=== PATIENT | male | born 1945 | race Caucasian/White ===

== ENCOUNTER 2016-08-31 15:45 | Inpatient (IN) | payer MEDICARE ==
[2016-08-31] MEDS ORDERED: IV VANCOMYCIN PER PHARMACY 1 EACH MISC MISCELLANE PRN (18:55)
[2016-08-31] MEDS ORDERED: IPRATROPIUM-ALBUTEROL 3 ML NEB INHALATION SCH (19:00)
[2016-08-31 19:31] LABS: Basophils # (A) 0.1 k/uL (0-0.2); Basophils % (A) 1 %; CH 34.8; CHCM 34.4; Eosinophils # (A) 0.4 k/uL (0-0.7); Eosinophils % (A) 5 %; HGB 14.4 gm/dL (13.0-17.5); Luc # (Auto) 0.18; Luc % (Auto) 2; Lymphocytes # (A) 1.3 k/uL (1.0-4.8); Lymphocytes % (A) 16 %; MCH 34.3 pg (25.0-35.0); MCHC 33.6 g/dL (31.0-37.0); Macrocytosis Slight; Mean Platelet Volume 7.4; Monocytes # (A) 0.6 k/uL (0-1.0); Monocytes % (A) 7 %; Neutrophils # (A) 5.5 k/uL (1.3-7.7); Neutrophils % (A) 69 %; RBC 4.21 m/uL (4.30-5.90); WBC (Perox) 8.06
[2016-08-31] MEDS: BUDESONIDE 0.5 MG/2 ML NEBU INHALATION SCH (19:51)
[2016-08-31] MEDS: IPRATROPIUM-ALBUTEROL 3 ML NEB INHALATION SCH ×2 (19:51→23:25)
[2016-08-31] MEDS ORDERED: VANCOMYCIN 2,250 MG in SODIUM CHLORIDE 0.9% 500 ML IVPB ONE (20:00)
[2016-08-31 20:01] LABS: Anion Gap 10 mmol/L; Blood Urea Nitrogen 9 mg/dL (9-20); Calcium 9.3 mg/dL (8.4-10.2); Carbon Dioxide 25 mmol/L (22-30); Chloride 104 mmol/L (98-107); Glucose 138 mg/dL (74-99); Non-African American GFR(MDRD) >60 (>60 ml/min/1.73 sqM); Potassium 4.2 mmol/L (3.5-5.1); Sodium 139 mmol/L (137-145)
[2016-08-31] MEDS: MONTELUKAST 10 MG TAB PO SCH (20:38)
[2016-08-31] MEDS: guaiFENesin 600 MG TABLET.ER PO SCH (22:27)
[2016-09-01] MEDS: Acetaminophen-Codeine 300-30mg TAB PO PRN ×2 (00:42→23:34)
[2016-09-01] MEDS: BUDESONIDE 0.5 MG/2 ML NEBU INHALATION SCH ×2 (07:15→20:00)
[2016-09-01] MEDS: IPRATROPIUM-ALBUTEROL 3 ML NEB INHALATION SCH ×4 (07:15→20:00)
[2016-09-01] MEDS: VANCOMYCIN 1,750 MG in SODIUM CHLORIDE 0.9% 250 ML IVPB SCH ×2 (09:23→20:34)
[2016-09-01] MEDS: guaiFENesin 600 MG TABLET.ER PO SCH ×2 (09:23→21:34)
--- NOTE | 2016-09-01 09:29 | XR ---
EXAMINATION TYPE: XR foot limited RT , 2 VIEWS DATE OF EXAM ORDERED: 09/01/2016 HISTORY: osteomyelitis 3rd toe. COMPARISON: None. FINDINGS: There is gross degenerative change in the right first MTP joint. The distal MTP has a post surgical appearance. There is gross destruction of the distal phalanx of the third digit with soft ti ssue swelling. No fracture is seen. There is a small plantar cranial spur. IMPRESSION: EVIDENCE CONSISTENT WITH OSTEOMYELITIS OF THE DISTAL PHALANX OF THE RIGHT THIRD DIGIT. 2. GROSS DEGENERATIVE AND POSSIBLE POSTSURGICAL CHANGE INVOLVING THE RIGHT FIRST MTP JOINT. 3. SMALL, PLANTAR CALCANEAL SPUR.
--- NOTE | 2016-09-01 10:55 | US ---
EXAMINATION TYPE: US venous doppler duplex LE RT DATE OF EXAM: 09/01/2016 10:21 AM COMPARISON: NONE CLINICAL HISTORY: swelling. Right leg edema SIDE PERFORMED: Right TECHNIQUE: The lower extremity deep venous system is examined utilizing real time linear array sonog monique with graded compression, doppler sonography and color-flow sonography. VESSELS IMAGED: External Iliac Vein (EIV) Common Femoral Vein Deep Femoral Vein Greater Saphenous Vein * Femoral Vein Popliteal Vein Small Saphenous Vein * Proximal Calf Veins (* superficial vessels) Right Leg: Negative for DVT IMPRESSION: 1. No diagnostic evidence of DVT.
--- NOTE | 2016-09-01 14:25 | P.GSCN ---
History of Present Illness History of present illness: 71-year-old gentleman, history of trauma to the right foot third toe about 3 weeks ago noticed some redness and bleeding at the heel of the bed he cleaned with hydrogen peroxide been to the [facility] and then patient has been transferred to [facility] had x-ray of the foot which showed osteomyelitis of the right foot third toe patient is an IV antibiotic Medical history no history of diabetes, no history of hypertension, history of sleep apnea Neck examination neck is supple no bruit appreciated Chest clear first and second sound normal Abdomen soft nontender Vascular examination brachial radial pulses are present femorals are 1+ posterior tibial dorsal pedal not palpable patient has a right foot third toe slight redness and some swelling noted Plan is infected right foot third toe with ostial mellitus patient will be seen by Dr. Xavier Gates we will BX dusty recommendation we will try with antibiotic and local wound care if patient need any surgical intervention we will proceed follow with you thank you very much Past Medical History Past Medical History: Asthma, Cancer, COPD, Hyperlipidemia, Prostate Disorder, Sleep Apnea/CPAP/BIPAP History of Any Multi-Drug Resistant Organisms: None Reported Past Anesthesia/Blood Transfusion Reactions: No Reported Reaction Past Psychological History: No Psychological Hx Reported Smoking Status: Former smoker - Past Family History Mother History Unknown: Yes Family Medical History: Cancer Medications and Allergies Home Medications Medication Instructions Recorded Confirmed Type Acetaminophen-Codeine 300-30mg 2 tab PO Q6H PRN 08/31/16 08/31/16 History [Tylenol #3] Albuterol Sulfate [Ventolin Hfa] 1 - 2 puff INHALATION RT-Q6H PRN 08/31/1608/31 History Aspirin 81 mg PO HS 08/31/16 08/31/16 History Atorvastatin [Lipitor] 10 mg PO HS 08/31/16 08/31/16 History Budesonide [Pulmicort] 0.5 mg INHALATION BID 08/31/16 08/31/16 History Fish Oil/Dha/Epa [Fish Oil 1,200 1 cap PO BID 08/31/16 08/31/16 History mg Fish Oil] Ipratropium-Albuterol Nebulize 3 ml INHALATION RT-QID 08/31/16 08/31/16 History [Duoneb 0.5 mg-3 mg/3 ml Soln] Montelukast [Singulair] 10 mg PO HS 08/31/16 08/31/16 History guaiFENesin [Mucinex] 1,200 mg PO BID 08/31/16 08/31/16 History Allergies Allergy/AdvReac Type Severity Reaction Status Date / Time bee venom protein (honey bee) Allergy Itching Verified 08/31/16 18:03 Surgical - Exam Vital Signs Temp Pulse Resp BP Pulse Ox 97.9 F 85 20 138/79 95 08/31/16 18:03 08/31/16 18:03 08/31/16 18:03 08/31/16 18:03 08/31/16 18:03 Results - Labs 08/31/16 19:12 08/31/16 19:12 Abnormal Lab Results - Last 24 Hours (Table) 08/31/16 08/31/16 Range/Units 19:12 19:12 RBC 4.21 L (4.30-5.90) m/uL MCV 102.0 H (80.0-100.0) fL Glucose 138 H (74-99) mg/dL Diabetes panel 08/31/16 Range/Units 19:12 Sodium 139 (137-145) mmol/L Potassium 4.2 (3.5-5.1) mmol/L Chloride 104 (98-107) mmol/L Carbon Dioxide 25 (22-30) mmol/L BUN 9 (9-20) mg/dL Creatinine 0.90 (0.66-1.25) mg/dL Glucose 138 H (74-99) mg/dL Calcium 9.3 (8.4-10.2) mg/dL Calcium panel 08/31/16 Range/Units 19:12 Calcium 9.3 (8.4-10.2) mg/dL Pituitary panel 08/31/16 Range/Units 19:12 Sodium 139 (137-145) mmol/L Potassium 4.2 (3.5-5.1) mmol/L Chloride 104 (98-107) mmol/L Carbon Dioxide 25 (22-30) mmol/L BUN 9 (9-20) mg/dL Creatinine 0.90 (0.66-1.25) mg/dL Glucose 138 H (74-99) mg/dL Calcium 9.3 (8.4-10.2) mg/dL Adrenal panel 08/31/16 Range/Units 19:12 Sodium 139 (137-145) mmol/L Potassium 4.2 (3.5-5.1) mmol/L Chloride 104 (98-107) mmol/L Carbon Dioxide 25 (22-30) mmol/L BUN 9 (9-20) mg/dL Creatinine 0.90 (0.66-1.25) mg/dL Glucose 138 H (74-99) mg/dL Calcium 9.3 (8.4-10.2) mg/dL
--- NOTE | 2016-09-01 17:23 | P.HPIM ---
History of Present Illness H&P Date: 09/01/16 Chief Complaint: Right third toe infection 71-year-old gentleman with peripheral neuropathy due to unknown etiology comes in to the hospital from [facility] after patient noted an infected third toe on his right foot patient went to [facility] a day prior to this evaluation patient underwent a computed tomography scan which was concerning for osteomyelitis Patient was recommended to go back to the hospital for further evaluation Patient was sent into the hospital was started on IV antibiotics with vancomycin per my recommendation Patient states that his only past medical history is COPD No fevers chills tenderness nausea vomiting diarrhea is reported Patient states that he does not have any crampy lower extremity pain, claudication Review of Systems All systems: negative (Noted in HPI) Past Medical History Past Medical History: Asthma, Cancer, COPD, Hyperlipidemia, Prostate Disorder, Sleep Apnea/CPAP/BIPAP History of Any Multi-Drug Resistant Organisms: None Reported Past Anesthesia/Blood Transfusion Reactions: No Reported Reaction Past Psychological History: No Psychological Hx Reported Smoking Status: Former smoker - Past Family History Mother History Unknown: Yes Family Medical History: Cancer Medications and Allergies Home Medications Medication Instructions Recorded Confirmed Type Acetaminophen-Codeine 300-30mg 2 tab PO Q6H PRN 08/31/16 08/31/16 History [Tylenol #3] Albuterol Sulfate [Ventolin Hfa] 1 - 2 puff INHALATION RT-Q6H PRN 08/31/1608/31 History Aspirin 81 mg PO HS 08/31/16 08/31/16 History Atorvastatin [Lipitor] 10 mg PO HS 08/31/16 08/31/16 History Budesonide [Pulmicort] 0.5 mg INHALATION BID 08/31/16 08/31/16 History Fish Oil/Dha/Epa [Fish Oil 1,200 1 cap PO BID 08/31/16 08/31/16 History mg Fish Oil] Ipratropium-Albuterol Nebulize 3 ml INHALATION RT-QID 08/31/16 08/31/16 History [Duoneb 0.5 mg-3 mg/3 ml Soln] Montelukast [Singulair] 10 mg PO HS 08/31/16 08/31/16 History guaiFENesin [Mucinex] 1,200 mg PO BID 08/31/16 08/31/16 History Allergies Allergy/AdvReac Type Severity Reaction Status Date / Time bee venom protein (honey bee) Allergy Itching Verified 08/31/16 18:03 Physical Exam Vitals: Vital Signs Temp Pulse Pulse Pulse Resp BP Pulse Ox 09/01/16 16:58 80 09/01/16 16:45 77 09/01/16 14:48 97.1 F L 82 18 147/77 97 09/01/16 12:27 82 09/01/16 12:15 80 09/01/16 08:00 79 18 09/01/16 07:30 80 09/01/16 07:15 76 09/01/16 07:00 97.9 F 79 18 142/87 97 08/31/16 23:47 72 08/31/16 23:25 80 08/31/16 23:00 97.5 F L 88 20 140/70 94 L 08/31/16 20:14 86 08/31/16 19:52 84 08/31/16 18:03 97.9 F 85 20 138/79 95 Intake and Output 09/01/16 09/01/16 09/01/16 06:59 14:59 22:59 Intake Total 100 480 Balance 100 480 Intake: Oral 100 480 Other: Voiding Method Toilet # Voids 3 # Bowel Movements 0 Physical exam Gen. appearance oriented 3 in no distress Neck is supple no JVD Lungs good air entry clear to auscultation no rhonchi or wheezing Heart S1-S2 heard regular rate and rhythm no murmurs appreciated Abdomen is soft nontender no organomegaly bowel sounds are intact Neurologically cranial nerves II-12 grossly intact no focal motor or sensory deficits noted Right leg 2+ pitting edema in her to palpation difficult to palpate DP and PT on the right lower extremity Right great toe is necrotic material nontender to palpation no significant pus is expressed Results CBC & Chem 7: 08/31/16 19:12 08/31/16 19:12 Labs: Abnormal Lab Results - Last 24 Hours (Table) 08/31/16 08/31/16 Range/Units 19:12 19:12 RBC 4.21 L (4.30-5.90) m/uL MCV 102.0 H (80.0-100.0) fL Glucose 138 H (74-99) mg/dL Thrombosis Risk Factor Assmnt - Choose All That Apply Any of the Below Risk Factors Present?: No Other Risk Factors: Yes Each Risk Factor Represents 2 Points: Age 61-74 years Other congenital or acquired thrombophilia - If yes, enter type in comment: No Thrombosis Risk Factor Assessment Total Risk Factor Score: 2 Thrombosis Risk Factor Assessment Level: Low Risk Assessment and Plan Plan: #1 osteomyelitis of the right toe #2. Neuropathy #3 obstructive sleep apnea #4 COPD #5 prostate hyperplasia #6 obesity Plan We'll have ID and vascular surgery on consult A vascular Doppler will be done to rule out a DVT in that lower extremity We'll discontinue the patient on IV vancomycin patient would need long-term antibiotic therapy blood cultures will be done We'll have a PICC line placed tomorrow DVT prophylaxis
[2016-09-01] MEDS: ENOXAPARIN 40 MG/0.4 ML SYRINGE SQ SCH (18:58)
[2016-09-01] MEDS: MONTELUKAST 10 MG TAB PO SCH (20:33)
[2016-09-02] MEDS: guaiFENesin 600 MG TABLET.ER PO SCH ×2 (07:58→20:07)
[2016-09-02] MEDS: ENOXAPARIN 40 MG/0.4 ML SYRINGE SQ SCH (07:58)
[2016-09-02] MEDS: VANCOMYCIN 1,750 MG in SODIUM CHLORIDE 0.9% 250 ML IVPB SCH ×2 (07:59→20:39)
[2016-09-02] MEDS: IPRATROPIUM-ALBUTEROL 3 ML NEB INHALATION SCH ×4 (08:18→22:56)
[2016-09-02] MEDS: BUDESONIDE 0.5 MG/2 ML NEBU INHALATION SCH ×2 (08:18→22:56)
[2016-09-02 08:19] LABS: Anion Gap 8 mmol/L; Blood Urea Nitrogen 8 mg/dL (9-20); Calcium 8.9 mg/dL (8.4-10.2); Carbon Dioxide 26 mmol/L (22-30); Chloride 107 mmol/L (98-107); Glucose 104 mg/dL (74-99); Non-African American GFR(MDRD) >60 (>60 ml/min/1.73 sqM); Potassium 4.3 mmol/L (3.5-5.1); Sodium 141 mmol/L (137-145)
[2016-09-02] MEDS: Acetaminophen-Codeine 300-30mg TAB PO PRN ×2 (14:13→22:42)
--- NOTE | 2016-09-02 18:13 | P.PN ---
Subjective 71-year-old gentleman with peripheral neuropathy due to unknown etiology comes in to the hospital from [facility] after patient noted an infected third toe on his right foot patient went to [facility] a day prior to this evaluation patient underwent a computed tomography scan which was concerning for osteomyelitis Patient was recommended to go back to the hospital for further evaluation Patient was sent into the hospital was started on IV antibiotics with vancomycin per my recommendation Patient states that his only past medical history is COPD No fevers chills tenderness nausea vomiting diarrhea is reported Patient states that he does not have any crampy lower extremity pain, claudication 09/02/2016 Patient denies having any fevers chills nausea vomiting chest pain difficulty breathing abdominal pain or diarrhea States the right lower ext is not tender Objective - Vital Signs Vital signs: Vital Signs Temp 98.2 F 09/02/16 15:00 Pulse 68 09/02/16 15:55 Resp 18 09/02/16 15:00 BP 134/74 09/02/16 15:00 Pulse Ox 96 09/02/16 15:00 Intake & Output 09/01/16 09/02/16 09/02/16 18:59 06:59 18:59 Intake Total 480 100 Balance 480 100 Weight 107.8 kg Intake: Oral 480 100 Other: Voiding Method Toilet Toilet # Voids 3 1 2 # Bowel Movements 0 0 - Exam Physical exam Physical exam Gen. appearance oriented 3 in no distress Neck is supple no JVD Lungs good air entry clear to auscultation no rhonchi or wheezing Heart S1-S2 heard regular rate and rhythm no murmurs appreciated Abdomen is soft nontender no organomegaly bowel sounds are intact Neurologically cranial nerves II-12 grossly intact no focal motor or sensory deficits noted Skin no abnormalities appreciated Right foot is wrapped - Labs CBC & Chem 7: 08/31/16 19:12 09/02/16 07:44 Labs: Abnormal Lab Results - Last 24 Hours (Table) 09/02/16 Range/Units 07:44 BUN 8 L (9-20) mg/dL Glucose 104 H (74-99) mg/dL Assessment and Plan Plan: #1 osteomyelitis of the right toe #2. Neuropathy #3 obstructive sleep apnea #4 COPD #5 prostate hyperplasia #6 obesity Plan DVT study is negative Continue with medi honey Continue wound care Continue with IV antibiotic We'll have a PICC line placed and discussed with ID regarding long-term wound care consideration for amputation will be made thereafter DVT prophylaxis
[2016-09-02] MEDS ORDERED: VANCOMYCIN TROUGH DUE 1 EACH MISC MISCELLANE ONE (20:00)
[2016-09-02] MEDS: MONTELUKAST 10 MG TAB PO SCH (20:07)
[2016-09-03] MEDS: ENOXAPARIN 40 MG/0.4 ML SYRINGE SQ SCH (07:50)
[2016-09-03] MEDS: VANCOMYCIN 1,750 MG in SODIUM CHLORIDE 0.9% 250 ML IVPB SCH (07:51)
[2016-09-03] MEDS: guaiFENesin 600 MG TABLET.ER PO SCH ×2 (07:51→21:17)
[2016-09-03 08:07] LABS: Anion Gap 11 mmol/L; Blood Urea Nitrogen 9 mg/dL (9-20); Carbon Dioxide 21 mmol/L (22-30); Chloride 110 mmol/L (98-107); Glucose 99 mg/dL (74-99); Non-African American GFR(MDRD) >60 (>60 ml/min/1.73 sqM); Potassium 4.5 mmol/L (3.5-5.1); Sodium 142 mmol/L (137-145)
[2016-09-03] MEDS: IPRATROPIUM-ALBUTEROL 3 ML NEB INHALATION SCH ×4 (08:29→19:48)
[2016-09-03] MEDS: BUDESONIDE 0.5 MG/2 ML NEBU INHALATION SCH ×2 (08:29→19:48)
[2016-09-03] MEDS: Acetaminophen-Codeine 300-30mg TAB PO PRN ×2 (14:52→22:28)
--- NOTE | 2016-09-03 15:39 | P.PN ---
Subjective 71-year-old gentleman with peripheral neuropathy due to unknown etiology comes in to the hospital from [facility] after patient noted an infected third toe on his right foot patient went to [facility] a day prior to this evaluation patient underwent a computed tomography scan which was concerning for osteomyelitis Patient was recommended to go back to the hospital for further evaluation Patient was sent into the hospital was started on IV antibiotics with vancomycin per my recommendation Patient states that his only past medical history is COPD No fevers chills tenderness nausea vomiting diarrhea is reported Patient states that he does not have any crampy lower extremity pain, claudication 09/02/2016 Patient denies having any fevers chills nausea vomiting chest pain difficulty breathing abdominal pain or diarrhea States the right lower ext is not tender 09/03/16 No fevers chills nausea vomiting diarrhea is reported No significant tenderness is reported Objective - Vital Signs Vital signs: Vital Signs Temp 96.6 F L 09/03/16 15:00 Pulse 81 09/03/16 15:00 Resp 16 09/03/16 15:00 BP 150/73 09/03/16 15:00 Pulse Ox 98 09/03/16 15:00 Intake & Output 09/02/16 09/03/16 09/03/16 18:59 06:59 18:59 Intake Total 102 Balance 102 Intake: Oral 102 Other: Voiding Method Toilet # Voids 2 2 2 # Bowel Movements 0 - Exam Physical exam Physical exam Gen. appearance oriented 3 in no distress Neck is supple no JVD Lungs good air entry clear to auscultation no rhonchi or wheezing Heart S1-S2 heard regular rate and rhythm no murmurs appreciated Abdomen is soft nontender no organomegaly bowel sounds are intact Neurologically cranial nerves II-12 grossly intact no focal motor or sensory deficits noted Skin no abnormalities appreciated Right foot is wrapped - Labs CBC & Chem 7: 08/31/16 19:12 09/03/16 07:21 Labs: Abnormal Lab Results - Last 24 Hours (Table) 09/03/16 Range/Units 07:21 Chloride 110 H (98-107) mmol/L Carbon Dioxide 21 L (22-30) mmol/L Microbiology - Last 24 Hours (Table) 09/01/16 17:52 Blood Culture - Preliminary Blood No Growth after 24 hours Assessment and Plan Plan: #1 osteomyelitis of the right toe #2. Neuropathy #3 obstructive sleep apnea #4 COPD #5 prostate hyperplasia #6 obesity Plan DVT study is negative Continue with medi honey Continue wound care Continue with IV antibiotic We'll have a PICC line placed and discussed with ID regarding long-term wound care consideration for amputation will be made thereafter DVT prophylaxis Likely discharge the patient home with home care tomorrow and follow-up with Dr. Gates in a week
[2016-09-03] MEDS: VANCOMYCIN 2,000 MG in SODIUM CHLORIDE 0.9% 500 ML IVPB SCH (21:00)
[2016-09-03] MEDS: MONTELUKAST 10 MG TAB PO SCH (21:17)
[2016-09-03] MEDS ORDERED: IPRATROPIUM-ALBUTEROL 3 ML NEB ONE (23:55)
[2016-09-04] MEDS: IPRATROPIUM-ALBUTEROL 3 ML NEB INHALATION SCH ×5 (03:55→20:51)
[2016-09-04] MEDS: BUDESONIDE 0.5 MG/2 ML NEBU INHALATION SCH ×2 (07:11→20:51)
[2016-09-04] MEDS: guaiFENesin 600 MG TABLET.ER PO SCH ×2 (07:55→21:30)
[2016-09-04] MEDS: VANCOMYCIN 2,000 MG in SODIUM CHLORIDE 0.9% 500 ML IVPB SCH ×2 (07:55→21:30)
[2016-09-04 09:47] LABS: Anion Gap 11 mmol/L; Blood Urea Nitrogen 10 mg/dL (9-20); Calcium 8.7 mg/dL (8.4-10.2); Carbon Dioxide 21 mmol/L (22-30); Chloride 109 mmol/L (98-107); Glucose 124 mg/dL (74-99); Non-African American GFR(MDRD) >60 (>60 ml/min/1.73 sqM); Potassium 4.5 mmol/L (3.5-5.1); Sodium 141 mmol/L (137-145)
[2016-09-04] MEDS ORDERED: LIDOCAINE 2% INJ 20 MG/ML SQ ONE (11:06)
--- NOTE | 2016-09-04 11:59 | PN ---
DATE OF SERVICE: 09/02/2016 This 71-year-old gentleman who was admitted with MTDD
--- NOTE | 2016-09-04 12:51 | IR ---
EXAMINATION TYPE: IR cvc insert >=5 years DATE OF EXAM: 09/04/2016 COMPARISON: NONE CLINICAL HISTORY: Infection Needs long-term intravenous access for antibiotics. PROCEDURE: After informed consent, the skin overlying the upper extremity vein was localized with ultrasound and noted to be compressible and patent. An ultrasound image was obtained and submitted on the patient' s chart. The overlying skin was prepped and draped and Lidocaine was used for local anesthesia. A s kin radha was made with a scalpel. Access was gained to the vein under ultrasound guidance with a 21 gauge needle and a 0.018 inch wire was advanced. Access site was dilated with Peel-Away sheath and c atheter tailored to the appropriate length and advanced such that the distal tip is at the cavoatrial junction. Spot image was obtained verifying placement. Catheter was fixed to the skin with suture and a sterile dressing was placed following hemostasis. Catheter was aspirated and flushed with sali ne. Patient was discharged in stable condition without complication. Maximal barrier technique is ut ilized. Ultrasound image is documented on the chart. Ultrasound used with sterile technique. Fluoro time and fluoroscopic images submitted to document procedure: Single intraoperative C-arm imag e documents the procedure, 0.3 minutes fluoroscopy time IMPRESSION: STATUS POST ULTRASOUND AND FLUOROSCOPIC GUIDED PICC LINE PLACEMENT, READY FOR USE. THIS PROCEDURE WAS PERFORMED BY THE UNDERSIGNED.
--- NOTE | 2016-09-04 13:32 | P.DS ---
Providers Date of admission: 08/31/16 17:55 Attending physician: Siddhartha Villarreal MD Consults: 08/31/16 18:52 Consult Physician Routine Consulting Provider: Xavier Gates Consult Reason/Comments: Osteomylitisis Do you want consulting provider notified?: Yes 08/31/16 19:19 Consult Physician Routine Consulting Provider: Fransico Kenyon Consult Reason/Comments: Osteomylitis Do you want consulting provider notified?: Yes Primary care physician: Stated None Hospital Course: 71-year-old gentleman with peripheral neuropathy due to unknown etiology comes in to the hospital from [facility] after patient noted an infected third toe on his right foot patient went to [facility] a day prior to this evaluation patient underwent a computed tomography scan which was concerning for osteomyelitis Patient was recommended to go back to the hospital for further evaluation Patient was sent into the hospital was started on IV antibiotics with vancomycin per my recommendation Patient states that his only past medical history is COPD No fevers chills tenderness nausea vomiting diarrhea is reported Patient states that he does not have any crampy lower extremity pain, claudication 09/02/2016 Patient denies having any fevers chills nausea vomiting chest pain difficulty breathing abdominal pain or diarrhea States the right lower ext is not tender 09/03/16 No fevers chills nausea vomiting diarrhea is reported No significant tenderness is reported - Exam Physical exam Physical exam Gen. appearance oriented 3 in no distress Neck is supple no JVD Lungs good air entry clear to auscultation no rhonchi or wheezing Heart S1-S2 heard regular rate and rhythm no murmurs appreciated Abdomen is soft nontender no organomegaly bowel sounds are intact Neurologically cranial nerves II-12 grossly intact no focal motor or sensory deficits noted Skin no abnormalities appreciated Right foot is wrapped Assessment and Plan Plan: #1 osteomyelitis of the right toe #2. Neuropathy #3 obstructive sleep apnea #4 COPD #5 prostate hyperplasia #6 obesity Continue with medi honey Continue wound care Continue with IV antibiotic vancomycin We'll have a PICC line placed and discussed with ID regarding long-term wound care consideration for amputation will be made thereafter DVT prophylaxis Likely discharge the patient home with home care tomorrow and follow-up with Dr. Gates in a week Plan - Discharge Summary New Discharge Prescriptions: New Vancomycin 2,000 mg IVPB Q12H vial Continue Ipratropium-Albuterol Nebulize [Duoneb 0.5 mg-3 mg/3 ml Soln] 3 ml INHALATION RT-QID Albuterol Sulfate [Ventolin HFA] 1 - 2 puff INHALATION RT-Q6H PRN PRN Reason: Shortness Of Breath Montelukast [Singulair] 10 mg PO HS Budesonide [Pulmicort] 0.5 mg INHALATION BID Atorvastatin [Lipitor] 10 mg PO HS Fish Oil/Dha/Epa [Fish Oil 1,200 mg Fish Oil] 1 cap PO BID Aspirin 81 mg PO HS Acetaminophen-Codeine 300-30mg [Tylenol w/codeine #3] 2 tab PO Q6H PRN PRN Reason: Pain guaiFENesin [Mucinex] 1,200 mg PO BID Discharge Medication List Acetaminophen-Codeine 300-30mg [Tylenol w/codeine #3] 2 tab PO Q6H PRN 08/31/16 [History] Albuterol Sulfate [Ventolin HFA] 1 - 2 puff INHALATION RT-Q6H PRN 08/31/16 [ History] Aspirin 81 mg PO HS 08/31/16 [History] Atorvastatin [Lipitor] 10 mg PO HS 08/31/16 [History] Budesonide [Pulmicort] 0.5 mg INHALATION BID 08/31/16 [History] Fish Oil/Dha/Epa [Fish Oil 1,200 mg Fish Oil] 1 cap PO BID 08/31/16 [History] Ipratropium-Albuterol Nebulize [Duoneb 0.5 mg-3 mg/3 ml Soln] 3 ml INHALATION RT -QID 08/31/16 [History] Montelukast [Singulair] 10 mg PO HS 08/31/16 [History] guaiFENesin [Mucinex] 1,200 mg PO BID 08/31/16 [History] Vancomycin 2,000 mg IVPB Q12H vial 09/04/16 [Rx] Follow up Appointment(s)/Referral(s): Xavier Gates MD [STAFF PHYSICIAN] - 1 Week Activity/Diet/Wound Care/Special Instructions: [facility]/#[phone] Discharge Disposition: HOME WITH HOME HEALTH SERVICES
[2016-09-04] MEDS: Acetaminophen-Codeine 300-30mg TAB PO PRN (14:03)
[2016-09-04] MEDS ORDERED: DIPH,PERTUS(ACELL)TETVAC-LF 0.5 ML VIAL IM ONE (14:59)
--- NOTE | 2016-09-04 14:59 | P.CONS ---
History of Present Illness - Reason for Consult Consult date: 09/04/16 Right toe infection - History of Present Illness This is a 71-year-old male who gives history that he ripped the toenail off his third right toe at least 3 or 4 weeks ago. He states he has been applying Neosporin and hydrogen peroxide to the area. He noticed a couple days ago that it started swelling and he had leg swelling and redness. He states that he started having pus draining from the site when he took his shoe off. He went initially to [facility] where he was treated in the emergency center and was given clindamycin and vancomycin and due to insurance reason he had to be transferred to [facility]. From there he was transferred to [facility]. He underwent a CAT scan that did show osteomyelitis of the right third toe at the distal phalanx and proximal medial aspect of the distal IPJ. Ultrasound of the right lower extremity was negative for DVT. He has been seen in consultation by Dr. Kenyon. He has had a PICC line placed as planned for discharge home. Patient does relate that he has severe peripheral neuropathy to the bilateral feet and underlying causes unknown. He has been treated on vancomycin. He has been afebrile with normal white count. GFR is greater than 60. Blood culture no growth at after 48 hours. Patient does state that he continues to have significant edema to his right leg from his foot to his knee. It appears that no wound cultures are available. Review of Systems All systems: negative Constitutional: Denies chills, Denies fever Eyes: denies blurred vision, denies pain Ears, nose, mouth and throat: Denies headache, Denies sore throat Cardiovascular: Denies chest pain, Denies shortness of breath Respiratory: Denies cough Gastrointestinal: Denies abdominal pain, Denies diarrhea, Denies nausea, Denies vomiting Musculoskeletal: Denies myalgias Integumentary: Reports foot/leg ulcers, Reports sores, Reports wounds, Denies pruritus, Denies rash Neurological: Denies numbness, Denies weakness Psychiatric: Denies anxiety, Denies depression Endocrine: Denies fatigue, Denies weight change Past Medical History Past Medical History: Asthma, Cancer, COPD, Hyperlipidemia, Prostate Disorder, Sleep Apnea/CPAP/BIPAP Additional Past Medical History / Comment(s): Skin cancer was removed from the left cheek, prostate cancer treated with seeds, bilateral lower extremity neuropathy History of Any Multi-Drug Resistant Organisms: None Reported Past Surgical History: Tonsillectomy Additional Past Surgical History / Comment(s): Colonoscopy with polypectomy, skin cancer excised from left cheek, surgery on the left great toe. Past Anesthesia/Blood Transfusion Reactions: No Reported Reaction Past Psychological History: No Psychological Hx Reported Smoking Status: Former smoker Additional Past Alcohol Use History / Comment(s): Patient was a smoker one half to 2 packs per day for 49 years and quit when he was 65 years of age. He denies any medical marijuana, marijuana, street drug use or alcohol use. He lives at home with his , sister, sister and [id number]. There are 2 dogs in the home and they do have outdoor cats and a PEG. Patient is up. Inside. He is retired from [employer]. - Past Family History Mother History Unknown: Yes Family Medical History: Cancer Medications and Allergies Home Medications Medication Instructions Recorded Confirmed Type Acetaminophen-Codeine 300-30mg 2 tab PO Q6H PRN 08/31/16 08/31/16 History [Tylenol w/codeine #3] Albuterol Sulfate [Ventolin HFA] 1 - 2 puff INHALATION RT-Q6H PRN 08/31/1608/31 History Aspirin 81 mg PO HS 08/31/16 08/31/16 History Atorvastatin [Lipitor] 10 mg PO HS 08/31/16 08/31/16 History Budesonide [Pulmicort] 0.5 mg INHALATION BID 08/31/16 08/31/16 History Fish Oil/Dha/Epa [Fish Oil 1,200 1 cap PO BID 08/31/16 08/31/16 History mg Fish Oil] Ipratropium-Albuterol Nebulize 3 ml INHALATION RT-QID 08/31/16 08/31/16 History [Duoneb 0.5 mg-3 mg/3 ml Soln] Montelukast [Singulair] 10 mg PO HS 08/31/16 08/31/16 History guaiFENesin [Mucinex] 1,200 mg PO BID 08/31/16 08/31/16 History Allergies Allergy/AdvReac Type Severity Reaction Status Date / Time bee venom protein (honey bee) Allergy Itching Verified 08/31/16 18:03 Physical Exam Vitals: Vital Signs Temp Pulse Pulse Resp BP Pulse Ox 09/04/16 11:39 82 09/04/16 11:30 88 09/04/16 07:28 86 09/04/16 07:15 80 95 09/04/16 07:00 98.1 F 69 16 142/72 99 09/03/16 22:37 97.2 F L 74 16 152/77 98 09/03/16 20:08 72 09/03/16 19:48 72 09/03/16 15:00 96.6 F L 81 16 150/73 98 09/03/16 13:23 76 09/03/16 13:15 78 Intake and Output 09/03/16 09/04/16 09/04/16 22:59 06:59 14:59 Other: # Voids 2 1 1 Gen: This is a 71-year-old male. He is seen sitting in a chair and appears to be in no acute distress. HEENT: Head is atraumatic, normocephalic. Pupils equal, round. Sclerae is anicteric. Conjunctiva pink. Mucous members of the mouth are moist. Dentition is in poor order. NECK: Supple. No JVD. No lymphadenopathy. No thyromegaly. LUNGS: Clear to auscultation. No wheezes or rhonchi. No intercostal retractions. HEART: Regular rate and rhythm. No murmur. ABDOMEN: Soft. Bowel sounds are present. No masses. No tenderness. EXTREMITIES: 2+ pedal edema to the left foot and 3+ edema to the right with edema extending up to the knee area. Patient has a swollen red right third toe with redness extending into the forefoot. NEUROLOGICAL: Patient is awake, alert and oriented x3. Cranial nerves 2 through 12 are grossly intact. Results Results: Laboratory Results WBC 8.0 k/uL (3.8-10.6) 08/31/16 19:12 RBC 4.21 m/uL (4.30-5.90) L 08/31/16 19:12 Hgb 14.4 gm/dL (13.0-17.5) 08/31/16 19:12 Hct 43.0 % (39.0-53.0) 08/31/16 19:12 MCV 102.0 fL (80.0-100.0) H 08/31/16 19:12 MCH 34.3 pg (25.0-35.0) 08/31/16 19:12 MCHC 33.6 g/dL (31.0-37.0) 08/31/16 19:12 RDW 13.0 % (11.5-15.5) 08/31/16 19:12 Plt Count 247 k/uL (150-450) 08/31/16 19:12 Neutrophils % 69 % 08/31/16 19:12 Lymphocytes % 16 % 08/31/16 19:12 Monocytes % 7 % 08/31/16 19:12 Eosinophils % 5 % 08/31/16 19:12 Basophils % 1 % 08/31/16 19:12 Neutrophils # 5.5 k/uL (1.3-7.7) 08/31/16 19:12 Lymphocytes # 1.3 k/uL (1.0-4.8) 08/31/16 19:12 Monocytes # 0.6 k/uL (0-1.0) 08/31/16 19:12 Eosinophils # 0.4 k/uL (0-0.7) 08/31/16 19:12 Basophils # 0.1 k/uL (0-0.2) 08/31/16 19:12 Macrocytosis Slight 08/31/16 19:12 Sodium 141 mmol/L (137-145) 09/04/16 08:06 Potassium 4.5 mmol/L (3.5-5.1) 09/04/16 08:06 Chloride 109 mmol/L (98-107) H 09/04/16 08:06 Carbon Dioxide 21 mmol/L (22-30) L 09/04/16 08:06 Anion Gap 11 mmol/L 09/04/16 08:06 BUN 10 mg/dL (9-20) 09/04/16 08:06 Creatinine 0.85 mg/dL (0.66-1.25) 09/04/16 08:06 Est GFR (MDRD) Af Amer >60 (>60 ml/min/1.73 sqM) 09/04/16 08:06 Est GFR (MDRD) Non-Af >60 (>60 ml/min/1.73 sqM) 09/04/16 08:06 Glucose 124 mg/dL (74-99) H 09/04/16 08:06 Calcium 8.7 mg/dL (8.4-10.2) 09/04/16 08:06 Vancomycin Trough 13.2 ug/mL 09/02/16 19:47 CBC & Chem 7: 08/31/16 19:12 09/04/16 08:06 Labs: Abnormal Lab Results - Last 24 Hours (Table) 09/04/16 Range/Units 08:06 Chloride 109 H (98-107) mmol/L Carbon Dioxide 21 L (22-30) mmol/L Glucose 124 H (74-99) mg/dL Microbiology - Last 24 Hours (Table) 09/01/16 17:52 Blood Culture - Preliminary Blood No Growth after 48 hours Assessment and Plan Plan: This is a 71-year-old male who presents to the hospital with osteomyelitis of the right third toe. Patient has been on vancomycin and has been afebrile without leukocytosis. Blood culture showing no growth after 48 hours. He had a PICC line placed today with anticipation he would be ready for discharge today. We will have community organization worker contact [facility] and [facility] to inquire about wound culture that may have been obtained. Patient does not recall anyone obtaining a culture however but he does state that he had purulent drainage. Tetanus status will be updated. Further recommendations as patient progresses. The above dictated assessment and findings were discussed with Dr. Gates. The impression and plan of care have been directed as dictated. Bernadine Fuentes nurse practitioner acting as scribe for Dr. Gates.
[2016-09-04] MEDS: MONTELUKAST 10 MG TAB PO SCH (21:31)
--- NOTE | 2016-09-04 21:37 | P.CON ---
Consult Note - . Consult date: 09/04/16 Assessment/Plan:: This is a 71-year-old male who gives history that he ripped the toenail off his third right toe at least 3 or 4 weeks ago. He states he has been applying Neosporin and hydrogen peroxide to the area. He noticed a couple days ago that it started swelling and he had leg swelling and redness. He states that he started having pus draining from the site when he took his shoe off. He went initially to [facility] where he was treated in the emergency center and was given clindamycin and vancomycin and due to insurance reason he had to be transferred to [facility]. From there he was transferred to [facility]. He underwent a CAT scan that did show osteomyelitis of the right third toe at the distal phalanx and proximal medial aspect of the distal IPJ. Ultrasound of the right lower extremity was negative for DVT. He has been seen in consultation by Dr. Kenyon. He has had a PICC line placed as planned for discharge home. Patient does relate that he has severe peripheral neuropathy to the bilateral feet and underlying causes unknown. He has been treated on vancomycin. He has been afebrile with normal white count. GFR is greater than 60. Blood culture no growth at after 48 hours. Patient does state that he continues to have significant edema to his right leg from his foot to his knee. It appears that no wound cultures are available. In that the toe is quite dry and exam. Please see the consult note is dictated by nurse practitioner Mrs. Bernadine Fuentes. Eduar the patient has a markedly deformed right foot third toe with evidence of osteomyelitis. The patient desires an attempt to salvage the toe when the foot and constantly a course of intravenous antibiotic therapy as planned. We' ll alter antibiotic therapy to ertapenem. Blood work will be performed for hemoglobin A1c. Baseline protein levels. Multivitamin with zinc will be added. Local wound care is with medical clinic for now. Follow-up in the wound center. Will need offloading shoe Course of outpatient intravenous antibiotic therapy is being requested. The patient lives quite far away and home IV antibiotic therapy as requested. I agree with evaluation, assessment and plan is dictated by nurse practitioner Mrs. Bernadine Fuentes.
[2016-09-04 22:18] LABS: C Reactive Protein 17.7 mg/L (<10.0)
[2016-09-05] MEDS: Acetaminophen-Codeine 300-30mg TAB PO PRN ×2 (00:07→13:24)
[2016-09-05] MEDS: IPRATROPIUM-ALBUTEROL 3 ML NEB INHALATION SCH ×4 (00:11→15:43)
[2016-09-05] MEDS ORDERED: VANCOMYCIN TROUGH DUE 1 EACH MISC MISCELLANE ONE (07:00)
[2016-09-05] MEDS: BUDESONIDE 0.5 MG/2 ML NEBU INHALATION SCH (07:04)
[2016-09-05] MEDS: guaiFENesin 600 MG TABLET.ER PO SCH (07:16)
[2016-09-05] MEDS: VANCOMYCIN 2,000 MG in SODIUM CHLORIDE 0.9% 500 ML IVPB SCH (08:12)
[2016-09-05 08:59] LABS: Anion Gap 7 mmol/L; Blood Urea Nitrogen 9 mg/dL (9-20); Calcium 8.7 mg/dL (8.4-10.2); Carbon Dioxide 27 mmol/L (22-30); Chloride 107 mmol/L (98-107); Glucose 99 mg/dL (74-99); Non-African American GFR(MDRD) >60 (>60 ml/min/1.73 sqM); Potassium 4.1 mmol/L (3.5-5.1); Sodium 141 mmol/L (137-145)
[2016-09-05] MEDS ORDERED: ERTAPENEM 1 GM in SODIUM CHLORIDE 0.9% 50 ML IVPB SCH (11:00)
[2016-09-05 16:08] VITALS: BP 150/75; PULSE 79; RESP 20; TEMP 98.9
--- NOTE | 2016-09-05 16:21 | P.DS ---
Providers Date of admission: 08/31/16 17:55 Attending physician: Siddhartha Villarreal MD Consults: 08/31/16 18:52 Consult Physician Routine Consulting Provider: Xavier Gates Consult Reason/Comments: Osteomylitisis Do you want consulting provider notified?: Yes 08/31/16 19:19 Consult Physician Routine Consulting Provider: Fransico Kenyon Consult Reason/Comments: Osteomylitis Do you want consulting provider notified?: Yes Primary care physician: Stated None Hospital Course: 71-year-old gentleman with peripheral neuropathy due to unknown etiology comes in to the hospital from [facility] after patient noted an infected third toe on his right foot patient went to [facility] a day prior to this evaluation patient underwent a computed tomography scan which was concerning for osteomyelitis Patient was recommended to go back to the hospital for further evaluation Patient was sent into the hospital was started on IV antibiotics with vancomycin per my recommendation Patient states that his only past medical history is COPD No fevers chills tenderness nausea vomiting diarrhea is reported Patient states that he does not have any crampy lower extremity pain, claudication 09/02/2016 Patient denies having any fevers chills nausea vomiting chest pain difficulty breathing abdominal pain or diarrhea States the right lower ext is not tender 09/03/16 No fevers chills nausea vomiting diarrhea is reported No significant tenderness is reported - Exam Physical exam Physical exam Gen. appearance oriented 3 in no distress Neck is supple no JVD Lungs good air entry clear to auscultation no rhonchi or wheezing Heart S1-S2 heard regular rate and rhythm no murmurs appreciated Abdomen is soft nontender no organomegaly bowel sounds are intact Neurologically cranial nerves II-12 grossly intact no focal motor or sensory deficits noted Skin no abnormalities appreciated Right foot is wrapped Assessment and Plan Plan: #1 osteomyelitis of the right toe #2. Neuropathy #3 obstructive sleep apnea #4 COPD #5 prostate hyperplasia #6 obesity Continue wound care Continue with IV antibiotics as recommended by ID Plan - Discharge Summary New Discharge Prescriptions: New Vancomycin 2,000 mg IVPB Q12H vial Continue Ipratropium-Albuterol Nebulize [Duoneb 0.5 mg-3 mg/3 ml Soln] 3 ml INHALATION RT-QID Albuterol Sulfate [Ventolin HFA] 1 - 2 puff INHALATION RT-Q6H PRN PRN Reason: Shortness Of Breath Montelukast [Singulair] 10 mg PO HS Budesonide [Pulmicort] 0.5 mg INHALATION BID Atorvastatin [Lipitor] 10 mg PO HS Fish Oil/Dha/Epa [Fish Oil 1,200 mg Fish Oil] 1 cap PO BID Aspirin 81 mg PO HS Acetaminophen-Codeine 300-30mg [Tylenol w/codeine #3] 2 tab PO Q6H PRN PRN Reason: Pain guaiFENesin [Mucinex] 1,200 mg PO BID Discharge Medication List Acetaminophen-Codeine 300-30mg [Tylenol w/codeine #3] 2 tab PO Q6H PRN 08/31/16 [History] Albuterol Sulfate [Ventolin HFA] 1 - 2 puff INHALATION RT-Q6H PRN 08/31/16 [ History] Aspirin 81 mg PO HS 08/31/16 [History] Atorvastatin [Lipitor] 10 mg PO HS 08/31/16 [History] Budesonide [Pulmicort] 0.5 mg INHALATION BID 08/31/16 [History] Fish Oil/Dha/Epa [Fish Oil 1,200 mg Fish Oil] 1 cap PO BID 08/31/16 [History] Ipratropium-Albuterol Nebulize [Duoneb 0.5 mg-3 mg/3 ml Soln] 3 ml INHALATION RT -QID 08/31/16 [History] Montelukast [Singulair] 10 mg PO HS 08/31/16 [History] guaiFENesin [Mucinex] 1,200 mg PO BID 08/31/16 [History] Vancomycin 2,000 mg IVPB Q12H vial 09/04/16 [Rx] Follow up Appointment(s)/Referral(s): [facility] [REFERRING] - [facility],. [NON-STAFF] - 09/19/16 9:45 am (with Dr Gates) Patient Instructions/Handouts: Osteomyelitis (DC) Activity/Diet/Wound Care/Special Instructions: [facility]/#[phone] [facility] #[phone] or #[phone] Low fat diet Walk with off loading shoe Discharge Disposition: HOME WITH HOME HEALTH SERVICES
--- NOTE | 2016-09-05 21:20 | P.PN ---
Subjective Principal diagnosis: Right toe infection This is a 71-year-old male who gives history that he ripped the toenail off his third right toe at least 3 or 4 weeks ago. He states he has been applying Neosporin and hydrogen peroxide to the area. He noticed a couple days ago that it started swelling and he had leg swelling and redness. He states that he started having pus draining from the site when he took his shoe off. He went initially to [facility] where he was treated in the emergency center and was given clindamycin and vancomycin and due to insurance reason he had to be transferred to [facility]. From there he was transferred to [facility]. He underwent a CAT scan that did show osteomyelitis of the right third toe at the distal phalanx and proximal medial aspect of the distal IPJ. Ultrasound of the right lower extremity was negative for DVT. He has been seen in consultation by Dr. Kenyon. He has had a PICC line placed as planned for discharge home. Patient does relate that he has severe peripheral neuropathy to the bilateral feet and underlying causes unknown. He has been treated on vancomycin. He has been afebrile with normal white count. GFR is greater than 60. Blood culture no growth at after 48 hours. Patient does state that he continues to have significant edema to his right leg from his foot to his knee. It appears that no wound cultures are available. Patient is not placed on ertapenem and showing improvement. PICC line is placed. Refer discharge home today. Objective - Vital Signs Vital signs: Vital Signs Temp 98.9 F 09/05/16 15:00 Pulse 78 09/05/16 15:54 Resp 20 09/05/16 15:00 BP 150/75 09/05/16 15:00 Pulse Ox 93 L 09/05/16 15:00 Intake & Output 09/05/16 09/05/16 09/06/16 06:59 18:59 06:59 Other: Voiding Method Toilet # Voids 2 4 - Exam Gen: This is a 71-year-old male. He is seen sitting in a chair and appears to be in no acute distress. HEENT: Head is atraumatic, normocephalic. Pupils equal, round. Sclerae is anicteric. Conjunctiva pink. Mucous members of the mouth are moist. Dentition is in poor order. NECK: Supple. No JVD. No lymphadenopathy. No thyromegaly. LUNGS: Clear to auscultation. No wheezes or rhonchi. No intercostal retractions. HEART: Regular rate and rhythm. No murmur. ABDOMEN: Soft. Bowel sounds are present. No masses. No tenderness. EXTREMITIES: 2+ pedal edema to the left foot and 3+ edema to the right with edema extending up to the knee area. Patient has a swollen red right third toe with redness extending into the forefoot. No open ulceration or drainage NEUROLOGICAL: Patient is awake, alert and oriented x3. - Labs CBC & Chem 7: 08/31/16 19:12 09/05/16 07:33 Labs: Abnormal Lab Results - Last 24 Hours (Table) 09/04/16 09/04/16 Range/Units 08:06 08:06 ESR 32 H (0-15) mm/hr C-Reactive Protein 17.7 H (<10.0) mg/L Microbiology - Last 24 Hours (Table) 09/01/16 17:52 Blood Culture - Preliminary Blood No Growth after 96 hours Laboratory Results WBC 8.0 k/uL (3.8-10.6) 08/31/16 19:12 RBC 4.21 m/uL (4.30-5.90) L 08/31/16 19:12 Hgb 14.4 gm/dL (13.0-17.5) 08/31/16 19:12 Hct 43.0 % (39.0-53.0) 08/31/16 19:12 MCV 102.0 fL (80.0-100.0) H 08/31/16 19:12 MCH 34.3 pg (25.0-35.0) 08/31/16 19:12 MCHC 33.6 g/dL (31.0-37.0) 08/31/16 19:12 RDW 13.0 % (11.5-15.5) 08/31/16 19:12 Plt Count 247 k/uL (150-450) 08/31/16 19:12 Neutrophils % 69 % 08/31/16 19:12 Lymphocytes % 16 % 08/31/16 19:12 Monocytes % 7 % 08/31/16 19:12 Eosinophils % 5 % 08/31/16 19:12 Basophils % 1 % 08/31/16 19:12 Neutrophils # 5.5 k/uL (1.3-7.7) 08/31/16 19:12 Lymphocytes # 1.3 k/uL (1.0-4.8) 08/31/16 19:12 Monocytes # 0.6 k/uL (0-1.0) 08/31/16 19:12 Eosinophils # 0.4 k/uL (0-0.7) 08/31/16 19:12 Basophils # 0.1 k/uL (0-0.2) 08/31/16 19:12 Macrocytosis Slight 08/31/16 19:12 ESR 32 mm/hr (0-15) H 09/04/16 08:06 Sodium 141 mmol/L (137-145) 09/05/16 07:33 Potassium 4.1 mmol/L (3.5-5.1) 09/05/16 07:33 Chloride 107 mmol/L (98-107) 09/05/16 07:33 Carbon Dioxide 27 mmol/L (22-30) 09/05/16 07:33 Anion Gap 7 mmol/L 09/05/16 07:33 BUN 9 mg/dL (9-20) 09/05/16 07:33 Creatinine 0.85 mg/dL (0.66-1.25) 09/05/16 07:33 Est GFR (MDRD) Af Amer >60 (>60 ml/min/1.73 sqM) 09/05/16 07:33 Est GFR (MDRD) Non-Af >60 (>60 ml/min/1.73 sqM) 09/05/16 07:33 Glucose 99 mg/dL (74-99) 09/05/16 07:[address] Glu mg/dL 97 mg/dL 09/05/16 07:33 Hemoglobin A1c 5.0 % (4.2-6.1) 09/05/16 07:33 Calcium 8.7 mg/dL (8.4-10.2) 09/05/16 07:33 C-Reactive Protein 17.7 mg/L (<10.0) H 09/04/16 08:06 Prealbumin 27 mg/dL (18-36) 09/04/16 08:06 Vancomycin Trough 20.8 ug/mL 09/05/16 07:33 Microbiology 09/01/16 17:52 Blood Blood Culture - Preliminary No Growth after 96 hours Assessment and Plan (1) Osteomyelitis Narrative/Plan: the patient has a markedly deformed right foot third toe with evidence of osteomyelitis. The patient desires an attempt to salvage the toe when the foot and constantly a course of intravenous antibiotic therapy as planned. We'll alter antibiotic therapy to ertapenem. Blood work will be performed for hemoglobin A1c was ordered and is normal Baseline protein levels. Multivitamin with zinc will be added. Local wound care is with medical [facility] for now. Follow-up in the wound center. Will need offloading shoe Course of outpatient intravenous antibiotic therapy is being requested. The patient lives quite far away and home IV antibiotic therapy as requested. He'll be discharged home today in follow-up in the wound center. We'll devise further offloading at that time. Status: Acute
== END 2016-09-05 16:40 | disposition home health service (06) | DRG 541 ==
LOC: 4MS4W 17:55
PROVIDERS: ADMIT Internal Medicine; ATTEND Internal Medicine
PROC: 3E0234Z Introduction of Serum, Toxoid and Vaccine into Muscle, Percutaneous Approach (ICD-10-PCS; principal; 2016-09-04 10:50)
PROC: 02HV33Z Insertion of Infusion Device into Superior Vena Cava, Percutaneous Approach (ICD-10-PCS; 2016-09-04 10:50)
DX: M86.8X7 Other osteomyelitis, ankle and foot (principal); G62.9 Polyneuropathy, unspecified; J44.9 Chronic obstructive pulmonary disease, unspecified; L08.9 Local infection of the skin and subcutaneous tissue, unspecified; E78.5 Hyperlipidemia, unspecified; G47.33 Obstructive sleep apnea (adult) (pediatric); Z23 Encounter for immunization; E66.9 Obesity, unspecified; N40.0 Benign prostatic hyperplasia without lower urinary tract symptoms; Z85.46 Personal history of malignant neoplasm of prostate; Z85.828 Personal history of other malignant neoplasm of skin; Z87.891 Personal history of nicotine dependence; Z79.82 Long term (current) use of aspirin; Z79.51 Long term (current) use of inhaled steroids; Z79.899 Other long term (current) drug therapy; Z91.030 Bee allergy status
CPT/HCPCS: 36569; 76937; 77001; 80048; 80202; 83036; 84134; 85025; 85652; 86140; 87040; 90715; 94640; 94760

== ENCOUNTER → 2016-10-03 | Outpatient (CLI) | payer MEDICARE | END | disposition home or self-care (01) | LOC: RADUSWWP 13:06 | PROVIDERS: ATTEND Surgery | DX: M79.605 Pain in left leg (principal) | CPT/HCPCS: 93923 ==

== ENCOUNTER 2017-06-25 19:40 | Inpatient (IN) | payer MEDICARE ==
--- NOTE | 2017-06-25 21:27 | XR ---
EXAMINATION TYPE: XR foot complete RT DATE OF EXAM: 06/25/2017 CLINICAL HISTORY: Ulcer to fourth toe with pain and swelling TECHNIQUE: Frontal, lateral, and oblique images of the right foot are obtained. COMPARISON: None FINDINGS: There is chronic deformity to first proximal phalanx and first metatarsal head with joint space widening redemonstrated. There is improved bone formation distal third toe at the distal phalan x level versus prior. There is new moderate soft tissue swelling of fourth toe. Seen best on oblique image there is new demineralization and cortical destruction involving the fourth distal phalanx. The re is new subluxation second metatarsophalangeal joint. Moderate-sized inferior calcaneal spurs incid entally redemonstrated. IMPRESSION: There is radiographic suspicion for acute osteomyelitis involving distal phalanx of four th toe.
[2017-06-25] MEDS ORDERED: ACETAMINOPHEN TAB 325 MG TAB PO STA (22:06)
[2017-06-25] MEDS ORDERED: VANCOMYCIN IV PER PHARMACY 1 EACH MISC MISCELLANE PRN (22:06)
[2017-06-25] MEDS ORDERED: VANCOMYCIN 1,750 MG in SODIUM CHLORIDE 0.9% 250 ML IVPB STA (22:11)
[2017-06-25 22:53] LABS: Basophils % (A) 0 %; Eosinophils % (A) 1 %; HCT 40.7 % (39.0-53.0); HGB 14.3 gm/dL (13.0-17.5); Lymphocytes # (A) 1.8 k/uL (1.0-4.8); Lymphocytes % (A) 23 %; MCH 34.1 pg (25.0-35.0); MCHC 35.2 g/dL (31.0-37.0); Mean Platelet Volume 7.8; Monocytes # (A) 0.6 k/uL (0-1.0); Monocytes % (A) 8 %; Neutrophils # (A) 5.4 k/uL (1.3-7.7); Neutrophils % (A) 66 %; Platelet Count 213 k/uL (150-450); RDW 13.3 % (11.5-15.5); WBC 8.2 k/uL (3.8-10.6)
--- NOTE | 2017-06-25 22:59 | ED ---
Lower Extremity Injury HPI - General Chief Complaint: Extremity Injury, Lower Stated Complaint: Infection Time Seen by Provider: 06/25/17 21:41 Source: patient Mode of arrival: ambulatory Limitations: no limitations - History of Present Illness Initial Comments: 72 years old male with history of chronic ulcers on his right foot comes in with new ulcer on his right foot. One of the toes, they noticed some posterior he was treated for osteomyelitis previously the hospital then he had MRSA treatment for 2 weeks outpatient now he has been without antibiotics about 2 weeks now also complaining about right leg swelling he denies any chest pain no shortness of breath no pleuritic chest pain. Denies any abdominal pain no frequency urgency dysuria no signs or symptoms of TIA or CVA - Related Data Home Medications Medication Instructions Recorded Confirmed Albuterol Sulfate [Ventolin HFA] 1 - 2 puff INHALATION RT-Q6H PRN 08/31/1606/25 Aspirin 81 mg PO HS 08/31/16 06/25/17 Atorvastatin [Lipitor] 10 mg PO HS 08/31/16 06/25/17 Budesonide [Pulmicort] 0.5 mg INHALATION RT-BID 08/31/16 06/25/17 Fish Oil/Dha/Epa [Fish Oil 1,200 1 cap PO BID 08/31/16 06/25/17 mg Fish Oil] Ipratropium-Albuterol Nebulize 3 ml INHALATION RT-QID 08/31/16 06/25/17 [Duoneb 0.5 mg-3 mg/3 ml Soln] Montelukast [Singulair] 10 mg PO HS 08/31/16 06/25/17 Multivitamin [Men's Multi-Vitamin] 1 tab PO DAILY 09/19/16 06/25/17 Allopurinol [Zyloprim] 100 mg PO DAILY 06/25/17 06/25/17 Cholecalciferol [Vitamin D3] 1,000 unit PO DAILY 06/25/17 06/25/17 HYDROcodone/APAP 5-325MG [[place] 1 tab PO Q6HR PRN 06/25/17 06/25/17 5-325] L.acidoph,Paracasei, B.lactis 1 cap PO DAILY 06/25/17 06/25/17 [Probiotic] Ubidecarenone [Co Q-10] 100 mg PO DAILY 06/25/17 06/25/17 Allergies Allergy/AdvReac Type Severity Reaction Status Date / Time bee venom protein (honey bee) Allergy Itching Verified 06/25/17 22:00 Review of Systems ROS Statement: Those systems with pertinent positive or pertinent negative responses have been documented in the HPI. ROS Other: All systems not noted in ROS Statement are negative. Past Medical History Past Medical History: Asthma, Cancer, COPD, Hyperlipidemia, Prostate Disorder, Sleep Apnea/CPAP/BIPAP Additional Past Medical History / Comment(s): Skin cancer was removed from the left cheek, prostate cancer treated with seeds, bilateral lower extremity neuropathy, History of Any Multi-Drug Resistant Organisms: None Reported, MRSA Date of last positivie culture/infection: 2017 MDRO Source:: ulcer Past Surgical History: Tonsillectomy Additional Past Surgical History / Comment(s): Colonoscopy with polypectomy, skin cancer excised from left cheek, surgery on the left great toe., Past Anesthesia/Blood Transfusion Reactions: No Reported Reaction Past Psychological History: No Psychological Hx Reported Smoking Status: Former smoker Past Alcohol Use History: Daily Past Drug Use History: None Reported - Past Family History Mother History Unknown: Yes Family Medical History: Cancer General Exam - General Exam Comments Initial Comments: General: The patient is awake and alert, in no distress, and does not appear acutely ill. Skin: Skin is warm and dry and no rashes or lesions are noted. Eye: Pupils are equal, round and reactive to light, extra-ocular movements are intact; there is normal conjunctiva bilaterally. Ears, nose, mouth and throat: There are moist mucous membranes and no oral lesions. Neck: The neck is supple, there is no tenderness or JVD. Cardiovascular: There is a regular rate and rhythm. No murmur, rub or gallop is appreciated. Respiratory: To auscultation bilateral, no wheezing no rhonchi no distress respiratory [place] noticed Gastrointestinal: Soft, non-distended, non-tender abdomen without masses or organomegaly noted. There is no rebound or guarding present. Bowel sounds are unremarkable. Back: There is no tenderness to palpation in the midline. There is no obvious deformity. Musculoskeletal: Right foot and toe, noticed also which is about to 1.2 cm in diameter noticed some pus at the opening, right lower extremity noticed generalized edema over the dorsal surface of the right foot around the ankles and the distal lower extremity pulses are palpable leg is warm and neurovascular compromise noticed Neurological: CN II-XII intact, Cranial nerves III through XII are intact. There are no obvious motor or sensory deficits. Coordination appears grossly intact. Speech is normal. Psychiatric: Cooperative, appropriate mood & affect, normal judgment. Limitations: no limitations Course Vital Signs 06/25/17 06/25/17 19:47 23:20 Temperature 97.9 F 99.2 F Pulse Rate 91 80 Respiratory 18 18 Rate Blood Pressure 174/84 151/85 O2 Sat by Pulse 97 96 Oximetry Him EKG is normal sinus rhythm ventricular rate is 85 VA interval is 174 QRS duration is 98 QT/QTc is 366/435 review of this EKG does not reveal any ST elevation or ST depression And sitting his osteomyelitis patient be considered be admitted to Dr. Matta service will consult Dr. Ornelas or start him on Vanco in the ER, ultrasound of the leg has been ordered to rule out any DVTs ultrasound report is pending at this point Medical Decision Making - Lab Data Result diagrams: 06/25/17 22:24 06/25/17 22:24 Lab Results 06/25/17 06/25/17 06/25/17 Range/Units 22:24 22:24 22:24 WBC 8.2 (3.8-10.6) k/uL RBC 4.20 L (4.30-5.90) m/uL Hgb 14.3 (13.0-17.5) gm/dL Hct 40.7 (39.0-53.0) % MCV 97.0 (80.0-100.0) fL MCH 34.1 (25.0-35.0) pg MCHC 35.2 (31.0-37.0) g/dL RDW 13.3 (11.5-15.5) % Plt Count 213 (150-450) k/uL Neutrophils % 66 % Lymphocytes % 23 % Monocytes % 8 % Eosinophils % 1 % Basophils % 0 % Neutrophils # 5.4 (1.3-7.7) k/uL Lymphocytes # 1.8 (1.0-4.8) k/uL Monocytes # 0.6 (0-1.0) k/uL Eosinophils # 0.0 (0-0.7) k/uL Basophils # 0.0 (0-0.2) k/uL PT (9.0-12.0) sec INR (<1.2) APTT (22.0-30.0) sec Sodium 144 (137-145) mmol/L Potassium 3.9 (3.5-5.1) mmol/L Chloride 107 (98-107) mmol/L Carbon Dioxide 24 (22-30) mmol/L Anion Gap 13 mmol/L BUN 5 L (9-20) mg/dL Creatinine 0.80 (0.66-1.25) mg/dL Est GFR (CKD-EPI)AfAm >90 (>60 ml/min/1.73 sqM) Est GFR (CKD-EPI)NonAf 90 (>60 ml/min/1.73 sqM) Glucose 93 (74-99) mg/dL Plasma Lactic Acid [place] 1.4 (0.7-2.0) mmol/L Calcium 9.0 (8.4-10.2) mg/dL Total Bilirubin 0.9 (0.2-1.3) mg/dL AST 36 (17-59) U/L ALT 36 (21-72) U/L Alkaline Phosphatase 56 (38-126) U/L Total Protein 6.5 (6.3-8.2) g/dL Albumin 3.8 (3.5-5.0) g/dL Urine Color Urine Appearance (Clear) Urine pH (5.0-8.0) Ur Specific [place] (1.001-1.035) Urine Protein (Negative) Urine Glucose (UA) (Negative) Urine Ketones (Negative) Urine Blood (Negative) Urine Nitrite (Negative) Urine Bilirubin (Negative) Urine Urobilinogen (<2.0) mg/dL Ur Leukocyte Esterase (Negative) 06/25/17 06/25/17 Range/Units 22:24 23:15 WBC (3.8-10.6) k/uL RBC (4.30-5.90) m/uL Hgb (13.0-17.5) gm/dL Hct (39.0-53.0) % MCV (80.0-100.0) fL MCH (25.0-35.0) pg MCHC (31.0-37.0) g/dL RDW (11.5-15.5) % Plt Count (150-450) k/uL Neutrophils % % Lymphocytes % % Monocytes % % Eosinophils % % Basophils % % Neutrophils # (1.3-7.7) k/uL Lymphocytes # (1.0-4.8) k/uL Monocytes # (0-1.0) k/uL Eosinophils # (0-0.7) k/uL Basophils # (0-0.2) k/uL PT 9.8 (9.0-12.0) sec INR 1.0 (<1.2) APTT 24.9 (22.0-30.0) sec Sodium (137-145) mmol/L Potassium (3.5-5.1) mmol/L Chloride (98-107) mmol/L Carbon Dioxide (22-30) mmol/L Anion Gap mmol/L BUN (9-20) mg/dL Creatinine (0.66-1.25) mg/dL Est GFR (CKD-EPI)AfAm (>60 ml/min/1.73 sqM) Est GFR (CKD-EPI)NonAf (>60 ml/min/1.73 sqM) Glucose (74-99) mg/dL Plasma Lactic Acid [place] (0.7-2.0) mmol/L Calcium (8.4-10.2) mg/dL Total Bilirubin (0.2-1.3) mg/dL AST (17-59) U/L ALT (21-72) U/L Alkaline Phosphatase (38-126) U/L Total Protein (6.3-8.2) g/dL Albumin (3.5-5.0) g/dL Urine Color Light Yellow Urine Appearance Clear (Clear) Urine pH 5.0 (5.0-8.0) Ur Specific [place] 1.003 (1.001-1.035) Urine Protein Negative (Negative) Urine Glucose (UA) Negative (Negative) Urine Ketones Negative (Negative) Urine Blood Negative (Negative) Urine Nitrite Negative (Negative) Urine Bilirubin Negative (Negative) Urine Urobilinogen <2.0 (<2.0) mg/dL Ur Leukocyte Esterase Negative (Negative) Disposition Clinical Impression: Osteomyelitis Disposition: ADMITTED IP TO THIS [facility] Condition: Good Referrals: Carlos Alberto Rubalcava, MARGAUX [Primary Care Provider] - 1-2 days
[2017-06-25 23:00] LABS: ALT 36 U/L (21-72); AST 36 U/L (17-59); Albumin 3.8 g/dL (3.5-5.0); Alkaline Phosphatase 56 U/L (38-126); Anion Gap 13 mmol/L; Blood Urea Nitrogen 5 mg/dL (9-20); Carbon Dioxide 24 mmol/L (22-30); Chloride 107 mmol/L (98-107); Glucose 93 mg/dL (74-99); Potassium 3.9 mmol/L (3.5-5.1); Sodium 144 mmol/L (137-145); Total Bilirubin 0.9 mg/dL (0.2-1.3); Total Protein 6.5 g/dL (6.3-8.2)
[2017-06-25 23:03] LABS: Partial Thromboplastin Time 24.9 sec (22.0-30.0); Prothrombin Time 9.8 sec (9.0-12.0)
[2017-06-25 23:28] LABS: Appearance,Urine Clear (Clear); Bilirubin,Urine Negative (Negative); Blood,Urine Negative (Negative); Color,Urine Light Yellow; Glucose,Urine (UA) Negative (Negative); Ketones,Urine Negative (Negative); Leukocyte Esterase,Urine Negative (Negative); Nitrite,Urine Negative (Negative); Protein,Urine Negative (Negative); Specific Gravity,Urine 1.003 (1.001-1.035); Urobilinogen,Urine <2.0 mg/dL (<2.0)
[2017-06-25] MEDS ORDERED: MORPHINE SULFATE 4 MG/ML SYRINGE IV PRN (23:55)
[2017-06-25] MEDS ORDERED: ACETAMINOPHEN TAB 325 MG TAB PO PRN (23:55)
[2017-06-25] MEDS ORDERED: ONDANSETRON 4 MG/2 ML VIAL IVP PRN (23:55)
[2017-06-25] MEDS ORDERED: NALOXONE 0.4 MG/ML 1 ML VIAL IV PRN (23:55)
[2017-06-25] MEDS ORDERED: ALBUTEROL NEBULIZED 2.5 MG/3 ML INHALATION PRN (23:58)
--- NOTE | 2017-06-26 00:01 | US ---
EXAMINATION TYPE: US venous doppler duplex LE RT DATE OF EXAM: 06/25/2017 11:52 PM COMPARISON: NONE CLINICAL HISTORY: Pain. Right leg edema. SIDE PERFORMED: Right TECHNIQUE: The lower extremity deep venous system is examined utilizing real time linear array sonog monique with graded compression, doppler sonography and color-flow sonography. VESSELS IMAGED: External Iliac Vein (EIV) Common Femoral Vein Deep Femoral Vein Greater Saphenous Vein * Femoral Vein Popliteal Vein Small Saphenous Vein * Proximal Calf Veins (* superficial vessels) Right Leg: Negative for DVT Conclusion No evidence of DVT right leg.
[2017-06-26 01:43] VITALS: BMI 34.9
[2017-06-26] MEDS: BUDESONIDE 0.5 MG/2 ML NEBU INHALATION SCH ×2 (07:04→19:55)
[2017-06-26] MEDS: IPRATROPIUM-ALBUTEROL 3 ML NEB INHALATION SCH ×4 (07:04→19:55)
[2017-06-26] MEDS: VANCOMYCIN 1,750 MG in SODIUM CHLORIDE 0.9% 250 ML IVPB SCH ×2 (08:48→21:33)
[2017-06-26] MEDS: LACTOBACILLUS ACIDOPH & BULGAR 1 EACH PACKET PO SCH (08:49)
[2017-06-26] MEDS: ALLOPURINOL 100 MG TAB PO SCH (08:49)
[2017-06-26] MEDS: CHOLECALCIFEROL 1,000 UNIT TAB PO SCH (08:49)
[2017-06-26] MEDS: MULTIVITAMINS, THERA 1 EACH TAB PO SCH (08:49)
[2017-06-26] MEDS ORDERED: NON-FORMULARY DRUG (Fish Oil/Dha/Epa [Fish Oil 1,200 Mg Fish Oil] 1 CAP) PO SCH (09:00)
[2017-06-26] MEDS ORDERED: NON-FORMULARY DRUG (Ubidecarenone [Co Q-10] 100 MG) PO SCH (09:00)
[2017-06-26] MEDS ORDERED: MORPHINE ORAL SOLN 10 MG/5 ML CUP PO PRN (10:15)
--- NOTE | 2017-06-26 17:26 | P.HPIM ---
History of Present Illness 72 years old male with history of chronic ulcers on his right foot comes in with new ulcer on his right foot, fourth toe worsening ulcer with pain. Patient was treated for osteomyelitis previously treated in the hospital then he had MRSA treatment for 2 weeks outpatient now he has been without antibiotics about 2 weeks now also complaining about right leg swelling he denies any chest pain no shortness of breath no pleuritic chest pain. Denies any abdominal pain no frequency urgency dysuria no signs or symptoms of TIA or CVA. Patient has seen vascular surgery as an outpatient was told doesn't have any issues with his peripheral vasculature. Patient had x-ray which is suspicious for acute osteomyelitis of the second toe because of which patient was admitted with IV vancomycin infectious disease was consulted Review of Systems REVIEW OF SYSTEMS: CONSTITUTIONAL: No fever, no malaise, no fatigue. HEENT: No recent visual problems or hearing problems. Denied any sore throat. CARDIOVASCULAR: No chest pain, orthopnea, PND, no palpitations, no syncope. PULMONARY: No shortness of breath, no cough, no hemoptysis. GASTROINTESTINAL: No diarrhea, no nausea, no vomiting, no abdominal pain. Normoactive bowel sounds. NEUROLOGICAL: No headaches, no weakness, no numbness. HEMATOLOGICAL: Denies any bleeding or petechiae. GENITOURINARY: Denies any burning micturition, frequency, or urgency. MUSCULOSKELETAL/RHEUMATOLOGICAL: Denies any joint pain, swelling, or any muscle pain. ENDOCRINE: Denies any polyuria or polydipsia. The rest of the 14-point review of systems is negative. Past Medical History Past Medical History: Asthma, Cancer, COPD, Hyperlipidemia, Prostate Disorder, Sleep Apnea/CPAP/BIPAP Additional Past Medical History / Comment(s): Skin cancer was removed from the left cheek, prostate cancer treated with seeds, bilateral lower extremity neuropathy, History of Any Multi-Drug Resistant Organisms: None Reported Date of last positivie culture/infection: None MDRO Source:: None Past Surgical History: Tonsillectomy Additional Past Surgical History / Comment(s): Colonoscopy with polypectomy, skin cancer excised from left cheek, surgery on the right great toe., Past Anesthesia/Blood Transfusion Reactions: No Reported Reaction Past Psychological History: No Psychological Hx Reported Smoking Status: Former smoker Past Alcohol Use History: Daily Additional Past Alcohol Use History / Comment(s): Patient was a smoker one half to 2 packs per day for 49 years and quit when he was 65 years of age. He denies any medical marijuana, marijuana, street drug use or alcohol use. He lives at home with his , sister, sister and [id number]. There are 2 dogs in the home and they do have outdoor cats and a PEG. Patient is up. Inside. He is retired from [employer]. Past Drug Use History: None Reported - Past Family History Mother History Unknown: Yes Family Medical History: Cancer Medications and Allergies Home Medications Medication Instructions Recorded Confirmed Type Albuterol Sulfate [Ventolin HFA] 1 - 2 puff INHALATION RT-Q6H PRN 08/31/1606/25 History Aspirin 81 mg PO HS 08/31/16 06/25/17 History Atorvastatin [Lipitor] 10 mg PO HS 08/31/16 06/25/17 History Budesonide [Pulmicort] 0.5 mg INHALATION RT-BID 08/31/16 06/25/17 History Fish Oil/Dha/Epa [Fish Oil 1,200 1 cap PO BID 08/31/16 06/25/17 History mg Fish Oil] Ipratropium-Albuterol Nebulize 3 ml INHALATION RT-QID 08/31/16 06/25/17 History [Duoneb 0.5 mg-3 mg/3 ml Soln] Montelukast [Singulair] 10 mg PO HS 08/31/16 06/25/17 History Multivitamin [Men's Multi-Vitamin] 1 tab PO DAILY 09/19/16 06/25/17 History Allopurinol [Zyloprim] 100 mg PO DAILY 06/25/17 06/25/17 History Cholecalciferol [Vitamin D3] 1,000 unit PO DAILY 06/25/17 06/25/17 History HYDROcodone/APAP 5-325MG [[place] 1 tab PO Q6HR PRN 06/25/17 06/25/17 History 5-325] L.acidoph,Paracasei, B.lactis 1 cap PO DAILY 06/25/17 06/25/17 History [Probiotic] Ubidecarenone [Co Q-10] 100 mg PO DAILY 06/25/17 06/25/17 History Allergies Allergy/AdvReac Type Severity Reaction Status Date / Time bee venom protein (honey bee) Allergy Itching Verified 06/25/17 22:00 Physical Exam Vitals: Vital Signs Temp Pulse Pulse Pulse Resp BP BP 06/26/17 15:48 76 06/26/17 15:33 72 06/26/17 15:05 97.9 F 98 17 138/68 06/26/17 11:37 80 06/26/17 11:27 76 06/26/17 08:57 17 06/26/17 08:42 97.8 F 99 17 140/67 06/26/17 07:24 74 06/26/17 07:09 80 06/26/17 01:49 76 06/26/17 01:36 76 06/26/17 01:05 97.6 F 88 16 145/69 06/26/17 00:00 97.6 F 82 18 140/78 06/25/17 23:20 99.2 F 80 18 151/85 06/25/17 19:47 97.9 F 91 18 174/84 Pulse Ox 06/26/17 15:48 06/26/17 15:33 06/26/17 15:05 97 06/26/17 11:37 06/26/17 11:27 06/26/17 08:57 06/26/17 08:42 96 06/26/17 07:24 06/26/17 07:09 06/26/17 01:49 06/26/17 01:36 06/26/17 01:05 94 L 06/26/17 00:00 97 06/25/17 23:20 96 06/25/17 19:47 97 Intake and Output 06/26/17 06/26/17 06/26/17 06:59 14:59 22:59 Intake Total 1000 Balance 1000 Intake: Intake, IV Titration 1000 Amount Vancomycin 1,750 mg In 1000 Sodium Chloride 0.9% 250 ml @ 125 mls/hr IVPB Q12H [facility] Rx#:[id number] Other: Voiding Method Toilet # Voids 3 1 Weight 104.326 kg PHYSICAL EXAMINATION: GENERAL: The patient is alert and oriented x3, not in any acute distress. Well developed, well nourished. HEENT: Pupils are round and equally reacting to light. EOMI. No scleral icterus. No conjunctival pallor. Normocephalic, atraumatic. No pharyngeal erythema. No thyromegaly. CARDIOVASCULAR: S1 and S2 present. No murmurs, rubs, or gallops. PULMONARY: Chest is clear to auscultation, no wheezing or crackles. ABDOMEN: Soft, nontender, nondistended, normoactive bowel sounds. No palpable organomegaly. MUSCULOSKELETAL: No joint swelling or deformity. EXTREMITIES: No cyanosis, clubbing, or pedal edema. NEUROLOGICAL: Gross neurological examination did not reveal any focal deficits. SKIN: There is a stage 3-4 ulcer the right fourth toe was trouble other small ulcerations does have good pulses in bilateral lower extremities Results CBC & Chem 7: 06/25/17 22:24 06/25/17 22:24 Labs: Abnormal Lab Results - Last 24 Hours (Table) 06/25/17 06/25/17 Range/Units 22:24 22:24 RBC 4.20 L (4.30-5.90) m/uL BUN 5 L (9-20) mg/dL Microbiology - Last 24 Hours (Table) 06/25/17 23:15 Gram Stain - Preliminary Foot - Right Wound Culture - Preliminary 06/25/17 23:15 Urine Culture - Preliminary Urine,Voided Thrombosis Risk Factor Assmnt - Choose All That Apply Each Factor Represents 1 point: Obesity (BMI >25) Each Risk Factor Represents 2 Points: Age 61-74 years Thrombosis Risk Factor Assessment Total Risk Factor Score: 3 Thrombosis Risk Factor Assessment Level: Moderate Risk Assessment and Plan Plan: -Possible osteomyelitis and infected ulcer of the right fourth toe: Patient is on IV vancomycin and infectious disease was consulted there is no significant purulent drainage, blood cultures were obtained. Patient is not diabetic -Hyperlipidemia -Asthma without any acute exacerbation and patient will continued on inhaled steroids -Sleep apnea continue CPAP machine -Obesity: Dietary counseling was provided -Benign prostatic hypertrophy
[2017-06-26] MEDS ORDERED: ATORVASTATIN 10 MG TAB PO SCH (21:00)
[2017-06-26] MEDS: MONTELUKAST 10 MG TAB PO SCH (21:34)
[2017-06-26] MEDS: ASPIRIN 81 MG PO SCH (21:34)
[2017-06-26] MEDS: HYDROcodone/APAP 5-325MG 1 EACH TAB PO PRN (21:36)
[2017-06-26 23:57] VITALS: RESP 16
--- NOTE | 2017-06-27 00:35 | P.CONS ---
History of Present Illness - Reason for Consult Consult date: 06/26/17 - Chief Complaint foot infection - History of Present Illness 72 year old male know to the service from the osteomyelitis of the 3rd toe of the right foot last summer. Patient was aware of an ulcer to the toe for the last many weeks and was applying neosporin but it did not resolve, was much worse so sought care at local hospital and now transferred to our care. Patient worried that similar problem is now occurring. Denies fever but does feel poorly , has neuropathy of undetermined etiology and has little sensation to his feet. Has difficulty inspecting the feet.Duplex performed and no clot was seen. Review of Systems HEENT:Denies headache or acute visual change. Denies sinus or mouth discomforts. Denies neck stiffness or pain. Denies significant oral cavity pain. Denies difficulty on swallowing. Lungs: Denies new significant shortness of breath, cough, sputum production, or hemoptysis. Cardiovascular: Denies new significant shortness of breath, chest pain, chest wall pain, orthopnea, dyspnea on exertion, syncope Gastrointestinal:Denies nausea, vomiting, diarrhea, constipation, hematemesis, melena, hematochezia. No no significant change of bowel habit noticed. Musculoskeletal: denies significant myalgias or arthralgias. No new joint swelling. Denies new back pain. Skin: ulcer of right 4th toe as per HPI Neuro: Denies headache or visual change. Denies any new onset weakness or difficulty with ambulation. Denies falls or seizures. Psychiatric:Denies anxiety or depression. Endocrine: Denies significant fatigue, denies significant weight loss or weight gain. Past Medical History Past Medical History: Asthma, Cancer, COPD, Hyperlipidemia, Prostate Disorder, Sleep Apnea/CPAP/BIPAP Additional Past Medical History / Comment(s): Skin cancer was removed from the left cheek, prostate cancer treated with seeds, bilateral lower extremity neuropathy, History of Any Multi-Drug Resistant Organisms: None Reported Year Discovered:: None MDRO Source:: None Past Surgical History: Tonsillectomy Additional Past Surgical History / Comment(s): Colonoscopy with polypectomy, skin cancer excised from left cheek, surgery on the right great toe., Past Anesthesia/Blood Transfusion Reactions: No Reported Reaction Past Psychological History: No Psychological Hx Reported Smoking Status: Former smoker Past Alcohol Use History: Daily Additional Past Alcohol Use History / Comment(s): Patient was a smoker one half to 2 packs per day for 49 years and quit when he was 65 years of age. He denies any medical marijuana, marijuana, street drug use or alcohol use. He lives at home with his , sister, sister and [id number]. There are 2 dogs in the home and they do have outdoor cats and a PEG. Patient is up. Inside. He is retired from [employer]. Past Drug Use History: None Reported - Past Family History Mother History Unknown: Yes Family Medical History: Cancer Medications and Allergies Home Medications and Allergies Comment(s): Current Medications Acetaminophen (Tylenol Tab) 650 mg PO Q6HR PRN PRN Reason: Mild Pain or Fever > 100.5 Hydrocodone Bitart/Acetaminophen ([place] 5-325) 1 each PO Q6HR PRN PRN Reason: moderate Pain Last Admin: 06/26/17 21:36 Dose: 1 each Albuterol Sulfate (Ventolin Nebulized) 2.5 mg INHALATION RT-Q6H PRN PRN Reason: Shortness Of Breath Last Admin: 06/26/17 01:36 Dose: 2.5 mg Albuterol/Ipratropium (Duoneb 0.5 Mg-3 Mg/3 Ml Soln) 3 ml INHALATION RT-QID [facility] Last Admin: 06/26/17 19:55 Dose: 3 ml Allopurinol (Zyloprim) 100 mg PO DAILY [facility] Last Admin: 06/26/17 08:49 Dose: 100 mg Aspirin (Aspirin) 81 mg PO [facility] Last Admin: 06/26/17 21:34 Dose: 81 mg Atorvastatin Calcium (Lipitor) 10 mg PO [facility] Last Admin: 06/26/17 21:34 Dose: 10 mg Budesonide (Pulmicort) 0.5 mg INHALATION RT-BID [facility] Last Admin: 06/26/17 19:55 Dose: 0.5 mg Cholecalciferol (Vitamin D3) 1,000 unit PO DAILY [facility] Last Admin: 06/26/17 08:49 Dose: 1,000 unit Vancomycin HCl 1,750 mg/ (Sodium Chloride) 250 mls @ 125 mls/hr IVPB Q12H [facility] Last Admin: 06/26/17 21:33 Dose: 125 mls/hr Lactobacillus Acidoph/Bulgaricus (Lactinex) 1 each PO DAILY [facility] Last Admin: 06/26/17 08:49 Dose: 1 each Montelukast Sodium (Singulair) 10 mg PO [facility] Last Admin: 06/26/17 21:34 Dose: 10 mg Morphine Sulfate (Morphine Oral Grace 2mg/Ml) 12 mg PO Q4HR PRN PRN Reason: Severe Pain Multivitamins (Theragran) 1 each PO DAILY [facility] Last Admin: 06/26/17 08:49 Dose: 1 each Naloxone HCl (Narcan) 0.2 mg IV Q2M PRN PRN Reason: Opioid Reversal Ondansetron HCl (Zofran) 4 mg IVP Q8HR PRN PRN Reason: Nausea And Vomiting Home Medications Medication Instructions Recorded Confirmed Type Albuterol Sulfate [Ventolin HFA] 1 - 2 puff INHALATION RT-Q6H PRN 08/31/1606/25 History Aspirin 81 mg PO HS 08/31/16 06/25/17 History Atorvastatin [Lipitor] 10 mg PO HS 08/31/16 06/25/17 History Budesonide [Pulmicort] 0.5 mg INHALATION RT-BID 08/31/16 06/25/17 History Fish Oil/Dha/Epa [Fish Oil 1,200 1 cap PO BID 08/31/16 06/25/17 History mg Fish Oil] Ipratropium-Albuterol Nebulize 3 ml INHALATION RT-QID 08/31/16 06/25/17 History [Duoneb 0.5 mg-3 mg/3 ml Soln] Montelukast [Singulair] 10 mg PO 08/31/16 06/25/17 History Multivitamin [Men's Multi-Vitamin] 1 tab PO DAILY 09/19/16 06/25/17 History Allopurinol [Zyloprim] 100 mg PO DAILY 06/25/17 06/25/17 History Cholecalciferol [Vitamin D3] 1,000 unit PO DAILY 06/25/17 06/25/17 History HYDROcodone/APAP 5-325MG [[place] 1 tab PO Q6HR PRN 06/25/17 06/25/17 History 5-325] L.acidoph,Paracasei, B.lactis 1 cap PO DAILY 06/25/17 06/25/17 History [Probiotic] Ubidecarenone [Co Q-10] 100 mg PO DAILY 06/25/17 06/25/17 History Allergies Allergy/AdvReac Type Severity Reaction Status Date / Time bee venom protein (honey bee) Allergy Itching Verified 06/25/17 22:00 Physical Exam Vitals: Vital Signs Temp Pulse Pulse Pulse Resp BP Pulse Ox 06/26/17 23:00 99.0 F 75 16 120/72 96 06/26/17 20:11 72 06/26/17 19:57 72 06/26/17 15:48 76 06/26/17 15:33 72 06/26/17 15:05 97.9 F 98 17 138/68 97 06/26/17 11:37 80 06/26/17 11:27 76 06/26/17 08:57 17 06/26/17 08:42 97.8 F 99 17 140/67 96 06/26/17 07:24 74 06/26/17 07:09 80 06/26/17 01:49 76 06/26/17 01:36 76 06/26/17 01:05 97.6 F 88 16 145/69 94 L Intake and Output 06/26/17 06/26/17 06/27/17 14:59 22:59 06:59 Intake Total 550 Balance 550 Intake: Intake, IV Titration 250 Amount Vancomycin 1,750 mg In 250 Sodium Chloride 0.9% 250 ml @ 125 mls/hr IVPB Q12H [facility] Rx#:[id number] Other 300 Other: Voiding Method Toilet # Voids 1 3 HEENT: Anicteric conjunctiva are pink and moist nasal mucosa grossly intact without significant lesions, there is no thrush. Neck: The neck is supple without significant lymphadenopathy or thyromegaly. Lungs: Good bilateral air entry without significant crackles or wheezing. There is no significant bronchial sounds. There is no egophony or dullness. Heart: Regular rate and rhythm with an audible S1-S2, no S3 no S4. There is no significant murmur click or rub, PMI was nondisplaced. Abdomen: Positive bowel sounds soft and nontender without palpable masses or organomegaly. There was no guarding or rebound. Extremities: The upper extremities have excellent pulses they are symmetric, no significant petechiae or telangiectasia. No splinter hemorrhages were noted. The lower extremities with mild edema. The peripheral pulses were 2+ and symmetric. right foot 4th toe swollen, with erythema and drainage with deformed nail bed. Neuro: Awake alert oriented to person place and time. There are no acute new gross focal sensory motor deficits. Results CBC & Chem 7: 06/25/17 22:24 06/25/17 22:24 Labs: Microbiology - Last 24 Hours (Table) 06/25/17 23:15 Gram Stain - Preliminary Foot - Right Wound Culture - Preliminary 06/25/17 23:15 Urine Culture - Preliminary Urine,Voided Laboratory Results WBC 8.2 k/uL (3.8-10.6) 06/25/17 22:24 RBC 4.20 m/uL (4.30-5.90) L 06/25/17 22:24 Hgb 14.3 gm/dL (13.0-17.5) 06/25/17 22:24 Hct 40.7 % (39.0-53.0) 06/25/17 22:24 MCV 97.0 fL (80.0-100.0) 06/25/17 22:24 MCH 34.1 pg (25.0-35.0) 06/25/17 22:24 MCHC 35.2 g/dL (31.0-37.0) 06/25/17 22:24 RDW 13.3 % (11.5-15.5) 06/25/17 22:24 Plt Count 213 k/uL (150-450) 06/25/17 22:24 Neutrophils % 66 % 06/25/17 22:24 Lymphocytes % 23 % 06/25/17 22:24 Monocytes % 8 % 06/25/17 22:24 Eosinophils % 1 % 06/25/17 22:24 Basophils % 0 % 06/25/17 22:24 Neutrophils # 5.4 k/uL (1.3-7.7) 06/25/17 22:24 Lymphocytes # 1.8 k/uL (1.0-4.8) 06/25/17 22:24 Monocytes # 0.6 k/uL (0-1.0) 06/25/17 22:24 Eosinophils # 0.0 k/uL (0-0.7) 06/25/17 22:24 Basophils # 0.0 k/uL (0-0.2) 06/25/17 22:24 PT 9.8 sec (9.0-12.0) 06/25/17 22:24 INR 1.0 (<1.2) 06/25/17 22:24 APTT 24.9 sec (22.0-30.0) 06/25/17 22:24 Sodium 144 mmol/L (137-145) 06/25/17 22:24 Potassium 3.9 mmol/L (3.5-5.1) 06/25/17 22:24 Chloride 107 mmol/L (98-107) 06/25/17 22:24 Carbon Dioxide 24 mmol/L (22-30) 06/25/17 22:24 Anion Gap 13 mmol/L 06/25/17 22:24 BUN 5 mg/dL (9-20) L 06/25/17 22:24 Creatinine 0.80 mg/dL (0.66-1.25) 06/25/17 22:24 Est GFR (CKD-EPI)AfAm >90 (>60 ml/min/1.73 sqM) 06/25/17 22:24 Est GFR (CKD-EPI)NonAf 90 (>60 ml/min/1.73 sqM) 06/25/17 22:24 Glucose 93 mg/dL (74-99) 06/25/17 22:24 Plasma Lactic Acid [place] 1.4 mmol/L (0.7-2.0) 06/25/17 22:24 Calcium 9.0 mg/dL (8.4-10.2) 06/25/17 22:24 Total Bilirubin 0.9 mg/dL (0.2-1.3) 06/25/17 22:24 AST 36 U/L (17-59) 06/25/17 22:24 ALT 36 U/L (21-72) 06/25/17 22:24 Alkaline Phosphatase 56 U/L (38-126) 06/25/17 22:24 Total Protein 6.5 g/dL (6.3-8.2) 06/25/17 22:24 Albumin 3.8 g/dL (3.5-5.0) 06/25/17 22:24 Urine Color Light Yellow 06/25/17 23:15 Urine Appearance Clear (Clear) 06/25/17 23:15 Urine pH 5.0 (5.0-8.0) 06/25/17 23:15 Ur Specific [place] 1.003 (1.001-1.035) 06/25/17 23:15 Urine Protein Negative (Negative) 06/25/17 23:15 Urine Glucose (UA) Negative (Negative) 06/25/17 23:15 Urine Ketones Negative (Negative) 06/25/17 23:15 Urine Blood Negative (Negative) 06/25/17 23:15 Urine Nitrite Negative (Negative) 06/25/17 23:15 Urine Bilirubin Negative (Negative) 06/25/17 23:15 Urine Urobilinogen <2.0 mg/dL (<2.0) 06/25/17 23:15 Ur Leukocyte Esterase Negative (Negative) 06/25/17 23:15 Microbiology 06/25/17 23:15 Foot - Right Gram Stain - Preliminary 06/25/17 23:15 Foot - Right Wound Culture - Preliminary 06/25/17 23:15 Urine,Voided Urine Culture - Preliminary outside culture MSSA Assessment and Plan (1) Osteomyelitis Narrative/Plan: 72 year old male with history of neuropathy and ulceration to toe also osteomyelitis. Current culture is MSSA thus deescalate antibiotics to Ancef and will need to consider outpatient IV antibiotic therapy for toe salvage which patient desires. Will monitior cultures and arrange outpatient therapy. Local care with medical honey ordered. Arterial studies of last summer without severe disease. Add MVI Current Visit: Yes Status: Acute Code(s): M86.9 - OSTEOMYELITIS, UNSPECIFIED SNOMED Code(s): 22027682 (2) Neuropathic ulcer of foot Current Visit: No Status: Acute Code(s): L97.509 - NON-PRESSURE CHRONIC ULCER OTH PRT UNSP FOOT W UNSP SEVERITY SNOMED Code(s): 04874757 (3) Neuropathy of both feet Current Visit: Yes Status: Acute Code(s): G57.93 - UNSPECIFIED MONONEUROPATHY OF BILATERAL LOWER LIMBS SNOMED Code(s): 900991883
[2017-06-27 08:01] LABS: Anion Gap 12 mmol/L; Blood Urea Nitrogen 6 mg/dL (9-20); Calcium 9.2 mg/dL (8.4-10.2); Carbon Dioxide 26 mmol/L (22-30); Chloride 105 mmol/L (98-107); Glucose 96 mg/dL (74-99); Potassium 4.4 mmol/L (3.5-5.1); Sodium 143 mmol/L (137-145)
[2017-06-27] MEDS: IPRATROPIUM-ALBUTEROL 3 ML NEB INHALATION SCH ×4 (08:21→20:51)
[2017-06-27] MEDS: BUDESONIDE 0.5 MG/2 ML NEBU INHALATION SCH ×2 (08:21→20:52)
[2017-06-27] MEDS: LACTOBACILLUS ACIDOPH & BULGAR 1 EACH PACKET PO SCH (08:57)
[2017-06-27] MEDS: ALLOPURINOL 100 MG TAB PO SCH (08:57)
[2017-06-27] MEDS: CHOLECALCIFEROL 1,000 UNIT TAB PO SCH (08:57)
[2017-06-27] MEDS: MULTIVITAMINS, THERA 1 EACH TAB PO SCH (08:57)
[2017-06-27] MEDS: ceFAZolin IN SWFI 2 GM/20 ML SYRINGE IVP SCH ×2 (08:57→16:37)
[2017-06-27 12:02] LABS: Hemoglobin A1C 4.9 % (4.0-6.0)
[2017-06-27] MEDS ORDERED: diphenhydrAMINE 25 MG CAP PO PRN (16:46)
[2017-06-27] MEDS: PETROLAT,WHITE/LAN/8-HYDROXYQU 227 GM OINT TOPICAL SCH ×2 (17:49→21:51)
[2017-06-27] MEDS: DAPTOmycin 500 MG in SODIUM CHLORIDE 0.9% 50 ML IV SCH (18:15)
[2017-06-27] MEDS: HYDROcodone/APAP 5-325MG 1 EACH TAB PO PRN (21:49)
[2017-06-27] MEDS: ASPIRIN 81 MG PO SCH (21:50)
[2017-06-27] MEDS: MONTELUKAST 10 MG TAB PO SCH (21:50)
--- NOTE | 2017-06-27 23:34 | P.PN ---
Subjective Progress Note Date: 06/27/17 Principal diagnosis: osteomyelitis toe right foot 72 year old male know to the service from the osteomyelitis of the 3rd toe of the right foot last summer. Patient was aware of an ulcer to the toe for the last many weeks and was applying neosporin but it did not resolve, was much worse so sought care at local hospital and now transferred to our care. Patient worried that similar problem is now occurring. Denies fever but does feel poorly , has neuropathy of undetermined etiology and has little sensation to his feet. Has difficulty inspecting the feet.Duplex performed and no clot was seen. 06/27/2017 reveals the patient be feeling better. He isn't having much discomfort. The ulceration is slightly improved status post the debridement and antibiotic therapy. We'll need to make arrangements for IV access and outpatient intravenous antibiotic therapy. Potentially at home or possibly at the office if necessitated by insurance, he appears to be willing to come to the office if needed.local wound care continues with the theroney every Sunday and Sunday We'll need to [place] offloading shoe at discharge. Objective - Vital Signs Vital signs: Vital Signs Temp 98.5 F 06/27/17 14:43 Pulse 88 06/27/17 21:07 Resp 16 06/27/17 21:07 BP 142/75 06/27/17 14:43 Pulse Ox 95 06/27/17 16:36 Intake & Output 06/27/17 06/27/17 06/28/17 06:59 18:59 06:59 Intake Total 675 987 Balance 675 987 Intake: Intake, IV Titration 375 Amount Vancomycin 1,750 mg In 375 Sodium Chloride 0.9% 250 ml @ 125 mls/hr IVPB Q12H [facility] Rx#:[id number] Oral 987 Other 300 Other: Voiding Method Toilet # Voids 3 2 - Exam HEENT: Anicteric conjunctiva are pink and moist nasal mucosa grossly intact without significant lesions, there is no thrush. Neck: The neck is supple without significant lymphadenopathy or thyromegaly. Lungs: Good bilateral air entry without significant crackles or wheezing. There is no significant bronchial sounds. There is no egophony or dullness. Heart: Regular rate and rhythm with an audible S1-S2, no S3 no S4. There is no significant murmur click or rub, PMI was nondisplaced. Abdomen: Positive bowel sounds soft and nontender without palpable masses or organomegaly. There was no guarding or rebound. Extremities: The upper extremities have excellent pulses they are symmetric, no significant petechiae or telangiectasia. No splinter hemorrhages were noted. The lower extremities with mild edema. The peripheral pulses were 2+ and symmetric. right foot 4th toe swollen, with erythema and drainage with deformed nail bed. Neuro: Awake alert oriented to person place and time. There are no acute new gross focal sensory motor deficits. - Labs CBC & Chem 7: 06/25/17 22:24 06/27/17 07:08 Labs: Abnormal Lab Results - Last 24 Hours (Table) 06/27/17 06/27/17 06/27/17 Range/Units 07:08 07:08 07:08 ESR 53 H (0-15) mm/hr BUN 6 L (9-20) mg/dL C-Reactive Protein 42.6 H (<10.0) mg/L Microbiology - Last 24 Hours (Table) 06/25/17 23:15 Urine Culture - Final Urine,Voided 06/25/17 23:15 Gram Stain - Preliminary Foot - Right Wound Culture - Preliminary Group D Enterococcus Presumptive Staph aureus 06/25/17 22:24 Blood Culture - Preliminary Blood No Growth after 24 hours Laboratory Results WBC 8.2 k/uL (3.8-10.6) 06/25/17 22:24 RBC 4.20 m/uL (4.30-5.90) L 06/25/17 22:24 Hgb 14.3 gm/dL (13.0-17.5) 06/25/17 22:24 Hct 40.7 % (39.0-53.0) 06/25/17 22:24 MCV 97.0 fL (80.0-100.0) 06/25/17 22:24 MCH 34.1 pg (25.0-35.0) 06/25/17 22:24 MCHC 35.2 g/dL (31.0-37.0) 06/25/17 22:24 RDW 13.3 % (11.5-15.5) 06/25/17 22:24 Plt Count 213 k/uL (150-450) 06/25/17 22:24 Neutrophils % 66 % 06/25/17 22:24 Lymphocytes % 23 % 06/25/17 22:24 Monocytes % 8 % 06/25/17 22:24 Eosinophils % 1 % 06/25/17 22:24 Basophils % 0 % 06/25/17 22:24 Neutrophils # 5.4 k/uL (1.3-7.7) 06/25/17 22:24 Lymphocytes # 1.8 k/uL (1.0-4.8) 06/25/17 22:24 Monocytes # 0.6 k/uL (0-1.0) 06/25/17 22:24 Eosinophils # 0.0 k/uL (0-0.7) 06/25/17 22:24 Basophils # 0.0 k/uL (0-0.2) 06/25/17 22:24 ESR 53 mm/hr (0-15) H 06/27/17 07:08 PT 9.8 sec (9.0-12.0) 06/25/17 22:24 INR 1.0 (<1.2) 06/25/17 22:24 APTT 24.9 sec (22.0-30.0) 06/25/17 22:24 Sodium 143 mmol/L (137-145) 06/27/17 07:08 Potassium 4.4 mmol/L (3.5-5.1) 06/27/17 07:08 Chloride 105 mmol/L (98-107) 06/27/17 07:08 Carbon Dioxide 26 mmol/L (22-30) 06/27/17 07:08 Anion Gap 12 mmol/L 06/27/17 07:08 BUN 6 mg/dL (9-20) L 06/27/17 07:08 Creatinine 0.84 mg/dL (0.66-1.25) 06/27/17 07:08 Est GFR (CKD-EPI)AfAm >90 (>60 ml/min/1.73 sqM) 06/27/17 07:08 Est GFR (CKD-EPI)NonAf 88 (>60 ml/min/1.73 sqM) 06/27/17 07:08 Glucose 96 mg/dL (74-99) 06/27/17 07:[address] Glu mg/dL 94 06/27/17 07:08 Hemoglobin A1c 4.9 % (4.0-6.0) 06/27/17 07:08 Plasma Lactic Acid [place] 1.4 mmol/L (0.7-2.0) 06/25/17 22:24 Calcium 9.2 mg/dL (8.4-10.2) 06/27/17 07:08 Total Bilirubin 0.9 mg/dL (0.2-1.3) 06/25/17 22:24 AST 36 U/L (17-59) 06/25/17 22:24 ALT 36 U/L (21-72) 06/25/17 22:24 Alkaline Phosphatase 56 U/L (38-126) 06/25/17 22:24 C-Reactive Protein 42.6 mg/L (<10.0) H 06/27/17 07:08 Total Protein 6.5 g/dL (6.3-8.2) 06/25/17 22:24 Albumin 3.8 g/dL (3.5-5.0) 06/25/17 22:24 Prealbumin 22.0 mg/dL (18.0-42.0) 06/27/17 07:08 Urine Color Light Yellow 06/25/17 23:15 Urine Appearance Clear (Clear) 06/25/17 23:15 Urine pH 5.0 (5.0-8.0) 06/25/17 23:15 Ur Specific [place] 1.003 (1.001-1.035) 06/25/17 23:15 Urine Protein Negative (Negative) 06/25/17 23:15 Urine Glucose (UA) Negative (Negative) 06/25/17 23:15 Urine Ketones Negative (Negative) 06/25/17 23:15 Urine Blood Negative (Negative) 06/25/17 23:15 Urine Nitrite Negative (Negative) 06/25/17 23:15 Urine Bilirubin Negative (Negative) 06/25/17 23:15 Urine Urobilinogen <2.0 mg/dL (<2.0) 06/25/17 23:15 Ur Leukocyte Esterase Negative (Negative) 06/25/17 23:15 Microbiology 06/25/17 23:15 Urine,Voided Urine Culture - Final 06/25/17 23:15 Foot - Right Gram Stain - Preliminary 06/25/17 23:15 Foot - Right Wound Culture - Preliminary Group D Enterococcus Presumptive Staph aureus 04/30/18 22:24 Blood Blood Culture - Preliminary No Growth after 24 hours Assessment and Plan (1) Osteomyelitis Narrative/Plan: 72 year old male with history of neuropathy and ulceration to toe also osteomyelitis. Current culture is MSSA thus deescalate antibiotics to Ancef and will need to consider outpatient IV antibiotic therapy for toe salvage which patient desires. Will monitior cultures and arrange outpatient therapy. Local care with medical honey ordered. Arterial studies of last summer without severe disease. Add MVI 06/27/2017 patient is having some improvement today. Appears to be having a good response to current antibiotic therapy however wound culture is now coming back with enterococcus as well as staph aureus, likely MSSA. Antibiotic therapy altered to daptomycin for coverage of his 2 pathogens. Await final cultures. Blood culture negative so far. We'll arrange for IV access with negative blood cultures for his outpatient antibiotic therapy. We will work with discharge plann as to antibiotic therapy home versus office, patient willing to come toffice if needed. Current Visit: Yes Status: Acute Code(s): M86.9 - OSTEOMYELITIS, UNSPECIFIED SNOMED Code(s): 76407922 (2) Neuropathic ulcer of foot Current Visit: No Status: Acute Code(s): L97.509 - NON-PRESSURE CHRONIC ULCER OTH PRT UNSP FOOT W UNSP SEVERITY SNOMED Code(s): 59605595 (3) Neuropathy of both feet Current Visit: Yes Status: Acute Code(s): G57.93 - UNSPECIFIED MONONEUROPATHY OF BILATERAL LOWER LIMBS SNOMED Code(s): 951896413
[2017-06-28] MEDS: BUDESONIDE 0.5 MG/2 ML NEBU INHALATION SCH (08:27)
[2017-06-28] MEDS: IPRATROPIUM-ALBUTEROL 3 ML NEB INHALATION SCH ×3 (08:27→16:50)
[2017-06-28] MEDS: MULTIVITAMINS, THERA 1 EACH TAB PO SCH (08:59)
[2017-06-28] MEDS: ALLOPURINOL 100 MG TAB PO SCH (08:59)
[2017-06-28] MEDS: LACTOBACILLUS ACIDOPH & BULGAR 1 EACH PACKET PO SCH (08:59)
[2017-06-28] MEDS: CHOLECALCIFEROL 1,000 UNIT TAB PO SCH (08:59)
[2017-06-28] MEDS: PETROLAT,WHITE/LAN/8-HYDROXYQU 227 GM OINT TOPICAL SCH ×2 (09:00→15:37)
[2017-06-28] MEDS ORDERED: LIDOCAINE 2% INJ 20 MG/ML (20 ML MDV) ONE (13:09)
[2017-06-28] MEDS ORDERED: LIDOCAINE 2% INJ 20 MG/ML SQ ONE (13:50)
--- NOTE | 2017-06-28 14:34 | IR ---
EXAMINATION TYPE: IR cvc insert >=5 years DATE OF EXAM: 06/28/2017 COMPARISON: NONE CLINICAL HISTORY: Infection Needs long-term intravenous access for antibiotics. PROCEDURE: After informed consent, the skin overlying the left basilic vein was localized with ultrasound and no moose to be compressible and patent. An ultrasound image was obtained and submitted on the patient's c whiteside. The overlying skin was prepped and draped and Lidocaine was used for local anesthesia. A skin radha was made with a scalpel. Access was gained to the vein under ultrasound guidance with a 21 gau ge needle and a 0.018 inch wire was advanced. Access site was dilated with Peel-Away sheath and cath eter tailored to the appropriate length and advanced such that the distal tip is at the cavoatrial ju nction. Spot image was obtained verifying placement. Catheter was fixed to the skin and a sterile d ressing was placed following hemostasis. Catheter was aspirated and flushed with saline. Patient wa s discharged in stable condition without complication.Maximal barrier technique is utilized. Ultraso und image is documented on the chart. Ultrasound used with sterile technique. Fluoro time and fluoroscopic images submitted to document procedure: 48 intraoperative C-arm images, 0.7 minutes fluoroscopy time IMPRESSION: STATUS POST ULTRASOUND AND FLUOROSCOPIC GUIDED PICC LINE PLACEMENT, READY FOR USE. THIS PROCEDURE WAS PERFORMED BY THE UNDERSIGNED.
[2017-06-28 14:35] VITALS: BP 157/81; PULSE 74; TEMP 98.8
[2017-06-28] MEDS: DAPTOmycin 500 MG in SODIUM CHLORIDE 0.9% 50 ML IV SCH (15:37)
--- NOTE | 2017-06-28 15:42 | P.PN ---
Subjective Progress Note Date: 06/27/17 70-year-old gentleman admitted with the right fourth toe ulceration found to have osteomyelitis of the second toe. Patient has enterococcus and staph aureus cultures and studies are pending. Infectious disease evaluated the patient. Constitutional: Denied any fatigue denied any fever. Cardio vascular: denied any chest pain, palpitations Gastrointestinal denied any nausea vomiting Pulmonary: Denied any shortness of breath cough Neurologic denied any new focal deficits Objective - Vital Signs Vital signs: Vital Signs Temp 98.8 F 06/28/17 14:20 Pulse 74 06/28/17 14:20 Resp 16 06/28/17 14:20 BP 157/81 06/28/17 14:20 Pulse Ox 90 L 06/28/17 14:20 Intake & Output 06/27/17 06/28/17 06/28/17 18:59 06:59 18:59 Intake Total 987 387 Balance 987 387 Weight 104.326 kg Intake: Oral 987 387 Other: Voiding Method Toilet Toilet Toilet # Voids 2 1 3 - Exam PHYSICAL EXAMINATION: GENERAL: The patient is alert and oriented x3, not in any acute distress. Well developed, well nourished. HEENT: Pupils are round and equally reacting to light. EOMI. No scleral icterus. No conjunctival pallor. Normocephalic, atraumatic. No pharyngeal erythema. No thyromegaly. CARDIOVASCULAR: S1 and S2 present. No murmurs, rubs, or gallops. PULMONARY: Chest is clear to auscultation, no wheezing or crackles. ABDOMEN: Soft, nontender, nondistended, normoactive bowel sounds. No palpable organomegaly. MUSCULOSKELETAL: No joint swelling or deformity. EXTREMITIES: No cyanosis, clubbing, or pedal edema. NEUROLOGICAL: Gross neurological examination did not reveal any focal deficits. SKIN: There is a stage 3-4 ulcer the right fourth toe was trouble other small ulcerations does have good pulses in bilateral lower extremities - Labs CBC & Chem 7: 06/25/17 22:24 06/27/17 07:08 Labs: Microbiology - Last 24 Hours (Table) 06/25/17 23:15 Gram Stain - Preliminary Foot - Right Wound Culture - Preliminary Enterococcus faecalis Presumptive Staph aureus 06/25/17 22:24 Blood Culture - Preliminary Blood No Growth after 48 hours Assessment and Plan Plan: -Possible osteomyelitis and infected ulcer of the right fourth toe: Patient is on IV vancomycin and infectious disease evaluated the patient and patient is presently on daptomycin -Hyperlipidemia -Asthma without any acute exacerbation and patient will continued on inhaled steroids -Sleep apnea continue CPAP machine -Obesity: Dietary counseling was provided -Benign prostatic hypertrophy
--- NOTE | 2017-06-28 15:43 | P.DS ---
Providers Date of admission: 06/25/17 23:55 Attending physician: Shon Matta Consults: 06/25/17 23:55 Consult Physician Stat Consulting Provider: Xavier Gates Reason/Comments: Osteomyelitis Do you want consulting provider notified?: Yes Primary care physician: [facility] Course: 70-year-old gentleman admitted with the right fourth toe ulceration found to have osteomyelitis of the second toe. Patient has enterococcus and staph aureus cultures and studies are pending. Infectious disease evaluated the patient. 06/28/2017 No overnight events patient received a PICC line and is being discharged on daptomycin for 40 days home care was ordered. Patient will be discharged today after today's dose of daptomycin PHYSICAL EXAMINATION: GENERAL: The patient is alert and oriented x3, not in any acute distress. Well developed, well nourished. HEENT: Pupils are round and equally reacting to light. EOMI. No scleral icterus. No conjunctival pallor. Normocephalic, atraumatic. No pharyngeal erythema. No thyromegaly. CARDIOVASCULAR: S1 and S2 present. No murmurs, rubs, or gallops. PULMONARY: Chest is clear to auscultation, no wheezing or crackles. ABDOMEN: Soft, nontender, nondistended, normoactive bowel sounds. No palpable organomegaly. MUSCULOSKELETAL: No joint swelling or deformity. EXTREMITIES: No cyanosis, clubbing, or pedal edema. NEUROLOGICAL: Gross neurological examination did not reveal any focal deficits. SKIN: There is a stage 3-4 ulcer the right fourth toe was trouble other small ulcerations does have good pulses in bilateral lower extremities Assessment and Plan Plan: -Possible osteomyelitis and infected ulcer of the right fourth toe: Patient is on IV vancomycin and infectious disease evaluated the patient and patient is presently on daptomycin -Hyperlipidemia -Asthma without any acute exacerbation and patient will continued on inhaled steroids -Sleep apnea continue CPAP machine -Obesity: Dietary counseling was provided -Benign prostatic hypertrophy Patient Condition at Discharge: Good Plan - Discharge Summary Discharge Rx Participant: No New Discharge Prescriptions: New DAPTOmycin [Cubicin] 500 mg IVPB DAILY #40 vial No Action Ipratropium-Albuterol Nebulize [Duoneb 0.5 mg-3 mg/3 ml Soln] 3 ml INHALATION RT-QID Albuterol Sulfate [Ventolin HFA] 1 - 2 puff INHALATION RT-Q6H PRN PRN Reason: Shortness Of Breath Montelukast [Singulair] 10 mg PO HS Budesonide [Pulmicort] 0.5 mg INHALATION RT-BID Atorvastatin [Lipitor] 10 mg PO HS Fish Oil/Dha/Epa [Fish Oil 1,200 mg Fish Oil] 1 cap PO BID Aspirin 81 mg PO HS Multivitamin [Men's Multi-Vitamin] 1 tab PO DAILY Ubidecarenone [Co Q-10] 100 mg PO DAILY L.acidoph,Paracasei, B.lactis [Probiotic] 1 cap PO DAILY HYDROcodone/APAP 5-325MG [[place] 5-325] 1 tab PO Q6HR PRN PRN Reason: Pain Cholecalciferol [Vitamin D3] 1,000 unit PO DAILY Allopurinol [Zyloprim] 100 mg PO DAILY Discharge Medication List Albuterol Sulfate [Ventolin HFA] 1 - 2 puff INHALATION RT-Q6H PRN 08/31/16 [ History] Aspirin 81 mg PO HS 08/31/16 [History] Atorvastatin [Lipitor] 10 mg PO HS 08/31/16 [History] Budesonide [Pulmicort] 0.5 mg INHALATION RT-BID 08/31/16 [History] Fish Oil/Dha/Epa [Fish Oil 1,200 mg Fish Oil] 1 cap PO BID 08/31/16 [History] Ipratropium-Albuterol Nebulize [Duoneb 0.5 mg-3 mg/3 ml Soln] 3 ml INHALATION RT -QID 08/31/16 [History] Montelukast [Singulair] 10 mg PO HS 08/31/16 [History] Multivitamin [Men's Multi-Vitamin] 1 tab PO DAILY 09/19/16 [History] Allopurinol [Zyloprim] 100 mg PO DAILY 06/25/17 [History] Cholecalciferol [Vitamin D3] 1,000 unit PO DAILY 06/25/17 [History] HYDROcodone/APAP 5-325MG [[place] 5-325] 1 tab PO Q6HR PRN 06/25/17 [History] L.acidoph,Paracasei, B.lactis [Probiotic] 1 cap PO DAILY 06/25/17 [History] Ubidecarenone [Co Q-10] 100 mg PO DAILY 04/30/18 [History] DAPTOmycin [Cubicin] 500 mg IVPB DAILY #40 vial 06/27/17 [Rx] Follow up Appointment(s)/Referral(s): Carlos Alberto Rubalcava NPC [Primary Care Provider] - 1-2 days Ambulatory/Diagnostic Orders: Basic Metabolic Panel [LAB.AMB] Location: Determined By Patient Basic Metabolic Panel [LAB.AMB] Location: Determined By Patient Complete Blood Count w/diff [LAB.AMB] Location: Determined By Patient Complete Blood Count w/diff [LAB.AMB] Location: Determined By Patient Miscellaneous Lab Order [LAB.AMB] Location: Determined By Patient Miscellaneous Lab Order [LAB.AMB] Location: Determined By Patient Activity/Diet/Wound Care/Special Instructions: [facility] - [phone] [facility] for IV supplies - [phone] Discharge Disposition: HOME WITH HOME HEALTH SERVICES
--- NOTE | 2017-06-29 00:05 | P.PN ---
Subjective Progress Note Date: 06/28/17 Principal diagnosis: osteomyelitis toe right foot 72 year old male know to the service from the osteomyelitis of the 3rd toe of the right foot last summer. Patient was aware of an ulcer to the toe for the last many weeks and was applying neosporin but it did not resolve, was much worse so sought care at local hospital and now transferred to our care. Patient worried that similar problem is now occurring. Denies fever but does feel poorly , has neuropathy of undetermined etiology and has little sensation to his feet. Has difficulty inspecting the feet.Duplex performed and no clot was seen. 06/27/2017 reveals the patient be feeling better. He isn't having much discomfort. The ulceration is slightly improved status post the debridement and antibiotic therapy. We'll need to make arrangements for IV access and outpatient intravenous antibiotic therapy. Potentially at home or possibly at the office if necessitated by insurance, he appears to be willing to come to the office if needed. local wound care continues with the therahoney every Sunday and Sunday We'll need to Darco offloading shoe at discharge. 06/28/2017 patient is showing improvement. Blood cultures are negative. Cultures are finalizing with enterococcus and MSSA at the foot infection site. Osteomyelitis is noted. We'll work toward IV access placement today and outpatient intravenous antibiotic therapy likely in his home setting given his very long distance from his home to the local community. Objective - Vital Signs Vital signs: Vital Signs Temp 98.8 F 06/28/17 14:20 Pulse 74 06/28/17 14:20 Resp 16 06/28/17 14:20 BP 157/81 06/28/17 14:20 Pulse Ox 90 L 06/28/17 14:20 Intake & Output 06/28/17 06/28/17 06/29/17 06:59 18:59 06:59 Intake Total 387 Balance 387 Weight 104.326 kg Intake: Oral 387 Other: Voiding Method Toilet Toilet # Voids 1 3 - Exam HEENT: Anicteric conjunctiva are pink and moist nasal mucosa grossly intact without significant lesions, there is no thrush. Neck: The neck is supple without significant lymphadenopathy or thyromegaly. Lungs: Good bilateral air entry without significant crackles or wheezing. There is no significant bronchial sounds. There is no egophony or dullness. Heart: Regular rate and rhythm with an audible S1-S2, no S3 no S4. There is no significant murmur click or rub, PMI was nondisplaced. Abdomen: Positive bowel sounds soft and nontender without palpable masses or organomegaly. There was no guarding or rebound. Extremities: The upper extremities have excellent pulses they are symmetric, no significant petechiae or telangiectasia. No splinter hemorrhages were noted. The lower extremities with mild edema. The peripheral pulses were 2+ and symmetric. right foot 4th toe swollen, with erythema and drainage with deformed nail bed. Neuro: Awake alert oriented to person place and time. There are no acute new gross focal sensory motor deficits. - Labs CBC & Chem 7: 06/25/17 22:24 06/27/17 07:08 Labs: Microbiology - Last 24 Hours (Table) 06/25/17 23:15 Gram Stain - Preliminary Foot - Right Wound Culture - Preliminary Enterococcus faecalis Presumptive Staph aureus 06/25/17 22:24 Blood Culture - Preliminary Blood No Growth after 48 hours Laboratory Results WBC 8.2 k/uL (3.8-10.6) 06/25/17 22:24 RBC 4.20 m/uL (4.30-5.90) L 06/25/17 22:24 Hgb 14.3 gm/dL (13.0-17.5) 06/25/17 22:24 Hct 40.7 % (39.0-53.0) 06/25/17 22:24 MCV 97.0 fL (80.0-100.0) 06/25/17 22:24 MCH 34.1 pg (25.0-35.0) 06/25/17 22:24 MCHC 35.2 g/dL (31.0-37.0) 06/25/17 22:24 RDW 13.3 % (11.5-15.5) 06/25/17 22:24 Plt Count 213 k/uL (150-450) 06/25/17 22:24 Neutrophils % 66 % 06/25/17 22:24 Lymphocytes % 23 % 06/25/17 22:24 Monocytes % 8 % 06/25/17 22:24 Eosinophils % 1 % 06/25/17 22:24 Basophils % 0 % 06/25/17 22:24 Neutrophils # 5.4 k/uL (1.3-7.7) 06/25/17 22:24 Lymphocytes # 1.8 k/uL (1.0-4.8) 06/25/17 22:24 Monocytes # 0.6 k/uL (0-1.0) 06/25/17 22:24 Eosinophils # 0.0 k/uL (0-0.7) 06/25/17 22:24 Basophils # 0.0 k/uL (0-0.2) 06/25/17 22:24 ESR 53 mm/hr (0-15) H 06/27/17 07:08 PT 9.8 sec (9.0-12.0) 06/25/17 22:24 INR 1.0 (<1.2) 06/25/17 22:24 APTT 24.9 sec (22.0-30.0) 06/25/17 22:24 Sodium 143 mmol/L (137-145) 06/27/17 07:08 Potassium 4.4 mmol/L (3.5-5.1) 06/27/17 07:08 Chloride 105 mmol/L (98-107) 06/27/17 07:08 Carbon Dioxide 26 mmol/L (22-30) 06/27/17 07:08 Anion Gap 12 mmol/L 06/27/17 07:08 BUN 6 mg/dL (9-20) L 06/27/17 07:08 Creatinine 0.84 mg/dL (0.66-1.25) 06/27/17 07:08 Est GFR (CKD-EPI)AfAm >90 (>60 ml/min/1.73 sqM) 06/27/17 07:08 Est GFR (CKD-EPI)NonAf 88 (>60 ml/min/1.73 sqM) 06/27/17 07:08 Glucose 96 mg/dL (74-99) 06/27/17 07:[address] Glu mg/dL 94 06/27/17 07:08 Hemoglobin A1c 4.9 % (4.0-6.0) 06/27/17 07:08 Plasma Lactic Acid [place] 1.4 mmol/L (0.7-2.0) 06/25/17 22:24 Calcium 9.2 mg/dL (8.4-10.2) 06/27/17 07:08 Total Bilirubin 0.9 mg/dL (0.2-1.3) 06/25/17 22:24 AST 36 U/L (17-59) 06/25/17 22:24 ALT 36 U/L (21-72) 06/25/17 22:24 Alkaline Phosphatase 56 U/L (38-126) 06/25/17 22:24 C-Reactive Protein 42.6 mg/L (<10.0) H 06/27/17 07:08 Total Protein 6.5 g/dL (6.3-8.2) 06/25/17 22:24 Albumin 3.8 g/dL (3.5-5.0) 06/25/17 22:24 Prealbumin 22.0 mg/dL (18.0-42.0) 06/27/17 07:08 Urine Color Light Yellow 06/25/17 23:15 Urine Appearance Clear (Clear) 06/25/17 23:15 Urine pH 5.0 (5.0-8.0) 06/25/17 23:15 Ur Specific [place] 1.003 (1.001-1.035) 06/25/17 23:15 Urine Protein Negative (Negative) 06/25/17 23:15 Urine Glucose (UA) Negative (Negative) 06/25/17 23:15 Urine Ketones Negative (Negative) 06/25/17 23:15 Urine Blood Negative (Negative) 06/25/17 23:15 Urine Nitrite Negative (Negative) 06/25/17 23:15 Urine Bilirubin Negative (Negative) 06/25/17 23:15 Urine Urobilinogen <2.0 mg/dL (<2.0) 06/25/17 23:15 Ur Leukocyte Esterase Negative (Negative) 06/25/17 23:15 Microbiology 06/25/17 23:15 Foot - Right Gram Stain - Preliminary 06/25/17 23:15 Foot - Right Wound Culture - Preliminary Enterococcus faecalis Presumptive Staph aureus 06/25/17 22:24 Blood Blood Culture - Preliminary No Growth after 48 hours 06/25/17 23:15 Urine,Voided Urine Culture - Final Assessment and Plan (1) Osteomyelitis Narrative/Plan: 72 year old male with history of neuropathy and ulceration to toe also osteomyelitis. Current culture is MSSA thus deescalate antibiotics to [facility] and will need to consider outpatient IV antibiotic therapy for toe salvage which patient desires. Will monitior cultures and arrange outpatient therapy. Local care with medical honey ordered. Arterial studies of last summer without severe disease. Add MVI 06/27/2017 patient is having some improvement today. Appears to be having a good response to current antibiotic therapy however wound culture is now coming back with enterococcus as well as staph aureus, likely MSSA. Antibiotic therapy altered to daptomycin for coverage of his 2 pathogens. Await final cultures. Blood culture negative so far. We'll arrange for IV access with negative blood cultures for his outpatient antibiotic therapy. We will work with discharge plann as to antibiotic therapy home versus office, patient willing to come toffice if needed. 06/28/2017 patient has had improvement. Cultures with enterococcus and MSSA he will be arranged for outpatient into his diabetic therapy is home. PICC line to be placed today in follow-up in the office in 3 and 6 weeks. We'll need to have a Darco forefoot offloading shoe sent to this [facility] near his home. Status: Acute Code(s): M86.9 - OSTEOMYELITIS, UNSPECIFIED SNOMED Code(s): 45216113 (2) Neuropathic ulcer of foot Status: Acute Code(s): L97.509 - NON-PRESSURE CHRONIC ULCER OTH PRT UNSP FOOT W UNSP SEVERITY SNOMED Code(s): 53635946 (3) Neuropathy of both feet Status: Acute Code(s): G57.93 - UNSPECIFIED MONONEUROPATHY OF BILATERAL LOWER LIMBS SNOMED Code(s): 690304884
== END 2017-06-28 17:00 | disposition home health service (06) | DRG 593 ==
LOC: EC 19:40 → 3SUR 23:55
PROVIDERS: ADMIT Hospitalist; ATTEND Hospitalist
PROC: 02HV33Z Insertion of Infusion Device into Superior Vena Cava, Percutaneous Approach (ICD-10-PCS; principal; 2017-06-28 07:30)
DX: L97.519 Non-pressure chronic ulcer of other part of right foot with unspecified severity (principal); M86.171 Other acute osteomyelitis, right ankle and foot; E66.9 Obesity, unspecified; E78.5 Hyperlipidemia, unspecified; G47.30 Sleep apnea, unspecified; J44.9 Chronic obstructive pulmonary disease, unspecified; B95.61 Methicillin susceptible Staphylococcus aureus infection as the cause of diseases classified elsewhere; N40.0 Benign prostatic hyperplasia without lower urinary tract symptoms; G62.9 Polyneuropathy, unspecified; Z79.82 Long term (current) use of aspirin; Z79.899 Other long term (current) drug therapy; Z79.51 Long term (current) use of inhaled steroids; Z86.14 Personal history of Methicillin resistant Staphylococcus aureus infection; Z91.030 Bee allergy status; Z85.46 Personal history of malignant neoplasm of prostate; Z85.828 Personal history of other malignant neoplasm of skin; Z87.891 Personal history of nicotine dependence; Z68.35 Body mass index [BMI] 35.0-35.9, adult
CPT/HCPCS: 36415; 36569; 76937; 77001; 80048; 80053; 81003; 83036; 83605; 84134; 85025; 85610; 85652; 85730; 86140; 87040; 87070; 87077; 87086; 87186; 87205; 93005; 94640; 94760; 96365; 96366; 99285

== ENCOUNTER 2019-11-11 14:30 | Inpatient (IN) | payer MEDICARE, BC ==
--- NOTE | 2019-11-11 15:05 | ED ---
Wound/Laceration HPI <Noel Hardy - Last Filed: 11/11/19 16:02> - General Source: patient Mode of arrival: ambulatory Limitations: no limitations <Rickie Guevara - Last Filed: 11/11/19 16:24> - General Chief Complaint: Wound/Laceration Stated Complaint: bone infection Time Seen by Provider: 11/11/19 14:46 - History of Present Illness Initial Comments: Patient is a 74-year-old male with history of osteomyelitis and foot neuropathy presenting to the emergency department with a chief complaint of toe infection. Patient states he didn't previously admitted for osteomyelitis and infection currently and appears to be similar. Patient states typically his infection start in his third right toe. Patient states usually he develops an ulcer on the plantar aspect which gradually turns into a bone infection. Patient reports his most recent infection started about one month ago with a gradually d eveloping ulcer. He visited his primary care physician who started him on Bactrim. Patient finished a course with no significant improvements in the infection. Patient states she has been applying meta-honey and Neosporin with some improvement of symptoms. However, he states the swelling has been increasing along with the erythema which has drastically increased compared to yesterday. States it is not moving proximally from the toe to the ankle region. He denies any pain because he has a neuropathy. Denies any fevers does report chills. Denies any foul smell. States he is not diabetic. (Rickie Guevara) - Related Data Home Medications Medication Instructions Recorded Confirmed Albuterol Sulfate [Ventolin HFA] 1 - 2 puff INHALATION RT-Q6H PRN 08/31/16 06/25/17 Aspirin 81 mg PO HS 08/31/16 06/25/17 Atorvastatin [Lipitor] 10 mg PO HS 08/31/16 06/25/17 Budesonide [Pulmicort] 0.5 mg INHALATION RT-BID 08/31/16 06/25/17 Fish Oil/Dha/Epa [Fish Oil 1,200 1 cap PO BID 08/31/16 06/25/17 mg Fish Oil] Ipratropium-Albuterol Nebulize 3 ml INHALATION RT-QID 08/31/16 06/25/17 [Duoneb 0.5 mg-3 mg/3 ml Soln] Montelukast [Singulair] 10 mg PO HS 08/31/16 06/25/17 Multivitamin [Men's Multi-Vitamin] 1 tab PO DAILY 09/19/16 06/25/17 Cholecalciferol [Vitamin D3] 1,000 unit PO DAILY 06/25/17 06/25/17 HYDROcodone/APAP 5-325MG [[place] 1 tab PO Q6HR PRN 06/25/17 06/25/17 5-325] L.acidoph,Paracasei, B.lactis 1 cap PO DAILY 06/25/17 06/25/17 [Probiotic] Ubidecarenone [Co Q-10] 100 mg PO DAILY 06/25/17 06/25/17 allopurinoL [Zyloprim] 100 mg PO DAILY 06/25/17 06/25/17 Previous Rx's Medication Instructions Recorded DAPTOmycin [Cubicin] 500 mg IVPB DAILY #40 vial 06/27/17 Allergies Allergy/AdvReac Type Severity Reaction Status Date / Time bee venom protein (honey bee) Allergy Itching Verified 11/11/19 16:10 cocoa AdvReac "sneezing" Verified 11/11/19 16:10 codeine AdvReac Itching Verified 11/11/19 16:10 Review of Systems ROS Other: All systems not noted in ROS Statement are negative. <Noel Hardy - Last Filed: 11/11/19 16:02> ROS Other: All systems not noted in ROS Statement are negative. <Rickie Guevara - Last Filed: 11/11/19 16:24> ROS Statement: Those systems with pertinent positive or pertinent negative responses have been documented in the HPI. Past Medical History Past Medical History: Asthma, Cancer, COPD, Hyperlipidemia, Prostate Disorder, Sleep Apnea/CPAP/BIPAP Additional Past Medical History / Comment(s): Skin cancer was removed from the left cheek, prostate cancer treated with seeds, bilateral lower extremity neuropathy, History of Any Multi-Drug Resistant Organisms: None Reported Date of last positivie culture/infection: None MDRO Source:: None Past Surgical History: Tonsillectomy Additional Past Surgical History / Comment(s): Colonoscopy with polypectomy, skin cancer excised from left cheek, surgery on the right great toe., Past Anesthesia/Blood Transfusion Reactions: No Reported Reaction Past Psychological History: No Psychological Hx Reported Smoking Status: Former smoker Past Alcohol Use History: Daily Past Drug Use History: None Reported - Past Family History Mother History Unknown: Yes Family Medical History: Cancer <Rickie Guevara - Last Filed: 11/11/19 16:24> General Exam Limitations: no limitations General appearance: alert, in no apparent distress, obese Head exam: Present: atraumatic, normocephalic, normal inspection Eye exam: Present: normal appearance, PERRL, EOMI Pupils: Present: normal accommodation ENT exam: Present: normal exam, normal oropharynx, mucous membranes moist. Absent: TM's normal bilaterally, normal external ear exam Neck exam: Present: normal inspection, full ROM. Absent: tenderness Respiratory exam: Present: normal lung sounds bilaterally. Absent: respiratory distress, wheezes, rales Cardiovascular Exam: Present: regular rate, normal rhythm, normal heart sounds Extremities exam: Present: full ROM, normal capillary refill, other (+2 dorsalis pedis and posterior tibialis bilateral.). Absent: normal inspection (Erythemat ous, warm, swollen right third toe. Ulcer on the plantar aspect of the toe. No discharge noted at this time.), tenderness (No tenderness due to neuropathy in the foot), pedal edema, joint swelling, calf tenderness Back exam: Present: normal inspection, full ROM. Absent: tenderness Neurological exam: Present: alert, oriented X3, normal gait Psychiatric exam: Present: normal affect, normal mood Skin exam: Present: warm, dry, intact, normal color <Rickie Guevara - Last Filed: 11/11/19 16:24> Course Vital Signs 11/11/19 11/11/19 14:40 16:15 Temperature 98.0 F Pulse Rate 93 89 Respiratory 18 18 Rate Blood Pressure 134/70 133/68 O2 Sat by Pulse 98 97 Oximetry Medical Decision Making - Lab Data Result diagrams: 11/11/19 15:08 11/11/19 15:08 <Noel Hardy - Last Filed: 11/11/19 16:02> - Lab Data Result diagrams: 11/11/19 15:08 11/11/19 15:08 <Rickie Guevara - Last Filed: 11/11/19 16:24> - Medical Decision Making Patient reexamined and reevaluated by myself, Dr. Hardy. Patient is to come to the bedside. I agree with PAs findings. This includes diagnostic interpretation. The plan. Patient does have significant swelling and erythema right middle toe with erythema extending up to the ankle. There is associated warmth. X-ray concerning for cellulitis. Case was discussed in detail with Dr. Matta, who will admit covered for hospital call. (Noel Hardy) Patient is 74-year-old male with history of osteomyelitis and foot neuropathy presenting to emergency Department with chief complaint foot infection. On initial physical examination, patient appears to have a swollen, erythematous right third toe along with an ulcer on the plantar aspect. There is some erythema moving proximally from the toe to the ankle region. He doesn't have any pain due to neuropathy. Patient fits sepsis criteria. CBC reveals leukocytosis. Patient does have a lactic acid of 2.3. X-ray reveals signs of osteomyelitis. Patient started on fluids, lactate and blood culture obtained. Patient started on vancomycin and Zosyn. Patient will be admitted further medical management. Admitting physician is Dr Paxton TESFAYE on consult (Rickie Guevara) - Lab Data Lab Results 11/11/19 11/11/19 11/11/19 Range/Units 15:08 15:08 15:08 WBC 11.3 H (3.8-10.6) k/uL RBC 4.16 L (4.30-5.90) m/uL Hgb 14.2 (13.0-17.5) gm/dL Hct 42.0 (39.0-53.0) % MCV 101.0 H (80.0-100.0) fL MCH 34.2 (25.0-35.0) pg MCHC 33.8 (31.0-37.0) g/dL RDW 12.4 (11.5-15.5) % Plt Count 201 (150-450) k/uL Neutrophils % 72 % Lymphocytes % 13 % Monocytes % 11 % Eosinophils % 1 % Basophils % 0 % Neutrophils # 8.1 H (1.3-7.7) k/uL Lymphocytes # 1.4 (1.0-4.8) k/uL Monocytes # 1.2 H (0-1.0) k/uL Eosinophils # 0.1 (0-0.7) k/uL Basophils # 0.0 (0-0.2) k/uL Sodium 139 (137-145) mmol/L Potassium 3.9 (3.5-5.1) mmol/L Chloride 106 (98-107) mmol/L Carbon Dioxide 26 (22-30) mmol/L Anion Gap 7 mmol/L BUN 6 L (9-20) mg/dL Creatinine 0.81 (0.66-1.25) mg/dL Est GFR (CKD-EPI)AfAm >90 (>60 ml/min/1.73 sqM) Est GFR (CKD-EPI)NonAf 88 (>60 ml/min/1.73 sqM) Glucose 125 H (74-99) mg/dL Plasma Lactic Acid [place] 2.3 H* (0.7-2.0) mmol/L Calcium 9.0 (8.4-10.2) mg/dL Total Bilirubin 1.1 (0.2-1.3) mg/dL AST 44 (17-59) U/L ALT 39 (4-49) U/L Alkaline Phosphatase 58 (38-126) U/L Total Protein 6.9 (6.3-8.2) g/dL Albumin 3.6 (3.5-5.0) g/dL Disposition <Noel Hardy - Last Filed: 11/11/19 16:02> Is patient prescribed a controlled substance at d/c from ED?: No Time of Disposition: 16:23 <Rickie Guevara - Last Filed: 11/11/19 16:24> Clinical Impression: Osteomyelitis, Neuropathic ulcer of foot Disposition: ADMITTED IP TO THIS HOSP Condition: Stable Additional Instructions: She will be admitted Referrals: Carlos Alberto Rubalcava, MARGAUX [Primary Care Provider] - 1-2 days
[2019-11-11 15:30] LABS: Basophils % (A) 0 %; Eosinophils # (A) 0.1 k/uL (0-0.7); Eosinophils % (A) 1 %; HGB 14.2 gm/dL (13.0-17.5); Lymphocytes # (A) 1.4 k/uL (1.0-4.8); Lymphocytes % (A) 13 %; MCH 34.2 pg (25.0-35.0); MCHC 33.8 g/dL (31.0-37.0); Mean Platelet Volume 8.3; Monocytes # (A) 1.2 k/uL (0-1.0); Monocytes % (A) 11 %; Neutrophils # (A) 8.1 k/uL (1.3-7.7); Neutrophils % (A) 72 %; Platelet Count 201 k/uL (150-450); RBC 4.16 m/uL (4.30-5.90); RDW 12.4 % (11.5-15.5); WBC 11.3 k/uL (3.8-10.6)
--- NOTE | 2019-11-11 15:37 | XR ---
Right foot HISTORY: Infection, soft tissue swelling third digit right foot 3 views of the right foot Correlation to prior exam 06/25/2017 There is marked soft tissue swelling of the third digit, some lucencies present within the soft tissu es, correlate to exclude gas-forming organism. There is bone destruction present at the level of the middle and distal phalanges of the third digit, disruption at the distal interphalangeal joint with b one fragment is present, there is bone erosion. Marked arthropathy is again noted within the first di git, second digit as noted on prior. There is a plantar calcaneal spur. Soft tissue swelling noted to the foot. Soft tissue calcifications may be arterial. impression: Findings are consistent with osteomyelitis, soft tissue infection as described.
[2019-11-11 15:38] LABS: ALT 39 U/L (4-49); AST 44 U/L (17-59); African American GFR (CKD) >90 (>60 ml/min/1.73 sqM); Albumin 3.6 g/dL (3.5-5.0); Alkaline Phosphatase 58 U/L (38-126); Anion Gap 7 mmol/L; Blood Urea Nitrogen 6 mg/dL (9-20); Carbon Dioxide 26 mmol/L (22-30); Chloride 106 mmol/L (98-107); Glucose 125 mg/dL (74-99); Non-African American GFR(CKD) 88 (>60 ml/min/1.73 sqM); Potassium 3.9 mmol/L (3.5-5.1); Sodium 139 mmol/L (137-145); Total Bilirubin 1.1 mg/dL (0.2-1.3); Total Protein 6.9 g/dL (6.3-8.2)
[2019-11-11] MEDS ORDERED: SODIUM CHLORIDE 0.9% 1,000 ML IV STA (15:42)
[2019-11-11] MEDS ORDERED: VANCOMYCIN IV PER PHARMACY 1 EACH MISC MISCELLANE PRN (15:49)
[2019-11-11] MEDS ORDERED: VANCOMYCIN 2,000 MG in SODIUM CHLORIDE 0.9% 500 ML 500 ML IVPB STA (15:54)
[2019-11-11] MEDS ORDERED: PIPERACILLIN-TAZOBACTAM 3.375 GM in SODIUM CHLORIDE 0.9% 100 ML IVPB STA (15:55)
[2019-11-11] MEDS ORDERED: SODIUM CHLORIDE 0.9% 500 ML 500 ML IV STA (15:57)
[2019-11-11] MEDS ORDERED: LORazepam 2 MG/ML INJ IV PRN (16:24)
[2019-11-11] MEDS ORDERED: ONDANSETRON 4 MG/2 ML VIAL IVP PRN (16:24)
[2019-11-11] MEDS ORDERED: NALOXONE 0.4 MG/ML 1 ML VIAL IV PRN (16:24)
[2019-11-11] MEDS ORDERED: HYDROmorphone 0.5 MG/0.5 ML SYRINGE IVP PRN (16:24)
[2019-11-11] MEDS ORDERED: GABAPENTIN 300 MG CAP PO PRN (17:52)
[2019-11-11] MEDS ORDERED: HYDROcodone/APAP 5-325MG 1 EACH TAB PO PRN (17:52)
[2019-11-11] MEDS ORDERED: ALPRAZolam 0.25 MG TAB PO PRN (19:17)
[2019-11-11] MEDS ORDERED: TEMAZEPAM 15 MG CAP PO PRN (19:17)
--- NOTE | 2019-11-11 19:58 | HP ---
HISTORY AND PHYSICAL DATE OF SERVICE: 11/11/2019 CHIEF COMPLAINT: Toe infection; possible osteomyelitis. HISTORY OF PRESENT ILLNESS: This 74-year-old gentleman with a past medical history of multiple medical problems, including asthma, COPD, history of hyperlipidemia, history of prostate disorder, history of skin cancer, history of tonsillectomy, being followed by Dr. Carlos Alberto Rubalcava in the outpatient setting, previously had osteomyelitis of the right fourth toe last year. The patient apparently had two episodes of previous infection which were treated with long-term antibiotics, including IV daptomycin. Patient improved significantly. Currently, the patient has been sick for the last about 2 months. The patient noted some discharge, some erythema. Because of lack of improvement, the patient presented to [facility] and was admitted for further evaluation and treatment. The patient has significant pains also, despite the neuropathy. There is no history of any fever, rigor or chills. No history of headache, loss of consciousness, seizures. PAST MEDICAL HISTORY: COPD, hyperlipidemia, prostate disorder, skin cancer, tonsillectomy, peripheral neuropathy. MEDICATIONS: DuoNeb, turmeric, vitamin B2, vitamin B complex, gabapentin, Fasenra, Dema p.r.n., Pulmicort, Lipitor, aspirin, Ventolin, Zyloprim, Singulair, vitamin D3, coenzyme-Q, multivitamins, probiotic, fish oil. ALLERGIES: BEE VENOM, COCOA, CODEINE. FAMILY HISTORY: History of cancer in the family. SOCIAL HISTORY: Occasional alcohol. Previous history of smoking. REVIEW OF SYSTEMS: ENT: No diminished hearing. No diminished vision. CARDIOVASCULAR SYSTEM: No angina, palpitations. RESPIRATORY SYSTEM: No cough, hemoptysis. GI: No nausea, vomiting. : No dysuria or retention. NERVOUS SYSTEM: No numbness, weakness. ALLERGY/IMMUNOLOGY: As mentioned earlier. HEMATOLOGY/ONCOLOGY: No history of anemia. ENDOCRINE: No history of diabetes. CONSTITUTIONAL: As mentioned earlier. DERMATOLOGY: As mentioned earlier. RHEUMATOLOGY: As mentioned earlier. MUSCULOSKELETAL: As mentioned earlier. PSYCHIATRY: Negative. PHYSICAL EXAMINATION: Patient alert, oriented x3. Pulse is 89, blood pressure 133/68, respiration 18, temperature 98 degrees, pulse ox 97% on room air. HEENT: Conjunctivae normal. Oral mucosa moist. NECK: No jugular venous distention. No carotid bruit. No lymph node enlargement. CARDIOVASCULAR SYSTEM: S1, S2 muffled. No S3. No S4. RESPIRATORY SYSTEM: Breath sounds diminished at the bases. No rhonchi. No crackles. ABDOMEN: Soft, obese, non-tender. No mass palpable. LEGS: The left leg is erythematous, slightly tender. Peripheral neuropathy present. Despite that, patient has got significant swelling and bulbous deformity with whitish areas of the dorsum of the right third toe and some significant tenderness and spreading cellulitis also present. NERVOUS SYSTEM: Peripheral neuropathy. Otherwise, no other focal motor deficit. SKIN: As mentioned earlier. No rashes. JOINTS: No active deforming arthropathy. LYMPHATICS: No lymph node palpable in neck, axillae or groin. L JOINTS: No active deforming arthropathy. LABS: WBC 11.3, MCV 101. Plasma lactic acid 2.3. ASSESSMENT: 1. Right foot third toe infection with osteomyelitis with possible sepsis, present on admission. 2. Severe pain. 3. Failure of outpatient treatment. 4. Possible peripheral artery disease. 5. Increased white count. 6. Increased mean corpuscular volume. 7. Increased random blood sugar. 8. Elevated plasma lactic acid. 9. History of asthma. 10.History of chronic obstructive pulmonary disease. 11.Hyperlipidemia. 12.History of prostate disorder. 13.History of sleep apnea. 14.History of skin cancer. 15.History of prostate cancer. 16.History of tonsillectomy. 17.History of colonoscopy with polypectomy. 18.History of alcohol. 19.Remote history of nicotine dependence. 20.Obesity with body mass index of 33.9. RECOMMENDATIONS AND DISCUSSION: In this 74-year-old gentleman who presented with multiple complex medical issues, at this time I recommend to continue current medications, continue with symptomatic treatment, empiric antibiotics. Obtain cultures. Otherwise, bone scan. Infectious disease and vascular surgery consultations. We will continue to monitor. Cultures will be obtained. Antibiotics will be arranged. Prognosis is extremely guarded because of the multiple complex medical issues. Further recommendations to follow. A copy of this dictation is being forwarded to Dr. Carlos Alberto Rubalcava, who is following the patient in the outpatient setting. MMODL / IJN: [id number] /
[2019-11-11] MEDS ORDERED: BUDESONIDE 0.5 MG/2 ML NEBU INHALATION SCH (20:00)
[2019-11-11] MEDS: ALBUTEROL NEBULIZED 2.5 MG/3 ML INHALATION PRN (20:07)
[2019-11-11] MEDS: BUDESONIDE 0.5 MG/2 ML NEBU INHALATION SCH (20:07)
[2019-11-11] MEDS: ASPIRIN 81 MG PO SCH (20:08)
[2019-11-11] MEDS: ATORVASTATIN 10 MG TAB PO SCH (20:08)
[2019-11-11] MEDS: MONTELUKAST 10 MG TAB PO SCH (20:08)
[2019-11-11] MEDS: HYDROmorphone 1 MG/ML 1 ML SYRINGE IVP PRN ×2 (20:13→23:30)
[2019-11-11] MEDS: HEPARIN SODIUM,PORCINE 5,000 UNIT/ML 1 ML VIAL SQ SCH (20:14)
[2019-11-11] MEDS ORDERED: NON FORMULARY DRUG (Fish Oil/Dha/Epa [Fish Oil 1,200 Mg Fish Oil] 1 EACH Capsule) PO SCH (21:00)
[2019-11-12 00:41] LABS: Appearance,Urine Clear (Clear); Bilirubin,Urine Negative (Negative); Blood,Urine Negative (Negative); Color,Urine Yellow; Glucose,Urine (UA) Negative (Negative); Ketones,Urine Negative (Negative); Leukocyte Esterase,Urine Negative (Negative); Nitrite,Urine Negative (Negative); PH, Urine 5.5 (5.0-8.0); Protein,Urine Negative (Negative); Specific Gravity,Urine 1.015 (1.001-1.035); Urobilinogen,Urine <2.0 mg/dL (<2.0)
[2019-11-12 05:08] LABS: Basophils % (A) 0 %; Eosinophils % (A) 0 %; HCT 41.8 % (39.0-53.0); HGB 13.8 gm/dL (13.0-17.5); Lymphocytes # (A) 2.4 k/uL (1.0-4.8); Lymphocytes % (A) 28 %; MCH 33.6 pg (25.0-35.0); MCHC 32.9 g/dL (31.0-37.0); MCV 102.2 fL (80.0-100.0); Macrocytosis Slight; Mean Platelet Volume 7.5; Monocytes # (A) 0.9 k/uL (0-1.0); Monocytes % (A) 11 %; Neutrophils % (A) 58 %; Platelet Count 216 k/uL (150-450); RBC 4.09 m/uL (4.30-5.90); RDW 12.5 % (11.5-15.5); WBC 8.7 k/uL (3.8-10.6)
[2019-11-12] MEDS: HYDROmorphone 1 MG/ML 1 ML SYRINGE IVP PRN ×3 (06:05→19:59)
[2019-11-12] MEDS: VANCOMYCIN 2,000 MG in SODIUM CHLORIDE 0.9% 500 ML 500 ML IVPB SCH ×2 (06:06→17:44)
[2019-11-12] MEDS ORDERED: NON FORMULARY DRUG (Ubidecarenone [Co Q-10] 100 MG Capsule) PO SCH (09:00)
[2019-11-12] MEDS ORDERED: NON FORMULARY DRUG (Vitamin B Complex [Vitamin B Complex] 1 EACH Capsule) PO SCH (09:00)
[2019-11-12] MEDS: IPRATROPIUM-ALBUTEROL 3 ML NEB INHALATION PRN (09:07)
[2019-11-12] MEDS: PANTOPRAZOLE 40 MG TABLET PO SCH (09:07)
[2019-11-12] MEDS: LACTOBACILLUS ACIDOPH & BULGAR 1 EACH PACKET PO SCH (09:07)
[2019-11-12] MEDS: BUDESONIDE 0.5 MG/2 ML NEBU INHALATION SCH ×2 (09:07→20:13)
[2019-11-12] MEDS: CHOLECALCIFEROL 1,000 UNIT TAB PO SCH (09:08)
[2019-11-12] MEDS: MULTIVITAMINS, THERA 1 EACH TAB PO SCH (09:08)
[2019-11-12] MEDS: CYANOCOBALAMIN 500 MCG TAB PO SCH (09:08)
[2019-11-12] MEDS: HEPARIN SODIUM,PORCINE 5,000 UNIT/ML 1 ML VIAL SQ SCH ×2 (09:08→19:58)
[2019-11-12] MEDS: allopurinoL 100 MG TAB PO SCH (09:08)
[2019-11-12 10:13] LABS: Anion Gap 8.5 mmol/L (4.00-12.00); BUN/Creat Ratio 7.5 Ratio (12.00-20.00); Calcium 8.1 mg/dL (8.7-10.3); Carbon Dioxide 22.5 mmol/L (21.6-31.8); Potassium 3.9 mmol/L (3.5-5.5)
--- NOTE | 2019-11-12 12:05 | NM ---
EXAMINATION TYPE: NM bone 3 phase DATE OF EXAM: 11/12/2019 COMPARISON: X-ray 11/11/2019 HISTORY: Possible right third toe osteomyelitis Triple phase bone scintigraphy was performed following the injection of 25.9 mCi Tc 99m MDP. Immedia te images and 3 hours post injection images acquired. FINDINGS: There is markedly increased perfusion to the distal margin of the right foot. There is extensive soft tissue uptake involving several digits of the distal right foot suggestive of cellulitis. There is a localized increased uptake involving the distal metatarsals a sagittal digits as well as t he distal phalanx of the third, fourth and fifth digits. There is also abnormal uptake involving the first MTP of the left digit which likely is related to arthritic change. IMPRESSION: 1. Findings are compatible with cellulitis and suggestive of osteomyelitis of the distal margins of t he third through fifth digits.
--- NOTE | 2019-11-12 16:16 | P.GSCN ---
History of Present Illness History of present illness: 74-year-old gentleman, patient came with history of a right foot third toe callus formation with the wet gangrene changes patient also has a marked redness and some cellulitis of the right foot dorsal suspect he did patient has a long- standing history of for infection to the right foot third toe in the past. He was treated with antibiotic. Patient had a bone scan today which shows osteo-of the right foot third toe. Patient has a history of for sleep apnea and diabetes and prostate disorder Neck examination neck is supple no bruit appreciated Chest is clear few rhonchi at the lung bases patient has history of sleep apnea Eschen on CPAP Abdomen soft nontender no Vascular examination femorals are 1+ bilateral posterior tibial dorsal pedis has a decent signal to the right foot is a marked redness and swelling noted of the right foot dorsum aspect the third toe has a ulcer with the wet gangrene changes on the plantar aspect Plan is patient is an IV antibiotic which be continued and local wound care we will use medihoney gel to the third toe I have discussed about the possibility of surgical intervention because this third toe has been infected for long period of time and with ulcer formation and some wet gangrene changes may end up with there are third toe ray amputation patient wants to hold for surgical intervention at this point he wants to try the antibiotic that he is we'll follow with you Past Medical History Past Medical History: Asthma, Cancer, COPD, Hyperlipidemia, Prostate Disorder, Sleep Apnea/CPAP/BIPAP Additional Past Medical History / Comment(s): Skin cancer was removed from the left cheek, prostate cancer treated with seeds, bilateral lower extremity neuropathy, History of Any Multi-Drug Resistant Organisms: None Reported Year Discovered:: None MDRO Source:: None Past Surgical History: Tonsillectomy Additional Past Surgical History / Comment(s): Colonoscopy with polypectomy, skin cancer excised from left cheek, surgery on the right great toe., Past Anesthesia/Blood Transfusion Reactions: No Reported Reaction Past Psychological History: No Psychological Hx Reported Smoking Status: Former smoker Past Alcohol Use History: Daily Additional Past Alcohol Use History / Comment(s): Patient was a smoker one half to 2 packs per day for 49 years and quit when he was 65 years of age. He denies any medical marijuana, marijuana, street drug use or alcohol use. He lives at home with his , sister, sister and [id number]. There are 2 dogs in the home and they do have outdoor cats and a PEG. Patient is up. Inside. He is retired from [employer] Past Drug Use History: None Reported - Past Family History Mother History Unknown: Yes Family Medical History: Cancer Medications and Allergies Home Medications Medication Instructions Recorded Confirmed Type Albuterol Sulfate [Ventolin HFA] 1 - 2 puff INHALATION RT-Q6H PRN 08/31/16 11/11/19 History Aspirin 81 mg PO HS 08/31/16 11/11/19 History Atorvastatin [Lipitor] 10 mg PO HS 08/31/16 11/11/19 History Budesonide [Pulmicort] 0.5 mg INHALATION RT-BID 08/31/16 11/11/19 History Fish Oil/Dha/Epa [Fish Oil 1,200 1 cap PO BID 08/31/16 11/11/19 History mg Fish Oil] Montelukast [Singulair] 10 mg PO HS 08/31/16 11/11/19 History Multivitamin [Men's Multi-Vitamin] 1 tab PO DAILY 09/19/16 11/11/19 History Cholecalciferol [Vitamin D3] 1,000 unit PO DAILY 06/25/17 11/11/19 History HYDROcodone/APAP 5-325MG [[place] 1 tab PO BID PRN 06/25/17 11/11/19 History 5-325] L.acidoph,Paracasei, B.lactis 1 cap PO DAILY 06/25/17 11/11/19 History [Probiotic] Ubidecarenone [Co Q-10] 100 mg PO DAILY 06/25/17 11/11/19 History allopurinoL [Zyloprim] 100 mg PO DAILY 06/25/17 11/11/19 History Benralizumab [Fasenra] 30 mg SQ Q56D 11/11/19 11/11/19 History Cyanocobalamin (Vitamin B-12) 2,500 mcg PO DAILY 11/11/19 11/11/19 History [Vitamin B-12] Gabapentin [Neurontin] 300 mg PO BID PRN 11/11/19 11/11/19 History Ipratropium-Albuterol Nebulize 3 ml INHALATION RT-QID PRN 11/11/19 11/11/19 History [Duoneb 0.5 mg-3 mg/3 ml Soln] Turmeric Root Extract [Turmeric] 1,000 mcg PO BID 11/11/19 11/11/19 History Vitamin B Complex 1 cap PO DAILY 11/11/19 11/11/19 History Allergies Allergy/AdvReac Type Severity Reaction Status Date / Time bee venom protein (honey bee) Allergy Itching Verified 11/11/19 16:10 cocoa AdvReac "sneezing" Verified 11/11/19 16:10 codeine AdvReac Itching Verified 11/11/19 16:10 Surgical - Exam Vital Signs Pulse Resp BP Pulse Ox 93 18 134/70 98 11/11/19 14:40 11/11/19 14:40 11/11/19 14:40 11/11/19 14:40 Results - Labs 11/12/19 04:43 11/12/19 04:43 Abnormal Lab Results - Last 24 Hours (Table) 11/11/19 11/12/19 11/12/19 Range/Units 15:08 04:43 04:43 RBC 4.09 L (4.30-5.90) m/uL MCV 102.2 H (80.0-100.0) fL BUN 6.0 L (9.0-27.0) mg/dL BUN/Creatinine Ratio 7.50 L (12.00-20.00) Ratio Calcium 8.1 L (8.7-10.3) mg/dL C-Reactive Protein 82.3 H (<10.0) mg/L Microbiology - Last 24 Hours (Table) 11/11/19 20:35 Gram Stain - Preliminary Toe - Right Third Wound Culture - Preliminary 11/11/19 20:35 Anaerobic Culture - Preliminary Toe - Right Third Diabetes panel 11/12/19 Range/Units 04:43 Sodium 138 (135-145) mmol/L Potassium 3.9 (3.5-5.5) mmol/L Chloride 107 (96-109) mmol/L Carbon Dioxide 22.5 (21.6-31.8) mmol/L BUN 6.0 L (9.0-27.0) mg/dL Creatinine 0.8 (0.6-1.5) mg/dL Glucose 98 (70-110) mg/dL Calcium 8.1 L (8.7-10.3) mg/dL Calcium panel 11/12/19 Range/Units 04:43 Calcium 8.1 L (8.7-10.3) mg/dL Pituitary panel 11/12/19 Range/Units 04:43 Sodium 138 (135-145) mmol/L Potassium 3.9 (3.5-5.5) mmol/L Chloride 107 (96-109) mmol/L Carbon Dioxide 22.5 (21.6-31.8) mmol/L BUN 6.0 L (9.0-27.0) mg/dL Creatinine 0.8 (0.6-1.5) mg/dL Glucose 98 (70-110) mg/dL Calcium 8.1 L (8.7-10.3) mg/dL Adrenal panel 11/12/19 Range/Units 04:43 Sodium 138 (135-145) mmol/L Potassium 3.9 (3.5-5.5) mmol/L Chloride 107 (96-109) mmol/L Carbon Dioxide 22.5 (21.6-31.8) mmol/L BUN 6.0 L (9.0-27.0) mg/dL Creatinine 0.8 (0.6-1.5) mg/dL Glucose 98 (70-110) mg/dL Calcium 8.1 L (8.7-10.3) mg/dL
--- NOTE | 2019-11-12 16:41 | PN ---
PROGRESS NOTE DATE OF SERVICE: 11/12/2019 This 74-year-old gentleman was admitted with significant infection of the foot and possible osteomyelitis. A bone scan done today which I reviewed personally showed compatible cellulitis versus osteomyelitis with cyst margins of the third through fifth digits. There is significant swelling of the right foot, but the erythema is slightly better. Pain is also slightly better. Patient is on broad spectrum IV antibiotics, infectious disease evaluation in progress at this time. PAST MEDICAL HISTORY: Reviewed. REVIEW OF SYSTEMS: CARDIOVASCULAR SYSTEM: No angina or palpitations. RESPIRATION: As mentioned earlier. GI: As mentioned earlier. : No dysuria. NERVOUS SYSTEM: No numbness or weakness. CURRENT MEDICATIONS: Reviewed include: 1. Sodus. 2. DuoNeb. 3. Zyloprim. 4. Xanax. 5. Aspirin. 6. Lipitor. 7. Pulmicort. 8. Vitamin D3. 9. Neurontin. 10.Heparin. 11.Dilaudid. 12.Lactinex. 13.Ativan. 14.Singulair. 15.Multivitamin. 16.Narcan. 17.Zofran. 18.Protonix. 19.Restoril. PHYSICAL EXAM: Patient is alert, oriented x3. Pulse 69, blood pressure 141/70, respirations 16, temperature 98.1, pulse ox 97% on room air. HEENT: Conjunctivae normal. NECK: No jugular venous distension. CARDIOVASCULAR SYSTEM: S1, S2, muffled. RESPIRATION: Breath sounds diminished at the bases, no rhonchi, no crackles. ABDOMEN: Soft, nontender, obese. LEGS: Significant swelling and pain of the right foot with erythema and tenderness as mentioned earlier. Mostly third to fifth. Pulses diminished bilaterally. NERVOUS SYSTEM: Higher functions as mentioned earlier. Peripheral neuropathy present. Otherwise no focal motor deficits. LABS: WBC 8.2, hemoglobin 13.8, sodium 130, lactic acid is noted. Cultures are pending at this time. ASSESSMENT: 1. Acute right foot third to fifth toe infection with osteomyelitis and possible sepsis, present on admission with failure of outpatient treatment. 2. Severe pain. 3. Possible peripheral artery disease. 4. Increased WBC. 5. Increased MCV. 6. Increased random blood sugar. 7. Elevated plasma lactic acid. 8. History of asthma. 9. History of COPD. 10.Hyperlipidemia. 11.History of prostate disorder. 12.History of sleep apnea. 13.History of skin cancer. 14.History of prostate cancer. 15.History of tonsillectomy. 16.History of colonoscopy with polypectomy. 17.History of alcohol. 18.Remote history of nicotine dependence. 19.Obesity with body mass index of 33.9. RECOMMENDATION: Recommend to continue current management and symptomatic treatment. Continue the broad- spectrum IV antibiotics. Pain management, DVT prophylaxis. Infectious disease evaluation. Possible PICC line and long-term and IV antibiotic treatment. Vascular surgery consultation. Prognosis extremely guarded because of multiple complex medical issues. Further recommendations to follow. MMODL / IJN: [id number] /
[2019-11-12] MEDS: ASPIRIN 81 MG PO SCH (19:59)
[2019-11-12] MEDS: MONTELUKAST 10 MG TAB PO SCH (19:59)
[2019-11-12] MEDS: ATORVASTATIN 10 MG TAB PO SCH (19:59)
[2019-11-12] MEDS: ALBUTEROL NEBULIZED 2.5 MG/3 ML INHALATION PRN (20:13)
[2019-11-13] MEDS: VANCOMYCIN 2,000 MG in SODIUM CHLORIDE 0.9% 500 ML 500 ML IVPB SCH (05:30)
[2019-11-13 06:28] LABS: Basophils % (A) 0 %; Eosinophils % (A) 0 %; HCT 40.7 % (39.0-53.0); HGB 13.3 gm/dL (13.0-17.5); Lymphocytes # (A) 1.6 k/uL (1.0-4.8); Lymphocytes % (A) 22 %; MCH 34.4 pg (25.0-35.0); MCHC 32.8 g/dL (31.0-37.0); MCV 104.9 fL (80.0-100.0); Macrocytosis Slight; Mean Platelet Volume 7.2; Monocytes # (A) 0.7 k/uL (0-1.0); Monocytes % (A) 11 %; Neutrophils # (A) 4.4 k/uL (1.3-7.7); Neutrophils % (A) 64 %; Platelet Count 245 k/uL (150-450); RBC 3.88 m/uL (4.30-5.90); RDW 12.8 % (11.5-15.5); WBC 6.9 k/uL (3.8-10.6)
[2019-11-13] MEDS: BUDESONIDE 0.5 MG/2 ML NEBU INHALATION SCH ×2 (07:20→19:35)
[2019-11-13] MEDS: ALBUTEROL NEBULIZED 2.5 MG/3 ML INHALATION PRN (07:20)
[2019-11-13] MEDS: IPRATROPIUM-ALBUTEROL 3 ML NEB INHALATION PRN ×2 (07:21→19:35)
--- NOTE | 2019-11-13 08:24 | P.CONS ---
History of Present Illness - Reason for Consult Consult date: 11/12/19 right 3rd toe infection Requesting physician: Shon Matta - Chief Complaint right 3rd toe swelling and redness x days - History of Present Illness patient is 74-year-old male with a past medical history significant for peripheral neuropathy previous episodes of osteomyelitis requiring IV antibiotic therapy and has been under the care of Dr. Gates in the past patient presented to the [facility] ER yesterday for evaluation of his right third toe apparently the patient did have ulcer on the plantar aspect of his right third toe with the patient has been treated with the help of his mortician helper over the last few days he noticed his third toes becoming more swollen and red and mention of some bloodstained drainage as well, patient has been seen by his primary care physician with the patient has been started on Bactrim DS with the patient has completed and he was treating the ulcer with med however a honey and Neosporin patient noticed significant worsening of the redness over the last day or 2 that concerned him and he presented to hospital he was also significant swelling of his third toe no fever and the patient had denies having any pain because of his neuropathy with this and the patient was evaluated by the ER physician on arrival to the ER the patient was afebrile patient did have white count of 11.3 local cultures have been obtained is currently pending blood cultures are pending as well and the patient did have x- rays of the toe which did shows a finding consistent with osteomyelitis which was confirmed on the bone scan infectious disease was consulted for further management of antibiotic therapy Review of Systems Positive point has been mentioned in HPI rest of the systems are negative Past Medical History Past Medical History: Asthma, Cancer, COPD, Hyperlipidemia, Prostate Disorder, Sleep Apnea/CPAP/BIPAP Additional Past Medical History / Comment(s): Skin cancer was removed from the left cheek, prostate cancer treated with seeds, bilateral lower extremity neuropathy, History of Any Multi-Drug Resistant Organisms: None Reported Year Discovered:: None MDRO Source:: None Past Surgical History: Tonsillectomy Additional Past Surgical History / Comment(s): Colonoscopy with polypectomy, skin cancer excised from left cheek, surgery on the right great toe., Past Anesthesia/Blood Transfusion Reactions: No Reported Reaction Past Psychological History: No Psychological Hx Reported Smoking Status: Former smoker Past Alcohol Use History: Daily Additional Past Alcohol Use History / Comment(s): Patient was a smoker one half to 2 packs per day for 49 years and quit when he was 65 years of age. He denies any medical marijuana, marijuana, street drug use or alcohol use. He lives at home with his , sister, sister and [id number]. There are 2 dogs in the home and they do have outdoor cats and a PEG. Patient is up. Inside. He is retired from [employer]. Past Drug Use History: None Reported - Past Family History Mother History Unknown: Yes Family Medical History: Cancer Medications and Allergies Home Medications Medication Instructions Recorded Confirmed Type Albuterol Sulfate [Ventolin HFA] 1 - 2 puff INHALATION RT-Q6H PRN 08/31/16 11/11/19 History Aspirin 81 mg PO HS 08/31/16 11/11/19 History Atorvastatin [Lipitor] 10 mg PO HS 08/31/16 11/11/19 History Budesonide [Pulmicort] 0.5 mg INHALATION RT-BID 08/31/16 11/11/19 History Fish Oil/Dha/Epa [Fish Oil 1,200 1 cap PO BID 08/31/16 11/11/19 History mg Fish Oil] Montelukast [Singulair] 10 mg PO HS 08/31/16 11/11/19 History Multivitamin [Men's Multi-Vitamin] 1 tab PO DAILY 09/19/16 11/11/19 History Cholecalciferol [Vitamin D3] 1,000 unit PO DAILY 06/25/17 11/11/19 History HYDROcodone/APAP 5-325MG [[place] 1 tab PO BID PRN 06/25/17 11/11/19 History 5-325] L.acidoph,Paracasei, B.lactis 1 cap PO DAILY 06/25/17 11/11/19 History [Probiotic] Ubidecarenone [Co Q-10] 100 mg PO DAILY 06/25/17 11/11/19 History allopurinoL [Zyloprim] 100 mg PO DAILY 06/25/17 11/11/19 History Benralizumab [Fasenra] 30 mg SQ Q56D 11/11/19 11/11/19 History Cyanocobalamin (Vitamin B-12) 2,500 mcg PO DAILY 11/11/19 11/11/19 History [Vitamin B-12] Gabapentin [Neurontin] 300 mg PO BID PRN 11/11/19 11/11/19 History Ipratropium-Albuterol Nebulize 3 ml INHALATION RT-QID PRN 11/11/19 11/11/19 History [Duoneb 0.5 mg-3 mg/3 ml Soln] Turmeric Root Extract [Turmeric] 1,000 mcg PO BID 11/11/19 11/11/19 History Vitamin B Complex 1 cap PO DAILY 11/11/19 11/11/19 History Allergies Allergy/AdvReac Type Severity Reaction Status Date / Time bee venom protein (honey bee) Allergy Itching Verified 11/11/19 16:10 cocoa AdvReac "sneezing" Verified 11/11/19 16:10 codeine AdvReac Itching Verified 11/11/19 16:10 Physical Exam Vitals: Vital Signs Temp Pulse Pulse Pulse Resp BP BP 11/12/19 13:00 98.1 F 69 16 11/12/19 09:30 72 11/12/19 09:11 76 11/12/19 05:00 99 F 79 20 114/65 11/12/19 00:10 18 11/11/19 21:00 98.3 F 92 18 166/84 11/11/19 20:24 76 11/11/19 20:12 11/11/19 20:07 76 11/11/19 19:00 18 11/11/19 16:15 98.0 F 89 18 133/68 BP Pulse Ox 11/12/19 13:00 141/70 97 11/12/19 09:30 11/12/19 09:11 11/12/19 05:00 97 11/12/19 00:10 11/11/19 21:00 98 11/11/19 20:24 11/11/19 20:12 95 11/11/19 20:07 11/11/19 19:00 11/11/19 16:15 97 Intake and Output 11/12/19 11/12/19 11/12/19 06:59 14:59 22:59 Intake Total 520 500 Balance 520 500 Intake: Intake, IV Titration 520 500 Amount Sodium Chloride 0.9% 500 520 ml 500 ml @ 130 mls/hr IV .Q3H51M [facility] Rx#: [id number] Vancomycin 2,000 mg In 500 Sodium Chloride 0.9% 500 ml 500 ml @ 167 mls/hr IVPB Q12H [facility] Rx#: [id number] Other: Voiding Method Toilet # Voids 2 GENERAL DESCRIPTION: Elderly male up in the chair, no distress. No tachypnea or accessory muscle of respiration use. HEENT: Shows Pallor , no scleral icterus. Oral mucous membrane is dry. NECK: Trachea central, no thyromegaly. LUNGS: Unlabored breathing. Clear to auscultation anteriorly. No wheeze or crackle. HEART: S1, S2, regular rate and rhythm. ABDOMEN: Soft, no tenderness , guarding or rigidity EXTREMITIES: Right third toe is significantly swollen red and ulcer on the plantar aspect. SKIN: No rash, no masses palpable. NEUROLOGICAL: The patient is awake, alert, oriented x3, mood and affect normal. Results CBC & Chem 7: 11/13/19 06:00 11/12/19 04:43 Labs: Abnormal Lab Results - Last 24 Hours (Table) 11/11/19 11/11/19 11/11/19 Range/Units 15:08 15:08 15:08 WBC 11.3 H (3.8-10.6) k/uL RBC 4.16 L (4.30-5.90) m/uL MCV 101.0 H (80.0-100.0) fL Neutrophils # 8.1 H (1.3-7.7) k/uL Monocytes # 1.2 H (0-1.0) k/uL BUN 6 L (9-20) mg/dL BUN/Creatinine Ratio (12.00-20.00) Ratio Glucose 125 H (74-99) mg/dL Plasma Lactic Acid Kwabena 2.3 H* (0.7-2.0) mmol/L Calcium (8.7-10.3) mg/dL C-Reactive Protein (<10.0) mg/L 11/11/19 11/12/19 11/12/19 Range/Units 15:08 04:43 04:43 WBC (3.8-10.6) k/uL RBC 4.09 L (4.30-5.90) m/uL MCV 102.2 H (80.0-100.0) fL Neutrophils # (1.3-7.7) k/uL Monocytes # (0-1.0) k/uL BUN 6.0 L (9-20) mg/dL BUN/Creatinine Ratio 7.50 L (12.00-20.00) Ratio Glucose (74-99) mg/dL Plasma Lactic Acid Kwabena (0.7-2.0) mmol/L Calcium 8.1 L (8.7-10.3) mg/dL C-Reactive Protein 82.3 H (<10.0) mg/L Microbiology - Last 24 Hours (Table) 11/11/19 20:35 Gram Stain - Preliminary Toe - Right Third Wound Culture - Preliminary 11/11/19 20:35 Anaerobic Culture - Preliminary Toe - Right Third Assessment and Plan Assessment: patient presented to hospital with right third toe diabetic foot infection in this patient who did have a plantar aspect of the third toe with significant swelling as well as redness of the toe with abnormality on the x-ray and the bone scan suspicious for osteomyelitis we will need to cover for the gram- positive skin yonas with likely pathogen however in view of the underlying diabetes polymicrobial infection may be possible (1) Toe osteomyelitis, right Current Visit: Yes Status: Acute Code(s): M86.9 - OSTEOMYELITIS, UNSPECIFIED SNOMED Code(s): 205519171 Plan: 1-vancomycin pharmacy to dose her with a target trough of 15 while watching her kidney function and Vanco trough closely. 2-await surgical evaluation for possible debridement and deep cultures versus amputation We will follow on clinical condition and cultures to further adjust medication if needed Thank you for this consultation we will follow the patient along with you Time with Patient: Greater than 30
[2019-11-13] MEDS: CYANOCOBALAMIN 500 MCG TAB PO SCH (08:33)
[2019-11-13] MEDS: LACTOBACILLUS ACIDOPH & BULGAR 1 EACH PACKET PO SCH (08:33)
[2019-11-13] MEDS: PANTOPRAZOLE 40 MG TABLET PO SCH (08:34)
[2019-11-13] MEDS: allopurinoL 100 MG TAB PO SCH (08:35)
[2019-11-13] MEDS: HEPARIN SODIUM,PORCINE 5,000 UNIT/ML 1 ML VIAL SQ SCH ×2 (08:35→20:48)
[2019-11-13] MEDS: MULTIVITAMINS, THERA 1 EACH TAB PO SCH (08:35)
[2019-11-13] MEDS: CHOLECALCIFEROL 1,000 UNIT TAB PO SCH (08:38)
[2019-11-13 09:16] LABS: Anion Gap 9.3 mmol/L (4.00-12.00); BUN/Creat Ratio 11.25 Ratio (12.00-20.00); Calcium 8.3 mg/dL (8.7-10.3); Carbon Dioxide 23.7 mmol/L (21.6-31.8)
--- NOTE | 2019-11-13 09:40 | PN ---
PROGRESS NOTE A 74-year-old gentleman who came with marked swelling, redness of the dorsal right foot. The patient has chronic ulcer right foot third toe involving the plantar aspect. Bone scan shows osteomyelitis. The patient has a past history of osteomyelitis to the third toe. PLAN: Patient is getting IV antibiotic Medihoney gel to the to the third toe. The patient is anxious to go home and we have discussed about surgical intervention. The patient wants to try the antibiotic and local wound care. If he goes home, I would like to see him follow at [facility] on Sunday. LATONIA / KERRY: [id number] /
[2019-11-13] MEDS: AMPICILLIN-SULBACTAM 3 GM in SODIUM CHLORIDE 0.9% 100 ML IVPB SCH ×4 (10:28→23:37)
[2019-11-13] MEDS: HYDROcodone/APAP 5-325MG 1 EACH TAB PO PRN ×2 (12:40→23:36)
[2019-11-13] MEDS ORDERED: LIDOCAINE 1% INJ 10MG/ML (20 ML MDV) SQ ONE (13:02)
--- NOTE | 2019-11-13 15:28 | PN ---
PROGRESS NOTE DATE OF SERVICE: 11/13/2019 This 74-year-old gentleman who was admitted with possible osteomyelitis is being closely monitored. Patient is on IV daptomycin. The patient has a previous history of osteomyelitis, also. Dr. Mayfield and Dr. Kenyon are following the patient closely. Wound cultures grew Strep agalactiae, group B. No chest pain. No palpitations. No fever. PHYSICAL EXAMINATION: Alert and oriented x3. Pulse is 77, blood pressure 153/75, respiration 17, temperature 98 degrees, pulse ox 97% on room air. HEENT: Conjunctivae normal. NECK: No jugular venous distention. CARDIOVASCULAR SYSTEM: S1, S2 muffled. RESPIRATORY SYSTEM: Breath sounds diminished at the bases. No rhonchi. No crackles. ABDOMEN: Soft, non-tender. Right foot has swelling and osteomyelitis present. LABS: WBC 6.2, hemoglobin 13.3, MCV 104, and calcium is 8.3. ASSESSMENT: 1. Acute right foot third to fifth toe infection with osteomyelitis with possible sepsis, present on admission, with failure of outpatient treatment. 2. Severe pain. 3. Possible peripheral artery disease. 4. Increased white count. 5. Increased mean corpuscular volume. 6. Increased random blood sugar. 7. Elevated plasma lactic acid. 8. History of asthma. 9. History of chronic obstructive pulmonary disease. 10.Hyperlipidemia. 11.History of prostate disorder. 12.Sleep apnea. 13.History of skin cancer. 14.History of tonsillectomy. 15.History of colonoscopy with polypectomy. 16.History of alcohol. 17.Remote history of nicotine dependence. 18.Obesity with body mass index of 33.9. RECOMMENDATIONS AND DISCUSSION: I recommend to continue current medications, continue with the monitoring, symptomatic treatment. Otherwise at this time I recommend continuing with empiric antibiotics, possible PICC line for long-term antibiotics. Closely follow with Infectious Disease and Vascular Surgery. Guarded prognosis. Further recommendations to follow. MMODL / IJN: [id number] /
[2019-11-13] MEDS: MONTELUKAST 10 MG TAB PO SCH (20:48)
[2019-11-13] MEDS: ATORVASTATIN 10 MG TAB PO SCH (20:48)
[2019-11-13] MEDS: ASPIRIN 81 MG PO SCH (20:48)
--- NOTE | 2019-11-13 23:29 | PN ---
PROGRESS NOTE DATE OF SERVICE: 11/13/2019 REASON FOR FOLLOWUP: Right third toe osteomyelitis with acute Staphylococcus agalactiae. INTERVAL HISTORY: The patient is currently afebrile, has been breathing comfortably. Denies having any chest pain or shortness of breath or cough. No nausea or vomiting. No abdominal pain. Complaining of some pain to the right third toe, but no worsening. PHYSICAL EXAMINATION: Blood pressure 170/83 with a pulse of 86, temperature of 98. He is 96% on room air. General description is an elderly male up in the chair in no distress. RESPIRATORY SYSTEM: Unlabored breathing. Clear to auscultation anteriorly. HEART: S1, S2. Regular rate and rhythm. ABDOMEN: Soft. No tenderness. Right foot is currently dressed up. No obvious drainage on the dressing. LABS: Hemoglobin 13.3, white count 6.9, BUN of 9, creatinine 0.8. DIAGNOSTIC IMPRESSION AND PLAN: Patient with right third toe osteomyelitis. Culture with Staphylococcus agalactiae. Antibiotic has been switched over to Unasyn 3 grams q.6. Plan will be for Rocephin 2 grams daily for 6 weeks. Flagyl will be added if anaerobic cultures are positive. Local care per Surgery. Continue with supportive care. MMODL / IJN: [id number] /
[2019-11-14] MEDS: AMPICILLIN-SULBACTAM 3 GM in SODIUM CHLORIDE 0.9% 100 ML IVPB SCH ×2 (05:46→13:24)
[2019-11-14 06:00] LABS: Basophils % (A) 0 %; Eosinophils % (A) 0 %; HCT 38.5 % (39.0-53.0); HGB 12.8 gm/dL (13.0-17.5); Lymphocytes # (A) 1.1 k/uL (1.0-4.8); Lymphocytes % (A) 24 %; MCH 33.8 pg (25.0-35.0); MCHC 33.1 g/dL (31.0-37.0); MCV 101.9 fL (80.0-100.0); Mean Platelet Volume 7.5; Monocytes # (A) 0.5 k/uL (0-1.0); Monocytes % (A) 11 %; Neutrophils % (A) 62 %; Platelet Count 219 k/uL (150-450); RBC 3.78 m/uL (4.30-5.90); RDW 12.2 % (11.5-15.5); WBC 4.8 k/uL (3.8-10.6)
[2019-11-14] MEDS: LACTOBACILLUS ACIDOPH & BULGAR 1 EACH PACKET PO SCH (07:58)
[2019-11-14] MEDS: PANTOPRAZOLE 40 MG TABLET PO SCH (07:58)
[2019-11-14] MEDS: MULTIVITAMINS, THERA 1 EACH TAB PO SCH (07:58)
[2019-11-14] MEDS: CYANOCOBALAMIN 500 MCG TAB PO SCH (07:59)
[2019-11-14] MEDS: allopurinoL 100 MG TAB PO SCH (07:59)
[2019-11-14] MEDS: HEPARIN SODIUM,PORCINE 5,000 UNIT/ML 1 ML VIAL SQ SCH (07:59)
[2019-11-14] MEDS: IPRATROPIUM-ALBUTEROL 3 ML NEB INHALATION PRN (08:02)
[2019-11-14] MEDS: BUDESONIDE 0.5 MG/2 ML NEBU INHALATION SCH (08:02)
[2019-11-14] MEDS: CHOLECALCIFEROL 1,000 UNIT TAB PO SCH (08:06)
[2019-11-14] MEDS: HYDROcodone/APAP 5-325MG 1 EACH TAB PO PRN ×2 (08:12→15:23)
[2019-11-14 09:06] LABS: Anion Gap 8.4 mmol/L (4.00-12.00); BUN/Creat Ratio 11.25 Ratio (12.00-20.00); Calcium 8.1 mg/dL (8.7-10.3); Carbon Dioxide 24.6 mmol/L (21.6-31.8); Potassium 3.6 mmol/L (3.5-5.5)
[2019-11-14 11:39] VITALS: BP 150/77; PULSE 67; RESP 16; TEMP 97.5
--- NOTE | 2019-11-14 15:21 | PN ---
PROGRESS NOTE DATE OF SERVICE: 11/14/2019 REASON FOR FOLLOWUP: Right third toe osteomyelitis, acute. INTERVAL HISTORY: The patient is currently afebrile. The patient is feeling better, breathing comfortably. The patient denies having any chest pain or shortness of breath or cough. No nausea or vomiting. No abdominal pain and no worsening pain to the right third toe. PHYSICAL EXAMINATION: Blood pressure 150/77, pulse of 67, temperature 97.5. He is 94% on room air. General description is an elderly male up in the chair in no distress. RESPIRATORY SYSTEM: Unlabored breathing. Clear to auscultation anteriorly. HEART: S1, S2. Regular rate and rhythm. ABDOMEN: Soft. No tenderness. Right foot is currently dressed up. No obvious drainage on the dressing. LABS: Hemoglobin is 12.8, white count 4.8, BUN of 9, creatinine 0.8. Local culture with Streptococcus agalactiae. Anaerobic culture so far pending. Blood culture has been negative. DIAGNOSTIC IMPRESSION AND PLAN: Patient with right third toe osteomyelitis, acute. Culture positive for Streptococcus agalactiae. Antibiotic was switched over to Rocephin 2 grams daily to continue for a total of 6 weeks. He already got a PICC line. Local care per Surgery. Follow up in the office in 2 weeks. Continue with supportive care. MMODL / IJN: [id number] /
--- NOTE | 2019-11-17 15:53 | IR ---
PICC LINE PLACEMENT: HISTORY: Infection requiring long-term antibiotic therapy PROCEDURE: Ultrasound and fluoroscopic guidance of PICC line placement. COMPLICATIONS: None ANESTHESIA: 1. 1% Lidocaine locally. FINDINGS/TECHNIQUE: The procedure was explained to the patient. The risks, complications, benefits and alternatives were discussed and any questions were answered. Informed consent was obtained. The patient was placed supine on the fluoroscopic table and prepped and draped in the usual sterile fash ion. Utilizing a 21 gauge needle and sonographic and fluoroscopic guidance, access in the left basi lic vein was achieved and there is placement of a 0.018 guidewire. The vein is patent. A 4-F sheath was placed over the guidewire. The guidewire and dilator were removed and a 4-F. PICC line was plac ed through the sheath with the tip at the level of the SVC. The sheath was removed, the catheter was flushed and sutured into position. The patient was stable throughout the procedure and remained sta ble upon discharge from the Department of Radiology. The vein puncture was patent under ultrasound. A lui scale image was obtained to document patency of the vein punctured. All elements of the maximal barrier technique were utilized. FLUOROSCOPY TIME: 0.2 minutes and one images submitted IMPRESSION: Successful PICC line placement under ultrasound and fluoroscopic guidance.
== END 2019-11-14 16:09 | disposition home health service (06) | DRG 872 ==
LOC: EC 14:30 → 6NMEDSUR 16:24
PROVIDERS: ADMIT Hospitalist; ATTEND Hospitalist
PROC: 0JH63XZ Insertion of Tunneled Vascular Access Device into Chest Subcutaneous Tissue and Fascia, Percutaneous Approach (ICD-10-PCS; principal; 2019-11-13 15:15)
PROC: 02HV33Z Insertion of Infusion Device into Superior Vena Cava, Percutaneous Approach (ICD-10-PCS; principal; 2019-11-13 15:15)
DX: A41.9 Sepsis, unspecified organism (principal); M86.171 Other acute osteomyelitis, right ankle and foot; I96 Gangrene, not elsewhere classified; L97.519 Non-pressure chronic ulcer of other part of right foot with unspecified severity; E66.9 Obesity, unspecified; E78.5 Hyperlipidemia, unspecified; G47.30 Sleep apnea, unspecified; J44.9 Chronic obstructive pulmonary disease, unspecified; L08.9 Local infection of the skin and subcutaneous tissue, unspecified; L03.031 Cellulitis of right toe; B95.1 Streptococcus, group B, as the cause of diseases classified elsewhere; G62.9 Polyneuropathy, unspecified; Z68.33 Body mass index [BMI] 33.0-33.9, adult; Z79.82 Long term (current) use of aspirin; Z79.899 Other long term (current) drug therapy; Z80.9 Family history of malignant neoplasm, unspecified; Z85.46 Personal history of malignant neoplasm of prostate; Z85.828 Personal history of other malignant neoplasm of skin; Z87.891 Personal history of nicotine dependence; Z91.030 Bee allergy status; Z88.5 Allergy status to narcotic agent; Z91.018 Allergy to other foods
CPT/HCPCS: 36415; 36573; 78315; 80048; 80053; 81003; 83605; 85025; 86140; 87040; 87070; 87075; 87077; 87186; 87205; 94640; 96365; 96367; 99284

== ENCOUNTER → 2020-09-17 | Outpatient (CLI) | payer MEDICARE, BC ==
--- NOTE | 2020-09-17 12:32 | FL ---
EXAMINATION TYPE: FL barium swallow DATE OF EXAM: 09/17/2020 CLINICAL HISTORY: Throat cancer history, dysphasia TECHNIQUE: A double contrast esophagram is performed utilizing air and barium. A total of 45 second s of fluoroscopic time was utilized during procedure and 73 images obtained. COMPARISON: None FINDINGS: There is delayed emptying of the esophagus into the stomach with poor motility. There is a relatively persistent filling defect in the upper thoracic posterior esophagus and direct visualization would be helpful. Penetration was noted without anastasiia aspiration seen. No definite reflux identified. IMPRESSION: 1. Relatively persistent filling defects of the posterior aspect of the upper thoracic osseous is ind eterminate on this examination. Direct visualization may be helpful for further evaluation. 2. Poor esophageal motility with delayed emptying of the esophagus into the stomach. 3. Penetration was noted without anastasiai aspiration. Please correlate with patient's clinical symptoms.
== END | disposition home or self-care (01) ==
LOC: RADUSWWP 11:14
PROVIDERS: ATTEND Surgery Plastic and Reconstructive Surgery
DX: C10.9 Malignant neoplasm of oropharynx, unspecified (principal); K30 Functional dyspepsia
CPT/HCPCS: 74220

== ENCOUNTER 2020-09-28 13:53 | Inpatient (IN) | payer MEDICARE, BC ==
[2020-09-28] MEDS: MORPHINE SULFATE 4 MG/ML SYRINGE IVP PRN (23:32)
[2020-09-29] MEDS ORDERED: traMADol 50 MG TAB PO PRN (00:17)
[2020-09-29] MEDS ORDERED: ONDANSETRON 4 MG/2 ML VIAL IVP PRN (00:17)
[2020-09-29] MEDS ORDERED: MELATONIN 3 MG TABLET PO PRN (00:17)
[2020-09-29] MEDS ORDERED: NALOXONE 0.4 MG/ML 1 ML VIAL IV PRN (00:17)
[2020-09-29] MEDS ORDERED: ACETAMINOPHEN TAB 325 MG TAB PO PRN (00:17)
[2020-09-29] MEDS: HYDROcodone/APAP 5-325MG 1 EACH TAB PO PRN ×4 (05:42→23:11)
[2020-09-29] MEDS: BENZOCAINE/MENTHOL LOZENG 1 EACH LOZENGE MUCOUS MEM PRN (05:42)
[2020-09-29 06:04] LABS: Basophils % (A) 0 %; Eosinophils % (A) 0 %; HCT 38.8 % (39.0-53.0); HGB 13.4 gm/dL (13.0-17.5); Lymphocytes % (A) 24 %; MCH 34.6 pg (25.0-35.0); MCHC 34.4 g/dL (31.0-37.0); MCV 100.5 fL (80.0-100.0); Macrocytosis Slight; Mean Platelet Volume 7.2; Monocytes # (A) 0.8 k/uL (0-1.0); Monocytes % (A) 9 %; Neutrophils # (A) 5.2 k/uL (1.3-7.7); Neutrophils % (A) 64 %; Platelet Count 339 k/uL (150-450); RBC 3.87 m/uL (4.30-5.90); RDW 15.2 % (11.5-15.5); WBC 8.2 k/uL (3.8-10.6)
[2020-09-29 06:18] LABS: Prothrombin Time 10.9 sec (9.0-12.0)
[2020-09-29 06:20] LABS: African American GFR (CKD) >90 (>60 ml/min/1.73 sqM); Anion Gap 11 mmol/L; Blood Urea Nitrogen 18 mg/dL (9-20); Calcium 9.5 mg/dL (8.4-10.2); Carbon Dioxide 25 mmol/L (22-30); Chloride 100 mmol/L (98-107); Glucose 102 mg/dL (74-99); Magnesium 1.6 mg/dL (1.6-2.3); Non-African American GFR(CKD) >90 (>60 ml/min/1.73 sqM); Potassium 4.2 mmol/L (3.5-5.1); Sodium 136 mmol/L (137-145)
[2020-09-29] MEDS: BUDESONIDE 0.5 MG/2 ML NEBU INHALATION SCH (07:29)
--- NOTE | 2020-09-29 09:09 | XR ---
EXAMINATION TYPE: XR chest 1V DATE OF EXAM: 09/29/2020 COMPARISON: NONE HISTORY: Shortness of breath TECHNIQUE: Single frontal view of the chest is obtained. FINDINGS: There is no focal air space opacity, pleural effusion, or pneumothorax seen. The cardiac silhouette size is within normal limits. The osseous structures are intact. There are multiple bila teral pulmonary nodules. Hyperinflation suggests COPD. Heart size normal. Hypertrophic and degenerati ve change of the spine. Biapical pleural thickening. IMPRESSION: 1. Numerous bilateral pulmonary nodules. Recommend CT to assess for metastasis
--- NOTE | 2020-09-29 13:11 | P.GSCN ---
History of Present Illness Consult date: 09/29/20 History of present illness: CHIEF COMPLAINT: Dysphagia HISTORY OF PRESENT ILLNESS: This is a 75-year-old male with a known history of oropharyngeal cancer. Patient reports being diagnosed in April. Patient reports about a 15 pound weight loss over the last couple months. He reports he is only been able to really drink juice. And even that is starting to be diffic ult to swallow. Patient had declined traditional treatment of his cancer. Surgical consult has been placed for PEG tube placement to help assist patient with his nutritional needs. PAST MEDICAL HISTORY: See list. PAST SURGICAL HISTORY: See list. MEDICATIONS: See list. ALLERGIES: See list. SOCIAL HISTORY: No illicit drug use. REVIEW OF SYSTEMS: CONSTITUTIONAL: Denies fever or chills. HEENT: Denies blurred vision, vision changes, or eye pain. Denies hemoptysis CARDIOVASCULAR: Denies chest pain or pressure. RESPIRATORY: No shortness of breath. GASTROINTESTINAL: See HPI for pertinent findings HEMATOLOGIC: Denies bleeding disorders. GENITOURINARY: Denies any blood in urine or increased urinary frequency. SKIN: Denies pruitis. Denies rash. PHYSICAL EXAM: VITAL SIGNS: Reviewed GENERAL: Well-developed in no acute distress. HEENT: No sclera icterus. Extraocular movements grossly intact. Moist buccal mucosa. Head is atraumatic, normocephalic. No nasal drainage. ABDOMEN: Soft. Nondistended. Nontender NEUROLOGIC: Alert and oriented. Cranial nerves II through XII grossly intact. LABORATORY DATA: WBC 8.2 hemoglobin 13.4 platelets 339 INR is 1 creatinine 0.71 IMAGING: ASSESSMENT: 1. Dysphagia 2. Oropharyngeal cancer 3. History of smoking PLAN: -Patient will have PEG tube placed on 10/01/[address] Kenny Physician Hairspring Staker note has been reviewed by physician. Signing provider agrees with the documented findings, assessment, and plan of care. Past Medical History Past Medical History: Asthma, Cancer, COPD, Hyperlipidemia, Prostate Disorder, Sleep Apnea/CPAP/BIPAP Additional Past Medical History / Comment(s): Skin cancer was removed from the left cheek, prostate cancer treated with seeds, bilateral lower extremity neuropathy, History of Any Multi-Drug Resistant Organisms: None Reported Year Discovered:: None MDRO Source:: None Past Surgical History: Tonsillectomy Additional Past Surgical History / Comment(s): Colonoscopy with polypectomy, skin cancer excised from left cheek, surgery on the right great toe., Past Anesthesia/Blood Transfusion Reactions: No Reported Reaction Past Psychological History: No Psychological Hx Reported Smoking Status: Former smoker Past Alcohol Use History: Daily Additional Past Alcohol Use History / Comment(s): Patient was a smoker one half to 2 packs per day for 49 years and quit when he was 65 years of age. He denies any medical marijuana, marijuana, street drug use or alcohol use. He lives at home with his , sister, sister and [id number]. There are 2 dogs in the home and they do have outdoor cats and a PEG. Patient is up. Inside. He is retired from [employer]. Past Drug Use History: None Reported - Past Family History Mother History Unknown: Yes Family Medical History: Cancer Medications and Allergies Home Medications Medication Instructions Recorded Confirmed Type Albuterol Sulfate [Ventolin HFA] 2 puff INHALATION RT-Q6H PRN 08/31/16 09/29/20 History Budesonide [Pulmicort] 0.5 mg INHALATION RT-DAILY 08/31/16 09/29/20 History Benralizumab [Fasenra] 30 mg SQ Q56D 11/11/19 09/29/20 History HYDROcodone/APAP 10-325MG [[place] 1 tab PO QID 09/28/20 09/29/20 History 10-325] Allergies Allergy/AdvReac Type Severity Reaction Status Date / Time bee venom protein (honey bee) Allergy Itching Verified 11/11/19 16:10 cocoa AdvReac "sneezing" Verified 11/11/19 16:10 codeine AdvReac Itching Verified 11/11/19 16:10 Surgical - Exam Vital Signs Temp Pulse Resp BP Pulse Ox 97.5 F L 80 16 130/73 95 09/28/20 20:00 09/28/20 20:00 09/28/20 20:00 09/28/20 20:00 09/28/20 20:00 Results - Labs 09/29/20 05:33 09/29/20 05:33 Abnormal Lab Results - Last 24 Hours (Table) 09/29/20 09/29/20 Range/Units 05:33 05:33 RBC 3.87 L (4.30-5.90) m/uL Hct 38.8 L (39.0-53.0) % MCV 100.5 H (80.0-100.0) fL Sodium 136 L (137-145) mmol/L Glucose 102 H (74-99) mg/dL Diabetes panel 09/29/20 Range/Units 05:33 Sodium 136 L (137-145) mmol/L Potassium 4.2 (3.5-5.1) mmol/L Chloride 100 (98-107) mmol/L Carbon Dioxide 25 (22-30) mmol/L BUN 18 (9-20) mg/dL Creatinine 0.71 (0.66-1.25) mg/dL Glucose 102 H (74-99) mg/dL Calcium 9.5 (8.4-10.2) mg/dL Calcium panel 09/29/20 Range/Units 05:33 Calcium 9.5 (8.4-10.2) mg/dL Phosphorus 4.0 (2.5-4.5) mg/dL Pituitary panel 09/29/20 Range/Units 05:33 Sodium 136 L (137-145) mmol/L Potassium 4.2 (3.5-5.1) mmol/L Chloride 100 (98-107) mmol/L Carbon Dioxide 25 (22-30) mmol/L BUN 18 (9-20) mg/dL Creatinine 0.71 (0.66-1.25) mg/dL Glucose 102 H (74-99) mg/dL Calcium 9.5 (8.4-10.2) mg/dL Adrenal panel 09/29/20 Range/Units 05:33 Sodium 136 L (137-145) mmol/L Potassium 4.2 (3.5-5.1) mmol/L Chloride 100 (98-107) mmol/L Carbon Dioxide 25 (22-30) mmol/L BUN 18 (9-20) mg/dL Creatinine 0.71 (0.66-1.25) mg/dL Glucose 102 H (74-99) mg/dL Calcium 9.5 (8.4-10.2) mg/dL
[2020-09-29] MEDS: TEMAZEPAM 15 MG CAP PO PRN (23:11)
[2020-09-30] MEDS: BUDESONIDE 0.5 MG/2 ML NEBU INHALATION SCH (07:24)
[2020-09-30] MEDS: MAGNESIUM SULFATE-D5W PMX 1 GM in DEXTROSE/WATER 1 100ML.BAG IVPB SCH ×2 (07:39→08:48)
--- NOTE | 2020-09-30 08:06 | P.HPIM ---
History of Present Illness H&P Date: 09/29/20 This is a pleasant 75 year old male who follows with Carlos Alberto Rubalcava NP out of [place] and is being hospitalized with a known history of Oropharyngeal cancer that was recently diagnosed in April of 2020. Patient has had significant weight loss and decreased oral intake as a result and here for consultation of PEG tube placement for nutritional support which is mainly palliative. Patient had opted for no treatment of the cancer when diagnosed and prefers a holistic approach. Patient has continued mouth discomfort and barely able to tolerate pureed diet that assists with. Patient does have a past medical history of COPD, sleep apnea and uses a CPAP along with asthma, Gallo cancer, skin cancer, and hyperlipidemia. states he has lost over 15 pounds within the last few months and continues to be more weak and fatigued. Obtained a basic chest x-ray which shows numerous bilateral pulmonary nodules along with hyperinflation to suggest COPD and hypertrophic and degenerative changes of the spine with no focal airspace opacification pleural effusion or pneumothorax noted. White blood count within normal limits at 8.2 and hemoglobin is 13.4, sodium 136 with a potassium of 4.2 current creatinine is 0.71 and magnesium slightly low at 1.6 and will replace per protocol. Patient currently denies any chest pain, shortness of breath, or palpitations. Patient is afebrile. Patient continues to have mouth pain and states he is tolerating minimal pured oral intake with no reports of nausea or vomiting noted. Review of Systems Constitutional: Reports poor appetite, Reports weakness, Reports weight loss Ears, nose, mouth and throat: Reports mouth pain, Reports swelling in mouth, Reports sore throat, Reports voice changes Cardiovascular: Denies chest pain, Denies shortness of breath Respiratory: Denies cough Gastrointestinal: Reports loss of appetite Musculoskeletal: Reports muscle weakness Integumentary: Denies pruritus, Denies rash Neurological: Reports weakness Psychiatric: Denies anxiety, Denies depression Endocrine: Denies fatigue, Denies weight change Past Medical History Past Medical History: Asthma, Cancer, COPD, Hyperlipidemia, Prostate Disorder, Sleep Apnea/CPAP/BIPAP Additional Past Medical History / Comment(s): Skin cancer was removed from the left cheek, prostate cancer treated with seeds, bilateral lower extremity neuro marychuy, History of Any Multi-Drug Resistant Organisms: None Reported Date of last positivie culture/infection: None MDRO Source:: None Past Surgical History: Tonsillectomy Additional Past Surgical History / Comment(s): Colonoscopy with polypectomy, skin cancer excised from left cheek, surgery on the right great toe., Past Anesthesia/Blood Transfusion Reactions: No Reported Reaction Past Psychological History: No Psychological Hx Reported Smoking Status: Former smoker Past Alcohol Use History: Daily Additional Past Alcohol Use History / Comment(s): Patient was a smoker one half to 2 packs per day for 49 years and quit when he was 65 years of age. He denies any medical marijuana, marijuana, street drug use or alcohol use. He lives at home with his , sister, sister and [id number]. There are 2 dogs in the home and they do have outdoor cats and a PEG. Patient is up. Inside. He is retired from [employer]. Past Drug Use History: None Reported - Past Family History Mother History Unknown: Yes Family Medical History: Cancer Medications and Allergies Home Medications Medication Instructions Recorded Confirmed Type Albuterol Sulfate [Ventolin HFA] 2 puff INHALATION RT-Q6H PRN 08/31/16 09/29/20 History Budesonide [Pulmicort] 0.5 mg INHALATION RT-DAILY 08/31/16 09/29/20 History Benralizumab [Fasenra] 30 mg SQ Q56D 11/11/19 09/29/20 History HYDROcodone/APAP 10-325MG [[place] 1 tab PO QID 09/28/20 09/29/20 History 10-325] Allergies Allergy/AdvReac Type Severity Reaction Status Date / Time bee venom protein (honey bee) Allergy Itching Verified 11/11/19 16:10 cocoa AdvReac "sneezing" Verified 11/11/19 16:10 codeine AdvReac Itching Verified 11/11/19 16:10 Physical Exam Vitals: Vital Signs Temp Pulse Pulse Resp BP Pulse Ox 09/29/20 07:38 80 09/29/20 07:29 77 09/29/20 07:07 18 09/29/20 05:09 98.1 F 62 16 130/79 99 09/28/20 20:00 97.5 F L 80 16 130/73 95 Intake and Output 09/28/20 09/29/20 09/29/20 22:59 06:59 14:59 Intake Total 240 Balance 240 Intake: Oral 240 Other: Voiding Method Toilet Toilet Weight 72.8 kg 72.8 kg GENERAL: 75 year old male who is alert and oriented x3, not in any acute distress. thin built HEENT: Pupils are round and equally reacting to light. EOMI. No scleral icterus. No conjunctival pallor. Normocephalic, atraumatic. No pharyngeal erythema. No thyromegaly. CARDIOVASCULAR: S1 and S2 present. No murmurs, rubs, or gallops. PULMONARY: Diminished breath sounds bilaterally with no wheezing or rhonchi noted. ABDOMEN: Soft, nontender, nondistended, normoactive bowel sounds. No palpable organomegaly. MUSCULOSKELETAL: No joint swelling or deformity. EXTREMITIES: No cyanosis, clubbing, or edema noted NEUROLOGICAL: Gross neurological examination did not reveal any focal deficits. Diffusely weak SKIN: No rashes. no petechiae, pale Results CBC & Chem 7: 09/29/20 05:33 09/29/20 05:33 Labs: Abnormal Lab Results - Last 24 Hours (Table) 09/29/20 09/29/20 Range/Units 05:33 05:33 RBC 3.87 L (4.30-5.90) m/uL Hct 38.8 L (39.0-53.0) % MCV 100.5 H (80.0-100.0) fL Sodium 136 L (137-145) mmol/L Glucose 102 H (74-99) mg/dL Thrombosis Risk Factor Assmnt - DVT/VTE Prophylaxis DVT/VTE Prophylaxis: Pharmacologic Prophylaxis ordered - Choose All That Apply Any of the Below Risk Factors Present?: Yes Each Factor Represents 1 point: Abnormal pulmonary function (COPD) Each Risk Factor Represents 3 Points: Age 75 years or older Thrombosis Risk Factor Assessment Total Risk Factor Score: 4 Thrombosis Risk Factor Assessment Level: Moderate Risk Assessment and Plan Assessment: Oropharygeal cancer diagnosed April 2020 Mild protein calorie malnutrition secondary to oropharyngeal cancer poor oral intake secondary to oral pharyngeal cancer Weight loss secondary to assessment #1 Bilateral pulmonary nodules noted on chest x-ray most likely metastasis with family not wanting oncological treatment dysphagia History of prostate cancer History of skin cancer of the left cheek COPD not in acute exacerbation Hyperlipidemia sleep apnea and uses a CPAP GI prophylaxis DVT prophylaxis Full code Plan: Patient with decreased oral intake and being admitted for peg tube placement for palliative nutritional support. Surgery consulted for PEG tube placement. Plan is for this Sunday with Dr. Kenny. Patient will continue current puree diet as tolerated and will monitor closely. Dietitian and Case management consulted to work on discharge planning as Nico is his caregiver and will be educated on tube feeding and PEG tube care. Prognosis is guarded. Time with Patient: Greater than 30
[2020-09-30] MEDS: PANTOPRAZOLE 40 MG/10 ML VIAL IVP SCH (08:49)
[2020-09-30] MEDS: HEPARIN SODIUM,PORCINE/PF 5,000 UNIT/0.5 ML SYRINGE SQ SCH ×2 (08:49→21:31)
[2020-09-30] MEDS ORDERED: NON FORMULARY DRUG (Benralizumab [Fasenra] 30 MG/ML Syringe) SQ SCH (09:00)
[2020-09-30] MEDS: MORPHINE SULFATE 4 MG/ML SYRINGE IVP PRN (09:39)
[2020-09-30] MEDS ORDERED: diphenhydrAMINE 2% CREAM 28.4 GM TUBE TOPICAL PRN (13:39)
--- NOTE | 2020-09-30 13:39 | P.PN ---
Subjective Progress Note Date: 09/30/20 CHIEF COMPLAINT: Dysphagia HISTORY OF PRESENT ILLNESS: Surgical service is following in regards to PEG tube placement. Patient is scheduled for PEG tube placement tomorrow. No new complaints. PHYSICAL EXAM: VITAL SIGNS: Reviewed. GENERAL: Well-developed in no acute distress. HEENT: No sclera icterus. Extraocular movements grossly intact. Moist buccal mucosa. Head is atraumatic, normocephalic. ABDOMEN: Soft. Nondistended. Nontender. NEUROLOGIC: Alert and oriented. Cranial nerves II through XII grossly intact. ASSESSMENT: 1. Dysphagia 2. Oropharyngeal cancer 3. History of smoking PLAN: -Patient scheduled for PEG tube placement on 10/01/[address] Kenny -Nothing by mouth after midnight Physician Export Traffic Department Manager note has been reviewed by physician. Signing provider agrees with the documented findings, assessment, and plan of care. Objective - Vital Signs Vital signs: Vital Signs Temp 97.6 F 09/30/20 11:30 Pulse 87 09/30/20 11:30 Resp 18 09/30/20 11:30 BP 112/75 09/30/20 11:30 Pulse Ox 100 09/30/20 11:30 Intake & Output 09/29/20 09/30/20 09/30/20 18:59 06:59 18:59 Intake Total 720 475 Balance 720 475 Weight 72.8 kg Intake: Intake, IV Titration 100 Amount Magnesium Sulfate-D5w Pmx 100 1 gm In Dextrose/Water 1 100ml.bag @ 100 mls/hr IVPB Q1H JAMES Rx#: [id number] Oral 720 375 Other: Voiding Method Toilet Toilet # Voids 2 - Labs CBC & Chem 7: 09/29/20 05:33 09/29/20 05:33
[2020-09-30] MEDS: HYDROcodone/APAP 5-325MG 1 EACH TAB PO PRN ×2 (17:56→22:51)
[2020-09-30] MEDS: ALBUTEROL NEBULIZED 2.5 MG/3 ML INHALATION PRN (19:34)
[2020-09-30] MEDS: TEMAZEPAM 15 MG CAP PO PRN (21:31)
--- NOTE | 2020-10-01 02:39 | P.PN ---
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 Patient has had significant weight loss and decreased oral intake as a result and here for consultation of PEG tube placement for nutritional support which is mainly palliative. Patient had opted for no treatment of the cancer when diagnosed and prefers a holistic approach. Patient has continued mouth discomfort and barely able to tolerate pureed diet that assists with. Patient does have a past medical history of COPD, sleep apnea and uses a CPAP along with asthma, Gallo cancer, skin cancer, and hyperlipidemia. states he has lost over 15 pounds within the last few months and continues to be more weak and fatigued. Obtained a basic chest x-ray which shows numerous bilateral pulmonary nodules along with hyperinflation to suggest COPD and hypertrophic and degenerative changes of the spine with no focal airspace opacification pleural effusion or pneumothorax noted. White blood count within normal limits at 8.2 and hemoglobin is 13.4, sodium 136 with a potassium of 4.2 current creatinine is 0.71 and magnesium slightly low at 1.6 and will replace per protocol. Patient currently denies any chest pain, shortness of breath, or palpitations. Patient is afebrile. Patient continues to have mouth pain and states he is tolerating minimal pured oral intake with no reports of nausea or vomiting noted. 09/30/2020 Patient is seen in follow up this morning and having some mouth irritation and white patches noted of the tongue and will start Nystatin. Patient being followed by surgery and plan is for PEG tube tomorrow. Patient denies any chest pain or palpitations. Patient denies any shortness of breath and sitting up at the bedside. Patient will be NPO at midnight. Discussed CXR results with patient and he states that he was aware of a possible "spot of concern" on previous xray, but continues to refuse oncological treatment. Most likely metastasis. Review of systems: Constitutional: No reports of fatigue, fever, or chills, reports tongue soreness Cardiovascular: No reports of chest pain or palpitations Respiratory: No reports of shortness of breath or cough GI: No reports of nausea, vomiting, or diarrhea : No reports of dysuria or retention Neurovascular: No reports of weakness. Reports upper back itchiness All medications have been reviewed Physical Exam: GENERAL: 75 year old male who is alert and oriented x3, not in any acute distress. thin built HEENT: Pupils are round and equally reacting to light. EOMI. No scleral icterus. No conjunctival pallor. Normocephalic, atraumatic. No pharyngeal erythema. No thyromegaly. tongue with white patches and irritation noted CARDIOVASCULAR: S1 and S2 present. No murmurs, rubs, or gallops. PULMONARY: Diminished breath sounds bilaterally with no wheezing or rhonchi noted. ABDOMEN: Soft, nontender, nondistended, normoactive bowel sounds. No palpable organomegaly. MUSCULOSKELETAL: No joint swelling or deformity. EXTREMITIES: No cyanosis, clubbing, or edema noted NEUROLOGICAL: Gross neurological examination did not reveal any focal deficits. Diffusely weak SKIN: No rashes. no petechiae, pale, dry patches with markings of previous itching noted to the upper right back as patient has been scratching that area with no surrounding redness or lesions noted. Age spots and moles noted on the back. 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 Mild protein calorie malnutrition secondary to oropharyngeal cancer poor oral intake secondary to oral pharyngeal cancer oral candidiasis Weight loss secondary to assessment #1 Bilateral pulmonary nodules noted on chest x-ray most likely metastasis with family not wanting oncological treatment dysphagia History of prostate cancer History of skin cancer of the left cheek COPD not in acute exacerbation Hyperlipidemia sleep apnea and uses a CPAP GI prophylaxis DVT prophylaxis Full code Plan: Patient with decreased oral intake and being admitted for peg tube placement for palliative nutritional support. Surgery following for PEG tube placement. Plan is for PEG placement tomorrow with DR. Kenny. Patient will continue current puree diet as tolerated and will monitor closely. Dietitian and Case management consulted to work on discharge planning as Nico is his caregiver and will be educated on tube feeding and PEG tube care. Patient having some oral irritation of the tongue with white patching noted and will start Nystatin. Hold am dose of Heparin. Patient to be NPO at midnight. Prognosis is guarded. Objective - Vital Signs Vital signs: Vital Signs Temp 98.2 F 09/30/20 07:42 Pulse 89 09/30/20 07:42 Resp 19 09/30/20 07:42 BP 135/83 09/30/20 07:42 Pulse Ox 98 09/30/20 07:42 Intake & Output 09/29/20 09/30/20 09/30/20 18:59 06:59 18:59 Intake Total 720 475 Balance 720 475 Weight 72.8 kg Intake: Intake, IV Titration 100 Amount Magnesium Sulfate-D5w Pmx 100 1 gm In Dextrose/Water 1 100ml.bag @ 100 mls/hr IVPB Q1H [facility] Rx#: [id number] Oral 720 375 Other: Voiding Method Toilet Toilet # Voids 2 - Labs CBC & Chem 7: 09/29/20 05:33 09/29/20 05:33
[2020-10-01 05:56] LABS: Basophils % (A) 0 %; Eosinophils % (A) 0 %; HCT 35.7 % (39.0-53.0); Lymphocytes # (A) 1.5 k/uL (1.0-4.8); Lymphocytes % (A) 26 %; MCH 34.1 pg (25.0-35.0); MCHC 33.7 g/dL (31.0-37.0); MCV 101.4 fL (80.0-100.0); Macrocytosis Slight; Mean Platelet Volume 8.1; Monocytes # (A) 0.6 k/uL (0-1.0); Monocytes % (A) 10 %; Neutrophils # (A) 3.6 k/uL (1.3-7.7); Neutrophils % (A) 61 %; Platelet Count 224 k/uL (150-450); RBC 3.52 m/uL (4.30-5.90); RDW 15.3 % (11.5-15.5); WBC 5.9 k/uL (3.8-10.6)
[2020-10-01 06:04] LABS: ALT 12 U/L (4-49); AST 24 U/L (17-59); African American GFR (CKD) >90 (>60 ml/min/1.73 sqM); Albumin 2.6 g/dL (3.5-5.0); Albumin/Globulin Ratio 0.9; Alkaline Phosphatase 58 U/L (38-126); Anion Gap 4 mmol/L; Blood Urea Nitrogen 16 mg/dL (9-20); Calcium 8.6 mg/dL (8.4-10.2); Carbon Dioxide 28 mmol/L (22-30); Chloride 102 mmol/L (98-107); Globulin 2.8 g/dL; Glucose 100 mg/dL (74-99); Non-African American GFR(CKD) >90 (>60 ml/min/1.73 sqM); Potassium 3.7 mmol/L (3.5-5.1); Sodium 134 mmol/L (137-145); Total Bilirubin 0.9 mg/dL (0.2-1.3); Total Protein 5.4 g/dL (6.3-8.2)
[2020-10-01] MEDS: HEPARIN SODIUM,PORCINE/PF 5,000 UNIT/0.5 ML SYRINGE SQ SCH ×2 (06:42→20:23)
[2020-10-01] MEDS: PANTOPRAZOLE 40 MG/10 ML VIAL IVP SCH (08:21)
[2020-10-01] MEDS: MORPHINE SULFATE 4 MG/ML SYRINGE IVP PRN ×2 (08:22→20:00)
[2020-10-01] MEDS: BUDESONIDE 0.5 MG/2 ML NEBU INHALATION SCH (08:46)
[2020-10-01] MEDS: ALBUTEROL NEBULIZED 2.5 MG/3 ML INHALATION PRN (08:46)
[2020-10-01] MEDS ORDERED: MIDAZOLAM 2 MG/2 ML VIAL ONE (13:19)
[2020-10-01] MEDS ORDERED: LIDOCAINE 1% INJ 10MG/ML (20 ML MDV) ONE (13:19)
[2020-10-01] MEDS ORDERED: PROPOFOL 10 MG/ML 20 ML VIAL IV ONE (13:19)
[2020-10-01] MEDS ORDERED: LACTATED RINGERS 1,000 ML IV ONE (13:24)
--- NOTE | 2020-10-01 13:45 | P.OP ---
Date of Procedure: 10/01/20 Preoperative Diagnosis: Malnutrition Postoperative Diagnosis: Malnutrition Procedure(s) Performed: EGD with PEG tube placement Anesthesia: MAC Surgeon: Jayce Kenny Pathology: none sent Condition: stable Disposition: PACU Description of Procedure: The patient's placed on the operative table in the supine position. He received IV sedation. The gastroscope placed oropharynx passed in the esophagus and into the stomach. The scope was placed through the pylorus. The first and second portion of the duodenum appeared normal. Scope was brought stomach and then a suitable light reflux seen the anterior abdominal wall. This was anesthetized. The needle was then placed through the skin into the stomach after a small incision was made. The needle was snared and the wire was placed through the needle. The wire was snared and brought through the oropharynx. PEG tube placed overtop the wire brought down to the stomach. The PEG tube was secured with the one-piece bolster 3 cm luc. Patient top she will well.
[2020-10-01] MEDS: HYDROcodone/APAP 5-325MG 1 EACH TAB PO PRN (14:15)
[2020-10-01] MEDS: BENZOCAINE/MENTHOL LOZENG 1 EACH LOZENGE MUCOUS MEM PRN (14:15)
--- NOTE | 2020-10-02 02:38 | P.PN ---
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 Patient has had significant weight loss and decreased oral intake as a result and here for consultation of PEG tube placement for nutritional support which is mainly palliative. Patient had opted for no treatment of the cancer when diagnosed and prefers a holistic approach. Patient has continued mouth discomfort and barely able to tolerate pureed diet that assists with. Patient does have a past medical history of COPD, sleep apnea and uses a CPAP along with asthma, Gallo cancer, skin cancer, and hyperlipidemia. states he has lost over 15 pounds within the last few months and continues to be more weak and fatigued. Obtained a basic chest x-ray which shows numerous bilateral pulmonary nodules along with hyperinflation to suggest COPD and hypertrophic and degenerative changes of the spine with no focal airspace opacification pleural effusion or pneumothorax noted. White blood count within normal limits at 8.2 and hemoglobin is 13.4, sodium 136 with a potassium of 4.2 current creatinine is 0.71 and magnesium slightly low at 1.6 and will replace per protocol. Patient currently denies any chest pain, shortness of breath, or palpitations. Patient is afebrile. Patient continues to have mouth pain and states he is tolerating minimal pured oral intake with no reports of nausea or vomiting noted. 09/30/2020 Patient is seen in follow up this morning and having some mouth irritation and white patches noted of the tongue and will start Nystatin. Patient being followed by surgery and plan is for PEG tube tomorrow. Patient denies any chest pain or palpitations. Patient denies any shortness of breath and sitting up at the bedside. Patient will be NPO at midnight. Discussed CXR results with patient and he states that he was aware of a possible "spot of concern" on previous xray, but continues to refuse oncological treatment. Most likely metastasis. 10/01/2020 Patient is seen in follow up and is NPO for PEG tube today. Family at bedside. Case management following and arrangements have all been made for discharge home with homecare and tube feeding boluses to initiate. Will await surgical clearance of 24 hours to initiate the feedings with possible discharge to home. Nystatin to continue. Review of systems: Constitutional: No reports of fatigue, fever, or chills, reports tongue soreness Cardiovascular: No reports of chest pain or palpitations Respiratory: No reports of shortness of breath or cough GI: No reports of nausea, vomiting, or diarrhea : No reports of dysuria or retention Neurovascular: No reports of weakness. Reports upper back itchiness All medications have been reviewed Physical Exam: GENERAL: 75 year old male who is alert and oriented x3, not in any acute distress. thin built HEENT: Pupils are round and equally reacting to light. EOMI. No scleral icterus. No conjunctival pallor. Normocephalic, atraumatic. No pharyngeal erythema. No thyromegaly. tongue with white patches and irritation noted CARDIOVASCULAR: S1 and S2 present. No murmurs, rubs, or gallops. PULMONARY: Diminished breath sounds bilaterally with no wheezing or rhonchi noted. ABDOMEN: Soft, nontender, nondistended, normoactive bowel sounds. No palpable organomegaly. MUSCULOSKELETAL: No joint swelling or deformity. EXTREMITIES: No cyanosis, clubbing, or edema noted NEUROLOGICAL: Gross neurological examination did not reveal any focal deficits. Diffusely weak SKIN: No rashes. no petechiae, pale, dry patches with markings of previous itching noted to the upper right back as patient has been scratching that area with no surrounding redness or lesions noted. Age spots and moles noted on the back. 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 Mild protein calorie malnutrition secondary to oropharyngeal cancer poor oral intake secondary to oral pharyngeal cancer oral candidiasis status post PEG tube placement today with surgery Weight loss secondary to assessment #1 Bilateral pulmonary nodules noted on chest x-ray most likely metastasis with family not wanting oncological treatment dysphagia History of prostate cancer History of skin cancer of the left cheek COPD not in acute exacerbation Hyperlipidemia sleep apnea and uses a CPAP GI prophylaxis DVT prophylaxis Full code Plan: Patient with decreased oral intake and being admitted for peg tube placement for palliative nutritional support. Surgery performed PEG tube placement today with no issues noted. Will await surgical clearance of 24 hours to initiate tube feeding. Patient will start with boluses and family will be educated on PEG care and maintenance and home care has been arranged with Nico. Patient can resume oral pureed diet as tolerated post-op. Patient has continued oral irritation of the tongue with white patching noted and will continue Nystatin. Anticipate discharge to home in 24 hours once started on tube feeds. Objective - Vital Signs Vital signs: Vital Signs Temp 97.4 F L 10/01/20 19:30 Pulse 85 10/01/20 19:30 Resp 16 10/01/20 19:30 BP 126/74 10/01/20 19:30 Pulse Ox 99 10/01/20 19:30 Intake & Output 10/01/20 10/01/20 10/02/20 06:59 18:59 06:59 Intake Total 100 100 Balance 100 100 Weight 72.8 kg Intake: IV 100 Intake, IV Titration 100 Amount Magnesium Sulfate-D5w Pmx 100 1 gm In Dextrose/Water 1 100ml.bag @ 100 mls/hr IVPB Q1H [facility] Rx#: [id number] Oral 0 Other: Voiding Method Toilet Toilet Urinal # Voids 2 - Labs CBC & Chem 7: 10/01/20 05:36 10/01/20 05:36 Labs: Abnormal Lab Results - Last 24 Hours (Table) 10/01/20 10/01/20 Range/Units 05:36 05:36 RBC 3.52 L (4.30-5.90) m/uL Hgb 12.0 L (13.0-17.5) gm/dL Hct 35.7 L (39.0-53.0) % MCV 101.4 H (80.0-100.0) fL Sodium 134 L (137-145) mmol/L Glucose 100 H (74-99) mg/dL Total Protein 5.4 L (6.3-8.2) g/dL Albumin 2.6 L (3.5-5.0) g/dL
[2020-10-02] MEDS: BUDESONIDE 0.5 MG/2 ML NEBU INHALATION SCH (07:16)
[2020-10-02] MEDS: ALBUTEROL NEBULIZED 2.5 MG/3 ML INHALATION PRN (07:16)
[2020-10-02] MEDS: PANTOPRAZOLE 40 MG/10 ML VIAL IVP SCH (08:11)
[2020-10-02] MEDS: HEPARIN SODIUM,PORCINE/PF 5,000 UNIT/0.5 ML SYRINGE SQ SCH ×2 (08:11→20:49)
[2020-10-02] MEDS: MORPHINE SULFATE 4 MG/ML SYRINGE IVP PRN ×2 (08:12→22:49)
[2020-10-02] MEDS: HYDROcodone/APAP 5-325MG 1 EACH TAB PO PRN ×3 (10:30→19:49)
--- NOTE | 2020-10-02 13:18 | P.PN ---
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 Patient has had significant weight loss and decreased oral intake as a result and here for consultation of PEG tube placement for nutritional support which is mainly palliative. Patient had opted for no treatment of the cancer when diagnosed and prefers a holistic approach. Patient has continued mouth discomfort and barely able to tolerate pureed diet that assists with. Patient does have a past medical history of COPD, sleep apnea and uses a CPAP along with asthma, Gallo cancer, skin cancer, and hyperlipidemia. states he has lost over 15 pounds within the last few months and continues to be more weak and fatigued. Obtained a basic chest x-ray which shows numerous bilateral pulmonary nodules along with hyperinflation to suggest COPD and hypertrophic and degenerative changes of the spine with no focal airspace opacification pleural effusion or pneumothorax noted. White blood count within normal limits at 8.2 and hemoglobin is 13.4, sodium 136 with a potassium of 4.2 current creatinine is 0.71 and magnesium slightly low at 1.6 and will replace per protocol. Patient currently denies any chest pain, shortness of breath, or palpitations. Patient is afebrile. Patient continues to have mouth pain and states he is tolerating minimal pured oral intake with no reports of nausea or vomiting noted. 09/30/2020 Patient is seen in follow up this morning and having some mouth irritation and white patches noted of the tongue and will start Nystatin. Patient being followed by surgery and plan is for PEG tube tomorrow. Patient denies any chest pain or palpitations. Patient denies any shortness of breath and sitting up at the bedside. Patient will be NPO at midnight. Discussed CXR results with patient and he states that he was aware of a possible "spot of concern" on previous xray, but continues to refuse oncological treatment. Most likely metastasis. 10/01/2020 Patient is seen in follow up and is NPO for PEG tube today. Family at bedside. Case management following and arrangements have all been made for discharge home with homecare and tube feeding boluses to initiate. Will await surgical clearance of 24 hours to initiate the feedings with possible discharge to home. Nystatin to continue. 10/02/2020 Patient is tolerating tube feedings at 20 mL/h this will be increased slowly and then eventually will be switched to bolus feeds. Patient may end up needing to stay until Sunday until he reaches ago by tomorrow and possible possibly can be switched to bolus feeds on Sunday. Review of systems: Constitutional: No reports of fatigue, fever, or chills, reports tongue soreness Cardiovascular: No reports of chest pain or palpitations Respiratory: No reports of shortness of breath or cough GI: No reports of nausea, vomiting, or diarrhea : No reports of dysuria or retention Neurovascular: No reports of weakness. Reports upper back itchiness All medications have been reviewed Physical Exam: GENERAL: 75 year old male who is alert and oriented x3, not in any acute distress. thin built HEENT: Pupils are round and equally reacting to light. EOMI. No scleral icterus. No conjunctival pallor. Normocephalic, atraumatic. No pharyngeal erythema. No thyromegaly. tongue with white patches and irritation noted CARDIOVASCULAR: S1 and S2 present. No murmurs, rubs, or gallops. PULMONARY: Diminished breath sounds bilaterally with no wheezing or rhonchi noted. ABDOMEN: Soft, nontender, nondistended, normoactive bowel sounds. No palpable organomegaly. MUSCULOSKELETAL: No joint swelling or deformity. EXTREMITIES: No cyanosis, clubbing, or edema noted NEUROLOGICAL: Gross neurological examination did not reveal any focal deficits. Diffusely weak SKIN: No rashes. no petechiae, pale, dry patches with markings of previous itching noted to the upper right back as patient has been scratching that area with no surrounding redness or lesions noted. Age spots and moles noted on the back. 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 Mild protein calorie malnutrition secondary to oropharyngeal cancer poor oral intake secondary to oral pharyngeal cancer oral candidiasis status post PEG tube placement today with surgery Weight loss secondary to assessment #1 Bilateral pulmonary nodules noted on chest x-ray most likely metastasis with family not wanting oncological treatment dysphagia History of prostate cancer History of skin cancer of the left cheek COPD not in acute exacerbation Hyperlipidemia sleep apnea and uses a CPAP GI prophylaxis DVT prophylaxis Full code Plan: Patient with decreased oral intake and being admitted for peg tube placement for palliative nutritional support. Surgery performed PEG tube placement today with no issues noted. Will await surgical clearance of 24 hours to initiate tube feeding. Patient will start with boluses and family will be educated on PEG care and maintenance and home care has been arranged with . Objective - Vital Signs Vital signs: Vital Signs Temp 97.7 F 10/02/20 13:00 Pulse 66 10/02/20 13:00 Resp 18 10/02/20 13:00 BP 120/68 10/02/20 13:00 Pulse Ox 98 10/02/20 13:00 Intake & Output 10/01/20 10/02/20 10/02/20 18:59 06:59 18:59 Intake Total 100 Balance 100 Weight 72.8 kg 77.5 kg Intake: IV 100 Other: Voiding Method Toilet Urinal - Labs CBC & Chem 7: 10/01/20 05:36 10/01/20 05:36
--- NOTE | 2020-10-02 17:32 | P.PN ---
Subjective Progress Note Date: 10/02/20 CHIEF COMPLAINT: Oropharyngeal cancer HISTORY OF PRESENT ILLNESS: The patient is a 75-year-old male admitted 09/30/2020 for malnutrition and oropharyngeal cancer. Patient had declined conventional treatment of chemoradiation and since had progressive disease. He is now status post gastrostomy tube placement 10/01/2020. He reports thirst. He reports mild discomfort from feeding tube. ROS: No reports of nausea and vomiting. No bowel movements. No fevers or chills. No new chest pain. No productive sputum PHYSICAL EXAM: VITAL SIGNS: Reviewed CONSTITUTIONAL: Well developed and in no acute distress. EYES: Conjuctivae without sclera icterus. Extraocular movements grossly intact. HEAD, EARS, NOSE, THROAT: Moist buccal mucosa. Head is atraumatic, normocephalic. Hears conversational speech. No nasal drainage. NECK: No gross thyroidomegaly. No jugular venous distention. RESPIRATORY: Non-labored respirations and equal bilateral excursions. CARDIOVASCULAR: Palpable 2+ radial pulses. ABDOMEN: Gastrostomy site without infection or bleeding. MUSCULOSKELETAL: No gross deformity of the lower extremities noted. No clubbing. No cyanosis. SKIN: Good skin turgor. Well perfused. NEUROLOGIC: Cranial nerves II through XII grossly intact. No focal or lateralizing signs. PSYCH: Appropriate affect. Alert and oriented to person, place and time. CLINICAL LABS: White blood cell count normal at 5.9. Hemoglobin 12.0. ASSESSMENT: 1. Moderate protein malnutrition due to oropharyngeal cancer PLAN: 1. May start tube feeds 2. He is requesting carbonated beverages which should be hold at least 48 due to new gastrostomy tube. 3. Discharge when he may tolerate his goal tube feeds. Objective - Vital Signs Vital signs: Vital Signs Temp 97.7 F 10/02/20 13:00 Pulse 66 10/02/20 13:00 Resp 18 10/02/20 13:00 BP 120/68 10/02/20 13:00 Pulse Ox 98 10/02/20 13:00 Intake & Output 10/01/20 10/02/20 10/02/20 18:59 06:59 18:59 Intake Total 100 Balance 100 Weight 72.8 kg 77.5 kg Intake: IV 100 Other: Voiding Method Toilet Urinal - Labs CBC & Chem 7: 10/01/20 05:36 10/01/20 05:36
[2020-10-02] MEDS: TEMAZEPAM 15 MG CAP PO PRN (22:35)
[2020-10-03] MEDS: ALBUTEROL NEBULIZED 2.5 MG/3 ML INHALATION PRN (07:49)
[2020-10-03] MEDS: BUDESONIDE 0.5 MG/2 ML NEBU INHALATION SCH (07:49)
[2020-10-03] MEDS: HEPARIN SODIUM,PORCINE/PF 5,000 UNIT/0.5 ML SYRINGE SQ SCH ×2 (08:57→19:02)
[2020-10-03] MEDS: PANTOPRAZOLE 40 MG/10 ML VIAL IVP SCH (08:57)
[2020-10-03] MEDS: HYDROcodone/APAP 5-325MG 1 EACH TAB PO PRN ×3 (09:02→18:59)
--- NOTE | 2020-10-03 13:28 | P.PN ---
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 Patient has had significant weight loss and decreased oral intake as a result and here for consultation of PEG tube placement for nutritional support which is mainly palliative. Patient had opted for no treatment of the cancer when diagnosed and prefers a holistic approach. Patient has continued mouth discomfort and barely able to tolerate pureed diet that assists with. Patient does have a past medical history of COPD, sleep apnea and uses a CPAP along with asthma, Gallo cancer, skin cancer, and hyperlipidemia. states he has lost over 15 pounds within the last few months and continues to be more weak and fatigued. Obtained a basic chest x-ray which shows numerous bilateral pulmonary nodules along with hyperinflation to suggest COPD and hypertrophic and degenerative changes of the spine with no focal airspace opacification pleural effusion or pneumothorax noted. White blood count within normal limits at 8.2 and hemoglobin is 13.4, sodium 136 with a potassium of 4.2 current creatinine is 0.71 and magnesium slightly low at 1.6 and will replace per protocol. Patient currently denies any chest pain, shortness of breath, or palpitations. Patient is afebrile. Patient continues to have mouth pain and states he is tolerating minimal pured oral intake with no reports of nausea or vomiting noted. 09/30/2020 Patient is seen in follow up this morning and having some mouth irritation and white patches noted of the tongue and will start Nystatin. Patient being followed by surgery and plan is for PEG tube tomorrow. Patient denies any chest pain or palpitations. Patient denies any shortness of breath and sitting up at the bedside. Patient will be NPO at midnight. Discussed CXR results with patient and he states that he was aware of a possible "spot of concern" on previous xray, but continues to refuse oncological treatment. Most likely metastasis. 10/01/2020 Patient is seen in follow up and is NPO for PEG tube today. Family at bedside. Case management following and arrangements have all been made for discharge home with homecare and tube feeding boluses to initiate. Will await surgical clearance of 24 hours to initiate the feedings with possible discharge to home. Nystatin to continue. 10/02/2020 Patient is tolerating tube feedings at 20 mL/h this will be increased slowly and then eventually will be switched to bolus feeds. Patient may end up needing to stay until Sunday until he reaches ago by tomorrow and possible possibly can be switched to bolus feeds on Sunday. 10/03/2020 Patient not tolerating tube feeds at current rate, had been having episodes of diarrhea. He remains on continuous tube feedings at lower rate at this time, vital signs stable, no fever. Can possibly be switched to bolus tube feedings if he is tolerating. Review of systems: Constitutional: No reports of fatigue, fever, or chills, reports tongue soreness Cardiovascular: No reports of chest pain or palpitations Respiratory: No reports of shortness of breath or cough GI: As mentioned in HPI : No reports of dysuria or retention Neurovascular: No reports of weakness. Reports upper back itchiness All medications have been reviewed Physical Exam: GENERAL: 75 year old male who is alert and oriented x3, not in any acute distress. thin built HEENT: Pupils are round and equally reacting to light. EOMI. No scleral icterus. No conjunctival pallor. Normocephalic, atraumatic. No pharyngeal erythema. No thyromegaly. tongue with white patches and irritation noted CARDIOVASCULAR: S1 and S2 present. No murmurs, rubs, or gallops. PULMONARY: Diminished breath sounds bilaterally with no wheezing or rhonchi noted. ABDOMEN: Soft, nontender, nondistended, normoactive bowel sounds. No palpable organomegaly. PEG tube MUSCULOSKELETAL: No joint swelling or deformity. EXTREMITIES: No cyanosis, clubbing, or edema noted NEUROLOGICAL: Gross neurological examination did not reveal any focal deficits. Diffusely weak SKIN: No rashes. no petechiae, pale, dry patches with markings of previous itching noted to the upper right back as patient has been scratching that area w ith no surrounding redness or lesions noted. Age spots and moles noted on the back. 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 Mild protein calorie malnutrition secondary to oropharyngeal cancer poor oral intake secondary to oral pharyngeal cancer oral candidiasis status post PEG tube placement today with surgery Diarrhea, most probably secondary to tube feedings/intolerance Weight loss secondary to assessment #1 Bilateral pulmonary nodules noted on chest x-ray most likely metastasis with family not wanting oncological treatment dysphagia History of prostate cancer History of skin cancer of the left cheek COPD not in acute exacerbation Hyperlipidemia sleep apnea and uses a CPAP GI prophylaxis DVT prophylaxis Full code Plan: PEG tube feeding rate is been decreased, increased tube feedings as tolerated to goal palliative nutritional support. Surgery performed PEG tube placement today with no issues noted. Will await surgical clearance of 24 hours to initiate tube feeding. Patient will start with boluses and family will be educated on PEG care and maintenance and home care has been arranged with . Objective - Vital Signs Vital signs: Vital Signs Temp 98.2 F 10/03/20 11:43 Pulse 98 10/03/20 11:43 Resp 18 10/03/20 11:43 BP 101/67 10/03/20 11:43 Pulse Ox 97 10/03/20 11:43 Intake & Output 10/02/20 10/03/20 10/03/20 18:59 06:59 18:59 Intake Total 100 Balance 100 Weight 71.9 kg Intake: Tube Feeding 100 Other: Voiding Method Toilet Urinal - Labs CBC & Chem 7: 10/01/20 05:36 10/01/20 05:36
--- NOTE | 2020-10-03 13:34 | P.PN ---
Subjective Progress Note Date: 10/03/20 CHIEF COMPLAINT: Oropharyngeal cancer HISTORY OF PRESENT ILLNESS: The patient is a 75-year-old male admitted 09/30/2020 for malnutrition and oropharyngeal cancer. He is now status post gastrostomy tube placement 10/01/2020. He had diarrhea from his tube feeds. No increased pain along the gastrostomy tube. Tube feeds are at 30 mL/hr ROS: No reports of nausea and vomiting. No bowel movements. No fevers or chills. No new chest pain. No productive sputum PHYSICAL EXAM: VITAL SIGNS: Reviewed CONSTITUTIONAL: Well developed and in no acute distress. EYES: Conjuctivae without sclera icterus. Extraocular movements grossly intact. HEAD, EARS, NOSE, THROAT: Moist buccal mucosa. Head is atraumatic, normocephalic. Hears conversational speech. No nasal drainage. NECK: No gross thyroidomegaly. No jugular venous distention. RESPIRATORY: Non-labored respirations and equal bilateral excursions. CARDIOVASCULAR: Palpable 2+ radial pulses. ABDOMEN: Gastrostomy site without infection or bleeding. MUSCULOSKELETAL: No gross deformity of the lower extremities noted. No clubbing. No cyanosis. SKIN: Good skin turgor. Well perfused. NEUROLOGIC: Cranial nerves II through XII grossly intact. No focal or lateralizing signs. PSYCH: Appropriate affect. Alert and oriented to person, place and time. CLINICAL LABS: No new labs. ASSESSMENT: 1. Moderate protein malnutrition due to oropharyngeal cancer 2. Gastrostomy tube placement PLAN: 1. Tube feed goal directed by dietitian 2. Hold carbonated beverages until cleared by surgeon. 3. Patient has diarrhea with tube feeds. Hold lactose such as ice cream. May need to adjust tube feed formula Objective - Vital Signs Vital signs: Vital Signs Temp 98.2 F 10/03/20 11:43 Pulse 98 10/03/20 11:43 Resp 18 10/03/20 11:43 BP 101/67 10/03/20 11:43 Pulse Ox 97 10/03/20 11:43 Intake & Output 10/02/20 10/03/20 10/03/20 18:59 06:59 18:59 Intake Total 100 Balance 100 Weight 71.9 kg Intake: Tube Feeding 100 Other: Voiding Method Toilet Urinal - Labs CBC & Chem 7: 10/01/20 05:36 10/01/20 05:36 Assessment and Plan (1) Moderate protein malnutrition Current Visit: Yes Status: Acute Code(s): E44.0 - MODERATE PROTEIN-CALORIE MALNUTRITION SNOMED Code(s): 130934805 (2) Dysphagia Current Visit: Yes Status: Acute Code(s): R13.10 - DYSPHAGIA, UNSPECIFIED SNOMED Code(s): 70053611 (3) Oropharyngeal cancer Current Visit: Yes Status: Acute Code(s): C10.9 - MALIGNANT NEOPLASM OF OROPHARYNX, UNSPECIFIED SNOMED Code(s): 413526013
[2020-10-03] MEDS: MORPHINE SULFATE 4 MG/ML SYRINGE IVP PRN (18:58)
[2020-10-03] MEDS: TEMAZEPAM 15 MG CAP PO PRN (18:59)
[2020-10-04] MEDS: HYDROcodone/APAP 5-325MG 1 EACH TAB PO PRN ×3 (04:39→15:36)
[2020-10-04] MEDS: BUDESONIDE 0.5 MG/2 ML NEBU INHALATION SCH (08:00)
[2020-10-04] MEDS: PANTOPRAZOLE 40 MG/10 ML VIAL IVP SCH (09:48)
[2020-10-04] MEDS: HEPARIN SODIUM,PORCINE/PF 5,000 UNIT/0.5 ML SYRINGE SQ SCH (09:48)
[2020-10-04 12:15] VITALS: BP 117/74; PULSE 84; RESP 16; TEMP 97.5
[2020-10-04 12:41] VITALS: BMI 23.5
--- NOTE | 2020-10-04 12:48 | P.PN ---
Subjective Progress Note Date: 10/04/20 CHIEF COMPLAINT: Dysphagia HISTORY OF PRESENT ILLNESS: Patient is status post PEG tube placement. He is tolerating tube feeds. No residual. No nausea or vomiting reported. His tube feeds are currently at 50 cc per hour. Goal rate is at 60. He had been having diarrhea over the weekend this has improved. Patient denies any abdominal pain. He does have some incisional pain. Afebrile albumin 2.6 PHYSICAL EXAM: VITAL SIGNS: Reviewed. GENERAL: Well-developed in no acute distress. HEENT: No sclera icterus. Extraocular movements grossly intact. Moist buccal mucosa. Head is atraumatic, normocephalic. ABDOMEN: Soft. Nondistended. Nontender. PEG tube site clean dry and intact NEUROLOGIC: Alert and oriented. Cranial nerves II through XII grossly intact. ASSESSMENT: 1. Severe protein calorie malnutrition and Dysphagia status post PEG tube placement 2. Oropharyngeal cancer 3. History of smoking PLAN: -Titrate tube feeds per dietitian -Patient is stable from surgical standpoint for discharge when medically cleared Physician Certified Composites Technician note has been reviewed by physician. Signing provider agrees with the documented findings, assessment, and plan of care. Objective - Vital Signs Vital signs: Vital Signs Temp 97.5 F L 10/04/20 11:25 Pulse 84 10/04/20 11:25 Resp 16 10/04/20 11:25 BP 117/74 10/04/20 11:25 Pulse Ox 99 10/04/20 11:25 Intake & Output 10/03/20 10/04/20 10/04/20 18:59 06:59 18:59 Intake Total 420 480 80 Balance 420 480 80 Weight 72.3 kg Intake: Tube Feeding 420 420 80 Other 60 Other: Voiding Method Toilet Urinal # Voids 1 - Labs CBC & Chem 7: 10/01/20 05:36 10/01/20 05:36
[2020-10-04] MEDS ORDERED: NYSTATIN 100,000 UNIT/ML SUSP 500,000 UNIT/5 ML CUP PO SCH (18:00)
== END 2020-10-04 17:37 | disposition home health service (06) | DRG 146 ==
LOC: 5NMEDONC 19:24 → OBSVTOIN 09-30 14:46 → 5NMEDONC 10-02 00:36
PROVIDERS: ADMIT Hospitalist; ATTEND Hospitalist
PROC: 0DH63UZ Insertion of Feeding Device into Stomach, Percutaneous Approach (ICD-10-PCS; principal; 2020-10-01 13:40)
DX: C10.9 Malignant neoplasm of oropharynx, unspecified (principal); E43 Unspecified severe protein-calorie malnutrition; B37.0 Candidal stomatitis; C78.02 Secondary malignant neoplasm of left lung; C78.01 Secondary malignant neoplasm of right lung; E78.5 Hyperlipidemia, unspecified; G47.30 Sleep apnea, unspecified; J44.9 Chronic obstructive pulmonary disease, unspecified; R13.10 Dysphagia, unspecified; Z79.51 Long term (current) use of inhaled steroids; Z85.46 Personal history of malignant neoplasm of prostate; Z85.818 Personal history of malignant neoplasm of other sites of lip, oral cavity, and pharynx; Z85.828 Personal history of other malignant neoplasm of skin; Z87.891 Personal history of nicotine dependence; Z79.899 Other long term (current) drug therapy
CPT/HCPCS: 43246; 71045; 80048; 80053; 83735; 84100; 85025; 85610; 93005; 94640; 94760

== ENCOUNTER → 2020-12-03 | Outpatient (CLI) | payer MEDICARE, BC ==
--- NOTE | 2020-12-07 04:18 | PE ---
EXAMINATION TYPE: PET CT fusion skull to thigh DATE OF EXAM: 12/03/2020 COMPARISON: NONE at this institution. HISTORY: Tongue/throat cancer. Recent abnormal CT. Recently diagnosed April 2020. No treatment. TECHNIQUE: Following the intravenous administration of 10.53 mCi of F-18 FDG, whole body images are performed from the skull base to the midthigh. Images are reviewed on the computer in the coronal, a xial, and sagittal planes. Reconstructed rotating images are created on independent workstation and reviewed on the computer. A localization and attenuation correction CT is performed in conjunction with the PET scan. Blood glucose level equals 97. Dedicated PET/CT imaging of the neck. SCAN: Initial Scan FINDINGS: SKULL BASE AND NECK: Large mass or neoplasm right tongue base submandibular level measures roughly 6 .1 x 4.5 cm axial image 54 and crosses the midline just above the hyoid bone. Oropharyngeal airway is deviated to left of midline. There is abnormal confluent right lateral neck adenopathy above the hyoid bone posterior cervical tri angle measuring 3.5 x 2.2 cm axial image 53. There are abnormal hypermetabolic lymph nodes inferior t o this reference the level of vocal cord a 2.1 x 2.1 cm lymph node axial image 65 Max SUV is 12.34. T here is abnormal hypermetabolic 1.3 x 1.2 cm left lymph node just below vocal cords superior margin o f the thyroid gland axial image 71, max SUV is 1123 2. CHEST, MEDIASTINUM, AND HILAR REGION: Background mild underlying emphysematous change. Scattered hype rmetabolic pulmonary nodules consistent with hematogenous metastatic disease. There is a cavitary les ion in the right upper lobe axial image 84 noted. Larger nodules in the lower lungs. For reference th ere is 2.1 x 1.8 cm posterior left lower lobe nodule axial image 137, max SUV is 10.64. ABDOMEN AND PELVIS: Suspicious hypermetabolic focus central liver axial image [address] correlate, max SUV is 3.95. Similar findings seen axial image 170 anteriorly. Normal excretion. OSSEOUS STRUCTURES: No definitive abnormal hypermetabolic uptake. OTHER CT: Moderate calcified plaque bilateral carotid bulb level. Small pericardial effusion. Moderate coronary artery calcification. PEG tube in place. Enlarged prostate consistent with BPH bulging on bladder base. Mild to moderate co ncentric bladder wall thickening consistent with outlet obstruction from BPH. Medial right thigh intramuscular lipoma incidentally noted axial image 261. Moderate calcified plaque distal abdominal aorta. Multilevel spurring in the spine. IMPRESSION: Findings consistent with advanced stage neoplasm as there is large lobulated right tongue base mass with significant right neck adenopathy involving levels 2 through 5 along with left level 4 adenopathy. There is diffuse pulmonary metastatic disease and suspected early hepatic metastatic di tae noted.
== END | disposition home or self-care (01) ==
LOC: RADPETMAIN 15:01
PROVIDERS: ATTEND Internal Medicine Hematology & Oncology
DX: C01 Malignant neoplasm of base of tongue (principal)
CPT/HCPCS: 78815; A9552

== ENCOUNTER 2021-01-07 18:05 | Inpatient (IN) | payer MEDICARE, BC ==
[2021-01-07] MEDS ORDERED: SODIUM CHLORIDE 0.9% 1,000 ML IV STA (23:33)
[2021-01-07] MEDS ORDERED: MORPHINE SULFATE 4 MG/ML SYRINGE IV STA (23:33)
--- NOTE | 2021-01-07 23:36 | ED ---
ENT HPI - General Chief complaint: ENT Stated complaint: throat issues Time Seen by Provider: 01/07/21 22:34 Source: patient Mode of arrival: ambulatory Limitations: no limitations - Related Data Home Medications Medication Instructions Recorded Confirmed Benralizumab [Fasenra] 30 mg SQ Q56D 11/11/19 01/07/21 HYDROcodone/APAP 10-325MG [[place] 1 tab PO QID 09/28/20 01/07/21 10-325] lidocaine HCL [lidocaine HCL 5 ml PO Q3H PRN 01/07/21 01/07/21 Viscous] Previous Rx's Medication Instructions Recorded Nystatin 100,000 Unit/ml Susp 5 ml PO QID 7 Days #28 ml 10/04/20 [Mycostatin Oral Susp] Allergies Allergy/AdvReac Type Severity Reaction Status Date / Time bee venom protein (honey bee) Allergy Itching Verified 01/07/21 23:53 cocoa AdvReac "sneezing" Verified 01/07/21 23:53 codeine AdvReac Itching Verified 01/07/21 23:53 Review of Systems ROS Statement: Those systems with pertinent positive or pertinent negative responses have been documented in the HPI. ROS Other: All systems not noted in ROS Statement are negative. Past Medical History Past Medical History: Asthma, Cancer, COPD, Hyperlipidemia, Prostate Disorder, Sleep Apnea/CPAP/BIPAP Additional Past Medical History / Comment(s): Skin cancer was removed from the left cheek, prostate cancer treated with seeds, bilateral lower extremity neuropathy, History of Any Multi-Drug Resistant Organisms: None Reported Date of last positivie culture/infection: None MDRO Source:: None Past Surgical History: Tonsillectomy Additional Past Surgical History / Comment(s): Colonoscopy with polypectomy, skin cancer excised from left cheek, surgery on the right great toe., Past Anesthesia/Blood Transfusion Reactions: No Reported Reaction Past Psychological History: No Psychological Hx Reported Smoking Status: Former smoker Past Alcohol Use History: Daily Past Drug Use History: None Reported - Past Family History Mother History Unknown: Yes Family Medical History: Cancer General Exam Limitations: no limitations Course Vital Signs 01/07/21 01/07/21 18:59 22:33 Temperature 99.4 F Pulse Rate 88 87 Respiratory 20 18 Rate Blood Pressure 110/69 135/78 O2 Sat by Pulse 97 99 Oximetry Medical Decision Making - EKG Data -: EKG Interpreted by Me (EKG is sinus rhythm 84 [place] 136 QRS 86 QTc 420) Disposition Clinical Impression: Dysphagia, Oropharyngeal cancer, Moderate protein malnutrition Narrative: Need Trach Disposition: ADMITTED IP TO THIS HOSP Condition: Fair Is patient prescribed a controlled substance at d/c from ED?: No
[2021-01-08 00:56] LABS: Basophils % (A) 0 %; Eosinophils % (A) 0 %; HCT 35.2 % (39.0-53.0); Lymphocytes # (A) 1.4 k/uL (1.0-4.8); Lymphocytes % (A) 17 %; MCH 34.1 pg (25.0-35.0); MCHC 34.1 g/dL (31.0-37.0); MCV 99.9 fL (80.0-100.0); Macrocytosis Slight; Mean Platelet Volume 6.9; Monocytes # (A) 0.7 k/uL (0-1.0); Monocytes % (A) 8 %; Neutrophils # (A) 6.2 k/uL (1.3-7.7); Neutrophils % (A) 72 %; Platelet Count 463 k/uL (150-450); RBC 3.53 m/uL (4.30-5.90); RDW 14.5 % (11.5-15.5); WBC 8.5 k/uL (3.8-10.6)
[2021-01-08 01:06] LABS: INR 0.9 (<1.2); Partial Thromboplastin Time 26.3 sec (22.0-30.0); Prothrombin Time 9.5 sec (9.0-12.0)
[2021-01-08 01:22] LABS: ALT 12 U/L (4-49); AST 33 U/L (17-59); African American GFR (CKD) >90 (>60 ml/min/1.73 sqM); Albumin 2.8 g/dL (3.5-5.0); Alkaline Phosphatase 96 U/L (38-126); Anion Gap 4 mmol/L; Blood Urea Nitrogen 16 mg/dL (9-20); Calcium 8.7 mg/dL (8.4-10.2); Carbon Dioxide 29 mmol/L (22-30); Chloride 96 mmol/L (98-107); Glucose 90 mg/dL (74-99); Non-African American GFR(CKD) >90 (>60 ml/min/1.73 sqM); Phosphorus 4.2 mg/dL (2.5-4.5); Potassium 4.7 mmol/L (3.5-5.1); Sodium 129 mmol/L (137-145); Total Bilirubin 0.5 mg/dL (0.2-1.3); Total Protein 6.4 g/dL (6.3-8.2)
--- NOTE | 2021-01-08 04:45 | P.HPIM ---
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 However his condition deteriorated started having difficulty swallowing ended up doing a PEG tube around September of this year and then eventually around November of this year is when he decided to start chemotherapy Patient was started on keytruda about a few days ago since then Keep having increased trouble swallowing and breathing with drooling he didn't admit initially but his forced him to go see his doctor who was very concerned about patient condition and recommended immediate evaluation by ENT for consideration for tracheostomy Patient otherwise gives limited history he seems to be not interested in any further testing but would like to see an ENT doctor to help him breathe he wants to be full code however he seems to be picky about which tests to allow his as he declined CAT scan of the chest earlier when he presented in the ED There is a CAT scan done about a month ago with his transfer papers indicated that he is possibly having metastatic lesion to the lungs and liver along with cervical lymph node involvement Review of Systems Pertinent positives as noted in HPI. All other systems were reviewed and are negative Past Medical History Past Medical History: Asthma, Cancer, COPD, Hyperlipidemia, Prostate Disorder, Sleep Apnea/CPAP/BIPAP Additional Past Medical History / Comment(s): Skin cancer was removed from the left cheek, prostate cancer treated with seeds, bilateral lower extremity neuropathy, History of Any Multi-Drug Resistant Organisms: None Reported Date of last positivie culture/infection: None MDRO Source:: None Past Surgical History: Tonsillectomy Additional Past Surgical History / Comment(s): Colonoscopy with polypectomy, skin cancer excised from left cheek, surgery on the right great toe., Past Anesthesia/Blood Transfusion Reactions: No Reported Reaction Past Psychological History: No Psychological Hx Reported Smoking Status: Former smoker Past Alcohol Use History: Daily Past Drug Use History: None Reported - Past Family History Mother History Unknown: Yes Family Medical History: Cancer Medications and Allergies Home Medications Medication Instructions Recorded Confirmed Type Benralizumab [Fasenra] 30 mg SQ Q56D 11/11/19 01/07/21 History HYDROcodone/APAP 10-325MG [[place] 1 tab PO QID 09/28/20 01/07/21 History 10-325] Nystatin 100,000 Unit/ml Susp 5 ml PO QID 7 Days #28 ml 10/04/20 01/07/21 Rx [Mycostatin Oral Susp] lidocaine HCL [lidocaine HCL 5 ml PO Q3H PRN 01/07/21 01/07/21 History Viscous] Allergies Allergy/AdvReac Type Severity Reaction Status Date / Time bee venom protein (honey bee) Allergy Itching Verified 01/07/21 23:53 cocoa AdvReac "sneezing" Verified 01/07/21 23:53 codeine AdvReac Itching Verified 01/07/21 23:53 Physical Exam Vitals: Vital Signs Temp Pulse Resp BP Pulse Ox 01/08/21 03:38 97 18 134/76 95 01/08/21 01:58 89 18 98 01/07/21 22:33 87 18 135/78 99 01/07/21 18:59 99.4 F 88 20 110/69 97 Intake and Output 01/07/21 01/07/21 01/08/21 14:59 22:59 06:59 Other: Weight 69.853 kg Constitutional: No acute distress, patient is drooling muffled speech, no stridors Eyes: Anicteric sclerae, moist conjunctiva, Pupils equal round reactive to light ENMT: NC/AT Difficult to visualize oropharynx due to swollen mucous membranes and enlarged tongue patient has limitations in opening of his mouth Neck: Supple, palpable large mass over the right side of the neck No carotid bruits No thyromegaly No audible stridors Lungs: Good breath sounds throughout Clear to percussion Normal respiratory effort, no accessory muscle use Cardiovascular: Heart regular in rate and rhythm, No murmurs, gallops, or rubs +2 bilateral peripheral edema right leg is worse than the left Abdominal: Soft Nontender, no guarding, rebound or rigidity Abdomen moving with respiration Normoactive bowel sounds Limited exam of the abdomen due to patient positioning PEG tube in place with clean base Skin: Normal temperature, tone, texture, turgor No induration No subcutaneous nodules No rash, lesions No ulcers Extremities: No digital cyanosis No clubbing Pedal pulses intact and symmetrical Radial pulses intact and symmetrical Tenderness to palpation of the right calf muscle with slight erythema Psychiatric: Alert and oriented to person, place and time Appropriate affect fair judgement Neuro Muscles Strength 3-4/5 in all 4 extremities Sensation to light touch grossly present throughout Cranial nerves II-XII grossly intact Lymphatics: Enlarged cervical lymphadenopathy Results CBC & Chem 7: 01/08/21 00:20 01/08/21 00:20 Labs: Abnormal Lab Results - Last 24 Hours (Table) 01/08/21 01/08/21 Range/Units 00:20 00:20 RBC 3.53 L (4.30-5.90) m/uL Hgb 12.0 L (13.0-17.5) gm/dL Hct 35.2 L (39.0-53.0) % Plt Count 463 H (150-450) k/uL Sodium 129 L (137-145) mmol/L Chloride 96 L (98-107) mmol/L Creatinine 0.50 L (0.66-1.25) mg/dL Albumin 2.8 L (3.5-5.0) g/dL Assessment and Plan Assessment: Suspected angioedema, 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 patient was started on new medication he tried to 3 days ago since then he noticed progressive swelling and edema of his mouth tongue and lips with increased difficulty breathing and swallowing along with drooling Admit patient to the ICU Close monitoring Cardiac telemetry Stat 2 units fresh frozen plasma for suspected angioedema ENT evaluation for possible tracheostomy CAT scan done at different facility from November 2020 reviewed Oncology consultation Bilateral lower extremity edema with right worse than left along with erythema and tenderness Concerns for DVT Check stat d-dimer Check venous duplex ultrasound bilateral lower extremities Hyponatremia Continue to monitor If worsens with IV fluid hydration then suspect a component of syndrome of inappropriate antidiuretic hormone secretion Chronic anemia with hemoglobin around 11 COPD currently compensated DVT prophylaxis Lovenox subcu daily Supportive care Pain control with morphine IV Patient full code Anticipated length of stay more than 2 midnights Anticipated discharge home
[2021-01-08] MEDS: MORPHINE SULFATE 4 MG/ML SYRINGE IVP PRN ×4 (05:49→19:56)
[2021-01-08 06:54] LABS: African American GFR (CKD) >90 (>60 ml/min/1.73 sqM); Anion Gap 3 mmol/L; Blood Urea Nitrogen 14 mg/dL (9-20); Calcium 8.6 mg/dL (8.4-10.2); Carbon Dioxide 28 mmol/L (22-30); Chloride 101 mmol/L (98-107); Glucose 82 mg/dL (74-99); Non-African American GFR(CKD) >90 (>60 ml/min/1.73 sqM); Potassium 4.4 mmol/L (3.5-5.1); Sodium 132 mmol/L (137-145)
--- NOTE | 2021-01-08 08:32 | US ---
EXAMINATION TYPE: US venous doppler duplex LE DATE OF EXAM: 01/08/2021 7:49 AM COMPARISON: NONE CLINICAL HISTORY: rule out DVT. Right leg swelling. Right calf redness. SIDE PERFORMED: Bilateral TECHNIQUE: The lower extremity deep venous system is examined utilizing real time linear array sonog monique with graded compression, doppler sonography and color-flow sonography. VESSELS IMAGED: Common Femoral Vein Deep Femoral Vein Greater Saphenous Vein * Femoral Vein Popliteal Vein Small Saphenous Vein * Proximal Calf Veins (* superficial vessels) Right Leg: Negative for DVT Left Leg: Negative for DVT IMPRESSION: 1. Bilateral lower extremity ultrasound negative for deep venous thrombosis.
--- NOTE | 2021-01-08 09:40 | P.CNPUL ---
History of Present Illness Consult date: 01/08/21 Requesting physician: Mahogany Perez Reason for consult: other (Critical care management) Chief complaint: Difficulty swallowing, drooling History of present illness: This is a very pleasant 75-year-old male patient who resides in [facility]. He has a history of chronic obstructive pulmonary disease, asthma, prostate cancer, obstructive sleep apnea intolerant to CPAP recently, hyper lipidemia, 50+ year pack per day smoking history however quit a few years ago. In April 2020 the patient had been seen a dentist who noticed a lump on the back of his right side of his tongue. This was found to be squamous cell carcinoma. At that time the patient had declined any chemotherapy or radiation therapy and was utilizing herbs. His last had progressed and he was unable to swallow and had a PEG tube placed in September by Dr. Kenny. He utilizes bolus tube feedings. PET scan from 12/06/2020 revealed findings consistent with advanced stage neoplasm as there is a large lobulated right tongue base mass with significant right neck adenopathy involving levels 2 through 5 along with a left level IV adenopathy. There is diffuse pulmonary metastatic disease and suspected early hepatic metastatic disease. The patient did agree to immunotherapy and received 1 dose of Keytruda by an oncologist out of [place]. He's been having progressive difficulty in speaking and swallowing. He's been drooling. He takes nothing by mouth. He uses lidocaine viscous and nystatin at home. His was concerned yesterday and was brought here to the emergency room. There was some concern regarding possible stridor and he was admitted to the intensive care unit with plans for tracheostomy placement. ENT consult pending. The the patient is sitting up in bed. Awake and alert in no acute d istress. No evidence of stridor currently. Denies any worsening shortness of breath cough or congestion. He is having some discomfort in his right tongue and jaw area. He has some excessive saliva. He is maintaining good O2 saturations in the mid 90s on room air. He's been afebrile. Hemodynamically stable. He did have some lower extremity edema. Dopplers of the lower extremities were negative for DVT. Count 8.5. Hemoglobin 12.0. Platelet count 463. Sodium 132. Potassium 4.4. Creatinine 0.45. Current virus not detected. And initiated on Lovenox for DVT prophylaxis. Morphine sulfate for pain control. Review of Systems REVIEW OF SYSTEMS: CONSTITUTIONAL: Positive for recent weight loss. EYES: Denies change in vision. EARS, NOSE, MOUTH, THROAT: Positive for pain in the right tongue jaw and neck. CARDIOVASCULAR: Denies chest pain, palpitations or syncopal episodes. RESPIRATORY: Denies shortness of breath, cough, congestion or hemoptysis. GASTROINTESTINAL: Denies change in appetite, denies abdominal pain GENITOURINARY: Denies hematuria, denies infections. MUSKULOSKELETAL: Denies pain, denies swelling. INTEGUMENTARY: Denies rash, denies eczema. NEUROLOGICAL: Denies recent memory loss, no recent seizure activity. PSYCHIATRIC: Denies anxiety, denies depression. HEMATOLOGIC/LYMPHATIC: Positive for enlarged cervical lymph nodes. Past Medical History Past Medical History: Asthma, Cancer, COPD, Hyperlipidemia, Prostate Disorder, Sleep Apnea/CPAP/BIPAP Additional Past Medical History / Comment(s): Skin cancer was removed from the left cheek, prostate cancer treated with seeds, bilateral lower extremity neuropathy, History of Any Multi-Drug Resistant Organisms: None Reported Date of last positivie culture/infection: None MDRO Source:: None Past Surgical History: Tonsillectomy Additional Past Surgical History / Comment(s): Colonoscopy with polypectomy, skin cancer excised from left cheek, surgery on the right great toe., Past Anesthesia/Blood Transfusion Reactions: No Reported Reaction Past Psychological History: No Psychological Hx Reported Smoking Status: Former smoker Past Alcohol Use History: Daily Past Drug Use History: None Reported - Past Family History Mother History Unknown: Yes Family Medical History: Cancer Additional Family Medical History / Comment(s): colon Medications and Allergies Home Medications Medication Instructions Recorded Confirmed Type Benralizumab [Fasenra] 30 mg SQ Q56D 11/11/19 01/07/21 History HYDROcodone/APAP 10-325MG [[place] 1 tab PO QID 09/28/20 01/07/21 History 10-325] Nystatin 100,000 Unit/ml Susp 5 ml PO QID 7 Days #28 ml 10/04/20 01/07/21 Rx [Mycostatin Oral Susp] lidocaine HCL [lidocaine HCL 5 ml PO Q3H PRN 01/07/21 01/07/21 History Viscous] Allergies Allergy/AdvReac Type Severity Reaction Status Date / Time bee venom protein (honey bee) Allergy Itching Verified 01/07/21 23:53 cocoa AdvReac "sneezing" Verified 01/07/21 23:53 codeine AdvReac Itching Verified 01/07/21 23:53 Physical Exam Vitals: Vital Signs Temp Pulse Pulse Resp BP Pulse Ox 01/08/21 07:00 86 11 L 115/96 95 01/08/21 06:24 90 14 01/08/21 06:00 97.8 F 93 14 128/78 94 L 01/08/21 05:36 101 H 23 133/118 01/08/21 05:23 88 18 138/71 99 01/08/21 03:38 97 18 134/76 95 01/08/21 01:58 89 18 98 01/07/21 22:33 87 18 135/78 99 01/07/21 18:59 99.4 F 88 20 110/69 97 Intake and Output 01/07/21 01/08/21 01/08/21 22:59 06:59 14:59 Intake Total 260 Output Total 0 Balance 260 Intake: IV 260 Sodium Chloride 0.9% 1, 260 000 ml @ 130 mls/hr IV . Q7H42M STA Rx#:[id number] Output: Urine 0 Other: # Voids 0 Weight 69.853 kg 70.9 kg GENERAL EXAM: Alert, active, and a pleasant 75-year-old gentleman, on room air, fairly comfortable in no apparent distress. HEAD: Normocephalic. EYES: Normal reaction of pupils, equal size. NOSE: Clear with pink turbinates. THROAT: Edema noted of the right side of the tongue. NECK: Mass with palpable enlarged nodes. No stridor noted CHEST: No chest wall deformity. LUNGS: Equal air entry with no crackles, wheeze, rhonchi or dullness. CVS: S1 and S2 normal with no audible murmur, regular rhythm. ABDOMEN: No hepatosplenomegaly, normal bowel sounds, no guarding or rigidity. SPINE: No scoliosis or deformity SKIN: No rashes CENTRAL NERVOUS SYSTEM: No focal deficits, tone is normal in all 4 extremities. EXTREMITIES: There is no peripheral edema. No clubbing, no cyanosis. Peripheral pulses are intact. 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 Initial diagnosis in April 2020 and the patient had declined chemotherapy or radiation at that time. PET scan revealed metastasis now in November 2020 and the patient received 1 dose of Keytruda by an oncologist in the [facility]. 2 Dysphagia secondary to above with no clear evidence of stridor at this time, the O2 saturations in the mid 90s on room air 3 Nourished via PEG tube bolus feedings in the outpatient setting 4 History of chronic obstructive pulmonary disease 5 History of obstructive sleep apnea intolerant to CPAP based on recent face and neck distortion 6 History of 50 years of chronic tobacco dependence however quit a few years ago Plan: The patient was seen and evaluated by Dr. Ojeda PET Scan and labs reviewed No stridor currently, stable and on room air Will most likely need tracheostomy placement with increasing tongue mass Awaiting ENT recommendations We will continue to follow and make further recommendations based on his clinical status I, the cosigning physician, performed a history & physical examination of the patient. Lungs sounds are clear. Maintaining good O2 saturations in the 90s on room air. I discussed the assessment and plan of care with my nurse practitioner, Rula Hernandez. I attest to the above consultation as dictated by her. Time with Patient: Greater than 30
--- NOTE | 2021-01-08 10:35 | P.PN ---
Subjective Patient is doing fairly well today. He denies any shortness of breath. No acute events overnight reported by nursing staff. Objective - Vital Signs Vital signs: Vital Signs Temp 97.8 F 01/08/21 06:00 Pulse 86 01/08/21 07:00 Resp 11 L 01/08/21 07:00 BP 115/96 01/08/21 07:00 Pulse Ox 95 01/08/21 07:00 Intake & Output 01/07/21 01/08/21 01/08/21 18:59 06:59 18:59 Intake Total 260 Output Total 0 Balance 260 Weight 69.853 kg 70.9 kg Intake: IV 260 Sodium Chloride 0.9% 1, 260 000 ml @ 130 mls/hr IV . Q7H42M STA Rx#:[id number] Output: Urine 0 Other: # Voids 0 - Exam General: The patient is awake and alert, in no distress Eye: there is normal conjunctiva bilaterally. Neck: The neck is supple, there is no JVD. There is no stridor whatsoever. Cardiovascular: Normal S1-S2, no S3-S4, no murmurs. Respiratory: Lungs clear to auscultation bilaterally Gastrointestinal: Abdomen is soft, nontender Musculoskeletal: There is no pedal edema. Neurological:. Speech is normal. Skin: Skin is warm and dry - Labs CBC & Chem 7: 01/08/21 00:20 01/08/21 05:36 Labs: Abnormal Lab Results - Last 24 Hours (Table) 01/08/21 01/08/21 01/08/21 Range/Units 00:20 00:20 00:20 RBC 3.53 L (4.30-5.90) m/uL Hgb 12.0 L (13.0-17.5) gm/dL Hct 35.2 L (39.0-53.0) % Plt Count 463 H (150-450) k/uL D-Dimer 1.08 H (<0.60) mg/L FEU Sodium 129 L (137-145) mmol/L Chloride 96 L (98-107) mmol/L Creatinine 0.50 L (0.66-1.25) mg/dL Albumin 2.8 L (3.5-5.0) g/dL 01/08/21 Range/Units 05:36 RBC (4.30-5.90) m/uL Hgb (13.0-17.5) gm/dL Hct (39.0-53.0) % Plt Count (150-450) k/uL D-Dimer (<0.60) mg/L FEU Sodium 132 L (137-145) mmol/L Chloride (98-107) mmol/L Creatinine 0.45 L (0.66-1.25) mg/dL Albumin (3.5-5.0) g/dL Assessment and Plan Assessment: This is a 75-year-old male with complex past medical history noted below who was sent to the ER for ENT evaluation and possible tracheostomy placement. Patient has a history of squamous cell carcinoma of the base of the tongue with progressive dysphagia requiring PEG tube placement and currently concerns about airway compromise. Patient was evaluated in the ER and currently placed in the ICU for close monitoring awaiting ENT evaluation. Patient has no evidence of airway compromise at this time and no stridor whatsoever. He is having difficu lty speaking though. Below is a list of his medical problems 1. Metastatic squamous cell carcinoma of the base of the tongue currently on Ketruda. Patient apparently refused any form of treatment in the beginning and wanted to try herbal treatment but now he is open for doctor's recommendations. 2. Underlying COPD with no evidence of exacerbation 3. Hypovolemic hyponatremia, improved with IV fluid hydration 4. History of sleep apnea unable to tolerate CPAP
[2021-01-08 12:02] VITALS: BMI 23.8
--- NOTE | 2021-01-08 13:54 | CONS ---
CONSULTATION DATE OF SERVICE: 01/08/2021. CHIEF COMPLAINT: Difficulty swallowing. 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 He has received a few courses of chemotherapy. He has refused radiation therapy. He has a history of multiple other chronic medical conditions and has sleep apnea but intolerant of CPAP. He does have a 50 pack-year history of smoking, quit many years ago, and did drink alcohol significantly in the past. The patient is from [place] and he was having worsening difficulty swallowing and he went to the emergency room and then later transferred down here to [facility]. He has severe swallowing disorder. He had a PEG tube by Dr. Kenny and he utilizes tube feedings. I have been asked to consult for possible tracheotomy. He does have a hot potato voice, but he does not have stridor. They thought initially he might have had angioedema. REVIEW OF SYSTEMS: A 12-system review was unremarkable other than weight loss. PAST MEDICAL HISTORY: Positive for asthma, cancer, COPD, hyperlipidemia, prostate disorder, sleep apnea. PAST SURGICAL HISTORY: Positive for tonsillectomy. He also had a colonoscopy with polypectomy, cancer from the left cheek removed, surgery on the great right toe. SOCIAL HISTORY: Drinking and smoking in the past. Currently a nonsmoker. FAMILY HISTORY: Positive for cancer. PHYSICAL EXAMINATION: Vital signs are stable. Patient is afebrile. Head is normocephalic. The face is symmetric. There are no abnormal movements. There is no tenderness to the sinuses or mastoids, visual nodules, eruptions or parasites on scalp. Ears: Auricles are well formed. Canals are clear. Tympanic membranes are without bulging or retraction. Nose is patent. No tumors, polyps or masses. There is a severe right septal deviation. Mouth and throat: Patient has a large mass at the right base of tongue with extension to the right pharynx and epiglottis. The patient has a hot potato voice. Neck shows significant metastatic spread into the right upper neck. He has positive involvement of zone 2, 3. IMPRESSIONS: Stage IV right hypopharyngeal metastatic malignancy with severe dysphagia but no evidence of airway compromise. PLAN OF TREATMENT: This patient, although he has a hot potato voice and severe dysphagia, he does not have stridor, and examination reveals a relatively open airway with no risk of asphyxiation. He has no stridor. He is breathing comfortably on room air and he does not appear to need a tracheotomy at this time. I have encouraged him to continue aggressive oncologic treatment in [place] with radiation and hopefully chemotherapy for followup. He will be working with his oncologist in [place] for further treatment. I have given him my cardiac, and he is to call me if any problems should arise in the interim. Again, the patient has no stridor, no difficulty breathing, and endoscopy does not show any evidence of impending airway compromise. MMODL / IJN: [id number] /
--- NOTE | 2021-01-08 14:00 | OP ---
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 POSTOPERATIVE DIAGNOSIS: Stage IV right hypopharyngeal malignancy with hot potato voice. OPERATIVE PROCEDURE: Flexible laryngoscopy. BLOOD LOSS: None. ANESTHESIA: None. CONDITION: Excellent. OPERATIVE FINDINGS: Patient was found to have a very large right base of tongue malignancy with attachment to the epiglottis, vallecula, lateral pharynx, base of tongue and right lower soft palate. No evidence of airway compromise. Hot potato voice is noted. PROCEDURE DESCRIPTION: This patient was placed in a sitting position next to his hospital bed here in the ICU. An ENF type GP nasopharyngoscope was inserted to the patient's left naris. He has a severe right septal deviation. We passed this along the floor of the nose into the nasopharynx, then oropharynx, then hypopharynx. The patient was found to have a large malignancy tumor involving the base of tongue on the right with extension adjacently into the epiglottis, vallecula, lateral pharynx and soft palate. There was no evidence of airway compromise. There was no evidence of stridor. The patient's airway was very generous, and I see no need for tracheotomy at this time. This was explained to the patient. Instrumentation was removed and all questions were answered. MMODL / IJN: [id number] /
--- NOTE | 2021-01-08 15:27 | CT ---
EXAMINATION TYPE: CT soft tissue neck wo con DATE OF EXAM: 01/08/2021 COMPARISON: None HISTORY: Throat issues CT DLP: 235.2 mGycm CONTRAST: Patient injected with 0 mL of Isovue 300. TECHNIQUE: Axial images at 3 mm thick sections. Reconstructed images in the coronal plane and sagitt al plane are reviewed. FINDINGS: Limited CT sections are obtained the lung apices. The lung apices appear clear. CT neck: The torus tubarius and fossa of Rosenmuller are normal. Fuel [employer]ician spaces are normal. Para nasal sinuses and mastoid air cells are clear. Carotid glands are not well visualized. Submandibular glands are normal. Parapharyngeal spaces are n ormal. There are large densities within the right some sternocleidomastoid muscle region near the level of t he parotid gland extending towards the submandibular gland. Findings can be compatible with large nec rotic lymph nodes. Largest is measured 3.1 and 2.7 cm in diameter. Additional enlarged masses or the submandibular region on the right and in the right neck There appears to be a large mass within the right tonsillar pillar region and right lateral oropharyn x wall extending to nearly the level of the hyoid bone. Some air irregularity appears to be within th e inferior right tongue. Mass and abscess should be considered. There is diffuse thickening of the uv lit and soft palate. Debris mass may be within the vallecula. The epiglottis is visualized and appear s intact. The right aspect of the aryepiglottic fold however is somewhat indistinct and could have in volvement. Subglottic airway appears clear. Vocal cord level appear symmetrical. Thyroid as visualized is normal. Numerous apical lung nodules are present suspicious for metastatic disease. Largest at the right apex is 1.1 cm. There may be a cavitary area within the right apex measuring 2.1 cm. Degenerative disc changes and degenerative changes throughout the cervical spine are noted. The preve rtebral space appears normal. Posterior spinal lamellar line appears intact. There is an ill-defined hypodensity within the right aspect of T1 near the costovertebral junction. A small lytic lesion is n ot excluded., Example image series 202 image 51, series 203 image 48. IMPRESSIONS: 1. Masslike lesion which contains air right tonsillar pillar and right hypopharynx wall more suggesti ve for mass although decompressed abscess formation should be considered within the differential. 2. Enlarged right lymph nodes. 3. Too numerous to count pulmonary nodules bilateral lung apices suspicious for metastatic disease
[2021-01-08] MEDS: ENOXAPARIN 40 MG/0.4 ML SYRINGE SQ SCH (15:37)
[2021-01-09 01:29] VITALS: RESP 16
[2021-01-09] MEDS: MORPHINE SULFATE 4 MG/ML SYRINGE IVP PRN (01:39)
[2021-01-09 04:26] VITALS: BP 107/66; PULSE 64; TEMP 98.1
[2021-01-09] MEDS: ENOXAPARIN 40 MG/0.4 ML SYRINGE SQ SCH (08:36)
--- NOTE | 2021-01-09 11:43 | P.DS ---
Providers Date of admission: 01/08/21 08:09 Expected date of discharge: 01/09/21 Attending physician: Mahogany Perez MD Consults: 01/07/21 23:33 Consult Physician Routine Consulting Provider: Greg Ren Consult Reason/Comments: trach Do you want consulting provider notified?: Yes 01/08/21 04:47 Consult Physician Routine Consulting Provider: Quyen Ojeda Consult Reason/Comments: icu care Do you want consulting provider notified?: Already Contacted Primary care physician: [facility] Course: This is a 75-year-old male with complex past medical history noted below who was sent to the ER for ENT evaluation and possible tracheostomy placement. Patient has a history of metastatic squamous cell carcinoma of the base of the tongue with progressive dysphagia requiring PEG tube placement and currently concerns about airway compromise. Patient was evaluated by ENT and underwent a flexible laryngoscopy and a computed tomography scan of the neck reviewed the ENT and no evidence of airway compromise. No indication for tracheostomy at this time. Patient was also evaluated by pulmonary. Patient is cleared for discharge home. He will follow-up with his oncologist as directed. Below is as of his medical problems addressed during this hospitalization. 1. Metastatic squamous cell carcinoma of the base of the tongue currently on Ketruda. Patient apparently refused any form of treatment in the beginning and wanted to try herbal treatment but now he is open for doctor's recommendations. 2. Underlying COPD with no evidence of exacerbation 3. Hypovolemic hyponatremia, improved with IV fluid hydration 4. History of sleep apnea unable to tolerate CPAP Physical exam: General: The patient is awake and alert, in no distress Eye: there is normal conjunctiva bilaterally. Neck: The neck is supple, there is no JVD. Cardiovascular: Normal S1-S2, no S3-S4, no murmurs. Respiratory: Lungs clear to auscultation bilaterally Gastrointestinal: Abdomen is soft, nontender Musculoskeletal: There is no pedal edema. Neurological:. Speech is normal. Skin: Skin is warm and dry Patient Condition at Discharge: Poor Plan - Discharge Summary New Discharge Prescriptions: Continue Benralizumab [Fasenra] 30 mg SQ Q56D lidocaine HCL [lidocaine HCL Viscous] 5 ml PO Q3H PRN PRN Reason: mouth pain HYDROcodone/APAP 10-325MG [[place] 10-325] 1 tab PO QID Nystatin 100,000 Unit/ml Susp [Mycostatin Oral Susp] 5 ml PO QID 7 Days #28 ml Discharge Medication List Benralizumab [Fasenra] 30 mg SQ Q56D 11/11/19 [History] HYDROcodone/APAP 10-325MG [[place] 10-325] 1 tab PO QID 09/28/20 [History] Nystatin 100,000 Unit/ml Susp [Mycostatin Oral Susp] 5 ml PO QID 7 Days #28 ml 10/04/20 [Rx] lidocaine HCL [lidocaine HCL Viscous] 5 ml PO Q3H PRN 01/07/21 [History] Follow up Appointment(s)/Referral(s): Jj Sargent MD [Primary Care Provider] - 1-2 days Discharge Disposition: HOME SELF-CARE
== END 2021-01-09 14:00 | disposition home or self-care (01) | DRG 147 ==
LOC: EC 18:05 → 5NMEDONC 23:34 → 2SICU 01-08 04:31 → OBSVTOIN 01-08 08:09 → 5NMEDONC 01-09 00:54
PROVIDERS: ADMIT Internal Medicine; ATTEND Internal Medicine
PROC: 0CJS8ZZ Inspection of Larynx, Via Natural or Artificial Opening Endoscopic (ICD-10-PCS; principal; 2021-01-08)
DX: C13.9 Malignant neoplasm of hypopharynx, unspecified (principal); E44.0 Moderate protein-calorie malnutrition; E87.1 Hypo-osmolality and hyponatremia; C78.02 Secondary malignant neoplasm of left lung; C78.01 Secondary malignant neoplasm of right lung; C78.7 Secondary malignant neoplasm of liver and intrahepatic bile duct; C77.0 Secondary and unspecified malignant neoplasm of lymph nodes of head, face and neck; C01 Malignant neoplasm of base of tongue; Z20.822 Contact with and (suspected) exposure to COVID-19; E78.5 Hyperlipidemia, unspecified; E86.1 Hypovolemia; J44.9 Chronic obstructive pulmonary disease, unspecified; D64.9 Anemia, unspecified; J34.2 Deviated nasal septum; Z87.891 Personal history of nicotine dependence; G57.93 Unspecified mononeuropathy of bilateral lower limbs; G47.33 Obstructive sleep apnea (adult) (pediatric)
CPT/HCPCS: 70490; 80048; 80053; 83735; 84100; 84484; 85025; 85379; 85610; 85730; 86850; 86900; 86901; 87040; 87635; 93005; 93970; 96361; 96372; 96374; 99285

== ENCOUNTER → 2021-03-04 | Outpatient (CLI) | payer MEDICARE, BC ==
--- NOTE | 2021-03-07 08:04 | PE ---
EXAMINATION TYPE: PET CT fusion skull to thigh DATE OF EXAM: 03/04/2021 COMPARISON: Prior PET/CT December 03, 2020 HISTORY: Throat cancer diagnosed in April 2020 didn't begin treatment until after November. TECHNIQUE: Following the intravenous administration of 9.36 mCi of F-18 FDG, whole body images are p erformed from the skull base to the midthigh. Images are reviewed on the computer in the coronal, ax ial, and sagittal planes. Reconstructed rotating images are created on independent workstation and r eviewed on the computer. A localization and attenuation correction CT is performed in conjunction w ith the PET scan. Dedicated PET/CT imaging of the neck is performed. Blood glucose level equals 78. SCAN: Subsequent Scan FINDINGS: SKULL BASE AND NECK: Large mass or neoplasm right tongue base submandibular level that crosses the m idline with inferior extension shows marked interval improvement with mild residual asymmetric right- sided thickening and mild hypermetabolic uptake axial image 46 current exam. Airway now patent. There is marked interval improvement in right neck adenopathy. Persistent 1.3 x 1.2 cm lymph node at level of hyoid bone axial image 57 with mild hypermetabolic uptake along posterior aspect, max SUV is 3.58 on current study. Persistent hypermetabolic prominent lymph nodes superior and inferior to this for reference 1.2 x 1.3 cm lymph node at level of vocal cords laterally axial image 70 with max SUV of 5.4 to current study. Significant improvement from prior. No hypermetabolic or enlarged left-sided lymph nodes on current study . CHEST, MEDIASTINUM, AND HILAR REGION: Background mild underlying emphysematous change is redemonstrat ed. Scattered hypermetabolic pulmonary nodules show interval improvement in size and number of lesion s from prior study. There is stable mildly hypermetabolic cavitary lesion in the right upper lobe axi al image 95 noted. Largest nodule posterior left lower lobe axial image 150 measures 1.3 x 1.2 cm wit h mild hypermetabolic uptake, max SUV is 2.6. ABDOMEN AND PELVIS: Resolved hypermetabolic focus right hepatic lobe. No new hypermetabolic liver les ions. Normal excretion redemonstrated. No new areas of abnormal hypermetabolic uptake. OSSEOUS STRUCTURES: No definitive abnormal hypermetabolic uptake. OTHER CT: Moderate calcified plaque bilateral carotid bulb level it is redemonstrated. Small pericardial effusion is again seen. Moderate coronary artery calcification is redemonstrated. PEG tube again seen. Enlarged prostate consistent with BPH bulging on bladder base is redemonstrated. Mild to moderate concentric bladder wall thickening consistent with outlet obstruction from BPH is r edemonstrated. Medial right thigh intramuscular lipoma incidentally noted axial image 276. Moderate calcified plaque distal abdominal aorta. Multilevel spurring in the spine. IMPRESSION: Overall partial positive treatment response as detailed above.
== END | disposition home or self-care (01) ==
LOC: RADPETMAIN 13:25
PROVIDERS: ATTEND Internal Medicine Hematology & Oncology
DX: Z51.12 Encounter for antineoplastic immunotherapy (principal); C01 Malignant neoplasm of base of tongue
CPT/HCPCS: 78815; A9552

== ENCOUNTER 2021-03-25 21:46 | Inpatient (IN) | payer MEDICARE, BC ==
[2021-03-26] MEDS ORDERED: ACETAMINOPHEN TAB 325 MG TAB PO PRN (01:12)
[2021-03-26] MEDS ORDERED: MAG HYDROX/AL HYDROX/SIMETH 30 ML CUP PO PRN (01:12)
[2021-03-26] MEDS ORDERED: CALCIUM CARBONATE 500 MG CHEWABLE PO PRN (01:12)
[2021-03-26] MEDS ORDERED: ONDANSETRON 4 MG/2 ML VIAL IVP PRN (01:12)
[2021-03-26] MEDS ORDERED: NALOXONE 0.4 MG/ML 1 ML VIAL IV PRN (01:12)
[2021-03-26] MEDS ORDERED: MELATONIN 3 MG TABLET PO PRN (01:12)
[2021-03-26] MEDS ORDERED: LIDOCAINE VISCOUS 300 MG/15 ML CUP MUCOUS MEM PRN (01:19)
[2021-03-26 08:07] LABS: Basophils % (A) 0 %; Eosinophils % (A) 0 %; HCT 31.8 % (39.0-53.0); HGB 10.5 gm/dL (13.0-17.5); Hypochromasia Slight; Lymphocytes # (A) 1.1 k/uL (1.0-4.8); Lymphocytes % (A) 18 %; MCH 32.6 pg (25.0-35.0); MCV 98.9 fL (80.0-100.0); Mean Platelet Volume 6.9; Monocytes # (A) 0.6 k/uL (0-1.0); Monocytes % (A) 9 %; Neutrophils # (A) 4.5 k/uL (1.3-7.7); Neutrophils % (A) 71 %; Platelet Count 414 k/uL (150-450); RBC 3.21 m/uL (4.30-5.90); RDW 13.3 % (11.5-15.5); WBC 6.4 k/uL (3.8-10.6)
[2021-03-26] MEDS ORDERED: VANCOMYCIN IV PER PHARMACY 1 EACH MISC MISCELLANE PRN (08:09)
[2021-03-26 08:16] LABS: African American GFR (CKD) >90 (>60 ml/min/1.73 sqM); Anion Gap 3 mmol/L; Blood Urea Nitrogen 13 mg/dL (9-20); Calcium 8.4 mg/dL (8.4-10.2); Carbon Dioxide 27 mmol/L (22-30); Chloride 105 mmol/L (98-107); Glucose 83 mg/dL (74-99); Non-African American GFR(CKD) >90 (>60 ml/min/1.73 sqM); Potassium 4.5 mmol/L (3.5-5.1); Sodium 135 mmol/L (137-145)
[2021-03-26] MEDS: DOCUSATE 100 MG CAP PO SCH ×2 (08:37→21:01)
[2021-03-26] MEDS: HEPARIN SODIUM,PORCINE/PF 5,000 UNIT/0.5 ML SYRINGE SQ SCH ×2 (08:37→21:01)
[2021-03-26] MEDS: HYDROcodone/APAP 10-325MG 1 EACH TAB PO PRN ×2 (08:47→15:01)
[2021-03-26] MEDS ORDERED: DOCUSATE 100 MG CAP PO SCH (09:00)
[2021-03-26] MEDS ORDERED: VANCOMYCIN 1,250 MG in SODIUM CHLORIDE 0.9% 250 ML IVPB ONE (09:00)
[2021-03-26] MEDS ORDERED: NON FORMULARY DRUG (Lysine Hcl [L-Lysine] 1,000 MG Tablet) PO SCH (09:00)
[2021-03-26] MEDS ORDERED: NYSTATIN 100,000 UNIT/ML SUSP 500,000 UNIT/5 ML CUP PO PRN (09:00)
--- NOTE | 2021-03-26 18:50 | CONS ---
DATE OF CONSULTATION: 03/26/2021 This is a 75-year-old gentleman who is known to me from the past. The patient came with a history of foul odor from his right foot. The patient noted this for the last 5 days. He went to [facility]. The patient was transferred to [facility] for further treatment. The patient has a history of carcinoma of the throat and has a feeding gastrostomy tube. The patient has an infected callus on the plantar aspect of the right foot with a foul odor/smell and there is pus draining from the plantar aspect. It is also involving the second and third toes. On examination, neck is supple. No bruit appreciated. Chest: First and second sounds are normal. There are a few crackles at the lung bases. Otherwise, there is good air entry in both lungs. Abdomen is soft. The patient has a feeding tube. Vascular examination: Brachial, radial and femoral pulses are palpable. Dorsal pedis is not palpable. Right foot has wet gangrene involving the plantar aspect of the foot and also involving the second and third toes with foul odor/smell and pus draining. Marked tenderness noted. PLAN: Wound debridement and also ray amputation of the second and third toes. Prognosis is guarded. Discussed with the patient in detail. The patient understands. We will proceed. MMODL / IJN: [id number] / MTDD
[2021-03-26] MEDS ORDERED: VANCOMYCIN 1,250 MG in SODIUM CHLORIDE 0.9% 250 ML IVPB SCH (20:00)
[2021-03-26] MEDS: AMPICILLIN-SULBACTAM 3 GM in SODIUM CHLORIDE 0.9% 100 ML IVPB SCH ×2 (20:16→23:32)
[2021-03-26] MEDS: LORazepam 0.5 MG TAB PEG/G-TUBE SCH (21:01)
--- NOTE | 2021-03-26 22:25 | P.HPIM ---
History of Present Illness H&P Date: 03/26/21 Chief Complaint: foot infection Patient is a 75-year-old male with a known history of hypertension, hyperlipidemia, COPD, obstructive sleep apnea, pancreatic cancer treated with seeds., Bilateral lower extremity neuropathy and throat cancer diagnosed in August 2020 status post PEG tube placement initially presented to [facility] with complaints of right foot second and third toe infection with purulent discharge and foul-smelling order on the plantar surface. Patient was transferred to [facility] for further evaluation. X-ray of the foot done at [facility] showed possible osteomyelitis. Patient did have a previous infection of right foot infection. Does have neuropathy and does not know whether he has injured his foot or not. Laboratory showed WBC 6.4 hemoglobin 10.5 and platelets 414 Sodium 134 potassium 4.5 chloride 105 bicarb is 27 BUN 13 and creatinine 0.62 and blood sugar is 83 and magnesium 2.0 Review of Systems Constitutional: Patient denies any fever or chills . No generalized weakness or weight loss. Abdomen: Patient denied nausea vomiting and diarrhea and abdominal pain. Cardiovascular: Patient denies any chest pain or short of breath no palpitations. Respiratory: patient denied any cough or sputum production. No shortness of breath Neurologic: Patient denied any numbness or tingling headache. Musculoskeletal: Patient denies any complaints of joint swelling or deformity. Skin: Right foot infection with purulent drainage. Psychiatric: Negative Endocrine: No heat or cold intolerance. No recent weight gain. Genitourinary: No dysuria or hematuria. All other 14 point ROS negative except the above Past Medical History Past Medical History: Asthma, Cancer, COPD, Hyperlipidemia, Hypertension, Prostate Disorder, Sleep Apnea/CPAP/BIPAP Additional Past Medical History / Comment(s): Skin cancer was removed from the left cheek, prostate cancer treated with seeds, bilateral lower extremity neuropathy, diagnosis with throat cancer august 2020 with peg tube placement; keytruda for cancer tx; neuropathy History of Any Multi-Drug Resistant Organisms: None Reported Date of last positivie culture/infection: None MDRO Source:: None Past Surgical History: Tonsillectomy Additional Past Surgical History / Comment(s): Colonoscopy with polypectomy, skin cancer excised from left cheek, surgery on the right great toe., peg tube placement Past Anesthesia/Blood Transfusion Reactions: No Reported Reaction Past Psychological History: No Psychological Hx Reported Smoking Status: Former smoker Past Alcohol Use History: Daily Additional Past Alcohol Use History / Comment(s): quit smoking in 2006 with Chantex. Drank 8-10, 12 ounce beers per day, but quit in July, Past Drug Use History: None Reported - Past Family History Mother History Unknown: Yes Family Medical History: Cancer Additional Family Medical History / Comment(s): colon Medications and Allergies Home Medications Medication Instructions Recorded Confirmed Type HYDROcodone/APAP 10-325MG [[place] 1 tab PO Q4HR PRN 09/28/20 03/26/21 History 10-325] lidocaine HCL [lidocaine HCL 15 ml PO Q3H PRN 01/07/21 03/26/21 History Viscous] Albuterol Inhaler [Ventolin Hfa 2 puff INHALATION RT-QID PRN 03/26/21 03/26/21 History Inhaler] Ascorbic Acid [Vitamin C] 1,000 mg PO DAILY 03/26/21 03/26/21 History Benralizumab [Fasenra] 30 mg SQ Q56D 03/26/21 03/26/21 History Cholecalciferol [Vitamin D3 (25 50 mcg PO DAILY 03/26/21 03/26/21 History Mcg = 1000 Iu)] Fish Oil/Dha/Epa [Fish Oil 1,200 1 cap PO DAILY 03/26/21 03/26/21 History mg Fish Oil] L.acidoph,Paracasei, B.lactis 1 cap PO DAILY 03/26/21 03/26/21 History [Probiotic] LORazepam [Ativan] 0.5 mg PO QID PRN 03/26/21 03/26/21 History Multivitamins, Thera [Multivitamin 1 tab PO DAILY 03/26/21 03/26/21 History (formulary)] Nystatin 100,000 Unit/ml Susp 5 ml PO QID PRN 03/26/21 03/26/21 History [Mycostatin Oral Susp] Sulfamethox-Tmp 800-160Mg [Bactrim 1 tab PO BID 03/26/21 03/26/21 History DS 800-160 mg] Turmeric Root Extract [Turmeric] 500 mg PO DAILY 03/26/21 03/26/21 History Ubidecarenone [Co Q-10] 100 mg PO DAILY 03/26/21 03/26/21 History Allergies Allergy/AdvReac Type Severity Reaction Status Date / Time bee venom protein (honey bee) Allergy Itching Verified 03/26/21 07:59 cocoa AdvReac "sneezing" Verified 03/26/21 07:59 codeine AdvReac Itching Verified 03/26/21 07:59 Physical Exam Vitals: Vital Signs Temp Pulse Resp BP Pulse Ox 03/26/21 05:07 97.8 F 77 16 114/56 90 L 03/26/21 01:22 97.4 F L 54 L 16 137/81 98 Intake and Output 03/25/21 03/26/21 03/26/21 22:59 06:59 14:59 Intake Total 590 Balance 590 Intake: Oral 590 Other: Weight 72.2 kg PHYSICAL EXAMINATION: Patient is lying in the bed comfortably, no acute distress, awake alert and oriented.. HEENT: Normocephalic. Neck is supple. Pupils reactive. Nostrils clear. Oral cavity is moist. Neck reveals no JVD, carotid bruits, or thyromegaly. CHEST EXAMINATION: Trachea is central. Symmetrical expansion. Lung chaudhari clear to auscultation and percussion. CARDIAC: Normal S1, S2 with no gallops. No murmurs ABDOMEN: Soft. Bowel sounds normal. No organomegaly. No abdominal bruits. Extremities: reveal no edema. No clubbing or cyanosis Neurologically awake, alert, oriented x3 with well-coordinated movements. No focal deficits noted Skin: No rash or skin lesions. Psychiatric: Cooperative. Nonsuicidal Musculoskeletal: No joint swelling or deformity. Normal range of motion.Right foot plantar abscess and also swelling of the second and third toes with purulent drainage and foul-smelling. Results CBC & Chem 7: 03/26/21 07:34 03/26/21 07:34 Labs: Abnormal Lab Results - Last 24 Hours (Table) 03/26/21 03/26/21 Range/Units 07:34 07:34 RBC 3.21 L (4.30-5.90) m/uL Hgb 10.5 L (13.0-17.5) gm/dL Hct 31.8 L (39.0-53.0) % Sodium 135 L (137-145) mmol/L Creatinine 0.62 L (0.66-1.25) mg/dL Thrombosis Risk Factor Assmnt - DVT/VTE Prophylaxis DVT/VTE Prophylaxis: Pharmacologic Prophylaxis ordered - Choose All That Apply Any of the Below Risk Factors Present?: Yes Each Factor Represents 1 point: Abnormal pulmonary function (COPD), Swollen legs (current) Other Risk Factors: Yes Each Risk Factor Represents 3 Points: Age 75 years or older Other congenital or acquired thrombophilia - If yes, enter type in comment: No Thrombosis Risk Factor Assessment Total Risk Factor Score: 5 Thrombosis Risk Factor Assessment Level: High Risk Assessment and Plan Assessment: Right foot second and third toe infection with plantar foot infection with a bscess. Bilateral lower extremity peripheral neuropathy nondiabetic. History of prostate cancer treated with seeds History of throat cancer diagnosed in August 2020 status post PEG tube placement. On Keytruda Asthma/COPD Obstructive sleep apnea Hypertension Hyperlipidemia DVT prophylaxis with heparin subcu and prior history of smoking Plan: Patient will be continued on IV hydration and antibiotics in the form of vancomycin and Unasyn will be added. ID will be consulted. Vascular surgery consult for I&D and debridement possible amputation. Continue with pain management and follow-up closely. Follow culture reports.
--- NOTE | 2021-03-26 23:59 | P.CONS ---
History of Present Illness - Reason for Consult Consult date: 03/26/21 right foot osteomyelitis Requesting physician: Micha Durbin - Chief Complaint right foot wound and draiange x 4 days - History of Present Illness History of Present Illness : Patient is 75-year-old male with a past medical history significant for hypertension hyperlipidemia history of pancreatic cancer, also with a history of throat cancer for which patient did have a PEG tube placement presented to [facility] for evaluation of right foot foul-smelling drainage that the patient has noticed about 4 days before presentation to the hospital the patient to have underlying neuropathy as denies pain to his right foot patient did have some swelling redness of the dorsal aspect of the right foot patient denies high-grade fever or any chills, apparently the patient did however complain of the [facility] with x- ray showing suspicious for osteomyelitis for the patient has been sent to this facility further work-up at this facility shows a hemoglobin of 10.5 with a white count of 6.4 his creatinine was 0.62 patient has been evaluated by vascular surgery who is planning for surgical debridement versus amputation in the morning patient was started on vancomycin and Chrissyn infectious disease was consulted for further management of antibiotic therapy Review of system: CONSTITUTIONAL: Positive for weakness denies high-grade fever. EYES: No complaint. ENT: No complaint. RESPIRATORY: No complaint. CARDIOVASCULAR: No complaint. GENITOURINARY: No complaint. GASTROINTESTINAL: No complaint. MUSCULOSKELETAL: As per history of present illness. INTEGUMENTARY : No complaint. PSYCHOLOGIC: No complaint. ENDOCRINE: No complaint. NEUROLOGIC: No complaint. Past medical history : Reviewed, documented below Past surgical history : Reviewed, documented below Social history: Reviewed, documented below Medications: Reviewed, as documented below EXAMINATION: Vital sigans= Reviewed and documented below GENERAL DESCRIPTION: Elderly male lying in bed, no distress. No tachypnea or accessory muscle of respiration use. HEENT: Shows Pallor , no scleral icterus. Oral mucous membrane is dry. NECK: Trachea central, no thyromegaly. LUNGS: Unlabored breathing. Clear to auscultation anteriorly. No wheeze or crackle. HEART: S1, S2, regular rate and rhythm. ABDOMEN: Soft, no tenderness , guarding or rigidity EXTREMITIES: No edema feet, patient did have a wound between right second and third toe with significant maceration on the plantar aspect and some drainage SKIN: No rash, no masses palpable. NEUROLOGICAL: The patient is awake, alert, oriented x3, mood and affect normal. LABS AND RADIOLOGY: Reviewed results see below Assessment : Patient with right foot infection with significant involvement of his right second and third toe concerning for possible infected callus and will need to call for the gram-positive as well as gram-negative pathogen in this patient with underlying neuropathy and concerning for acute osteomyelitis on the basis of the x-ray done at the outside facility Plan: 1-we will wait for surgical debridement and deep cultures 2-vancomycin pharmacy to dose target trough of 15 while watching kidney function and vancomycin trough closely 3-Unasyn 3 g every 6 hours 4-dry protective dressing daily We will follow on clinical condition and cultures to further adjust medication if needed Thank you for this consultation we will follow the patient along with you Past Medical History Past Medical History: Asthma, Cancer, COPD, Hyperlipidemia, Hypertension, Pr ostate Disorder, Sleep Apnea/CPAP/BIPAP Additional Past Medical History / Comment(s): Skin cancer was removed from the left cheek, prostate cancer treated with seeds, bilateral lower extremity neuropathy, diagnosis with throat cancer august 2020 with peg tube placement; keytruda for cancer tx; neuropathy History of Any Multi-Drug Resistant Organisms: None Reported Year Discovered:: None MDRO Source:: None Past Surgical History: Tonsillectomy Additional Past Surgical History / Comment(s): Colonoscopy with polypectomy, skin cancer excised from left cheek, surgery on the right great toe., peg tube placement Past Anesthesia/Blood Transfusion Reactions: No Reported Reaction Past Psychological History: No Psychological Hx Reported Smoking Status: Former smoker Past Alcohol Use History: Daily Additional Past Alcohol Use History / Comment(s): quit smoking in 2006 with Chantex. Drank 8-10, 12 ounce beers per day, but quit in July, Past Drug Use History: None Reported - Past Family History Mother History Unknown: Yes Family Medical History: Cancer Additional Family Medical History / Comment(s): colon Medications and Allergies Home Medications Medication Instructions Recorded Confirmed Type HYDROcodone/APAP 10-325MG [[place] 1 tab PO Q4HR PRN 09/28/20 03/26/21 History 10-325] lidocaine HCL [lidocaine HCL 15 ml PO Q3H PRN 01/07/21 03/26/21 History Viscous] Albuterol Inhaler [Ventolin Hfa 2 puff INHALATION RT-QID PRN 03/26/21 03/26/21 History Inhaler] Ascorbic Acid [Vitamin C] 1,000 mg PO DAILY 03/26/21 03/26/21 History Benralizumab [Fasenra] 30 mg SQ Q56D 03/26/21 03/26/21 History Cholecalciferol [Vitamin D3 (25 50 mcg PO DAILY 03/26/21 03/26/21 History Mcg = 1000 Iu)] Fish Oil/Dha/Epa [Fish Oil 1,200 1 cap PO DAILY 03/26/21 03/26/21 History mg Fish Oil] L.acidoph,Paracasei, B.lactis 1 cap PO DAILY 03/26/21 03/26/21 History [Probiotic] LORazepam [Ativan] 0.5 mg PO QID PRN 03/26/21 03/26/21 History Multivitamins, Thera [Multivitamin 1 tab PO DAILY 03/26/21 03/26/21 History (formulary)] Nystatin 100,000 Unit/ml Susp 5 ml PO QID PRN 03/26/21 03/26/21 History [Mycostatin Oral Susp] Sulfamethox-Tmp 800-160Mg [Bactrim 1 tab PO BID 03/26/21 03/26/21 History DS 800-160 mg] Turmeric Root Extract [Turmeric] 500 mg PO DAILY 03/26/21 03/26/21 History Ubidecarenone [Co Q-10] 100 mg PO DAILY 03/26/21 03/26/21 History Allergies Allergy/AdvReac Type Severity Reaction Status Date / Time bee venom protein (honey bee) Allergy Itching Verified 03/26/21 07:59 cocoa AdvReac "sneezing" Verified 03/26/21 07:59 codeine AdvReac Itching Verified 03/26/21 07:59 Physical Exam Vitals: Vital Signs Temp Pulse Resp BP Pulse Ox 03/26/21 05:07 97.8 F 77 16 114/56 90 L 03/26/21 01:22 97.4 F L 54 L 16 137/81 98 Intake and Output 03/25/21 03/26/21 03/26/21 22:59 06:59 14:59 Intake Total 590 Balance 590 Intake: Oral 590 Other: Voiding Method Urinal Weight 72.2 kg 72.2 kg Results CBC & Chem 7: 03/26/21 07:34 03/26/21 07:34 Labs: Abnormal Lab Results - Last 24 Hours (Table) 03/26/21 03/26/21 Range/Units 07:34 07:34 RBC 3.21 L (4.30-5.90) m/uL Hgb 10.5 L (13.0-17.5) gm/dL Hct 31.8 L (39.0-53.0) % Sodium 135 L (137-145) mmol/L Creatinine 0.62 L (0.66-1.25) mg/dL
[2021-03-27] MEDS: AMPICILLIN-SULBACTAM 3 GM in SODIUM CHLORIDE 0.9% 100 ML IVPB SCH ×3 (06:13→17:52)
[2021-03-27 07:47] LABS: African American GFR (CKD) >90 (>60 ml/min/1.73 sqM); Anion Gap 3 mmol/L; Blood Urea Nitrogen 11 mg/dL (9-20); Calcium 8.5 mg/dL (8.4-10.2); Carbon Dioxide 27 mmol/L (22-30); Chloride 107 mmol/L (98-107); Glucose 87 mg/dL (74-99); Non-African American GFR(CKD) 90 (>60 ml/min/1.73 sqM); Potassium 4.4 mmol/L (3.5-5.1); Sodium 137 mmol/L (137-145)
[2021-03-27] MEDS: DOCUSATE 100 MG CAP PO SCH ×2 (08:03→20:46)
[2021-03-27] MEDS: HEPARIN SODIUM,PORCINE/PF 5,000 UNIT/0.5 ML SYRINGE SQ SCH ×2 (08:03→20:46)
[2021-03-27 08:47] LABS: Basophils % (A) 0 %; Eosinophils % (A) 0 %; HCT 33.8 % (39.0-53.0); HGB 10.8 gm/dL (13.0-17.5); Hypochromasia Slight; Lymphocytes # (A) 0.9 k/uL (1.0-4.8); Lymphocytes % (A) 17 %; MCH 31.7 pg (25.0-35.0); MCHC 31.8 g/dL (31.0-37.0); MCV 99.7 fL (80.0-100.0); Mean Platelet Volume 7.4; Monocytes # (A) 0.5 k/uL (0-1.0); Monocytes % (A) 10 %; Neutrophils # (A) 3.8 k/uL (1.3-7.7); Neutrophils % (A) 69 %; Platelet Count 452 k/uL (150-450); RBC 3.39 m/uL (4.30-5.90); RDW 13.6 % (11.5-15.5); WBC 5.5 k/uL (3.8-10.6)
[2021-03-27] MEDS ORDERED: fentaNYL (PF) 50 MCG/ML 2 ML AMP ONE (10:40)
[2021-03-27] MEDS ORDERED: KETAMINE 10 MG/ML 20 ML VIAL ONE (10:40)
[2021-03-27] MEDS ORDERED: MIDAZOLAM 2 MG/2 ML VIAL ONE (10:40)
[2021-03-27] MEDS: IV FLUID CONTINUATION 1,000 ML IV ONE ×2 (10:40→12:09)
[2021-03-27] MEDS ORDERED: IV FLUID CONTINUATION 1,000 ML IV ONE ×2 (10:40)
[2021-03-27] MEDS ORDERED: PROPOFOL 10 MG/ML 20 ML VIAL IV ONE (10:40)
[2021-03-27] MEDS ORDERED: LIDOCAINE 1% INJ 10MG/ML (20 ML MDV) SQ ONE ×2 (10:50)
[2021-03-27] MEDS: VANCOMYCIN 1,250 MG in SODIUM CHLORIDE 0.9% 250 ML IVPB SCH ×3 (10:53→12:27)
--- NOTE | 2021-03-27 13:19 | OP ---
OPERATIVE REPORT PREOPERATIVE DIAGNOSIS: Wet gangrene of the right foot, plantar aspect, involving the second and third toes. POSTOPERATIVE DIAGNOSIS: Wet gangrene of the right foot, plantar aspect, involving the second and third toes. OPERATION: Wound debridement on the plantar aspect of the foot and removal of the second and third toes, ray amputation. PROCEDURE DESCRIPTION: This patient has a history of infected wound on the plantar aspect of the right foot, most likely callus formation open wound with foul odor/smell. This was extending, involving the second and third toes and dorsal aspect of the foot. Patient was brought to the operating room under local anesthesia and IV sedation. Elliptical incision was made on the dorsal aspect of the foot, deepened through skin, fat and fascia. This incision was extended up to the dorsal aspect of the foot until we reached the metatarsophalangeal joint. The tendons were divided, also on the plantar and dorsal aspect there was devitalized tissue involving both toes. There was a foul odor/smell noted. We removed all the devitalized tissue with a sharp knife. There was some bleeding points which were controlled. The second and third toes were removed at the metatarsophalangeal joint. Specimen was sent for deep culture. Wound was copiously irrigated with hydrogen peroxide, saline and Betadine. Hemostasis was well controlled. Incision was left open. We closed the subcutaneous tissue with 3-0 Vicryl. Skin was left open because of the infected wound. Aquacel Silver was applied to the wound. Dressing was applied. Patient tolerated the procedure well. Blood loss was 50 mL. Patient was transferred to the recovery room in satisfactory condition. MMODL / IJN: [id number] /
[2021-03-27] MEDS: HYDROcodone/APAP 10-325MG 1 EACH TAB PO PRN ×2 (15:56→20:46)
--- NOTE | 2021-03-27 17:20 | P.PN ---
Subjective Progress Note Date: 03/27/21 Principal diagnosis: Right foot wet gangrene Patient is 75 year old male admitted to the hospital with extensive infection involving the right foot at the base of his second and third toe, patient with diagnosis of the wet gangrene he was taken to the OR and the patient is status post amputation of his right second and third toe completed on 03/27/2021. On today's evaluation that is 03/27/2021, the patient denies having any fever or chills, patient pain to the right foot is currently controlled, the patient denies having any chest pain shortness of breath or cough no nausea no vomiting no abdominal pain no diarrhea Objective - Vital Signs Vital signs: Vital Signs Temp 97.9 F 03/27/21 12:19 Pulse 78 03/27/21 12:19 Resp 16 03/27/21 12:04 BP 136/70 03/27/21 12:19 Pulse Ox 95 03/27/21 12:19 Intake & Output 03/26/21 03/27/21 03/27/21 18:59 06:59 18:59 Intake Total 120 660 Output Total 50 Balance 120 610 Weight 72.2 kg 72.3 kg Intake: IV 300 Oral 120 360 Output: Estimated Blood Loss 50 Other: Voiding Method Urinal Toilet Toilet # Voids 1 3 # Bowel Movements 1 - Exam GENERAL DESCRIPTION: An elderly male lying in bed in no distress RESPIRATORY SYSTEM: Unlabored breathing , decreased breath sounds at bases HEART: S1 S2 regular rate and rhythm , ABDOMEN: Soft , no tenderness EXTREMITIES: Right foot is currently dressed no drainage on the dressing - Labs CBC & Chem 7: 03/27/21 07:08 03/27/21 07:08 Labs: Abnormal Lab Results - Last 24 Hours (Table) 03/27/21 Range/Units 07:08 RBC 3.39 L (4.30-5.90) m/uL Hgb 10.8 L (13.0-17.5) gm/dL Hct 33.8 L (39.0-53.0) % Plt Count 452 H (150-450) k/uL Lymphocytes # 0.9 L (1.0-4.8) k/uL Assessment and Plan (1) Gangrene of right foot Current Visit: Yes Status: Acute Code(s): I96 - GANGRENE, NOT ELSEWHERE CLA SSIFIED SNOMED Code(s): 69000891264299921 Plan: Patient with a medicated of the right foot involving his second and third toe in this patient was status post surgical amputation of his right second and third toe cultures are currently pending the patient to continue with the vancomycin and Unasyn while waiting for the culture finalized Time with Patient: Less than 30
[2021-03-27] MEDS: LORazepam 0.5 MG TAB PEG/G-TUBE SCH (20:46)
[2021-03-28] MEDS: AMPICILLIN-SULBACTAM 3 GM in SODIUM CHLORIDE 0.9% 100 ML IVPB SCH ×5 (00:17→23:07)
[2021-03-28] MEDS: VANCOMYCIN 1,250 MG in SODIUM CHLORIDE 0.9% 250 ML IVPB SCH ×3 (00:17→13:09)
[2021-03-28] MEDS: HYDROcodone/APAP 10-325MG 1 EACH TAB PO PRN ×3 (01:51→21:08)
[2021-03-28 07:34] LABS: African American GFR (CKD) >90 (>60 ml/min/1.73 sqM); Anion Gap 1 mmol/L; Blood Urea Nitrogen 10 mg/dL (9-20); Calcium 8.4 mg/dL (8.4-10.2); Carbon Dioxide 27 mmol/L (22-30); Chloride 108 mmol/L (98-107); Glucose 81 mg/dL (74-99); Non-African American GFR(CKD) 89 (>60 ml/min/1.73 sqM); Potassium 4.5 mmol/L (3.5-5.1); Sodium 136 mmol/L (137-145)
[2021-03-28] MEDS ORDERED: VANCOMYCIN TROUGH DUE 1 EACH MISC MISCELLANE ONE (08:00)
[2021-03-28] MEDS: HEPARIN SODIUM,PORCINE/PF 5,000 UNIT/0.5 ML SYRINGE SQ SCH ×2 (09:07→21:09)
[2021-03-28] MEDS: DOCUSATE 100 MG CAP PO SCH ×2 (09:07→21:09)
[2021-03-28 10:13] LABS: HCT 30.4 % (39.6-50.0); HGB 9.3 g/dL (13.0-17.0); MCH 31.1 pg (27.0-32.0); MCHC 30.6 g/dL (32.0-37.0); MCV 101.7 fL (80.0-97.0); Mean Platelet Volume 9.4 fL (9.5-12.2); NRBC Per 100 WBC 0 /100 WBCS (0.0-0.0); Platelet Count 363 X 10*3/uL (140-440); RBC 2.99 X 10*6/uL (4.40-5.60); RDW 13.4 % (11.5-14.5); WBC 5.15 X 10*3/uL (4.50-10.00)
--- NOTE | 2021-03-28 10:19 | P.PN ---
Subjective Progress Note Date: 03/27/21 Patient is a 75-year-old male with a known history of hypertension, hyperlipidemia, COPD, obstructive sleep apnea, pancreatic cancer treated with seeds., Bilateral lower extremity neuropathy and throat cancer diagnosed in August 2020 status post PEG tube placement initially presented to [facility] with complaints of right foot second and third toe infection with purulent discharge and foul-smelling order on the plantar surface. Patient was transferred to for further evaluation. X-ray of the foot done at [facility] showed possible osteomyelitis. Patient did have a previous infection of right foot infection. Does have neuropathy and does not know whether he has injured his foot or not. Laboratory showed WBC 6.4 hemoglobin 10.5 and platelets 414 Sodium 134 potassium 4.5 chloride 105 bicarb is 27 BUN 13 and creatinine 0.62 and blood sugar is 83 and magnesium 2.0 03/27/2021 Patient is currently lying in the bed. Awake alert and oriented. Patient was seen by vascular surgery and was taken to the OR for amputation of the gangrenous toes. Follow-up culture reports. Denied any fever or chills. No nausea vomiting abdominal pain or diarrhea. Patient is being continued on IV antibiotics. ID and vascular surgery is on board. Current medications reviewed. Objective - Vital Signs Vital signs: Vital Signs Temp 97.9 F 03/27/21 12:19 Pulse 78 03/27/21 12:19 Resp 16 03/27/21 12:04 BP 136/70 03/27/21 12:19 Pulse Ox 95 03/27/21 12:19 Intake & Output 03/26/21 03/27/21 03/27/21 18:59 06:59 18:59 Intake Total 120 660 Output Total 50 Balance 120 610 Weight 72.2 kg 72.3 kg Intake: IV 300 Oral 120 360 Output: Estimated Blood Loss 50 Other: Voiding Method Urinal Toilet Toilet # Voids 1 3 # Bowel Movements 1 - Exam PHYSICAL EXAMINATION: Patient is lying in the bed comfortably, no acute distress, awake alert and oriented.. HEENT: Normocephalic. Neck is supple. Pupils reactive. Nostrils clear. Oral cavity is moist. Neck reveals no JVD, carotid bruits, or thyromegaly. CHEST EXAMINATION: Trachea is central. Symmetrical expansion. Lung chaudhari clear to auscultation and percussion. CARDIAC: Normal S1, S2 with no gallops. No murmurs ABDOMEN: Soft. Bowel sounds normal. No organomegaly. No abdominal bruits. Extremities: reveal no edema. No clubbing or cyanosis Neurologically awake, alert, oriented x3 with well-coordinated movements. No focal deficits noted Skin: No rash or skin lesions. Psychiatric: Coperative. Nonsuicidal Musculoskeletal: No joint swelling or deformity. Right foot surgical site is bandaged.. - Labs CBC & Chem 7: 03/28/21 06:48 03/28/21 06:48 Labs: Abnormal Lab Results - Last 24 Hours (Table) 03/27/21 Range/Units 07:08 RBC 3.39 L (4.30-5.90) m/uL Hgb 10.8 L (13.0-17.5) gm/dL Hct 33.8 L (39.0-53.0) % Plt Count 452 H (150-450) k/uL Lymphocytes # 0.9 L (1.0-4.8) k/uL Assessment and Plan Assessment: Right foot second and third toe infection/right gangrene with plantar foot infection with abscess. Status post amputation of the second and third toes on 03/27/2021. Bilateral lower extremity peripheral neuropathy nondiabetic. History of prostate cancer treated with seeds History of throat cancer diagnosed in August 2020 status post PEG tube placement. On Keytruda Asthma/COPD Obstructive sleep apnea Hypertension Hyperlipidemia DVT prophylaxis with heparin subcu and prior history of smoking Plan: Patient will be continued on IV hydration and antibiotics in the form of vancomycin and Unasyn will be added. ID and vascular surgery is on board. Follow-up intraoperative culture reports.. Continue with pain management and follow-up closely.
[2021-03-28 10:47] LABS: Basophils # (A) 0.01 X 10*3/uL (0.00-0.10); Basophils % (A) 0.2 %; Eosinophils # (A) 0 X 10*3/uL (0.04-0.35); Eosinophils % (A) 0 %; Immature Grans, Automated 0.2 %; Lymphocytes # (A) 1.62 X 10*3/uL (0.90-5.00); Lymphocytes % (A) 31.5 %; Monocytes # (A) 0.72 X 10*3/uL (0.20-1.00); Neutrophils # (A) 2.79 X 10*3/uL (1.80-7.70); Neutrophils % (A) 54.1 %
[2021-03-28 14:23] VITALS: BMI 24.5
--- NOTE | 2021-03-28 20:22 | PN ---
PROGRESS NOTE This 75-year-old gentleman had wet gangrene of the foot. The patient went for ray amputation left foot second and third toes and also extensive wound debridement. The patient is on IV antibiotic under care of Infectious Disease. Today I have changed the dressing, used Aquacel Silver. We will change the dressing tomorrow. MMODL / IJN: [id number] /
[2021-03-28] MEDS: LORazepam 0.5 MG TAB PEG/G-TUBE SCH (21:09)
--- NOTE | 2021-03-28 21:53 | P.PN ---
Subjective Progress Note Date: 03/28/21 Principal diagnosis: Right foot wet gangrene Patient is 75 year old male admitted to the hospital with extensive infection involving the right foot at the base of his second and third toe, patient with diagnosis of the wet gangrene he was taken to the OR and the patient is status post amputation of his right second and third toe completed on 03/27/2021. On today's evaluation that is 03/28/2021, the patient remains to be febrile, patient pain to the right foot is currently controlled, the patient denies having chest pain shortness of breath or cough the patient denies nausea no vomiting no abdominal pain no diarrhea Objective - Vital Signs Vital signs: Vital Signs Temp 98.0 F 03/28/21 04:22 Pulse 76 03/28/21 04:22 Resp 16 03/28/21 04:22 BP 112/63 03/28/21 04:22 Pulse Ox 91 L 03/28/21 04:22 Intake & Output 03/27/21 03/28/21 03/28/21 18:59 06:59 18:59 Intake Total 660 Output Total 250 Balance 410 Weight 73 kg Intake: IV 300 Oral 360 Output: Urine 200 Estimated Blood Loss 50 Other: Voiding Method Toilet Toilet # Voids 3 # Bowel Movements 1 - Exam GENERAL DESCRIPTION: An elderly male lying in bed in no distress RESPIRATORY SYSTEM: Unlabored breathing , decreased breath sounds at bases HEART: S1 S2 regular rate and rhythm , ABDOMEN: Soft , no tenderness EXTREMITIES: Right foot is currently dressed no drainage on the dressing - Labs CBC & Chem 7: 03/28/21 06:48 03/28/21 06:48 Labs: Abnormal Lab Results - Last 24 Hours (Table) 03/28/21 03/28/21 Range/Units 06:48 06:48 RBC 2.99 L (4.40-5.60) X 10*6/uL Hgb 9.3 L (13.0-17.0) g/dL Hct 30.4 L (39.6-50.0) % MCV 101.7 H (80.0-97.0) fL MCHC 30.6 L (32.0-37.0) g/dL MPV 9.4 L (9.5-12.2) fL Eosinophils # 0 L (0.04-0.35) X 10*3/uL Sodium 136 L (137-145) mmol/L Chloride 108 H (98-107) mmol/L Microbiology - Last 24 Hours (Table) 03/27/21 11:01 Gram Stain - Preliminary Toe - Right Second Tissue Culture - Preliminary 03/27/21 11:01 Gram Stain - Preliminary Toe - Right Third Tissue Culture - Preliminary 03/27/21 11:01 Anaerobic Culture - Preliminary Toe - Right Second 03/27/21 11:01 Anaerobic Culture - Preliminary Toe - Right Third Assessment and Plan (1) Gangrene of right foot Current Visit: Yes Status: Acute Code(s): I96 - GANGRENE, NOT ELSEWHERE CLASSIFIED SNOMED Code(s): 98470652501829436 Plan: Patient with a medicated of the right foot involving his second and third toe in this patient was status post surgical amputation of his right second and third toe cultures are currently growing staph aureus with sensitivities currently pending. Continue with the Unasyn and vancomycin while waiting for the cultures to finalize Time with Patient: Less than 30
[2021-03-29] MEDS: VANCOMYCIN 1,250 MG in SODIUM CHLORIDE 0.9% 250 ML IVPB SCH ×2 (00:43→13:12)
[2021-03-29] MEDS: AMPICILLIN-SULBACTAM 3 GM in SODIUM CHLORIDE 0.9% 100 ML IVPB SCH ×4 (05:55→23:29)
[2021-03-29] MEDS: HYDROcodone/APAP 10-325MG 1 EACH TAB PO PRN ×2 (10:00→20:57)
[2021-03-29] MEDS: HEPARIN SODIUM,PORCINE/PF 5,000 UNIT/0.5 ML SYRINGE SQ SCH ×2 (10:36→20:58)
[2021-03-29] MEDS: DOCUSATE 100 MG CAP PO SCH ×2 (10:36→20:57)
[2021-03-29] MEDS ORDERED: VANCOMYCIN TROUGH DUE 1 EACH MISC MISCELLANE ONE (11:00)
[2021-03-29 11:57] LABS: African American GFR (CKD) >90 (>60 ml/min/1.73 sqM); Non-African American GFR(CKD) 86 (>60 ml/min/1.73 sqM)
[2021-03-29] MEDS ORDERED: VANCOMYCIN 1,000 MG in SODIUM CHLORIDE 0.9% 250 ML IVPB SCH (13:00)
--- NOTE | 2021-03-29 14:46 | PN ---
PROGRESS NOTE Patient is a 75-year-old gentleman who came with right foot wet gangrene on the plantar aspect of the second and third toes. Patient underwent ray amputation. We left the wound open. We have been treating with Aquacel Silver. Patient is on IV antibiotic. We will continue using Aquacel Silver. Dressing should be changed every 48 hours. MMODL / IJN: [id number] /
[2021-03-29] MEDS: LORazepam 0.5 MG TAB PEG/G-TUBE SCH (20:57)
--- NOTE | 2021-03-30 00:28 | P.PN ---
Subjective Progress Note Date: 03/29/21 Patient is a 75-year-old male with a known history of hypertension, hyperlipidemia, COPD, obstructive sleep apnea, pancreatic cancer treated with seeds., Bilateral lower extremity neuropathy and throat cancer diagnosed in August 2020 status post PEG tube placement initially presented to [facility] with complaints of right foot second and third toe infection with purulent discharge and foul-smelling order on the plantar surface. Patient was transferred to [facility] for further evaluation. X-ray of the foot done at [facility] showed possible osteomyelitis. Patient did have a previous infection of right foot infection. Does have neuropathy and does not know whether he has injured his foot or not. Laboratory showed WBC 6.4 hemoglobin 10.5 and platelets 414 Sodium 134 potassium 4.5 chloride 105 bicarb is 27 BUN 13 and creatinine 0.62 and blood sugar is 83 and magnesium 2.0 03/27/2021 Patient is currently lying in the bed. Awake alert and oriented. Patient was seen by vascular surgery and was taken to the OR for amputation of the gangrenous toes. Follow-up culture reports. Denied any fever or chills. No nausea vomiting abdominal pain or diarrhea. Felisha ent is being continued on IV antibiotics. ID and vascular surgery is on board. 03/29/2021 Patient is seen and evaluated this morning and sitting up in bed and had just been seen by Dr. Kenyon and dressing was changed. No further bleeding noted per patient although first night after surgery patient reports to saturating the dressing. Patient is having some lateral discomfort on the outer aspect of the right foot although no worse. Patient continued on IV antibiotics with ID following awaiting finalized cultures. Patient is requesting to go home as soon as possible. Review of systems: Constitutional: No reports of fatigue, fever, or chills Cardiovascular: No reports of chest pain or palpitations Respiratory: No reports of shortness of breath or cough GI: No reports of nausea, vomiting, or diarrhea : No reports of dysuria or retention Neurovascular: No reports of weakness or numbness, reports some right foot discomfort All medications have been reviewed Active Medications Acetaminophen (Acetaminophen Tab 325 Mg Tab) 650 mg PO Q6HR PRN PRN Reason: Mild Pain or Fever > 100.5 Hydrocodone Bitart/Acetaminophen (Hydrocodone/Apap 10-325mg 1 Each Tab) 1 each PO Q4HR PRN PRN Reason: Pain Last Admin: 03/29/21 10:00 Dose: 1 each Documented by: Al Hydroxide/Mg Hydroxide (Mag Hydrox/Al Hydrox/Simeth 30 Ml Cup) 15 ml PO Q6HR PRN PRN Reason: Indigestion Calcium Carbonate/Glycine (Calcium Carbonate 500 Mg Chewable) 1,000 mg PO Q4HR PRN PRN Reason: Dyspepsia Last Admin: 03/28/21 01:46 Dose: 500 mg Documented by: Docusate Sodium (Docusate 100 Mg Cap) 100 mg PO BID [facility] Last Admin: 03/29/21 10:36 Dose: 100 mg Documented by: Heparin Sodium (Porcine) (Heparin Sodium,Porcine/Pf 5,000 Unit/0.5 Ml Syringe) 5,000 unit SQ Q12HR [facility] Last Admin: 03/29/21 10:36 Dose: 5,000 unit Documented by: Ampicillin Sodium/Sulbactam (Sodium 3 gm/ Sodium Chloride) 100 mls @ 200 mls/hr IVPB Q6HR [facility] Last Admin: 03/29/21 12:15 Dose: 200 mls/hr Documented by: Vancomycin HCl 1,000 mg/ (Sodium Chloride) 250 mls @ 125 mls/hr IVPB Q12H [facility] Last Admin: 03/29/21 14:41 Dose: 125 mls/hr Documented by: Lidocaine HCl (Lidocaine Viscous 300 Mg/15 Ml Cup) 100 mg MUCOUS MEM Q3H PRN PRN Reason: mouth pain Lorazepam (Lorazepam 0.5 Mg Tab) 0.5 mg PEG/G-TUBE HS [facility] Last Admin: 03/28/21 21:09 Dose: 0.5 mg Documented by: Melatonin (Melatonin 3 Mg Tablet) 3 mg PO HS PRN PRN Reason: Insomnia Naloxone HCl (Naloxone 0.4 Mg/Ml 1 Ml Vial) 0.2 mg IV Q2M PRN PRN Reason: Opioid Reversal Nystatin (Nystatin 100,000 Unit/Ml Susp 500,000 Unit/5 Ml Cup) 500,000 unit PO QID PRN PRN Reason: THRUSH Ondansetron HCl (Ondansetron 4 Mg/2 Ml Vial) 4 mg IVP Q8HR PRN PRN Reason: Nausea And Vomiting Physical exam: Patient is sitting up in the bed comfortably, no acute distress, awake alert and oriented.. HEENT: Normocephalic. Neck is supple. Pupils reactive. Nostrils clear. Oral cavity is moist. muffled voice noted Neck reveals no JVD, carotid bruits, or thyromegaly. CHEST EXAMINATION: Trachea is central. Symmetrical expansion. Lung chaudhari clear to auscultation and percussion. CARDIAC: Normal S1, S2 with no gallops. No murmurs ABDOMEN: Soft. Bowel sounds normal. No organomegaly. No abdominal bruits. Extremities: reveal no edema. No clubbing or cyanosis Neurologically awake, alert, oriented x3 with well-coordinated movements. No focal deficits noted Skin: No rash or skin lesions. Psychiatric: Cooperative. Non-suicidal Musculoskeletal: No joint swelling or deformity. Right foot surgical site is bandaged and just redressed by vascular surgery today. Assessment: Right foot second and third toe infection/right gangrene with plantar foot infection with abscess. Status post amputation of the second and third toes on 03/27/2021. Bilateral lower extremity peripheral neuropathy non-diabetic. History of prostate cancer treated with seeds History of throat cancer diagnosed in August 2020 status post PEG tube placement. On Keytruda Asthma/COPD Obstructive sleep apnea Hypertension Hyperlipidemia DVT prophylaxis with heparin subcu prior history of smoking full code Plan: Patient will be continued on IV antibiotics in the form of vancomycin and Unasyn while awaiting finalized cultures. Discussed with micro in [place] about timing and sensitivity of cultures and was reported as no MRSA and results would be finalized later this evening. Finalized cultures revealed staph aureus and group D enterococcus. Hopeful for oral antibiotics on discharge. ID and vascular surgery is on board. Will discuss with ID about discharge abx recommendations. Continue to change dressing every 48 hours and reinforce if needed. Patient is requesting discharge as soon as possible in view of possible snow storm coming and transportation arrangements with spouse. Possible discharge in 24 hours. Objective - Vital Signs Vital signs: Vital Signs Temp 97.7 F 03/29/21 07:40 Pulse 75 03/29/21 07:40 Resp 16 03/29/21 07:40 BP 141/83 03/29/21 07:40 Pulse Ox 96 03/29/21 07:40 Intake & Output 03/28/21 03/29/21 03/29/21 18:59 06:59 18:59 Weight 73 kg 66.5 kg Other: Voiding Method Toilet Bedside Commode Bedside Commode # Voids 1 # Bowel Movements 1 - Labs CBC & Chem 7: 03/28/21 06:48 03/29/21 10:40 Labs: Microbiology - Last 24 Hours (Table) 03/27/21 11:01 Gram Stain - Preliminary Toe - Right Third Tissue Culture - Preliminary Presumptive Staph aureus 03/27/21 11:01 Gram Stain - Preliminary Toe - Right Second Tissue Culture - Preliminary Presumptive Staph aureus
[2021-03-30] MEDS: HYDROcodone/APAP 10-325MG 1 EACH TAB PO PRN ×3 (01:12→11:31)
[2021-03-30] MEDS: AMPICILLIN-SULBACTAM 3 GM in SODIUM CHLORIDE 0.9% 100 ML IVPB SCH ×2 (05:25→11:26)
[2021-03-30 07:04] LABS: African American GFR (CKD) >90 (>60 ml/min/1.73 sqM); Non-African American GFR(CKD) 83 (>60 ml/min/1.73 sqM)
[2021-03-30] MEDS: DOCUSATE 100 MG CAP PO SCH (07:55)
[2021-03-30] MEDS: HEPARIN SODIUM,PORCINE/PF 5,000 UNIT/0.5 ML SYRINGE SQ SCH (07:55)
[2021-03-30 11:50] VITALS: BP 127/67; PULSE 83; RESP 18; TEMP 97.7
--- NOTE | 2021-03-30 20:37 | P.PN ---
Subjective Progress Note Date: 03/30/21 Principal diagnosis: Right foot wet gangrene Patient is 75 year old male admitted to the hospital with extensive infection involving the right foot at the base of his second and third toe, patient with diagnosis of the wet gangrene he was taken to the OR and the patient is status post amputation of his right second and third toe completed on 03/27/2021. On today's evaluation that is 03/30/2021, the patient continues to be febrile, patient denies pain to the right foot/toe amputation site, the patient denies having chest pain shortness of breath or cough the patient denies nausea no vomiting no abdominal pain no diarrhea with antibiotic therapy Objective - Vital Signs Vital signs: Vital Signs Temp 97.7 F 03/30/21 11:15 Pulse 83 03/30/21 11:15 Resp 18 03/30/21 11:15 BP 127/67 03/30/21 11:15 Pulse Ox 96 03/30/21 11:15 Intake & Output 03/29/21 03/30/21 03/30/21 18:59 06:59 18:59 Intake Total 800 Balance 800 Weight 67.5 kg Intake: Intake, IV Titration 200 Amount Ampicillin-Sulbactam 3 gm 200 In Sodium Chloride 0.9% 100 ml @ 200 mls/hr IVPB Q6HR [facility] Rx#:[id number] Oral 600 Other: Voiding Method Bedside Commode Bedside Commode # Voids 1 3 # Bowel Movements 1 - Exam GENERAL DESCRIPTION: An elderly male lying in bed in no distress RESPIRATORY SYSTEM: Unlabored breathing , decreased breath sounds at bases HEART: S1 S2 regular rate and rhythm , ABDOMEN: Soft , no tenderness EXTREMITIES: Right foot/toe amputation site wound is currently dressed no drainage on the dressing - Labs CBC & Chem 7: 03/28/21 06:48 03/30/21 06:25 Labs: Microbiology - Last 24 Hours (Table) 03/27/21 11:01 Gram Stain - Preliminary Toe - Right Second Tissue Culture - Preliminary Staphylococcus aureus Group D Enterococcus 03/27/21 11:01 Gram Stain - Preliminary Toe - Right Third Tissue Culture - Preliminary Staphylococcus aureus Group D Enterococcus Assessment and Plan (1) Gangrene of right foot Status: Acute Code(s): I96 - GANGRENE, NOT ELSEWHERE CLASSIFIED SNOMED Code(s): 28490533971693401 Plan: Patient with a medicated of the right foot involving his second and third toe in this patient was status post surgical amputation of his right second and third toe cultures are currently growing MSSA and enterococcus faecalis, plan to finish therapy with IV Unasyn 3 g every 8 hours 2 weeks and close outpatient follow-up Time with Patient: Less than 30
--- NOTE | 2021-03-30 20:38 | P.PN ---
Subjective Progress Note Date: 03/29/21 Principal diagnosis: Right foot wet gangrene Patient is 75 year old male admitted to the hospital with extensive infection involving the right foot at the base of his second and third toe, patient with diagnosis of the wet gangrene he was taken to the OR and the patient is status post amputation of his right second and third toe completed on 03/27/2021. On today's evaluation that is 03/29/2021, the patient denies any fever or any chills, patient pain to the right foot/toe amputation site is currently controlled, the patient denies having chest pain shortness of breath or cough the patient denies nausea no vomiting no abdominal pain no diarrhea with antibiotic therapy Objective - Vital Signs Vital signs: Vital Signs Temp 97.7 F 03/29/21 07:40 Pulse 75 03/29/21 07:40 Resp 16 03/29/21 07:40 BP 141/83 03/29/21 07:40 Pulse Ox 96 03/29/21 07:40 Intake & Output 03/28/21 03/29/21 03/29/21 18:59 06:59 18:59 Weight 73 kg 66.5 kg Other: Voiding Method Toilet Bedside Commode Bedside Commode # Voids 1 # Bowel Movements 1 - Exam GENERAL DESCRIPTION: An elderly male lying in bed in no distress RESPIRATORY SYSTEM: Unlabored breathing , decreased breath sounds at bases HEART: S1 S2 regular rate and rhythm , ABDOMEN: Soft , no tenderness EXTREMITIES: Right foot/toe amputation site wound is currently dressed no drainage on the dressing - Labs CBC & Chem 7: 03/28/21 06:48 03/30/21 06:25 Labs: Microbiology - Last 24 Hours (Table) 03/27/21 11:01 Gram Stain - Preliminary Toe - Right Third Tissue Culture - Preliminary Presumptive Staph aureus 03/27/21 11:01 Gram Stain - Preliminary Toe - Right Second Tissue Culture - Preliminary Presumptive Staph aureus Assessment and Plan (1) Gangrene of right foot Status: Acute Code(s): I96 - GANGRENE, NOT ELSEWHERE CLASSIFIED SNOMED Code(s): 56695399699533997 Plan: Patient with a medicated of the right foot involving his second and third toe in this patient was status post surgical amputation of his right second and third toe cultures are currently growing MSSA and enterococcus faecalis, patient to continue with the Unasyn we will discontinue the vancomycin waiting for enterococcus sensitivities to determine his discharge antibiotics Time with Patient: Less than 30
--- NOTE | 2021-03-31 11:27 | P.DS ---
Providers Date of admission: 03/26/21 00:30 Expected date of discharge: 03/30/21 Attending physician: Shon Matta Consults: 03/26/21 06:00 Consult Physician Routine Consulting Provider: Caitlyn Mayfield Consult Reason/Comments: right foot cellulitis, questionable osteomyelitis at [facility] Do you want consulting provider notified?: Yes 03/26/21 13:11 Consult Physician Routine Consulting Provider: Fransico Kenyon Consult Reason/Comments: right foot cellulitis/osteomylitis? Do you want consulting provider notified?: Yes Primary care physician: [facility] Course: Final diagnosis Right foot second and third toe infection/right gangrene with plantar foot infection with abscess. Status post amputation of the second and third toes on 03/27/2021. Bilateral lower extremity peripheral neuropathy non-diabetic. History of prostate cancer treated with seeds History of throat cancer diagnosed in August 2020 status post PEG tube placement. On Keytruda Asthma/COPD Obstructive sleep apnea Hypertension Hyperlipidemia DVT prophylaxis with heparin subcu prior history of smoking full code Discharge disposition Patient is being discharged in a stable condition with guarded prognosis to home. Patient will follow-up with Carlos Alberto Rubalcava NP in the outpatient setting upon discharge. Patient is to also follow-up with vascular surgery Dr. Kenyon and infectious disease Dr. Mayfield in his [facility] clinic in one week to 10 days. Patient will continue on IV antibiotics in the form of Unasyn 3 g every 8 hours for the next 14 days. Recommend close outpatient follow-up with repeat labs. Total time taken is greater than 35 minutes. Hospital course This 75-year-old male who was recently admitted with right foot second and third toe infection with drainage and foul-smelling odor to the plantar surface and was originally at [place] and transferred here for IV antibiotics and further evaluation. Patient was evaluated by Dr. Kenyon and closely monitored with Dr. Mayfield and maintained on antibiotics in the form of Unasyn and will continue in the outpatient setting of Unasyn 3 g every 8 hours with a midline that was placed today and close outpatient follow-up and Dr. Mayfield's clinic at [facility]. Patient also underwent second and third toe amputation of the gangrenous toes with Drs. Kenyon and will follow-up with him in the outpatient setting. Patient to continue with local wound care and dressing changes every 2 days or if becomes soiled. Patient does have a walker in the home and recommending nonweightbearing and elevating the right lower extremity while at rest. Patient encouraged to follow-up with primary care provider on discharge. IV antibiotics have been arranged and patient will be discharged today. Currently no reports of chest pain, shortness of breath, or palpitations. Patient is afebrile. No reports of nausea or vomiting and patient is tolerating diet. Patient will be discharged home. Physical exam: Patient is sitting up in the bed comfortably, no acute distress, awake alert and oriented.. HEENT: Normocephalic. Neck is supple. Pupils reactive. Nostrils clear. Oral cavity is moist. muffled voice noted Neck reveals no JVD, carotid bruits, or thyromegaly. CHEST EXAMINATION: Trachea is central. Symmetrical expansion. Lung chaudhari clear to auscultation and percussion. CARDIAC: Normal S1, S2 with no gallops. No murmurs ABDOMEN: Soft. Bowel sounds normal. No organomegaly. No abdominal bruits. Extremities: reveal no edema. No clubbing or cyanosis Neurologically awake, alert, oriented x3 with well-coordinated movements. No focal deficits noted Skin: No rash or skin lesions. Psychiatric: Cooperative. Non-suicidal Musculoskeletal: No joint swelling or deformity. Right foot surgical site is bandaged and just redressed by vascular surgery today. Please refer to medication reconciliation sheet for a list of medications. Patient Condition at Discharge: Stable Plan - Discharge Summary New Discharge Prescriptions: New Calcium Carbonate [Tums] 1,000 mg PO Q4HR PRN PRN Reason: Dyspepsia Acetaminophen Tab [Tylenol] 650 mg PO Q6HR PRN tab PRN Reason: Mild Pain Or Fever > 100.5 Ampicillin-Sulbactam [Unasyn] 3 gm IVPB Q8H 14 Days #42 each Continue lidocaine HCL [lidocaine HCL Viscous] 15 ml PO Q3H PRN PRN Reason: mouth pain LORazepam [Ativan] 0.5 mg PO QID PRN PRN Reason: Anxiety Benralizumab [Fasenra] 30 mg SQ Q56D Albuterol Inhaler [Ventolin Hfa Inhaler] 2 puff INHALATION RT-QID PRN PRN Reason: Shortness Of Breath Ubidecarenone [Co Q-10] 100 mg PO DAILY Multivitamins, Thera [Multivitamin (formulary)] 1 tab PO DAILY L.acidoph,Paracasei, B.lactis [Probiotic] 1 cap PO DAILY Turmeric Root Extract [Turmeric] 500 mg PO DAILY HYDROcodone/APAP 10-325MG [[place] 10-325] 1 tab PO Q4HR PRN PRN Reason: Pain Nystatin 100,000 Unit/ml Susp [Mycostatin Oral Susp] 5 ml PO QID PRN PRN Reason: THRUSH Fish Oil/Dha/Epa [Fish Oil 1,200 mg Fish Oil] 1 cap PO DAILY Cholecalciferol [Vitamin D3 (25 Mcg = 1000 Iu)] 50 mcg PO DAILY Ascorbic Acid [Vitamin C] 1,000 mg PO DAILY Discontinued Sulfamethox-Tmp 800-160Mg [Bactrim DS 800-160 mg] 1 tab PO BID Discharge Medication List HYDROcodone/APAP 10-325MG [[place] 10-325] 1 tab PO Q4HR PRN 09/28/20 [History] lidocaine HCL [lidocaine HCL Viscous] 15 ml PO Q3H PRN 01/07/21 [History] Albuterol Inhaler [Ventolin Hfa Inhaler] 2 puff INHALATION RT-QID PRN 03/26/21 [History] Ascorbic Acid [Vitamin C] 1,000 mg PO DAILY 03/26/21 [History] Benralizumab [Fasenra] 30 mg SQ Q56D 03/26/21 [History] Cholecalciferol [Vitamin D3 (25 Mcg = 1000 Iu)] 50 mcg PO DAILY 03/26/21 [History] Fish Oil/Dha/Epa [Fish Oil 1,200 mg Fish Oil] 1 cap PO DAILY 03/26/21 [History] L.acidoph,Paracasei, B.lactis [Probiotic] 1 cap PO DAILY 03/26/21 [History] LORazepam [Ativan] 0.5 mg PO QID PRN 03/26/21 [History] Multivitamins, Thera [Multivitamin (formulary)] 1 tab PO DAILY 03/26/21 [History] Nystatin 100,000 Unit/ml Susp [Mycostatin Oral Susp] 5 ml PO QID PRN 03/26/21 [History] Turmeric Root Extract [Turmeric] 500 mg PO DAILY 03/26/21 [History] Ubidecarenone [Co Q-10] 100 mg PO DAILY 03/26/21 [History] Acetaminophen Tab [Tylenol] 650 mg PO Q6HR PRN tab 03/30/21 [Rx] Ampicillin-Sulbactam [Unasyn] 3 gm IVPB Q8H 14 Days #42 each 03/30/21 [Rx] Calcium Carbonate [Tums] 1,000 mg PO Q4HR PRN 03/30/21 [Rx] Follow up Appointment(s)/Referral(s): Carlos Alberto Rubalcava, [facility] [Primary Care Provider] - 04/06/21 1:00 pm Zhou Payne MD [REFERRING] - 1 Week [facility] [NON-STAFF] - 1 Week [facility] [NON-STAFF] - 04/11/21 2:00 pm [facility] [NON-STAFF] - 1 Week Fransico Kenyon MD [STAFF PHYSICIAN] - 04/04/21 10:00 am Caitlyn Mayfield MD [STAFF PHYSICIAN] - 1 Week (office will call patient to schedule appt.) Ambulatory/Diagnostic Orders: Complete Blood Count w/diff [LAB.AMB] Time Frame: 3 Days, Location: None Selected Activity/Diet/Wound Care/Special Instructions: Activity Limited until follow-up Follow-up with Dr. Mayfeild in his clinic at [facility] and please call [phone] to schedule appointment Follow-up with Dr. Kenyon outpatient Continue with local wound care per Dr. Dr. Kenyon Continue IV antibiotics per infectious disease Follow-up with primary care provider on discharge Continue current diet along with tube feedings Follow-up with your oncologist Dr. Ramos out of [place] as scheduled Recommend repeat labs in 2-3 days Discharge Disposition: HOME SELF-CARE
== END 2021-03-30 14:35 | disposition home or self-care (01) | DRG 580 ==
LOC: 5NMEDONC 03-26 00:30
PROVIDERS: ADMIT Hospitalist; ATTEND Hospitalist
PROC: 0Y6T0Z0 Detachment at Right 3rd Toe, Complete, Open Approach (ICD-10-PCS; 2021-03-27)
PROC: 0Y6R0Z0 Detachment at Right 2nd Toe, Complete, Open Approach (ICD-10-PCS; principal; 2021-03-27 10:30)
DX: L08.9 Local infection of the skin and subcutaneous tissue, unspecified (principal); I96 Gangrene, not elsewhere classified; G62.9 Polyneuropathy, unspecified; L03.115 Cellulitis of right lower limb; Z20.822 Contact with and (suspected) exposure to COVID-19; B95.61 Methicillin susceptible Staphylococcus aureus infection as the cause of diseases classified elsewhere; J44.9 Chronic obstructive pulmonary disease, unspecified; B95.2 Enterococcus as the cause of diseases classified elsewhere; L02.611 Cutaneous abscess of right foot; E78.5 Hyperlipidemia, unspecified; G47.33 Obstructive sleep apnea (adult) (pediatric); I10 Essential (primary) hypertension; Z85.07 Personal history of malignant neoplasm of pancreas; Z85.46 Personal history of malignant neoplasm of prostate; Z85.819 Personal history of malignant neoplasm of unspecified site of lip, oral cavity, and pharynx; Z85.828 Personal history of other malignant neoplasm of skin; Z87.891 Personal history of nicotine dependence; Z93.1 Gastrostomy status; Z91.030 Bee allergy status; Z88.5 Allergy status to narcotic agent
CPT/HCPCS: 36410; 76937; 80048; 80202; 82565; 83735; 85025; 87070; 87075; 87077; 87186; 87205; 93005

== ENCOUNTER → 2021-06-10 | Outpatient (CLI) | payer MEDICARE, BC ==
--- NOTE | 2021-06-10 15:55 | PE ---
EXAMINATION TYPE: PET CT fusion skull to thigh DATE OF EXAM: 06/10/2021 COMPARISON: Most recent PET CT March 14, 2021 and older studies. HISTORY: Head and neck cancer . 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 Images are reviewed on the computer in the coronal, a xial, and sagittal planes. Reconstructed rotating images are created on independent workstation and reviewed on the computer. A localization and attenuation correction CT is performed in conjunction with the PET scan. Blood glucose level equals 89. Dedicated PET/CT imaging of the neck also performed . SCAN: Subsequent Scan FINDINGS: SKULL BASE AND NECK: No recurrent abnormal hypermetabolic uptake right tongue base. Airway remains p atent. There is now hypermetabolic right neck lymph node at level of thyroid gland measuring 1.7 x 1.5 cm cu rrent study axial image 67 with Max SUV of 12.8 likely corresponding to subcentimeter mildly hypermet abolic lymph node on the most recent PET/CT. Subcentimeter mildly hypermetabolic lesion superior to t his axial image 51 is stable. No additional hypermetabolic lesions on current study. CHEST, MEDIASTINUM, AND HILAR REGION: Background mild underlying emphysematous change is redemonstrat ed. Scattered small pulmonary nodules remain present. Slightly more prominent soft tissue density foc al right upper lung scarring axial image 70. Largest nodule posterior left lower lobe axial image 121 current study measures 1.0 x 0.9 cm slightly decreased in size. No abnormal hypermetabolic lesions o n current study. ABDOMEN AND PELVIS: No new or recurrent hypermetabolic liver lesions. Normal excretion redemonstrated . Mild to moderate nonspecific bowel uptake on current study. No definitive new areas of abnormal hyp ermetabolic uptake. OSSEOUS STRUCTURES: No definitive abnormal hypermetabolic uptake. OTHER CT: Moderate calcified plaque bilateral carotid bulb level it is redemonstrated. Small pericardial effusion is again seen. Moderate coronary artery calcification is redemonstrated. P rominent pulmonary arteries consistent with underlying pulmonary artery hypertension. . Ectatic ascen ding aorta up to 3.8 cm redemonstrated PEG tube again seen. Mildly Enlarged prostate consistent with BPH is redemonstrated. Medial right thigh intramuscular lipoma redemonstrated axial image 250. Moderate calcified plaque dis carl abdominal aorta. Multilevel spurring in the spine. IMPRESSION: Overall mixed treatment response. Enlarged hypermetabolic right neck lymph node now ident ified. Improved or diminished size and diminished hypermetabolic uptake of scattered metastatic disea se to bilateral lungs.
== END | disposition home or self-care (01) ==
LOC: RADXRMAIN 11:15
PROVIDERS: ATTEND Internal Medicine Hematology & Oncology
DX: C01 Malignant neoplasm of base of tongue (principal); Z51.12 Encounter for antineoplastic immunotherapy
CPT/HCPCS: 78815; A9552

== ENCOUNTER → 2021-09-30 | Outpatient (CLI) | payer MEDICARE, BC ==
--- NOTE | 2021-09-30 17:00 | PE ---
Nuclear medicine PET/CT HISTORY: Head and neck cancer subsequent, C01 Patient received 11.3 mCi F-18 FDG intravenously and delayed scanning was performed from the skull ba se to the mid thighs. A localization and attenuation correction CT scan was performed. Small field-of -view imaging obtained through the head and neck Correlation to prior nuclear medicine PET/CT 06/10/2021 Average mediastinal uptake SUV 0.3, average liver uptake SUV 2.1 Head and neck: No suspicious uptake. No evident cervical or supraclavicular adenopathy. CHEST: There is no mediastinal, axillary, or hilar adenopathy. Coronary artery calcifications are pre sent. No pleural or pericardial effusion. There are multiple lung nodules present bilaterally. Larges t nodule in the left lower lobe measures approximately 11 to 12 mm. Cavitary lesion in the right uppe r lobe is again seen, soft tissue component again noted, no suspicious uptake however. ABDOMEN: No evident retroperitoneal adenopathy. No ascites or evident liver mass. No suspicious uptak e. Prostate shows associated calcification. Urinary bladder shows a thickened wall possibly due to ch ronic bladder outlet obstruction, correlate to exclude cystitis. Uptake within the bowel may be physi ologic but is indeterminate, question some colonic wall thickening especially along the descending co arie, sigmoid colon, appearance is fluid filled, correlate for diarrhea. Correlate to exclude underlyi ng enteritis or colitis. Osseous structures: Overall increased marrow activity may be due to marrow activation. Degenerative d isc changes and facet arthropathy noted in the lower lumbar spine, bilateral spondylolysis at L5. Inc idental note made of sinus disease the maxillary and ethmoid air cells. IMPRESSION: Multiple lung nodules appear essentially unchanged. Findings within the colon is describe d.
== END | disposition home or self-care (01) ==
LOC: RADPETMAIN 11:22
PROVIDERS: ATTEND Internal Medicine Hematology & Oncology
DX: Z51.12 Encounter for antineoplastic immunotherapy (principal); C01 Malignant neoplasm of base of tongue
CPT/HCPCS: 78815; A9552

== ENCOUNTER → 2021-12-02 | Outpatient (CLI) | payer MEDICARE, BC ==
--- NOTE | 2021-12-05 09:20 | PE ---
EXAMINATION TYPE: PET CT fusion skull to thigh DATE OF EXAM: 12/02/2021 CLINICAL INDICATION:Male, 76 years old with history of C01; TECHNIQUE: Following the intravenous administration of 10.9 mCi of F-18 FDG, whole body images are performed from the skull base to the midthigh. Images are reviewed on the computer in the coronal, a xial, and sagittal planes. Reconstructed rotating images are created on independent workstation and reviewed on the computer. A non-contrast CT is performed in conjunction with the PET scan. Glucose level 72 mg/dL COMPARISON: CT 01/08/2021, PET/CT multiple most recent 09/30/2021 FINDINGS: Mediastinal SUV mean is 1.3. Hepatic parenchyma SUV mean is 1.7. SKULL BASE AND NECK: No suspicious FDG activity. Previous right neck lymph node which is FDG avid on 06/10/2021 remains absent. No suspicious FDG activity within the head or neck CHEST, MEDIASTINUM, AND HILAR REGION: Right upper lobe cystic nodule with low levels Max SUV 1.3, pre viously 0.9 which may be secondary to atelectasis. No additional suspicious FDG activity. ABDOMEN AND PELVIS: No suspicious FDG activity. Scattered physiologic uptake seen throughout the colo n and bowel. Images are intense MIP evaluation. OSSEOUS STRUCTURES: No suspicious FDG activity. OTHER CT: Atherosclerosis of the arterial vasculature including at the carotid bifurcations and coron shannan arteries. There is trace pericardial effusion. Moderate centrilobular moderate emphysema changes. Scattered pulmonary nodules throughout the lungs (greater than 20) of which appear stable, representa tive examples include: right upper lobe 5 mm pulmonary nodule right upper lobe anterior peripheral 9 mm pulmonary nodule and left lower lobe 8 mm pulmonary nodule and a more cystic nodular change in the right lung apex which is not significantly changed. There is a PEG tube in appropriate position. The gallbladder is slightly distended. Left nonobstructing calculi versus vascular calcification. Coarse calcifications in the prostate gland. IMPRESSION: 1. 3. No evidence for lymphadenopathy or new suspicious FDG uptake. No evidence for recurrence with in the head or neck. 2. Persistent pulmonary nodules which have a similar morphology to prior with a right apical cystic nodule having similar levels FDG activity and a majority of the others are too small for the sensitiv ity of PET/CT. Continued attention on follow-up with CT chest. 3. Trace pericardial effusion.
== END | disposition home or self-care (01) ==
LOC: RADPETMAIN 08:44
PROVIDERS: ATTEND Nurse Practitioner Adult Health
DX: Z51.12 Encounter for antineoplastic immunotherapy (principal); C01 Malignant neoplasm of base of tongue
CPT/HCPCS: 78815; A9552

== ENCOUNTER → 2022-02-24 | Outpatient (CLI) | payer MEDICARE, BC ==
--- NOTE | 2022-02-26 10:53 | PE ---
EXAMINATION TYPE: PET CT fusion skull to thigh DATE OF EXAM: 02/24/2022 CLINICAL INDICATION:Male, 76 years old with history of C01 MALIGNANT NEOPLASM OF BASE OF TONGUE; TECHNIQUE: Following the intravenous administration of 9.66 mCi of F-18 FDG, whole body images are performed from the skull base to the midthigh. Images are reviewed on the computer in the coronal, a xial, and sagittal planes. Reconstructed rotating images are created on independent workstation and reviewed on the computer. A non-contrast CT is performed in conjunction with the PET scan. Glucose level 106 mg/dL COMPARISON: CT None, PET/CT 12/02/2021, FINDINGS: Mediastinal SUV mean is 1.2. Hepatic parenchyma SUV mean is 1.6. SKULL BASE AND NECK: * No suspicious FDG activity. * Previous right neck lymph node which is FDG avid on 06/10/2021 remains absent. No suspicious FDG ac tivity within the head or neck CHEST, MEDIASTINUM, AND HILAR REGION: * Right upper lobe cystic nodule with low levels Max SUV 1.3, previously 1.3, and 0.9 which may be s econdary to atelectasis. * No additional suspicious FDG activity. ABDOMEN AND PELVIS: * No suspicious FDG activity. * Scattered physiologic uptake seen throughout the colon and bowel. Images are intense MIP evaluatio n. OSSEOUS STRUCTURES: No suspicious FDG activity. OTHER CT: Atherosclerosis of the arterial vasculature including at the carotid bifurcations and coron shannan arteries. There is trace pericardial effusion. Moderate centrilobular moderate emphysema changes. Scattered pulmonary nodules are again seen throughout the lungs, (greater than 20) and appear, repres entative examples include: right upper lobe 5 mm pulmonary nodule right upper lobe anterior periphera l 9 mm pulmonary nodule and left lower lobe 8 mm pulmonary nodule and a more cystic nodular change in the right lung apex which is not significantly changed. There is a PEG tube in appropriate position. The gallbladder is slightly distended. Left nonobstructing calculi versus vascular calcification. Co arse calcifications in the prostate gland. IMPRESSION: 1. No evidence for lymphadenopathy or new suspicious FDG uptake. No evidence for recurrence within t he head or neck. 2. Stable pulmonary nodules which have a similar morphology to prior. Additionally a stable right ap ical cystic nodule having similar levels FDG activity and a majority of the others are too small for the sensitivity of PET/CT. Continued attention on follow-up with CT chest.
== END | disposition home or self-care (01) ==
LOC: RADPETMAIN 11:01
PROVIDERS: ATTEND Internal Medicine Hematology & Oncology
DX: Z51.12 Encounter for antineoplastic immunotherapy (principal); C01 Malignant neoplasm of base of tongue; R91.8 Other nonspecific abnormal finding of lung field
CPT/HCPCS: 78815; A9552

== ENCOUNTER → 2022-07-21 | Outpatient (CLI) | payer MEDICARE, BC ==
--- NOTE | 2022-07-21 13:24 | PE ---
EXAMINATION TYPE: PET CT fusion skull to thigh DATE OF EXAM: 07/21/2022 COMPARISON: Most recent PET CT February 24, 2022 and older studies HISTORY: Neoplasm base of tongue . 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 TECHNIQUE: Following the intravenous administration of 11.02 mCi of F-18 FDG, whole body images are performed from the skull base to the midthigh. Images are reviewed on the computer in the coronal, a xial, and sagittal planes. Reconstructed rotating images are created on independent workstation and reviewed on the computer. A localization and attenuation correction CT is performed in conjunction with the PET scan. Dedicated PET/CT imaging of the neck. Blood glucose level equals 98. SCAN: Subsequent Scan FINDINGS: SKULL BASE AND NECK: No new areas of abnormal hypermetabolic uptake. CHEST, MEDIASTINUM, AND HILAR REGION: No new areas of abnormal hypermetabolic uptake. Small cavitary lesion right upper lobe axial image 85 redemonstrated and stable without new abnormal hypermetabolic uptake. ABDOMEN AND PELVIS: Nonspecific bowel uptake redemonstrated. No new areas of abnormal hypermetabolic uptake. OSSEOUS STRUCTURES: No new areas of abnormal hypermetabolic uptake. OTHER CT: Moderate calcified plaque bilateral carotid bulb level is redemonstrated. Moderate to severe coronary artery calcification is redemonstrated. Prominent pulmonary arteries cons istent with underlying pulmonary artery hypertension is redemonstrated. Ectatic ascending aorta up to 3.8 cm redemonstrated. Bilateral gynecomastia again seen. PEG tube again seen. Mildly Enlarged prostate consistent with BPH is redemonstrated. Distal colonic d iverticulosis redemonstrated. Medial right thigh intramuscular lipoma redemonstrated axial image 264 is redemonstrated. Moderate ca lcified plaque distal abdominal aorta. Multilevel spurring in the spine is redemonstrated. IMPRESSION: No new areas of abnormal hypermetabolic uptake to suggest active neoplastic recurrence.
== END | disposition home or self-care (01) ==
LOC: RADPETMAIN 07:06
PROVIDERS: ATTEND Nurse Practitioner Adult Health
DX: C01 Malignant neoplasm of base of tongue (principal)
CPT/HCPCS: 78815; A9552

== ENCOUNTER → 2022-10-06 | Outpatient (CLI) | payer MEDICARE, BC ==
--- NOTE | 2022-10-06 11:54 | PE ---
EXAMINATION TYPE: PET CT fusion skull to thigh DATE OF EXAM: 10/06/2022 CLINICAL INDICATION:Male, 77 years old with history of C01; TECHNIQUE: Following the intravenous administration of 12.69 mCi of F-18 FDG, whole body images are performed from the skull base to the midthigh. Images are reviewed on the computer in the coronal, axial, and sagittal planes. Reconstructed rotating images are created on independent workstation and reviewed on the computer. A non-contrast CT is performed in conjunction with the PET scan. Glucose level 86 mg/dL CT DLP: 385 mGycm, Automated exposure control for dose reduction was used. COMPARISON: CT None, PET/CT 07/21/2022, FINDINGS: Mediastinal SUV mean is 0.9. Hepatic parenchyma SUV mean is 1.3. SKULL BASE AND NECK: No suspicious radiotracer activity. CHEST, MEDIASTINUM, AND HILAR REGION: * Right upper lobe cystic nodule with low levels FDG activity Max SUV 1.3, 2.4, 1.3, and 0.9 which m ay be secondary to atelectasis. * Additional smaller nodules are below PET/CT threshold: Nodules throughout the lungs appear grossly stable. * Suspected streaky atelectasis along the medial aspect of the right lower lobe max SUV 1.6. ABDOMEN AND PELVIS: No suspicious radiotracer activity. MUSCULOSKELETAL STRUCTURES: No suspicious radiotracer activity. OTHER CT: Atherosclerosis of the arterial vasculature including at the carotid bifurcations and coron shannan arteries. There is trace pericardial effusion. Moderate centrilobular moderate emphysema changes. IMPRESSION: 1. Stable right upper lobe parenchymal abnormality with mild FDG activity 2. No evidence for lymphadenopathy or new suspicious FDG uptake. No evidence for recurrence within t he head or neck. 3. Stable pulmonary nodules which are too small for the sensitivity of PET/CT.
== END | disposition home or self-care (01) ==
LOC: RADPETMAIN 09:10
PROVIDERS: ATTEND Physician Assistant
DX: C01 Malignant neoplasm of base of tongue (principal); R91.8 Other nonspecific abnormal finding of lung field
CPT/HCPCS: 78815; A9552

== ENCOUNTER 2022-12-20 20:13 | Inpatient (IN) | payer MEDICARE, BC ==
[2022-12-20] MEDS ORDERED: SODIUM CHLORIDE 0.9% 1,000 ML IV STA (20:31)
[2022-12-20] MEDS ORDERED: MORPHINE SULFATE 4 MG/ML SYRINGE IV STA (20:31)
[2022-12-20] MEDS ORDERED: IPRATROPIUM-ALBUTEROL 3 ML NEB INHALATION STA (20:31)
--- NOTE | 2022-12-20 20:38 | ED ---
SOB HPI - General Chief Complaint: Shortness of Breath Stated Complaint: Difficulty Breathing Time Seen by Provider: 12/20/22 20:15 Source: patient, RN notes reviewed, old records reviewed Mode of arrival: EMS Limitations: no limitations - History of Present Illness Initial Comments: This is a 77-year-old male presenting in significant distress shortness of breath and hypoxia with chest pain. Patient states he his heart was racing his shoulder prior to arrival when EMS arrived per EMS they found patient to be in SVT heart rate in the 200s and he was given adenosine for cardioversion. Patient immediately improved and he states he did feel immediately better and his heart rate now in the low 100s. Patient denies any recent fever or illness. Patient has a complicated medical history including oropharyngeal cancer MD Complaint: shortness of breath, cough -: days(s) Severity: moderate Severity scale (1-10): 7 Consistency: constant Improves With: nothing Known History Of: COPD Context: recent URI Associated Symptoms: chest pain, cough, sputum production, nausea/vomiting Treatments Prior to Arrival: oxygen, bronchodilator - Related Data Home Oxygen Therapy: Yes Home Oxygen Amount: 2 Liters Home Medications Medication Instructions Recorded Confirmed HYDROcodone/APAP 10-325MG [Climax 1 tab PO TID PRN 09/28/20 12/20/22 10-325] Albuterol Inhaler [Ventolin Hfa 2 puff INHALATION RT-Q6H PRN 03/26/21 12/20/22 Inhaler] Benralizumab [Fasenra] 30 mg SQ Q28D 03/26/21 12/20/22 Budesonide [Pulmicort] 0.5 mg INHALATION RT-BID 12/20/22 12/20/22 Ipratropium-Albuterol Nebulize 3 ml INHALATION RT-QID 12/20/22 12/20/22 [Duoneb 0.5 mg-3 mg/3 ml Soln] Previous Rx's Medication Instructions Recorded Amoxic-Pot Clav 875-125Mg 1 tab PO Q12HR 7 Days #14 tab 12/25/22 [Augmentin 875-125] Nystatin 100,000 Unit/ml Susp 500,000 unit PO QID 7 Days #140 ml 12/25/22 [Mycostatin Oral Susp] Diltiazem Cd [Cardizem CD] 120 mg PO DAILY 30 Days #30 cap 12/26/22 guaiFENesin [Mucinex] 600 mg PO Q12HR 7 Days #14 tab 12/26/22 predniSONE See Taper PO DIRECTED 8 Days 12/26/22 #20 tab Allergies Allergy/AdvReac Type Severity Reaction Status Date / Time bee venom protein (honey bee) Allergy Itching Verified 12/20/22 20:21 codeine AdvReac Itching Verified 12/20/22 20:21 Review of Systems ROS Statement: Those systems with pertinent positive or pertinent negative responses have been documented in the HPI. ROS Other: All systems not noted in ROS Statement are negative. Past Medical History Past Medical History: Asthma, Cancer, COPD, Hyperlipidemia, Hypertension, Prostate Disorder, Sleep Apnea/CPAP/BIPAP Additional Past Medical History / Comment(s): Skin cancer was removed from the left cheek, prostate cancer treated with seeds, bilateral lower extremity neuropathy, diagnosis with throat cancer august 2020 with peg tube placement; keytruda for cancer tx; neuropathy History of Any Multi-Drug Resistant Organisms: None Reported Date of last positivie culture/infection: None MDRO Source:: None Past Surgical History: Tonsillectomy Additional Past Surgical History / Comment(s): Colonoscopy with polypectomy, skin cancer excised from left cheek, surgery on the right great toe., peg tube placement Past Anesthesia/Blood Transfusion Reactions: No Reported Reaction Past Psychological History: No Psychological Hx Reported Smoking Status: Former smoker Past Alcohol Use History: Daily Past Drug Use History: None Reported - Past Family History Mother History Unknown: Yes Family Medical History: Cancer Additional Family Medical History / Comment(s): colon General Exam Limitations: no limitations General appearance: alert, anxious, lethargic, in distress, cachectic Head exam: Present: atraumatic, normocephalic, normal inspection Eye exam: Present: normal appearance, PERRL, EOMI. Absent: scleral icterus, conjunctival injection, periorbital swelling ENT exam: Present: normal exam, mucous membranes dry Neck exam: Present: normal inspection. Absent: tenderness, meningismus, lymphadenopathy Respiratory exam: Present: respiratory distress, wheezes, accessory muscle use, decreased breath sounds, prolonged expiratory. Absent: rales, rhonchi, stridor Cardiovascular Exam: Present: tachycardia, normal heart sounds. Absent: systolic murmur, diastolic murmur, rubs, gallop, clicks GI/Abdominal exam: Present: soft, normal bowel sounds. Absent: distended, tenderness, guarding, rebound, rigid Extremities exam: Present: normal inspection, full ROM, normal capillary refill. Absent: tenderness, pedal edema, joint swelling, calf tenderness Back exam: Present: normal inspection Neurological exam: Present: alert, oriented X3, CN II-XII intact Psychiatric exam: Present: normal affect, normal mood Skin exam: Present: warm, dry, intact, normal color. Absent: rash Course Vital Signs 12/20/22 12/20/22 12/20/22 20:16 20:22 20:23 Temperature 98.2 F Pulse Rate 112 H Respiratory 26 H 28 H Rate Blood Pressure 127/74 O2 Sat by Pulse 94 L 91 L Oximetry 12/20/22 12/20/22 12/20/22 21:05 21:09 21:34 Temperature Pulse Rate 104 H 104 H 110 H Respiratory 24 20 26 H Rate Blood Pressure 119/70 O2 Sat by Pulse 95 Oximetry 12/20/22 12/20/22 12/21/22 22:26 23:30 00:30 Temperature Pulse Rate 103 H 100 98 Respiratory 20 18 20 Rate Blood Pressure 108/62 109/58 98/65 O2 Sat by Pulse 92 L 96 98 Oximetry 12/21/22 12/21/22 12/21/22 01:30 02:15 03:28 Temperature Pulse Rate 94 89 86 Respiratory 18 18 18 Rate Blood Pressure 108/56 99/53 106/96 O2 Sat by Pulse 98 99 96 Oximetry 12/21/22 12/21/22 12/21/22 05:04 08:15 08:28 Temperature Pulse Rate 77 84 86 Respiratory 18 18 Rate Blood Pressure 129/71 O2 Sat by Pulse 97 94 L Oximetry 12/21/22 12/21/22 12/21/22 08:32 08:38 11:32 Temperature Pulse Rate 82 94 Respiratory Rate Blood Pressure O2 Sat by Pulse 90 L Oximetry 12/21/22 12/21/22 12:02 12:10 Temperature Pulse Rate 103 H 95 Respiratory 18 Rate Blood Pressure 130/76 O2 Sat by Pulse 91 L Oximetry - Reevaluation(s) Reevaluation #1: 12/20/22 22:06 Medical records reviewed Reevaluation #2: 12/20/22 22:06 Patient still remains short of breath all dramatically improved after improving of heart rate per EMS Reevaluation #3: 12/20/22 22:06 Patient informed results questions answered Reevaluation #4: 12/20/22 22:06 Was pt. sent in by a medical professional or institution (YANN Bonilla, TELEGRAPH OFFICE ROUTE AIDE, urgent care, hospital, or half-way...) When possible be specific @ -no Did you speak to anyone other than the patient for history (EMS, parent, family, police, friend...)? What history was obtained from this source @ -no Did you review nursing and triage notes (agree or disagree)? Why? @ -agree Are old charts reviewed (outside hosp., previous admission, EMS record, old EKG, old radiological studies, urgent care reports/EKG's, half-way records)? Report findings @ -yes Differential Diagnosis (chest pain, altered mental status, abdominal pain women, abdominal pain men, vaginal bleeding, weakness, fever, dyspnea, syncope, headache, dizziness, GI bleed, back pain, seizure, CVA, palpatations, mental health, musculoskeletal)? @ -prior EKG interpreted by me (3pts min.). @ -yes X-rays interpreted by me (1pt min.). @ -yes CT interpreted by me (1pt min.). @ -yes U/S interpreted by me (1pt. min.). @ -no What testing was considered but not performed or refused? (CT, X-rays, U/S, labs)? Why? @ -none What meds were considered but not given or refused? Why? @ -none Did you discuss the management of the patient with other professionals (professionals i.e. YANN Bonilla, TELEGRAPH OFFICE ROUTE AIDE, lab, RT, psych nurse, social work professor, building analyst/supervisor, teacher, chief clinical officer, casework specialist)? Give summary @ -no Was smoking cessation discussed for >3mins.? @ -no Was critical care preformed (if so, how long)? @ -no Were there social determinants of health that impacted care today? How? (Homelessness, low income, unemployed, alcoholism, drug addiction, transportation, low edu. Level, literacy, decrease access to med. care, alf, rehab)? @ -none Was there de-escalation of care discussed even if they declined (Discuss DNR or withdrawal of care, Hospice)? DNR status @ -no What co-morbidities impacted this encounter? (DM, HTN, Smoking, COPD, CAD, Cancer, CVA, ARF, Chemo, Hep., AIDS, mental health diagnosis, sleep apnea, morbid obesity)? @ -none Was patient admitted / discharged? Hospital course, mention meds given and route, prescriptions, significant lab abnormalities, going to OR and other pert inent info. @ - 77 male with severe shortness of breath coming in to be in SVT patient was in SVT on EMS arrival heart rate in the 200s given adenosine. Patient has persistent dyspnea and hypoxia here in the ER patient will be admitted for evaluation of possible causes of SVT or recurrence, cause of hypoxia including pneumonia with elevated white blood cell count and changes on x-ray, patient al so has pleural effusion Admission Undiagnosed new problem with uncertain prognosis? @ -no Drug Therapy requiring intensive monitoring for toxicity (Heparin, Nitro, Insulin, Cardizem)? @ -no Were any procedures done? @ -no Diagnosis/symptom? @ -Arrhythmia, SVT Acute, or Chronic, or Acute on Chronic? @ -Acute Uncomplicated (without systemic symptoms) or Complicated (systemic symptoms)? @ -Complicated Side effects of treatment? @ -no Exacerbation, Progression, or Severe Exacerbation? @ -exacerbation Poses a threat to life or bodily function? How? (Chest pain, USA, PA, pneumonia, PE, COPD, DKA, ARF, appy, cholecystitis, CVA, Diverticulitis, Homicidal, Suicidal, threat to staff... and all critical care pts) @ -yes arrhythmia Reevaluation #5: 12/20/22 22:06 Differential Dyspnea: Coronary syndrome, arrhythmia, tamponade, asthma, COPD, pulmonary embolism, pneumonia, pneumothorax, pulmonary effusion, anaphylaxis, diabetic ketoacidosis, flailed chest, pulmonary contusion, diaphragmatic rupture, anemia, neuromuscular, this is not meant to be an all-inclusive list. Differential Palpitations Ventricular arrhythmias, atrial arrhythmias, myocardial infarction, anemia, thyrotoxicosis, electrolyte imbalance, hypokalemia, pulmonary embolism, pulmonary disease, drugs, alcohol, anxiety, stress.... This is not meant to be an all-inclusive list. - Consultations Consultation #1: Spoke with PMH were agrees to admit this patient Medical Decision Making - Medical Decision Making 77 male with severe shortness of breath coming in to be in SVT patient was in SVT on EMS arrival heart rate in the 200s given adenosine. Patient has persistent dyspnea and hypoxia here in the ER patient will be admitted for evaluation of possible causes of SVT or recurrence, cause of hypoxia including pneumonia with elevated white blood cell count and changes on x-ray, patient also has pleural effusion - Lab Data Result diagrams: 12/24/22 09:24 12/24/22 09:24 Lab Results 12/20/22 12/20/22 12/20/22 Range/Units 20:21 20:21 20:21 WBC 20.7 H (3.8-10.6) k/uL RBC 3.98 L (4.30-5.90) m/uL Hgb 12.5 L (13.0-17.5) gm/dL Hct 38.8 L (39.0-53.0) % MCV 97.5 (80.0-100.0) fL MCH 31.4 (25.0-35.0) pg MCHC 32.2 (31.0-37.0) g/dL RDW 13.8 (11.5-15.5) % Plt Count 418 (150-450) k/uL MPV 8.1 Neutrophils % 95 % Lymphocytes % 2 % Monocytes % 3 % Eosinophils % 0 % Basophils % 0 % Neutrophils # 19.7 H (1.3-7.7) k/uL Lymphocytes # 0.3 L (1.0-4.8) k/uL Monocytes # 0.5 (0-1.0) k/uL Eosinophils # 0.0 (0-0.7) k/uL Basophils # 0.0 (0-0.2) k/uL Hypochromasia Slight PT 10.6 (10.0-12.5) sec INR 1.0 (<1.2) APTT 23.8 (22.0-30.0) sec Sodium 139 (137-145) mmol/L Potassium 4.3 (3.5-5.1) mmol/L Chloride 105 (98-107) mmol/L Carbon Dioxide 27 (22-30) mmol/L Anion Gap 7 mmol/L BUN 30 H (9-20) mg/dL Creatinine 0.68 (0.66-1.25) mg/dL Est GFR (CKD-EPI)AfAm >90 (>60 ml/min/1.73 sqM) Est GFR (CKD-EPI)NonAf >90 (>60 ml/min/1.73 sqM) Glucose 142 H (74-99) mg/dL Lactic Ac Sepsis Rflx Plasma Lactic Acid Kwabena (0.7-2.0) mmol/L Calcium 8.8 (8.4-10.2) mg/dL Phosphorus 3.7 (2.5-4.5) mg/dL Magnesium 2.0 (1.6-2.3) mg/dL Total Bilirubin 0.6 (0.2-1.3) mg/dL AST 33 (17-59) U/L ALT 41 (4-49) U/L Alkaline Phosphatase 291 H (38-126) U/L Troponin I (0.000-0.034) ng/mL NT-Pro-B Natriuret Pep 470 pg/mL Total Protein 5.9 L (6.3-8.2) g/dL Albumin 2.8 L (3.5-5.0) g/dL 12/20/22 12/20/22 12/20/22 Range/Units 20:21 20:21 21:25 WBC (3.8-10.6) k/uL RBC (4.30-5.90) m/uL Hgb (13.0-17.5) gm/dL Hct (39.0-53.0) % MCV (80.0-100.0) fL MCH (25.0-35.0) pg MCHC (31.0-37.0) g/dL RDW (11.5-15.5) % Plt Count (150-450) k/uL MPV Neutrophils % % Lymphocytes % % Monocytes % % Eosinophils % % Basophils % % Neutrophils # (1.3-7.7) k/uL Lymphocytes # (1.0-4.8) k/uL Monocytes # (0-1.0) k/uL Eosinophils # (0-0.7) k/uL Basophils # (0-0.2) k/uL Hypochromasia PT (10.0-12.5) sec INR (<1.2) APTT (22.0-30.0) sec Sodium (137-145) mmol/L Potassium (3.5-5.1) mmol/L Chloride (98-107) mmol/L Carbon Dioxide (22-30) mmol/L Anion Gap mmol/L BUN (9-20) mg/dL Creatinine (0.66-1.25) mg/dL Est GFR (CKD-EPI)AfAm (>60 ml/min/1.73 sqM) Est GFR (CKD-EPI)NonAf (>60 ml/min/1.73 sqM) Glucose (74-99) mg/dL Lactic Ac Sepsis Rflx Y Plasma Lactic Acid Kwabena 2.1 H* (0.7-2.0) mmol/L Calcium (8.4-10.2) mg/dL Phosphorus (2.5-4.5) mg/dL Magnesium (1.6-2.3) mg/dL Total Bilirubin (0.2-1.3) mg/dL AST (17-59) U/L ALT (4-49) U/L Alkaline Phosphatase (38-126) U/L Troponin I 0.019 (0.000-0.034) ng/mL NT-Pro-B Natriuret Pep pg/mL Total Protein (6.3-8.2) g/dL Albumin (3.5-5.0) g/dL - EKG Data -: EKG Interpreted by Me - Radiology Data Radiology results: report reviewed (Chest x-ray shows pleural effusions and infiltrate), image reviewed Critical Care Time Critical Care Time: Yes Total Critical Care Time: 31 Disposition Clinical Impression: Acute exacerbation of chronic obstructive pulmonary disease, Oropharyngeal cancer, Acute pulmonary edema, Community acquired pneumonia, SVT (supr aventricular tachycardia), Hypoxia Disposition: ADMITTED IP TO THIS HOSP Condition: Good Is patient prescribed a controlled substance at d/c from ED?: No Time of Disposition: 20:05
[2022-12-20 21:02] LABS: Basophils % (A) 0 %; Eosinophils % (A) 0 %; HCT 38.8 % (39.0-53.0); HGB 12.5 gm/dL (13.0-17.5); Hypochromasia Slight; Lymphocytes # (A) 0.3 k/uL (1.0-4.8); Lymphocytes % (A) 2 %; MCH 31.4 pg (25.0-35.0); MCHC 32.2 g/dL (31.0-37.0); MCV 97.5 fL (80.0-100.0); Mean Platelet Volume 8.1; Monocytes # (A) 0.5 k/uL (0-1.0); Monocytes % (A) 3 %; Neutrophils # (A) 19.7 k/uL (1.3-7.7); Neutrophils % (A) 95 %; Platelet Count 418 k/uL (150-450); RBC 3.98 m/uL (4.30-5.90); RDW 13.8 % (11.5-15.5); WBC 20.7 k/uL (3.8-10.6)
--- NOTE | 2022-12-20 21:08 | XR ---
EXAMINATION TYPE: XR chest 1V portable DATE OF EXAM: 12/20/2022 COMPARISON: Chest x-ray September 29, 2020 HISTORY: Shortness of breath TECHNIQUE: Single frontal view of the chest is obtained. FINDINGS: There is small right pleural effusion on current study. There are right greater than left bilateral lower lung increased opacity is The cardiac silhouette size is stable and within normal evangelista its. The osseous structures are intact. IMPRESSION: New small right pleural effusion and right greater than left bilateral lower lung acute infiltrates and/or atelectasis.
[2022-12-20 21:13] LABS: ALT 41 U/L (4-49); AST 33 U/L (17-59); African American GFR (CKD) >90 (>60 ml/min/1.73 sqM); Albumin 2.8 g/dL (3.5-5.0); Alkaline Phosphatase 291 U/L (38-126); Anion Gap 7 mmol/L; Blood Urea Nitrogen 30 mg/dL (9-20); Calcium 8.8 mg/dL (8.4-10.2); Carbon Dioxide 27 mmol/L (22-30); Chloride 105 mmol/L (98-107); Glucose 142 mg/dL (74-99); Non-African American GFR(CKD) >90 (>60 ml/min/1.73 sqM); Phosphorus 3.7 mg/dL (2.5-4.5); Potassium 4.3 mmol/L (3.5-5.1); Sodium 139 mmol/L (137-145); Total Bilirubin 0.6 mg/dL (0.2-1.3); Total Protein 5.9 g/dL (6.3-8.2)
[2022-12-20 21:20] LABS: NT-Pro-B-Type Natriuretic Pept 470 pg/mL
[2022-12-20 21:28] LABS: Partial Thromboplastin Time 23.8 sec (22.0-30.0); Prothrombin Time 10.6 sec (10.0-12.5)
[2022-12-20] MEDS ORDERED: ONDANSETRON 4 MG/2 ML VIAL IVP PRN (22:00)
[2022-12-20] MEDS ORDERED: NALOXONE 0.4 MG/ML 1 ML VIAL IV PRN (22:00)
[2022-12-20] MEDS ORDERED: IPRATROPIUM-ALBUTEROL 3 ML NEB INHALATION PRN (22:03)
[2022-12-20] MEDS ORDERED: AZITHROMYCIN 500 MG in SODIUM CHLORIDE 0.9% 250 ML IVPB STA (22:03)
[2022-12-20] MEDS: SODIUM CHLORIDE 0.9% 1,000 ML IV SCH (22:22)
--- NOTE | 2022-12-20 23:24 | CT ---
EXAM: CT Angiography Chest With Intravenous Contrast CLINICAL HISTORY: Evaluate for PE TECHNIQUE: Axial computed tomographic angiography images of the chest with intravenous contrast. CTDI is 6.1 mGy and DLP is 275 mGy-cm. This CT exam was performed using one or more of the following dose reduction techniques: automated exposure control, adjustment of the mA and/or kV according to patient size, and/or use of iterative reconstruction technique. MIP reconstructed images were created and reviewed. COMPARISON: Portable radiograph performed earlier FINDINGS: Pulmonary arteries: There is no evidence for pulmonary embolism. Aorta: Atherosclerotic calcification of the aorta. No dissection or aneurysm. Lungs: There are patchy to confluent opacities involving both lower lobes, right greater than left, and the inferior aspect of the lingular segments and right middle lobe. Less prominent changes noted in the posterior aspect of the inferior right upper lobe. Peribronchial cuffing noted diffusely. There is some layering material in the distal right mainstem bronchus and proximal subsegmental branches serving the right lower lobe. Multiple subcentimeter pulmonary nodules in the lung apices identified with the largest noted posteriorly at the right apex measuring 6.6 mm. Focal area of irregular scarring in the anterior aspect of the right upper lobe. Attention to this region on follow-up imaging is recommended if no comparison is available. Pleural space: Unremarkable. No significant effusion. No pneumothorax. Heart: Cardiac chambers are normal. Coronary artery calcification noted. Pericardial effusion noted anteriorly measuring up to 9 mm in diameter. Bones/joints: No acute fracture. No dislocation. Soft tissues: Unremarkable. Lymph nodes: Unremarkable. No enlarged lymph nodes. IMPRESSION: 1. There is no evidence for pulmonary embolism. 2. There are patchy to confluent opacities involving both lower lobes, right greater than left, and the inferior aspect of the lingular segments and right middle lobe. Less prominent changes noted in the posterior aspect of the inferior right upper lobe. Findings are consistent with multifocal pneumonia. 3. Peribronchial cuffing noted diffusely. There is some layering material in the distal right mainstem bronchus and proximal subsegmental branches serving the right lower lobe. Suspect a component of bronchitis with secretions in the right lower lobe. 4. Multiple subcentimeter pulmonary nodules in the lung apices identified with the largest noted posteriorly at the right apex measuring 6.6 mm. Fleischner Society Guidelines for low-risk patients, recommend follow-up chest CT at 3-6 months. If unchanged consider an additional follow-up CT at 18-24 months. For high-risk patients (smoking history or other known risk factors) initial follow-up chest CT at 3-6 months and if unchanged, 18-24 months.
[2022-12-20] MEDS: AZITHROMYCIN 500 MG in SODIUM CHLORIDE 0.9% 250 ML IVPB SCH (23:42)
[2022-12-21 05:14] LABS: Basophils % (A) 0 %; Eosinophils % (A) 0 %; HCT 37.1 % (39.0-53.0); HGB 11.8 gm/dL (13.0-17.5); Hypochromasia Moderate; Lymphocytes # (A) 0.6 k/uL (1.0-4.8); Lymphocytes % (A) 4 %; MCH 31.5 pg (25.0-35.0); MCHC 31.8 g/dL (31.0-37.0); MCV 99.1 fL (80.0-100.0); Mean Platelet Volume 8.1; Monocytes # (A) 0.5 k/uL (0-1.0); Monocytes % (A) 3 %; Neutrophils # (A) 14.9 k/uL (1.3-7.7); Neutrophils % (A) 92 %; Platelet Count 347 k/uL (150-450); RBC 3.74 m/uL (4.30-5.90); RDW 13.8 % (11.5-15.5); WBC 16.2 k/uL (3.8-10.6)
[2022-12-21 05:42] LABS: AST 26 U/L (17-59); African American GFR (CKD) >90 (>60 ml/min/1.73 sqM); Albumin 2.5 g/dL (3.5-5.0); Alkaline Phosphatase 272 U/L (38-126); Anion Gap 8 mmol/L; Blood Urea Nitrogen 26 mg/dL (9-20); Calcium 8.5 mg/dL (8.4-10.2); Carbon Dioxide 26 mmol/L (22-30); Chloride 108 mmol/L (98-107); Glucose 177 mg/dL (74-99); Magnesium 2.2 mg/dL (1.6-2.3); Non-African American GFR(CKD) >90 (>60 ml/min/1.73 sqM); Phosphorus 3.6 mg/dL (2.5-4.5); Potassium 5.2 mmol/L (3.5-5.1); Sodium 142 mmol/L (137-145); Total Bilirubin 0.3 mg/dL (0.2-1.3); Total Protein 5.3 g/dL (6.3-8.2)
[2022-12-21 05:55] LABS: ALT 36 U/L (4-49)
[2022-12-21] MEDS ORDERED: SODIUM ZIRCONIUM CYCLOSILICATE 10 GM PACKET PO ONE (06:07)
[2022-12-21] MEDS ORDERED: SODIUM CHLORIDE 0.9% 500 ML 500 ML IV ONE (06:07)
[2022-12-21] MEDS: IPRATROPIUM-ALBUTEROL 3 ML NEB INHALATION SCH ×4 (08:28→21:36)
[2022-12-21] MEDS: BUDESONIDE 0.5 MG/2 ML NEBU INHALATION SCH ×2 (08:28→21:36)
[2022-12-21] MEDS ORDERED: ALBUTEROL HFA INHALER INHALATION PRN (08:58)
[2022-12-21] MEDS ORDERED: ACETAMINOPHEN TAB 325 MG TAB PO PRN (09:00)
[2022-12-21] MEDS ORDERED: BENZONATATE 100 MG CAP PO PRN (09:00)
[2022-12-21] MEDS ORDERED: PNEUMONIA PROTOCOL UTILIZED 1 EACH MISC PO PRN (09:00)
[2022-12-21] MEDS: MORPHINE SULFATE 4 MG/ML SYRINGE IV PRN ×2 (11:28→21:06)
[2022-12-21] MEDS: PIPERACILLIN-TAZOBACTAM 3.375 GM in SODIUM CHLORIDE 0.9% 100 ML IVPB SCH ×2 (11:28→17:14)
[2022-12-21] MEDS: guaiFENesin 600 MG TABLET.ER PO SCH ×2 (11:28→21:12)
--- NOTE | 2022-12-21 12:03 | P.HPIM ---
History of Present Illness H&P Date: 12/21/22 Chief Complaint: Shortness of breath * 77-year-old gentleman with past medical history significant for COPD, prostate cancer, obstructive sleep apnea, hyperlipidemia, history of oropharyngeal cancer status peg tube and treatment with keytrudar, hypertension, presents with emergency department with complains of shortness of breath. Patient had symptom onset and 2 days prior to admission with sudden onset of difficulty breathing and chest pain. At the time of evaluation in ER patient was noted to have supraventricular tachycardia with heart rate in 200s. Patient was gi ba and nursing cardioversion after which heart rate improved * Workup initiated in ER included CBC which showed significant leukocytosis abuse he count of 20.7, lactate of 2.1 serum chemistry showed sodium of 139 potassium 4.3B UN 30 creatinine 0.68, initial troponin obtained 0.019 * Patient was noted to have elevated d-dimer and a CT chest was obtained which was negative for pulmonary embolism however did show multifocal pneumonia * EKG obtained showed sinus a Cardia with heart rate of 100, no significant ST segment elevation noted * Patient was given 2 L of fluid bolus, breathing treatment, Rocephin and azithromycin for hyperkalemia and admitted for further management with consultation from cardiology and pulmonary medicine REVIEW OF SYSTEMS: Chest pain, shortness of breath, cough CONSTITUTIONAL: No fever, no malaise, no fatigue. HEENT: No recent visual problems or hearing problems. Denied any sore throat. CARDIOVASCULAR: No chest pain, orthopnea, PND, no palpitations, no syncope. PULMONARY: Chest pain, shortness of breath, cough GASTROINTESTINAL: No diarrhea, no nausea, no vomiting, no abdominal pain. NEUROLOGICAL: No headaches, no weakness, no numbness. HEMATOLOGICAL: Denies any bleeding or petechiae. GENITOURINARY: Denies any burning micturition, frequency, or urgency. MUSCULOSKELETAL/RHEUMATOLOGICAL: Denies any joint pain, swelling, or any muscle pain. ENDOCRINE: Denies any polyuria or polydipsia. The rest of the 14-point review of systems is negative. PHYSICAL EXAMINATION: GENERAL: The patient is alert and oriented x3, ill appearance, nasal cannula in place, shortness of breath HEENT: Pupils are round and equally reacting to light. EOMI. CARDIOVASCULAR: S1 and S2 present. No murmurs, rubs, or gallops. PULMONARY: Decreased breath sounds bilaterally, wheezing audible ABDOMEN: Soft, nontender, nondistended, normoactive bowel sounds. No palpable organomegaly. Feeding tube in place MUSCULOSKELETAL: No joint swelling or deformity. EXTREMITIES: No cyanosis, clubbing, or pedal edema. NEUROLOGICAL: Gross neurological examination did not reveal any focal deficits. SKIN: No rashes. Past Medical History Past Medical History: Asthma, Cancer, COPD, Hyperlipidemia, Hypertension, Prostate Disorder, Sleep Apnea/CPAP/BIPAP Additional Past Medical History / Comment(s): Skin cancer was removed from the left cheek, prostate cancer treated with seeds, bilateral lower extremity neuropathy, diagnosis with throat cancer august 2020 with peg tube placement; keytruda for cancer tx; neuropathy History of Any Multi-Drug Resistant Organisms: None Reported Date of last positivie culture/infection: None MDRO Source:: None Past Surgical History: Tonsillectomy Additional Past Surgical History / Comment(s): Colonoscopy with polypectomy, skin cancer excised from left cheek, surgery on the right great toe., peg tube placement Past Anesthesia/Blood Transfusion Reactions: No Reported Reaction Past Psychological History: No Psychological Hx Reported Smoking Status: Former smoker Past Alcohol Use History: Daily Past Drug Use History: None Reported - Past Family History Mother History Unknown: Yes Family Medical History: Cancer Additional Family Medical History / Comment(s): colon Medications and Allergies Home Medications Medication Instructions Recorded Confirmed Type HYDROcodone/APAP 10-325MG [[place]ona 1 tab PO TID PRN 09/28/20 12/20/22 History 10-325] Albuterol Inhaler [Ventolin Hfa 2 puff INHALATION RT-Q6H PRN 03/26/21 12/20/22 History Inhaler] Benralizumab [Fasenra] 30 mg SQ Q28D 03/26/21 12/20/22 History Budesonide [Pulmicort] 0.5 mg INHALATION RT-BID 12/20/22 12/20/22 History Ipratropium-Albuterol Nebulize 3 ml INHALATION RT-QID 12/20/22 12/20/22 History [Duoneb 0.5 mg-3 mg/3 ml Soln] predniSONE See Taper PO DIRECTED 12/20/22 12/20/22 History Allergies Allergy/AdvReac Type Severity Reaction Status Date / Time bee venom protein (honey bee) Allergy Itching Verified 12/20/22 20:21 codeine AdvReac Itching Verified 12/20/22 20:21 Physical Exam Vitals: Vital Signs Temp Pulse Resp BP Pulse Ox 12/21/22 08:38 82 12/21/22 08:32 90 L 12/21/22 08:28 86 12/21/22 08:15 84 18 129/71 94 L 12/21/22 05:04 77 18 97 12/21/22 03:28 86 18 106/96 96 12/21/22 02:15 89 18 99/53 99 12/21/22 01:30 94 18 108/56 98 12/21/22 00:30 98 20 98/65 98 12/20/22 23:30 100 18 109/58 96 12/20/22 22:26 103 H 20 108/62 92 L 12/20/22 21:34 110 H 26 H 12/20/22 21:09 104 H 20 12/20/22 21:05 104 H 24 119/70 95 12/20/22 20:23 28 H 12/20/22 20:22 91 L 12/20/22 20:16 98.2 F 112 H 26 H 127/74 94 L Intake and Output 12/20/22 12/21/22 12/21/22 22:59 06:59 14:59 Other: Weight 59.421 kg Results CBC & Chem 7: 12/21/22 04:39 12/21/22 04:39 Labs: Abnormal Lab Results - Last 24 Hours (Table) 12/20/22 12/20/22 12/20/22 Range/Units 20:21 20:21 20:21 WBC 20.7 H (3.8-10.6) k/uL RBC 3.98 L (4.30-5.90) m/uL Hgb 12.5 L (13.0-17.5) gm/dL Hct 38.8 L (39.0-53.0) % Neutrophils # 19.7 H (1.3-7.7) k/uL Lymphocytes # 0.3 L (1.0-4.8) k/uL D-Dimer (<0.60) mg/L FEU Potassium (3.5-5.1) mmol/L Chloride (98-107) mmol/L BUN 30 H (9-20) mg/dL Glucose 142 H (74-99) mg/dL Plasma Lactic Acid Ba 2.1 H* (0.7-2.0) mmol/L Alkaline Phosphatase 291 H (38-126) U/L Total Protein 5.9 L (6.3-8.2) g/dL Albumin 2.8 L (3.5-5.0) g/dL 12/21/22 12/21/22 12/21/22 Range/Units 00:36 01:47 04:39 WBC 16.2 H (3.8-10.6) k/uL RBC 3.74 L (4.30-5.90) m/uL Hgb 11.8 L (13.0-17.5) gm/dL Hct 37.1 L (39.0-53.0) % Neutrophils # 14.9 H (1.3-7.7) k/uL Lymphocytes # 0.6 L (1.0-4.8) k/uL D-Dimer 6.59 H (<0.60) mg/L FEU Potassium (3.5-5.1) mmol/L Chloride (98-107) mmol/L BUN (9-20) mg/dL Glucose (74-99) mg/dL Plasma Lactic Acid Ba 2.2 H* (0.7-2.0) mmol/L Alkaline Phosphatase (38-126) U/L Total Protein (6.3-8.2) g/dL Albumin (3.5-5.0) g/dL 12/21/22 12/21/22 Range/Units 04:39 04:39 WBC (3.8-10.6) k/uL RBC (4.30-5.90) m/uL Hgb (13.0-17.5) gm/dL Hct (39.0-53.0) % Neutrophils # (1.3-7.7) k/uL Lymphocytes # (1.0-4.8) k/uL D-Dimer (<0.60) mg/L FEU Potassium 5.2 H (3.5-5.1) mmol/L Chloride 108 H (98-107) mmol/L BUN 26 H (9-20) mg/dL Glucose 177 H (74-99) mg/dL Plasma Lactic Acid Ba 3.7 H* (0.7-2.0) mmol/L Alkaline Phosphatase 272 H (38-126) U/L Total Protein 5.3 L (6.3-8.2) g/dL Albumin 2.5 L (3.5-5.0) g/dL Assessment and Plan Assessment: Assessment and plan Sepsis secondary to multifocal pneumonia Acute hypoxic respiratory failure secondary to multifocal pneumonia Acute exacerbation of COPD Supraventricular tachycardia status post adenosine History of oropharyngeal cancer with dysphagia status post PEG tube Electrolyte abnormality hyperkalemia treated * In regards to sepsis, multifocal pneumonia blood cultures ordered, urine Legionella ordered continue patient on Zosyn and azithromycin infectious disease consulted * In regards to COPD exacerbation/respiratory failure continue breathing treatments, continue IV Solu-Medrol, Mucinex initiated continue with oxygen supplementation, CT angina chest negative for pulmonary embolism multifocal infiltrates noted * In regards to supraventricular tachycardia, given adenosine, cardiology consulted serial troponins ordered negative * In regards to oropharyngeal cancer maintain aspiration precautions, speech therapy consulted * In regards to electrolyte abnormality with hyperkalemia patient given lokelma * CODE STATUS is full code
[2022-12-21] MEDS: methylPREDNISolone SOD SUCCI 125 MG/2 ML VIAL IV SCH ×3 (13:24→23:49)
[2022-12-21] MEDS: SODIUM CHLORIDE 0.9% 1,000 ML IV SCH ×2 (13:24→23:51)
--- NOTE | 2022-12-21 18:48 | P.CNPUL ---
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 The patient is seeing an oncologist out of [facility]. The patient was treated with immunotherapy and the patient is receiving Keytruda every 4 weeks. The patient has had difficulties with swallowing. For that reason, the patient was given a packed COPD years back and the patient is taken pleasure feeds and supplementing himself with enteral feeding through his PEG tube. Noted the patient has metastatic disease and I believe he was taken immunotherapy through an oncologist out of [facility]. The patient came into the emergency department having increased cough and congestion and worsening shortness of breath. In the emergency department, he was noted to have an SVT with a heart rate in the 200s range. He received cardioversion and his heart rate subsequently improved. Chest x-ray showed lower lobe consolidation and following that the patient was given a CAT scan of the chest and the CAT scan showed patchy confluent opacities in the lower lobes bilaterally right more than left and this was also involving the inferior aspect of the lingular segment in the right middle lobe. As such, the patient was diagnosed having multifocal pneumonia, likely of an aspiration type. At the same time, the patient had multiple subcentimeter pulmonary nodules in the lung apices identified and there was a lesion in the right apex measuring 6.6 mm in size. This was concerning for metastases. The patient currently has a white cell count of 20.7 with a hemoglobin 12.5, the viral screen was negative including Covid 19. ProBNP level was 470. Troponins were negative. Lactic acid level is being monitored in the highest level was at 3.4, and the patient was started on broad-spectrum antibiotics and the patient is currently on a combination of Zosyn and Zithromax. The patient is also on 4 L of oxygen by nasal cannula with a pulse ox of 96%. He has a congested cough. No altered mentation. Other comorbid conditions include history of COPD, prostate cancer, obstructive sleep apnea and the patient has been nontolerant to CPAP therapy, hyperlipidemia. Review of Systems REVIEW OF SYSTEMS: Chest pain, shortness of breath, cough CONSTITUTIONAL: No fever, no malaise, no fatigue. HEENT: No recent visual problems or hearing problems. Denied any sore throat. CARDIOVASCULAR: No chest pain, orthopnea, PND, no palpitations, no syncope. PULMONARY: Chest pain, shortness of breath, cough GASTROINTESTINAL: No diarrhea, no nausea, no vomiting, no abdominal pain. The patient has chronic dysphagia and the patient has a PEG tube for enteral feeding and nutritional support. NEUROLOGICAL: No headaches, no weakness, no numbness. HEMATOLOGICAL: Denies any bleeding or petechiae. GENITOURINARY: Denies any burning micturition, frequency, or urgency. MUSCULOSKELETAL/RHEUMATOLOGICAL: Denies any joint pain, swelling, or any muscle pain. ENDOCRINE: Denies any polyuria or polydipsia. The rest of the 14-point review of systems is negative. 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, squamous cell type), COPD, Hyperlipidemia, Hypertension, Prostate Disorder, Sleep Apnea/CPAP/BIPAP Additional Past Medical History / Comment(s): Skin cancer was removed from the left cheek, prostate cancer treated with seeds, bilateral lower extremity neuropathy, diagnosis with throat cancer august 2020 with peg tube placement; k eytruda for cancer tx; neuropathy History of Any Multi-Drug Resistant Organisms: None Reported Date of last positivie culture/infection: None MDRO Source:: None Past Surgical History: Tonsillectomy Additional Past Surgical History / Comment(s): Colonoscopy with polypectomy, skin cancer excised from left cheek, surgery on the right great toe., peg tube placement Past Anesthesia/Blood Transfusion Reactions: No Reported Reaction Past Psychological History: No Psychological Hx Reported Smoking Status: Former smoker Past Alcohol Use History: Daily Past Drug Use History: None Reported - Past Family History Mother History Unknown: Yes Family Medical History: Cancer Additional Family Medical History / Comment(s): colon Medications and Allergies Home Medications Medication Instructions Recorded Confirmed Type HYDROcodone/APAP 10-325MG [[place] 1 tab PO TID PRN 09/28/20 12/20/22 History 10-325] Albuterol Inhaler [Ventolin Hfa 2 puff INHALATION RT-Q6H PRN 03/26/21 12/20/22 History Inhaler] Benralizumab [Fasenra] 30 mg SQ Q28D 03/26/21 12/20/22 History Budesonide [Pulmicort] 0.5 mg INHALATION RT-BID 12/20/22 12/20/22 History Ipratropium-Albuterol Nebulize 3 ml INHALATION RT-QID 12/20/22 12/20/22 History [Duoneb 0.5 mg-3 mg/3 ml Soln] predniSONE See Taper PO DIRECTED 12/20/22 12/20/22 History Allergies Allergy/AdvReac Type Severity Reaction Status Date / Time bee venom protein (honey bee) Allergy Itching Verified 12/20/22 20:21 codeine AdvReac Itching Verified 12/20/22 20:21 Physical Exam Vitals: Vital Signs Temp Pulse Pulse Resp BP BP Pulse Ox 12/21/22 16:06 98.4 F 89 24 148/72 96 12/21/22 13:46 18 12/21/22 12:10 95 18 130/76 91 L 12/21/22 12:02 103 H 12/21/22 11:32 94 12/21/22 08:38 82 12/21/22 08:32 90 L 12/21/22 08:28 86 12/21/22 08:15 84 18 129/71 94 L 12/21/22 05:04 77 18 97 12/21/22 03:28 86 18 106/96 96 12/21/22 02:15 89 18 99/53 99 12/21/22 01:30 94 18 108/56 98 12/21/22 00:30 98 20 98/65 98 12/20/22 23:30 100 18 109/58 96 12/20/22 22:26 103 H 20 108/62 92 L 12/20/22 21:34 110 H 26 H 12/20/22 21:09 104 H 20 12/20/22 21:05 104 H 24 119/70 95 12/20/22 20:23 28 H 12/20/22 20:22 91 L 12/20/22 20:16 98.2 F 112 H 26 H 127/74 94 L Intake and Output 12/21/22 12/21/22 12/21/22 06:59 14:59 22:59 Other: # Voids 1 Weight 59.421 kg 59.421 kg GENERAL: The patient is alert and oriented x3, ill appearance, nasal cannula in place, shortness of breath , and the patient is currently on 4 L of oxygen by nasal cannula Head exam was generally normal. There was no scleral icterus or corneal arcus. Mucous membranes were moist. HEENT: Pupils are round and equally reacting to light. EOMI. the posterior oropharynx shows some anatomic distortion with asymmetry at the level of the uvula. The mucous membranes are essentially dried. CARDIOVASCULAR: S1 and S2 present. No murmurs, rubs, or gallops. PULMONARY: Decreased breath sounds bilaterally, wheezing audible, creatinine the lung bases bilaterally along with some scattered extremities ABDOMEN: Soft, nontender, nondistended, normoactive bowel sounds. No palpable organomegaly. Feeding tube in place MUSCULOSKELETAL: No joint swelling or deformity. EXTREMITIES: No cyanosis, clubbing, or pedal edema. NEUROLOGICAL: Gross neurological examination did not reveal any focal deficits. SKIN: No rashes. Results - Laboratory Findings CBC and BMP: 12/21/22 04:39 12/21/22 04:39 PT/INR, D-dimer PT 10.6 sec (10.0-12.5) 12/20/22 20:21 INR 1.0 (<1.2) 12/20/22 20:21 D-Dimer 6.59 mg/L FEU (<0.60) H 12/21/22 01:47 Abnormal lab findings: Abnormal Labs 12/20/22 12/20/22 12/20/22 20:21 20:21 20:21 WBC 20.7 H RBC 3.98 L Hgb 12.5 L Hct 38.8 L Neutrophils # 19.7 H Lymphocytes # 0.3 L D-Dimer Potassium Chloride BUN 30 H Glucose 142 H Plasma Lactic Acid [place] 2.1 H* Alkaline Phosphatase 291 H Total Protein 5.9 L Albumin 2.8 L 12/21/22 12/21/22 12/21/22 00:36 01:47 04:39 WBC 16.2 H RBC 3.74 L Hgb 11.8 L Hct 37.1 L Neutrophils # 14.9 H Lymphocytes # 0.6 L D-Dimer 6.59 H Potassium Chloride BUN Glucose Plasma Lactic Acid [place] 2.2 H* Alkaline Phosphatase Total Protein Albumin 12/21/22 12/21/22 12/21/22 04:39 04:39 08:04 WBC RBC Hgb Hct Neutrophils # Lymphocytes # D-Dimer Potassium 5.2 H Chloride 108 H BUN 26 H Glucose 177 H Plasma Lactic Acid [place] 3.7 H* 3.3 H* Alkaline Phosphatase 272 H Total Protein 5.3 L Albumin 2.5 L 12/21/22 12/21/22 11:29 15:27 WBC RBC Hgb Hct Neutrophils # Lymphocytes # D-Dimer Potassium Chloride BUN Glucose Plasma Lactic Acid [place] 2.8 H* 3.4 H* Alkaline Phosphatase Total Protein Albumin - Diagnostic Findings Chest x-ray: image reviewed CT scan - chest: image reviewed Assessment and Plan Plan: Acute bilateral lower lobe pneumonia with extensive multifocal pulmonary infiltrates more so in the lung bases bilaterally, consider aspiration Acute hypoxic respiratory failure secondary to above currently on 4 L of oxygen by nasal cannula Acute shortness of breath secondary to above Acute COPD exacerbation secondary to above Acute leukocytosis SVT, post and erosive treatment and the patient's current cardiac rhythm is back into sinus History of oropharyngeal cancer, squamous cell type, metastatic and the patient is currently on immunotherapy with Keytruda every 4 weeks, and the patient has likely a metastatic lesion involving the right apex as evidenced on previous PET CTs and current CAT scan of the chest Hypertension History of smoking Chronic dysphasia secondary to above and the patient is receiving enteral f eeding for nutritional support, and he also takes pleasure feeds Obstructive sleep apnea, nontolerant to CPAP therapy Prostate cancer treated with brachytherapy Plan Obtain sputum Gram stain and cultures Agree on the current antibiotic coverage included examination of Zosyn and Zithromax Aggressive pulmonary toileting Bronchodilators with DuoNeb updrafts 4 times a day IV Solu-Medrol 60 mg every 6 hours IV fluids with normal saline at rate of 125 mL an hour We will try to obtain records from oncology regarding his cancer treatment Keep the patient nothing by mouth for now utilize enteral feeding for nutritional support Diabetic also will be obtained Echocardiogram We'll continue to follow
[2022-12-21] MEDS: AZITHROMYCIN 500 MG in SODIUM CHLORIDE 0.9% 250 ML IVPB SCH (20:43)
--- NOTE | 2022-12-21 21:19 | P.CRDCN ---
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 He normally follows in [facility]. He presented secondary to cough and increased SOB. He had a CXray and CT which showed lower lobe consolidation possibly related to aspiration. There were multiple nodules concerning for mets. ProBNP 470, troponin was normal. Cardiology was consulted for SVT. Apparently when EMS arrived he had a HR in the 200's and was given adenosine with improvement in HR's to low 100's. Patient states he has never had SVT before. No history of Afib or Aflutter. He did have some associated chest discomfort however this has improved. WBC 20, hgb 12.5, Ddimer 6.5, cr 0.6, troponin 0.019, 0.024. EKG siinus rhythm normal axis, no significant ST or T wave abnormalities. REVIEW OF SYSTEMS At the time of my exam: CONSTITUTIONAL: Denies fever or chills. CARDIOVASCULAR: +chest pain, +shortness of breath, no orthopnea, PND or palpitations. RESPIRATORY: Denies cough. GASTROINTESTINAL: Denies abdominal pain, diarrhea, constipation, nausea or vomiting. MUSCULOSKELETAL: Denies myalgias. NEUROLOGIC: Denies numbness, tingling or weakness. ENDOCRINE: Denies fatigue, weight change, polydipsia or polyurina. GENITOURINARY: Denies burning, hematuria or urgency with micturation. HEMATOLOGIC: Denies history of anemia or bleeding. PHYSICAL EXAMINATION Vital signs reviewed. CONSTITUTIONAL: No apparent distress. HEENT: Head is normocephalic. Pupils are equal, round. Sclerae anicteric. Mucous membranes of the mouth are moist. No JVD. No carotid bruit. CHEST EXAMINATION: Lungs are clear to auscultation. No chest wall tenderness is noted on palpation or with deep breathing. HEART EXAMINATION: Regular rate and rhythm. S1, S2 heard. No murmurs, gallops or rub. ABDOMEN: Soft, nontender. Positive bowel sounds. EXTREMITIES: 2+ peripheral pulses, no lower extremity edema and no calf tenderness. NEUROLOGIC EXAMINATION: Patient is awake, alert and oriented x3. ASSESSMENT 1. SVT, s/p adenosine with return of sinus rhythm 2. Acute on chronic respiratory failure, mainly related to aspiration 3. Suspected aspiration pneumonia 4. History of squamous cell cancer 5. Sinus tachycardia PLAN SVT with strips from EMS not available in chart. We will start Cardizem and monitor response. Check 2D echo. Further recommendations to follow. Past Medical History Past Medical History: Asthma, Cancer, COPD, Hyperlipidemia, Hypertension, Prostate Disorder, Sleep Apnea/CPAP/BIPAP Additional Past Medical History / Comment(s): Skin cancer was removed from the left cheek, prostate cancer treated with seeds, bilateral lower extremity neuropathy, diagnosis with throat cancer august 2020 with peg tube placement; keytruda for cancer tx; neuropathy History of Any Multi-Drug Resistant Organisms: None Reported Date of last positivie culture/infection: None MDRO Source:: None Past Surgical History: Tonsillectomy Additional Past Surgical History / Comment(s): Colonoscopy with polypectomy, skin cancer excised from left cheek, surgery on the right great toe., peg tube placement Past Anesthesia/Blood Transfusion Reactions: No Reported Reaction Past Psychological History: No Psychological Hx Reported Smoking Status: Former smoker Past Alcohol Use History: Daily Past Drug Use History: None Reported - Past Family History Mother History Unknown: Yes Family Medical History: Cancer Additional Family Medical History / Comment(s): colon Medications and Allergies Home Medications Medication Instructions Recorded Confirmed Type HYDROcodone/APAP 10-325MG [[place] 1 tab PO TID PRN 09/28/20 12/20/22 History 10-325] Albuterol Inhaler [Ventolin Hfa 2 puff INHALATION RT-Q6H PRN 03/26/21 12/20/22 History Inhaler] Benralizumab [Fasenra] 30 mg SQ Q28D 03/26/21 12/20/22 History Budesonide [Pulmicort] 0.5 mg INHALATION RT-BID 12/20/22 12/20/22 History Ipratropium-Albuterol Nebulize 3 ml INHALATION RT-QID 12/20/22 12/20/22 History [Duoneb 0.5 mg-3 mg/3 ml Soln] predniSONE See Taper PO DIRECTED 12/20/22 12/20/22 History Allergies Allergy/AdvReac Type Severity Reaction Status Date / Time bee venom protein (honey bee) Allergy Itching Verified 12/20/22 20:21 codeine AdvReac Itching Verified 12/20/22 20:21 Physical Exam Vitals: Vital Signs Temp Pulse Pulse Resp BP BP Pulse Ox 12/21/22 16:06 98.4 F 89 24 148/72 96 12/21/22 13:46 18 12/21/22 12:10 95 18 130/76 91 L 12/21/22 12:02 103 H 12/21/22 11:32 94 12/21/22 08:38 82 12/21/22 08:32 90 L 12/21/22 08:28 86 12/21/22 08:15 84 18 129/71 94 L 12/21/22 05:04 77 18 97 12/21/22 03:28 86 18 106/96 96 12/21/22 02:15 89 18 99/53 99 12/21/22 01:30 94 18 108/56 98 12/21/22 00:30 98 20 98/65 98 12/20/22 23:30 100 18 109/58 96 12/20/22 22:26 103 H 20 108/62 92 L 12/20/22 21:34 110 H 26 H 12/20/22 21:09 104 H 20 12/20/22 21:05 104 H 24 119/70 95 12/20/22 20:23 28 H 12/20/22 20:22 91 L 12/20/22 20:16 98.2 F 112 H 26 H 127/74 94 L Intake and Output 12/21/22 12/21/22 12/21/22 06:59 14:59 22:59 Other: # Voids 1 Weight 59.421 kg 59.421 kg Results 12/21/22 04:39 12/21/22 04:39 Cardiac Enzymes 12/20/22 12/20/22 12/21/22 Range/Units 20:21 20:21 00:43 AST 33 (17-59) U/L Troponin I 0.019 0.024 (0.000-0.034) ng/mL 12/21/22 12/21/22 Range/Units 04:39 04:39 AST 26 (17-59) U/L Troponin I 0.017 (0.000-0.034) ng/mL Coagulation 12/20/22 Range/Units 20:21 PT 10.6 (10.0-12.5) sec APTT 23.8 (22.0-30.0) sec CBC 12/20/22 12/21/22 Range/Units 20:21 04:39 WBC 20.7 H 16.2 H (3.8-10.6) k/uL RBC 3.98 L 3.74 L (4.30-5.90) m/uL Hgb 12.5 L 11.8 L (13.0-17.5) gm/dL Hct 38.8 L 37.1 L (39.0-53.0) % Plt Count 418 347 (150-450) k/uL Comprehensive Metabolic Panel 12/20/22 12/21/22 Range/Units 20:21 04:39 Sodium 139 142 (137-145) mmol/L Potassium 4.3 5.2 H (3.5-5.1) mmol/L Chloride 105 108 H (98-107) mmol/L Carbon Dioxide 27 26 (22-30) mmol/L BUN 30 H 26 H (9-20) mg/dL Creatinine 0.68 0.71 (0.66-1.25) mg/dL Glucose 142 H 177 H (74-99) mg/dL Calcium 8.8 8.5 (8.4-10.2) mg/dL AST 33 26 (17-59) U/L ALT 41 36 (4-49) U/L Alkaline Phosphatase 291 H 272 H (38-126) U/L Total Protein 5.9 L 5.3 L (6.3-8.2) g/dL Albumin 2.8 L 2.5 L (3.5-5.0) g/dL Current Medications Generic Name Dose Route Start Last Admin Trade Name Saurabhq PRN Reason Stop Dose Admin Acetaminophen 650 mg 12/21/22 09:00 Acetaminophen Tab 325 Mg Tab PO Q4HR PRN Mild Pain or Fever > 100.5 Hydrocodone Bitart/Acetaminophen 1 each 12/21/22 06:57 Hydrocodone/Apap 10-325mg 1 Each Tab PO TID PRN Pain Albuterol Sulfate 2 puff 12/21/22 08:58 Albuterol Hfa Inhaler INHALATION RT-Q6H PRN Shortness Of Breath Albuterol/Ipratropium 3 ml 12/20/22 22:03 Ipratropium-Albuterol 3 Ml Neb INHALATION RT-QID PRN Shortness Of Breath Or Wheezing Albuterol/Ipratropium 3 ml 12/21/22 08:00 12/21/22 11:31 Ipratropium-Albuterol 3 Ml Neb INHALATION 3 ml RT-QID JAMES Administration Benzonatate 100 mg 12/21/22 09:00 Benzonatate 100 Mg Cap PO TID PRN Cough Budesonide 0.5 mg 12/21/22 08:00 12/21/22 08:28 Budesonide 0.5 Mg/2 Ml Nebu INHALATION 0.5 mg RT-BID JAMES Administration Enoxaparin Sodium 40 mg 12/22/22 09:00 Enoxaparin 40 Mg/0.4 Ml Syringe SQ DAILY JAMES Guaifenesin 600 mg 12/21/22 09:00 12/21/22 11:28 Guaifenesin 600 Mg Tablet.Er PO 600 mg Q12HR JAMES Administration Sodium Chloride 1,000 mls @ 125 mls/hr 12/20/22 22:00 12/21/22 13:24 Saline 0.9% IV 125 mls/hr .Q8H JAMES Administration Azithromycin 500 mg/ Sodium 250 mls @ 250 mls/hr 12/21/22 21:00 Chloride IVPB 12/23/22 21:59 HS JAMES Protocol Piperacillin Sod/Tazobactam 100 mls @ 25 mls/hr 12/21/22 10:00 12/21/22 17:14 Sod 3.375 gm/ Sodium Chloride IVPB 25 mls/hr Q8H JAMES Administration Protocol Methylprednisolone Sodium Succinate 60 mg 12/21/22 12:00 12/21/22 17:13 Methylprednisolone Sod Succi 125 Mg/2 Ml Vial IV 60 mg Q6HR JAMES Administration Miscellaneous Information 1 each 12/21/22 09:00 Pneumonia Protocol Utilized 1 Each Misc PO ONCE PRN Per Protocol Morphine Sulfate 4 mg 12/20/22 22:00 12/21/22 11:28 Morphine Sulfate 4 Mg/Ml Syringe IV 4 mg Q4HR PRN Administration Severe Pain (Scale 7 to 10) Naloxone HCl 0.2 mg 12/20/22 22:00 Naloxone 0.4 Mg/Ml 1 Ml Vial IV Q2M PRN Opioid Reversal Ondansetron HCl 4 mg 12/20/22 22:00 Ondansetron 4 Mg/2 Ml Vial IVP Q8HR PRN Nausea And Vomiting Intake and Output 12/21/22 12/21/2212/21/23 06:59 14:59 22:59 Other: # Voids 1 Weight 59.421 kg 59.421 kg Patient Weight 12/22/22 06:59 Weight 59.421 kg 12/21/22 04:39 12/21/22 04:39
[2022-12-21] MEDS: DILTIAZEM CD 120 MG CAP.ER.24H PO SCH (21:59)
[2022-12-21] MEDS: PANTOPRAZOLE 40 MG/10 ML VIAL IVP SCH (21:59)
--- NOTE | 2022-12-21 22:08 | P.CONS ---
History of Present Illness - Reason for Consult Consult date: 12/21/22 Multifocal pneumonia, sepsis Requesting physician: Odalys Tomas - Chief Complaint Increasing shortness of breath and cough x few days - History of Present Illness Patient is a 77-year-old male with a past medical his significant for hypertension hyperlipidemia COPD prostate cancer sleep apnea patient has been brought into the ER for evaluation of respiratory distress patient complaining of increasing shortness of breath and chest pain patient apparently was found to be in SVT and has been given adenosine for cardioversion patient on presentation to the hospital was afebrile and no fever have recorded subsequently patient was noticed to be mildly hypoxic requiring supplemental oxygen currently on 4 L nasal cannula patient did have a white count of 20,000 with a left shift creatinine 0.68 lactic is was 2.1 was in the normal influenza RSV and COVID test ing was negative patient did have a chest x-ray new small right effusion and right greater than left bilateral lower lung acute infiltrates patient also have a CT angiogram of the chest that was negative for PE there was patchy to confluent opacity involving both lower lobes right greater than left patient was started on Zosyn has received Rocephin and Zithromax in the ER infectious he was consulted for further management of antibiotic therapy concerning for multifocal pneumonia, patient remains to be afebrile however has been complaining of mostly cough which is moderate in intensity and is bringing some sputum denies any hemoptysis and associated shortness of breath denies any nausea no vomiting and no diarrhea Review of Systems Positive point and negatives has been mentioned in the HPI, complete review of systems was performed and all other systems are negative Past Medical History Past Medical History: Asthma, Cancer, COPD, Hyperlipidemia, Hypertension, Prostate Disorder, Sleep Apnea/CPAP/BIPAP Additional Past Medical History / Comment(s): Skin cancer was removed from the left cheek, prostate cancer treated with seeds, bilateral lower extremity neuropathy, diagnosis with throat cancer august 2020 with peg tube placement; keytruda for cancer tx; neuropathy History of Any Multi-Drug Resistant Organisms: None Reported Year Discovered:: None MDRO Source:: None Past Surgical History: Tonsillectomy Additional Past Surgical History / Comment(s): Colonoscopy with polypectomy, skin cancer excised from left cheek, surgery on the right great toe., peg tube placement Past Anesthesia/Blood Transfusion Reactions: No Reported Reaction Past Psychological History: No Psychological Hx Reported Smoking Status: Former smoker Past Alcohol Use History: Daily Past Drug Use History: None Reported - Past Family History Mother History Unknown: Yes Family Medical History: Cancer Additional Family Medical History / Comment(s): colon Medications and Allergies Home Medications Medication Instructions Recorded Confirmed Type HYDROcodone/APAP 10-325MG [[place] 1 tab PO TID PRN 09/28/20 12/20/22 History 10-325] Albuterol Inhaler [Ventolin Hfa 2 puff INHALATION RT-Q6H PRN 03/26/21 12/20/22 History Inhaler] Benralizumab [Fasenra] 30 mg SQ Q28D 03/26/21 12/20/22 History Budesonide [Pulmicort] 0.5 mg INHALATION RT-BID 12/20/22 12/20/22 History Ipratropium-Albuterol Nebulize 3 ml INHALATION RT-QID 12/20/22 12/20/22 History [Duoneb 0.5 mg-3 mg/3 ml Soln] predniSONE See Taper PO DIRECTED 12/20/22 12/20/22 History Allergies Allergy/AdvReac Type Severity Reaction Status Date / Time bee venom protein (honey bee) Allergy Itching Verified 12/20/22 20:21 codeine AdvReac Itching Verified 12/20/22 20:21 Physical Exam Vitals: Vital Signs Temp Pulse Resp BP Pulse Ox 12/21/22 08:38 82 12/21/22 08:32 90 L 12/21/22 08:28 86 12/21/22 08:15 84 18 129/71 94 L 12/21/22 05:04 77 18 97 12/21/22 03:28 86 18 106/96 96 12/21/22 02:15 89 18 99/53 99 12/21/22 01:30 94 18 108/56 98 12/21/22 00:30 98 20 98/65 98 12/20/22 23:30 100 18 109/58 96 12/20/22 22:26 103 H 20 108/62 92 L 12/20/22 21:34 110 H 26 H 12/20/22 21:09 104 H 20 12/20/22 21:05 104 H 24 119/70 95 12/20/22 20:23 28 H 12/20/22 20:22 91 L 12/20/22 20:16 98.2 F 112 H 26 H 127/74 94 L Intake and Output 12/20/22 12/21/22 12/21/22 22:59 06:59 14:59 Other: Weight 59.421 kg GENERAL DESCRIPTION: An elderly male lying in bed, no distress. No tachypnea or accessory muscle of respiration use. HEENT: Shows Pallor , no scleral icterus. Oral mucous membrane is dry. No pharyngeal erythema or thrush NECK: Trachea central, no thyromegaly. LUNGS: Unlabored breathing. Coarse breath sounds bilaterally HEART: S1, S2, regular rate and rhythm. ABDOMEN: Soft, no tenderness , guarding or rigidity, no organomegaly EXTREMITIES: No edema of feet. SKIN: No rash, no masses palpable. NEUROLOGICAL: The patient is awake, alert, oriented x3, mood and affect normal. Results CBC & Chem 7: 12/24/22 09:24 12/24/22 09:24 Labs: Abnormal Lab Results - Last 24 Hours (Table) 12/20/22 12/20/22 12/20/22 Range/Units 20:21 20:21 20:21 WBC 20.7 H (3.8-10.6) k/uL RBC 3.98 L (4.30-5.90) m/uL Hgb 12.5 L (13.0-17.5) gm/dL Hct 38.8 L (39.0-53.0) % Neutrophils # 19.7 H (1.3-7.7) k/uL Lymphocytes # 0.3 L (1.0-4.8) k/uL D-Dimer (<0.60) mg/L FEU Potassium (3.5-5.1) mmol/L Chloride (98-107) mmol/L BUN 30 H (9-20) mg/dL Glucose 142 H (74-99) mg/dL Plasma Lactic Acid [place] 2.1 H* (0.7-2.0) mmol/L Alkaline Phosphatase 291 H (38-126) U/L Total Protein 5.9 L (6.3-8.2) g/dL Albumin 2.8 L (3.5-5.0) g/dL 12/21/22 12/21/22 12/21/22 Range/Units 00:36 01:47 04:39 WBC 16.2 H (3.8-10.6) k/uL RBC 3.74 L (4.30-5.90) m/uL Hgb 11.8 L (13.0-17.5) gm/dL Hct 37.1 L (39.0-53.0) % Neutrophils # 14.9 H (1.3-7.7) k/uL Lymphocytes # 0.6 L (1.0-4.8) k/uL D-Dimer 6.59 H (<0.60) mg/L FEU Potassium (3.5-5.1) mmol/L Chloride (98-107) mmol/L BUN (9-20) mg/dL Glucose (74-99) mg/dL Plasma Lactic Acid [place] 2.2 H* (0.7-2.0) mmol/L Alkaline Phosphatase (38-126) U/L Total Protein (6.3-8.2) g/dL Albumin (3.5-5.0) g/dL 12/21/22 12/21/22 12/21/22 Range/Units 04:39 04:39 08:04 WBC (3.8-10.6) k/uL RBC (4.30-5.90) m/uL Hgb (13.0-17.5) gm/dL Hct (39.0-53.0) % Neutrophils # (1.3-7.7) k/uL Lymphocytes # (1.0-4.8) k/uL D-Dimer (<0.60) mg/L FEU Potassium 5.2 H (3.5-5.1) mmol/L Chloride 108 H (98-107) mmol/L BUN 26 H (9-20) mg/dL Glucose 177 H (74-99) mg/dL Plasma Lactic Acid [place] 3.7 H* 3.3 H* (0.7-2.0) mmol/L Alkaline Phosphatase 272 H (38-126) U/L Total Protein 5.3 L (6.3-8.2) g/dL Albumin 2.5 L (3.5-5.0) g/dL Assessment and Plan (1) Leukocytosis Current Visit: Yes Status: Acute Code(s): D72.829 - ELEVATED WHITE BLOOD CELL COUNT, UNSPECIFIED SNOMED Code(s): 307734935 (2) Pneumonia Current Visit: Yes Status: Acute Code(s): J18.9 - PNEUMONIA, UNSPECIFIED ORGANISM SNOMED Code(s): 687470731 Plan: 1patient presented to hospital with sepsis in this patient who did have a elevated white count elevated lactic acid source likely pneumonia with a question of gram-negative keeping in mind patient complicated history and previous hospitalization 2-we will try to obtain a sputum for Gram stain and culture 3-we will check inflammatory markers 4-patient to continue with the Zosyn 3.37 mg every 8 hours while waiting for the culture to finalize We will follow on clinical condition and cultures to further adjust medication if needed Thank you for this consultation we will follow the patient along with you Dictation was produced using [employer] dictation software. please excuse any grammatical, word or spelling errors. Time with Patient: Greater than 30
[2022-12-22 00:08] LABS: Glucose,Whole Blood 185 mg/dL (70-110)
[2022-12-22] MEDS: PIPERACILLIN-TAZOBACTAM 3.375 GM in SODIUM CHLORIDE 0.9% 100 ML IVPB SCH ×3 (02:54→17:41)
[2022-12-22 05:43] LABS: Glucose,Whole Blood 156 mg/dL (70-110)
[2022-12-22] MEDS: methylPREDNISolone SOD SUCCI 125 MG/2 ML VIAL IV SCH ×4 (05:48→23:55)
[2022-12-22] MEDS: SODIUM CHLORIDE 0.9% 1,000 ML IV SCH ×3 (05:49→22:09)
[2022-12-22] MEDS: HYDROcodone/APAP 10-325MG 1 EACH TAB PO PRN (07:04)
[2022-12-22] MEDS: IPRATROPIUM-ALBUTEROL 3 ML NEB INHALATION SCH ×4 (08:30→21:36)
[2022-12-22] MEDS: BUDESONIDE 0.5 MG/2 ML NEBU INHALATION SCH ×2 (08:30→21:36)
[2022-12-22 08:36] LABS: HCT 36.8 % (39.0-53.0); Hypochromasia Slight; MCH 31.8 pg (25.0-35.0); MCHC 32.5 g/dL (31.0-37.0); MCV 97.9 fL (80.0-100.0); Mean Platelet Volume 8.3; Platelet Count 375 k/uL (150-450); RBC 3.76 m/uL (4.30-5.90); RDW 13.5 % (11.5-15.5); WBC 12.2 k/uL (3.8-10.6)
[2022-12-22 09:20] LABS: African American GFR (CKD) >90 (>60 ml/min/1.73 sqM); Anion Gap 9 mmol/L; Blood Urea Nitrogen 27 mg/dL (9-20); Calcium 8.4 mg/dL (8.4-10.2); Carbon Dioxide 21 mmol/L (22-30); Chloride 112 mmol/L (98-107); Glucose 161 mg/dL (74-99); Non-African American GFR(CKD) >90 (>60 ml/min/1.73 sqM); Sodium 142 mmol/L (137-145)
[2022-12-22 09:31] LABS: C Reactive Protein 12.6 mg/dL (<1.0); Magnesium 2.2 mg/dL (1.6-2.3); Potassium 4.9 mmol/L (3.5-5.1)
--- NOTE | 2022-12-22 10:04 | FL ---
INDICATION: Patient age:Male; 77 years old; Reason for study: Dysphagia; PHH. COMPARISON: None TECHNIQUE: Utilizing real-time video recording fluoroscopy, multiple images were obtained after admin istration of various consistencies of barium contrast. A speech pathologist was present throughout e exam. Fluoroscopic time: 2 minutes 27 seconds Fluoroscopic images: none saved Total DAP: 181.5 FINDINGS: Consistencies administered: puree, thin, and cracker barium. During the oral phase there is normal f ormation of food bolus with delayed initiation of swallow with all consistencies. Premature spill: All consistencies. Laryngeal penetration: Silent laryngeal penetration with thin consistency. Chin tuck eliminated laryn geal penetration. Piriform Retention:None identified Vallecular retention: With puree and cracker consistencies which subsequently clears with swallows. Nasopharyngeal reflux: None identified. Tracheal aspiration: Single episode of silent tracheal aspiration with thin consistency. IMPRESSION: 1. Single episode of silent tracheal aspiration with thin consistency. Additional silent laryngeal pe netration with thin consistency. This improved with chin tuck maneuver. 2. Delayed initiation of swallow with premature spill with all consistencies. 3. Vallecular retention with puree and cracker consistencies with subsequently cleared with further s wallowing. Please see dedicated speech pathology report for additional information.
[2022-12-22] MEDS: DILTIAZEM CD 120 MG CAP.ER.24H PO SCH (10:13)
[2022-12-22] MEDS: PANTOPRAZOLE 40 MG/10 ML VIAL IVP SCH (10:15)
[2022-12-22] MEDS: ENOXAPARIN 40 MG/0.4 ML SYRINGE SQ SCH (10:15)
[2022-12-22] MEDS: guaiFENesin 600 MG TABLET.ER PO SCH ×2 (12:46→20:58)
[2022-12-22 14:16] LABS: Glucose,Whole Blood 203 mg/dL (70-110)
--- NOTE | 2022-12-22 14:50 | P.PN ---
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 The patient is seeing an oncologist out of [facility]. The patient was treated with immunotherapy and the patient is receiving Keytruda every 4 weeks. The patient has had difficulties with swallowing. For that reason, the patient was given a packed COPD years back and the patient is taken pleasure feeds and supplementing himself with enteral feeding through his PEG tube. Noted the patient has metastatic disease and I believe he was taken immunotherapy through an oncologist out of [facility]. The patient came into the emergency department having increased cough and congestion and worsening shortness of breath. In the emergency department, he was noted to have an SVT with a heart rate in the 200s range. He received cardioversion and his heart rate subsequently improved. Chest x-ray showed lower lobe consolidation and following that the patient was given a CAT scan of the chest and the CAT scan showed patchy confluent opacities in the lower lobes bilaterally right more than left and this was also involving the inferior aspect of the lingular segment in the right middle lobe. As such, the patient was diagnosed having multifocal pneumonia, likely of an aspiration type. At the same time, the patient had multiple subcentimeter pulmonary nodules in the lung apices identified and there was a lesion in the right apex measuring 6.6 mm in size. This was concerning for metastases. The patient currently has a white cell count of 20.7 with a hemoglobin 12.5, the viral screen was negative i ncluding Covid 19. ProBNP level was 470. Troponins were negative. Lactic acid level is being monitored in the highest level was at 3.4, and the patient was started on broad-spectrum antibiotics and the patient is currently on a combination of Zosyn and Zithromax. The patient is also on 4 L of oxygen by nasal cannula with a pulse ox of 96%. He has a congested cough. No altered mentation. Other comorbid conditions include history of COPD, prostate cancer, obstructive sleep apnea and the patient has been nontolerant to CPAP therapy, hyperlipidemia. On today's evaluation of 12/22/2022, the patient remains on a broad-spectrum antibiotics and the patient is currently on accommodation of Zosyn and Zithromax. The patient remains on oxygen at 4 L. No new complaints. Cough is still present although less congested compared to yesterday. No fever or chills. No hypotension. No hemodynamic instability. The patient is currently nothing by mouth and receiving enteral feeding for nutritional support through his PEG tube. 11 is closer 12.2 with a hemoglobin of 12, BUN is 27 with a cre atinine of 0.6 and a sodium level is at 142. Pulse ox is 94% 42 of Oxymizer nasal cannula. Objective - Vital Signs Vital signs: Vital Signs Temp 97.4 F L 12/22/22 09:56 Pulse 92 12/22/22 11:30 Resp 18 12/22/22 09:56 BP 108/61 12/22/22 09:56 Pulse Ox 90 L 12/22/22 09:56 FiO2 Intake & Output 12/21/22 12/22/22 12/22/22 18:59 06:59 18:59 Intake Total 45 Balance 45 Weight 59.421 kg 86.5 kg Intake: Tube Feeding 45 Other: Voiding Method Toilet Toilet # Voids 1 1 - Exam GENERAL: The patient is alert and oriented x3, ill appearance, nasal cannula in place, shortness of breath , and the patient is currently on 4 L of oxygen by nasal cannula Head exam was generally normal. There was no scleral icterus or corneal arcus. Mucous membranes were moist. HEENT: Pupils are round and equally reacting to light. EOMI. the posterior oropharynx shows some anatomic distortion with asymmetry at the level of the uvula. The mucous membranes are essentially dried. CARDIOVASCULAR: S1 and S2 present. No murmurs, rubs, or gallops. PULMONARY: Decreased breath sounds bilaterally, wheezing audible, creatinine the lung bases bilaterally along with some scattered extremities ABDOMEN: Soft, nontender, nondistended, normoactive bowel sounds. No palpable organomegaly. Feeding tube in place MUSCULOSKELETAL: No joint swelling or deformity. EXTREMITIES: No cyanosis, clubbing, or pedal edema. NEUROLOGICAL: Gross neurological examination did not reveal any focal deficits. SKIN: No rashes. - Labs CBC & Chem 7: 12/22/22 07:31 12/22/22 07:31 Labs: Abnormal Lab Results - Last 24 Hours (Table) 12/21/22 12/22/22 12/22/22 Range/Units 15:27 00:05 05:41 WBC (3.8-10.6) k/uL RBC (4.30-5.90) m/uL Hgb (13.0-17.5) gm/dL Hct (39.0-53.0) % Chloride (98-107) mmol/L Carbon Dioxide (22-30) mmol/L BUN (9-20) mg/dL Creatinine (0.66-1.25) mg/dL Glucose (74-99) mg/dL POC Glucose (mg/dL) 185 H 156 H (70-110) mg/dL Plasma Lactic Acid Kwabena 3.4 H* (0.7-2.0) mmol/L C-Reactive Protein (<1.0) mg/dL 12/22/22 12/22/22 Range/Units 07:31 07:31 WBC 12.2 H (3.8-10.6) k/uL RBC 3.76 L (4.30-5.90) m/uL Hgb 12.0 L (13.0-17.5) gm/dL Hct 36.8 L (39.0-53.0) % Chloride 112 H (98-107) mmol/L Carbon Dioxide 21 L (22-30) mmol/L BUN 27 H (9-20) mg/dL Creatinine 0.64 L (0.66-1.25) mg/dL Glucose 161 H (74-99) mg/dL POC Glucose (mg/dL) (70-110) mg/dL Plasma Lactic Acid Kwabena (0.7-2.0) mmol/L C-Reactive Protein 12.6 H (<1.0) mg/dL Assessment and Plan Plan: Acute bilateral lower lobe pneumonia with extensive multifocal pulmonary infiltrates more so in the lung bases bilaterally, consider aspiration, currently stable and clinically somewhat improved compared to yesterday. Acute hypoxic respiratory failure secondary to above currently on 4 L of oxygen by nasal cannula Acute shortness of breath secondary to above Acute COPD exacerbation secondary to above Acute leukocytosis SVT, post and erosive treatment and the patient's current cardiac rhythm is back into sinus History of oropharyngeal cancer, squamous cell type, metastatic and the patient is currently on immunotherapy with Keytruda every 4 weeks, and the patient has likely a metastatic lesion involving the right apex as evidenced on previous PET CTs and current CAT scan of the chest Hypertension History of smoking Chronic dysphasia secondary to above and the patient is receiving enteral feeding for nutritional support, and he also takes pleasure feeds Obstructive sleep apnea, nontolerant to CPAP therapy Prostate cancer treated with brachytherapy Plan Obtain sputum Gram stain and cultures, this is still pending Agree on the current antibiotic coverage included examination of Zosyn and Zithromax Aggressive pulmonary toileting Bronchodilators with DuoNeb updrafts 4 times a day IV Solu-Medrol 60 mg every 6 hours IV fluids with normal saline at rate of 125 mL an hour Repeat chest x-ray tomorrow Clinically improved compared to yesterday We will try to obtain records from oncology regarding his cancer treatment Keep the patient nothing by mouth for now utilize enteral feeding for nutritional support Diabetic also will be obtained Echocardiogram Swallow evaluation was done and the patient had silent tracheal aspiration with thin consistency. Additional silent laryngeal penetration was seen within consistency and this improved with some chin tuck maneuver. We'll continue to follow
--- NOTE | 2022-12-22 14:55 | P.PN ---
Subjective Progress Note Date: 12/22/22 Principal diagnosis: Pneumonia Patient is a 77-year-old male with a past medical his significant for hypertension hyperlipidemia COPD prostate cancer sleep apnea patient has been brought into the ER for evaluation of respiratory distress patient complaining of increasing shortness of breath and chest pain, patient also have a cough elevated white count CT of the chest confluent opacity bilateral lower lobe right greater than the left concerning for pneumonia. On today's evaluation that is12/22/2022, the patient denies any fever or any chills, the patient is breathing comfortably on 4 L nasal cannula supplemental oxygen, the patient denies any chest pain or worsening cough and not bring up any sputum, patient denies any nausea/vomiting or diarrhea and no abdominal pain. Patient white count is down to 12.2 creatinine 0.64, CRP is 12.6, procalcitonin is pending Objective - Vital Signs Vital signs: Vital Signs Temp 97.4 F L 12/22/22 09:56 Pulse 92 12/22/22 11:30 Resp 18 12/22/22 09:56 BP 108/61 12/22/22 09:56 Pulse Ox 90 L 12/22/22 09:56 FiO2 Intake & Output 12/21/22 12/22/22 12/22/22 18:59 06:59 18:59 Intake Total 45 Balance 45 Weight 59.421 kg 86.5 kg Intake: Tube Feeding 45 Other: Voiding Method Toilet Toilet # Voids 1 1 - Exam GENERAL DESCRIPTION: An elderly male lying in bed in no distress RESPIRATORY SYSTEM: Unlabored breathing , coarse breath sounds bilaterally HEART: S1 S2 regular rate and rhythm , ABDOMEN: Soft , no tenderness EXTREMITIES: No edema feet - Labs CBC & Chem 7: 12/22/22 07:31 12/22/22 07:31 Labs: Abnormal Lab Results - Last 24 Hours (Table) 12/21/22 12/22/22 12/22/22 Range/Units 15:27 00:05 05:41 WBC (3.8-10.6) k/uL RBC (4.30-5.90) m/uL Hgb (13.0-17.5) gm/dL Hct (39.0-53.0) % Chloride (98-107) mmol/L Carbon Dioxide (22-30) mmol/L BUN (9-20) mg/dL Creatinine (0.66-1.25) mg/dL Glucose (74-99) mg/dL POC Glucose (mg/dL) 185 H 156 H (70-110) mg/dL Plasma Lactic Acid Kwabena 3.4 H* (0.7-2.0) mmol/L C-Reactive Protein (<1.0) mg/dL 12/22/22 12/22/22 Range/Units 07:31 07:31 WBC 12.2 H (3.8-10.6) k/uL RBC 3.76 L (4.30-5.90) m/uL Hgb 12.0 L (13.0-17.5) gm/dL Hct 36.8 L (39.0-53.0) % Chloride 112 H (98-107) mmol/L Carbon Dioxide 21 L (22-30) mmol/L BUN 27 H (9-20) mg/dL Creatinine 0.64 L (0.66-1.25) mg/dL Glucose 161 H (74-99) mg/dL POC Glucose (mg/dL) (70-110) mg/dL Plasma Lactic Acid Kwabena (0.7-2.0) mmol/L C-Reactive Protein 12.6 H (<1.0) mg/dL Assessment and Plan (1) Pneumonia Current Visit: Yes Status: Acute Code(s): J18.9 - PNEUMONIA, UNSPECIFIED ORGANISM SNOMED Code(s): 224815953 (2) Leukocytosis Current Visit: Yes Status: Acute Code(s): D72.829 - ELEVATED WHITE BLOOD CELL COUNT, UNSPECIFIED SNOMED Code(s): 748530087 Plan: 1patient presented to hospital with sepsis in this patient who did have a elevated white count elevated lactic acid source likely pneumonia with a question of gram-negative keeping in mind patient complicated history and previous hospitalization 2-nursing staff advised to obtain a sputum for Gram stain and culture 3-CRP elevated procalcitonin pending 4-patient to continue with the Zosyn 3.37 mg every 8 hours while waiting for the culture to finalize Dictation was produced using [employer] software. please excuse any grammatical, word or spelling errors. Time with Patient: Less than 30
--- NOTE | 2022-12-22 15:29 | P.PN ---
Subjective Progress Note Date: 12/22/22 * 77-year-old gentleman with past medical history significant for COPD, prostate cancer, obstructive sleep apnea, hyperlipidemia, history of oropharyngeal cancer status peg tube and treatment with keytrudar, hypertension, presents with emergency department with complains of shortness of breath. Patient had symptom onset and 2 days prior to admission with sudden onset of difficulty breathing and chest pain. At the time of evaluation in ER patient was noted to have supraventricular tachycardia with heart rate in 200s. Patient was given and nursing cardioversion after which heart rate improved * Workup initiated in ER included CBC which showed significant leukocytosis abuse he count of 20.7, lactate of 2.1 serum chemistry showed sodium of 139 potassium 4.3B UN 30 creatinine 0.68, initial troponin obtained 0.019 * Patient was noted to have elevated d-dimer and a CT chest was obtained which was negative for pulmonary embolism however did show multifocal pneumonia * EKG obtained showed sinus a Cardia with heart rate of 100, no significant ST segment elevation noted * Patient was given 2 L of fluid bolus, breathing treatment, Rocephin and azithromycin for hyperkalemia and admitted for further management with consultation from cardiology and pulmonary medicine 12/22. Patient seen and examined. Labs from today showed the pupils equal 0.2, hemoglobin 12, sodium 142, potassium 4.9, BUN 27 creatinine 0.64 currently on 4 L of oxygen REVIEW OF SYSTEMS: CONSTITUTIONAL: No fever, no malaise,. CARDIOVASCULAR: No chest pain PULMONARY: Shortness of breath on exertion is present GASTROINTESTINAL: No diarrhea, no nausea, no vomiting, no abdominal pain. NEUROLOGICAL: No headaches, no weakness, PHYSICAL EXAMINATION: GENERAL: The patient is alert and oriented x3, not in any acute distress. Currently ill looking HEENT: Pupils are round and equally reacting to light. EOMI. No scleral icterus. No conjunctival pallor. Normocephalic, atraumatic. No pharyngeal erythema. No thyromegaly. CARDIOVASCULAR: S1 and S2 present. No murmurs, rubs, or gallops. PULMONARY: Chest is clear to auscultation, no wheezing or crackles. ABDOMEN: Soft, nontender, nondistended, normoactive bowel sounds. No palpable organomegaly. MUSCULOSKELETAL: No joint swelling or deformity. EXTREMITIES: No cyanosis, clubbing, or pedal edema. NEUROLOGICAL: Gross neurological examination did not reveal any focal deficits. SKIN: No rashes. Assessment and plan Sepsis secondary to multifocal pneumonia Acute hypoxic respiratory failure secondary to multifocal pneumonia Acute exacerbation of COPD Supraventricular tachycardia status post adenosine History of oropharyngeal cancer with dysphagia status post PEG tube Electrolyte abnormality hyperkalemia treated * In regards to sepsis, multifocal pneumonia blood cultures ordered, urine Legionella , continue IV Zosyn and azithromycin, ID following * In regards to COPD exacerbation/respiratory failure continue breathing treatments, continue IV Solu-Medrol, Mucinex initiated continue with oxygen supplementation, CT angina chest negative for pulmonary embolism multifocal infiltrates noted, but pulmonology following * In regards to supraventricular tachycardia, given adenosine, cardiology consulted serial troponins ordered negative * In regards to oropharyngeal cancer maintain aspiration precautions, speech therapy consulted * In regards to electrolyte abnormality with hyperkalemia patient given lokelma Labs and medication were reviewed.. Continue same treatment. Continue with symptomatic treatment. Resume home medication. Monitor labs and vitals. DVT and GI prophylaxis. Further recommendations as per clinical course of the patient Dictation was produced using [employer] dictation software. please excuse any grammatical, word or spelling errors. Objective - Vital Signs Vital signs: Vital Signs Temp 97.4 F L 12/22/22 09:56 Pulse 92 12/22/22 11:30 Resp 18 12/22/22 09:56 BP 108/61 12/22/22 09:56 Pulse Ox 90 L 12/22/22 09:56 FiO2 Intake & Output 12/21/22 12/22/22 12/22/22 18:59 06:59 18:59 Intake Total 45 Balance 45 Weight 59.421 kg 86.5 kg Intake: Tube Feeding 45 Other: Voiding Method Toilet Toilet # Voids 1 1 - Labs CBC & Chem 7: 12/22/22 07:31 12/22/22 07:31 Labs: Abnormal Lab Results - Last 24 Hours (Table) 12/21/22 12/22/22 12/22/22 Range/Units 15:27 00:05 05:41 WBC (3.8-10.6) k/uL RBC (4.30-5.90) m/uL Hgb (13.0-17.5) gm/dL Hct (39.0-53.0) % Chloride (98-107) mmol/L Carbon Dioxide (22-30) mmol/L BUN (9-20) mg/dL Creatinine (0.66-1.25) mg/dL Glucose (74-99) mg/dL POC Glucose (mg/dL) 185 H 156 H (70-110) mg/dL Plasma Lactic Acid Kwabena 3.4 H* (0.7-2.0) mmol/L C-Reactive Protein (<1.0) mg/dL 12/22/22 12/22/22 Range/Units 07:31 07:31 WBC 12.2 H (3.8-10.6) k/uL RBC 3.76 L (4.30-5.90) m/uL Hgb 12.0 L (13.0-17.5) gm/dL Hct 36.8 L (39.0-53.0) % Chloride 112 H (98-107) mmol/L Carbon Dioxide 21 L (22-30) mmol/L BUN 27 H (9-20) mg/dL Creatinine 0.64 L (0.66-1.25) mg/dL Glucose 161 H (74-99) mg/dL POC Glucose (mg/dL) (70-110) mg/dL Plasma Lactic Acid Kwabena (0.7-2.0) mmol/L C-Reactive Protein 12.6 H (<1.0) mg/dL
--- NOTE | 2022-12-22 15:32 | P.PN ---
Subjective Progress Note Date: 12/22/22 HISTORY OF PRESENTING ILLNESS This is a pleasant 77-year-old with past medical history significant for COPD, prior tobacco abuse, squamous cell cancer head and neck s/p PEG tube placement. He normally follows in [facility]. He presented secondary to cough and increased SOB. He had a CXray and CT which showed lower lobe consolidation possibly related to aspiration. There were multiple nodules concerning for mets. ProBNP 470, troponin was normal. Cardiology was consulted for SVT. Apparently when EMS arrived he had a HR in the 200's and was given adenosine with improvement in HR's to low 100's. Patient states he has never had SVT before. No history of Afib or Aflutter. He did have some associated chest discomfort however this has improved. WBC 20, hgb 12.5, Ddimer 6.5, cr 0.6, troponin 0.019, 0.024. EKG siinus rhythm normal axis, no significant ST or T wave abnormalities. 12/22 Patient is seen in follow-up. Patient had episode of SVT this morning. Patient will be started on Cardizem CD. Echocardiogram is pending PHYSICAL EXAMINATION Vital signs reviewed. CONSTITUTIONAL: No apparent distress. HEENT: Head is normocephalic. Pupils are equal, round. Sclerae anicteric. Mucous membranes of the mouth are moist. No JVD. No carotid bruit. CHEST EXAMINATION: Lungs are clear to auscultation. No chest wall tenderness is noted on palpation or with deep breathing. HEART EXAMINATION: Regular rate and rhythm. S1, S2 heard. No murmurs, gallops or rub. ABDOMEN: Soft, nontender. Positive bowel sounds. EXTREMITIES: 2+ peripheral pulses, no lower extremity edema and no calf tend erness. NEUROLOGIC EXAMINATION: Patient is awake, alert and oriented x3. ASSESSMENT 1. SVT, s/p adenosine with return of sinus rhythm 2. Acute on chronic respiratory failure, mainly related to aspiration 3. Suspected aspiration pneumonia 4. History of squamous cell cancer 5. Sinus tachycardia PLAN Continue Cardizem and monitor response. If echocardiogram is unremarkable, patient is cleared for discharge from cardiology. Nurse practitioner note has been reviewed, I agree with the documented findings and plan of care. Patient was seen and examined. Objective - Vital Signs Vital signs: Vital Signs Temp 97.4 F L 12/22/22 09:56 Pulse 92 12/22/22 11:30 Resp 18 12/22/22 09:56 BP 108/61 12/22/22 09:56 Pulse Ox 90 L 12/22/22 09:56 FiO2 Intake & Output 12/21/22 12/22/22 12/22/22 18:59 06:59 18:59 Weight 59.421 kg 86.5 kg Other: Voiding Method Toilet Toilet # Voids 1 1 - Labs CBC & Chem 7: 12/22/22 07:31 12/22/22 07:31 Labs: Abnormal Lab Results - Last 24 Hours (Table) 12/21/22 12/21/22 12/22/22 Range/Units 11:29 15:27 00:05 WBC (3.8-10.6) k/uL RBC (4.30-5.90) m/uL Hgb (13.0-17.5) gm/dL Hct (39.0-53.0) % Chloride (98-107) mmol/L Carbon Dioxide (22-30) mmol/L BUN (9-20) mg/dL Creatinine (0.66-1.25) mg/dL Glucose (74-99) mg/dL POC Glucose (mg/dL) 185 H (70-110) mg/dL Plasma Lactic Acid Kwabena 2.8 H* 3.4 H* (0.7-2.0) mmol/L C-Reactive Protein (<1.0) mg/dL 12/22/22 12/22/22 12/22/22 Range/Units 05:41 07:31 07:31 WBC 12.2 H (3.8-10.6) k/uL RBC 3.76 L (4.30-5.90) m/uL Hgb 12.0 L (13.0-17.5) gm/dL Hct 36.8 L (39.0-53.0) % Chloride 112 H (98-107) mmol/L Carbon Dioxide 21 L (22-30) mmol/L BUN 27 H (9-20) mg/dL Creatinine 0.64 L (0.66-1.25) mg/dL Glucose 161 H (74-99) mg/dL POC Glucose (mg/dL) 156 H (70-110) mg/dL Plasma Lactic Acid Kwabena (0.7-2.0) mmol/L C-Reactive Protein 12.6 H (<1.0) mg/dL
--- NOTE | 2022-12-22 16:38 | CA ---
Transthoracic Echo Report Name: Jerrod Glass Age: 77 Gender: M : 1945 Exam Date: 12/22/2022 08:06 Exam Location: [facility] Ht (in): 68 Wt (lb): 131 Ordering Physician: Joaquin Qiu DO ([id number]) Attending/Referring Phys: Supervisor Treating And Pumping Juan Manuel Plunkett Procedure CPT: Indications: re: LV function, SVT Cardiac Hx: Technical Quality: Technically difficult study Contrast 1: Total Dose (mL): Contrast 2: Total Dose (mL): MEASUREMENTS (Male / Female) Normal Values 2D ECHO LV Diastolic Diameter PLAX 4.6 cm 4.2 - 5.9 / 3.9 - 5.3 cm LV Systolic Diameter PLAX 3.0 cm IVS Diastolic Thickness 1.2 cm 0.6 - 1.0 / 0.6 - 0.9 cm LVPW Diastolic Thickness 0.9 cm 0.6 - 1.0 / 0.6 - 0.9 cm LV Relative Wall Thickness 0.5 RV Internal Dim ED PLAX 2.6 cm LVOT Diameter 2.0 cm Aortic Root Diameter 3.2 cm LA Systolic Diameter LX 2.3 cm 3.0 - 4.0 / 2.7 - 3.8 cm LV Diastolic Volume MOD 4C 78.8 cm??? LV Systolic Volume MOD 4C 41.4 cm??? LV Ejection Fraction MOD 4C 47.4 % LV Cardiac Index MOD 4C 1399.9 cm???/min???m??? LV Diastolic Length 4C 7.2 cm LV Systolic Length 4C 6.6 cm DOPPLER AV Peak Velocity 104.0 cm/s AV Peak Gradient 4.3 mmHg LVOT Peak Velocity 64.6 cm/s LVOT Peak Gradient 1.7 mmHg LVOT Velocity Time Integral 15.1 cm LVOT Stroke Volume 47.7 cm??? LVOT Stroke Volume Index 28.0 ml/m??? LVOT Cardiac Index 1787.9 cm???/min???m??? AV Area Cont Eq pk 2.0 cm??? MV Peak Velocity 48.6 cm/s MV Peak Gradient 0.9 mmHg MV Mean Velocity 26.9 cm/s MV Mean Gradient 0.3 mmHg MV Velocity Time Integral 19.0 cm Mitral E Point Velocity 44.9 cm/s Mitral A Point Velocity 50.5 cm/s Mitral E to A Ratio 0.9 MV Deceleration Time 311.2 ms TR Peak Velocity 92.4 cm/s TR Peak Gradient 3.4 mmHg Right Ventricular Systolic Press 8.5 mmHg FINDINGS Left Ventricle Normal LV size and wall thickness. Left ventricular ejection fraction is estimated at 45-50%. Mildly reduced LV systolic function. Right Ventricle Normal right ventricular size. Right Atrium Mild right atrial dilatation. RA area= 18.2cm2 Left Atrium Mild left atrial dilatation. Mitral Valve Structurally normal mitral valve. Aortic Valve Aortic valve not well visualized. Trileaflet aortic valve. Mild AV calcification. Tricuspid Valve Tricuspid valve not well visualized. Trace TR. Pulmonic Valve Pulmonic valve not well visualized. No pulmonic regurgitation. Pericardium Normal pericardium. Aorta Normal size aortic root. CONCLUSIONS Technically difficult with limited views off axis..Technically difficult study. Left ventricular ejection fraction is estimated at 45-50%. Mildly reduced LV systolic function. No significant valvular disease No pericardial effusion Previewed by: Dr Hoang Hamilton (Electronically Signed) Final Date: 22 December 2022 16:37
[2022-12-22 18:04] LABS: Glucose,Whole Blood 262 mg/dL (70-110)
[2022-12-22] MEDS ORDERED: DEXTROSE 50% SYRINGE 50 ML IVP PRN ×2 (19:32)
[2022-12-22] MEDS: INSULIN ASPART (NovoLOG) 100 UNIT/ML VIAL SQ SCH (21:00)
[2022-12-22] MEDS: AZITHROMYCIN 500 MG in SODIUM CHLORIDE 0.9% 250 ML IVPB SCH (22:09)
[2022-12-23 00:07] LABS: Glucose,Whole Blood 319 mg/dL (70-110)
[2022-12-23] MEDS: MORPHINE SULFATE 4 MG/ML SYRINGE IV PRN ×2 (00:11→21:05)
[2022-12-23] MEDS: NYSTATIN 100,000 UNIT/ML SUSP 500,000 UNIT/5 ML CUP PO SCH ×4 (00:55→21:03)
[2022-12-23] MEDS: PIPERACILLIN-TAZOBACTAM 3.375 GM in SODIUM CHLORIDE 0.9% 100 ML IVPB SCH ×3 (02:48→17:20)
[2022-12-23] MEDS: SODIUM CHLORIDE 0.9% 1,000 ML IV SCH (05:53)
[2022-12-23 05:56] LABS: Glucose,Whole Blood 271 mg/dL (70-110)
[2022-12-23] MEDS: INSULIN ASPART (NovoLOG) 100 UNIT/ML VIAL SQ SCH ×4 (06:35→21:04)
[2022-12-23] MEDS: methylPREDNISolone SOD SUCCI 125 MG/2 ML VIAL IV SCH ×3 (06:36→17:20)
[2022-12-23] MEDS: PANTOPRAZOLE 40 MG/10 ML VIAL IVP SCH (08:08)
[2022-12-23] MEDS: DILTIAZEM CD 120 MG CAP.ER.24H PO SCH (08:08)
[2022-12-23] MEDS: ENOXAPARIN 40 MG/0.4 ML SYRINGE SQ SCH (08:08)
[2022-12-23] MEDS: guaiFENesin 600 MG TABLET.ER PO SCH ×2 (08:08→21:04)
[2022-12-23] MEDS: IPRATROPIUM-ALBUTEROL 3 ML NEB INHALATION SCH ×4 (08:30→21:10)
[2022-12-23] MEDS: BUDESONIDE 0.5 MG/2 ML NEBU INHALATION SCH ×2 (08:30→21:09)
--- NOTE | 2022-12-23 11:42 | P.PN ---
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 The patient is seeing an oncologist out [facility]. The patient was treated with immunotherapy and the patient is receiving Keytruda every 4 weeks. The patient has had difficulties with swallowing. For that reason, the patient was given a packed COPD years back and the patient is taken pleasure feeds and supplementing himself with enteral feeding through his PEG tube. Noted the patient has metastatic disease and I believe he was taken immunotherapy through an oncologist out of [facility]. The patient came into the emergency department having increased cough and congestion and worsening shortness of breath. In the emergency department, he was noted to have an SVT with a heart rate in the 200s range. He received cardioversion and his heart rate subsequently improved. Chest x-ray showed lower lobe consolidation and following that the patient was given a CAT scan of the chest and the CAT scan showed patchy confluent opacities in the lower lobes bilaterally right more than left and this was also involving the inferior aspect of the lingular segment in the right middle lobe. As such, the patient was diagnosed having multifocal pneumonia, likely of an aspiration type. At the same time, the patient had multiple subcentimeter pulmonary nodules in the lung apices identified and there was a lesion in the right apex measuring 6.6 mm in size. This was concerning for metastases. The patient currently has a white cell count of 20.7 with a hemoglobin 12.5, the viral screen was negative i ncluding Covid 19. ProBNP level was 470. Troponins were negative. Lactic acid level is being monitored in the highest level was at 3.4, and the patient was started on broad-spectrum antibiotics and the patient is currently on a combination of Zosyn and Zithromax. The patient is also on 4 L of oxygen by nasal cannula with a pulse ox of 96%. He has a congested cough. No altered mentation. Other comorbid conditions include history of COPD, prostate cancer, obstructive sleep apnea and the patient has been nontolerant to CPAP therapy, hyperlipidemia. On today's evaluation of 12/22/2022, the patient remains on a broad-spectrum antibiotics and the patient is currently on accommodation of Zosyn and Zithromax. The patient remains on oxygen at 4 L. No new complaints. Cough is still present although less congested compared to yesterday. No fever or chills. No hypotension. No hemodynamic instability. The patient is currently nothing by mouth and receiving enteral feeding for nutritional support through his PEG tube. 11 is closer 12.2 with a hemoglobin of 12, BUN is 27 with a cre atinine of 0.6 and a sodium level is at 142. Pulse ox is 94% 42 of Oxymizer nasal cannula. On today's evaluation of 12/23/2022, the patient is doing better. No significant mucus production. Shortness of breath is improving. No leukocytosis. He remains on Zithromax and Zosyn. A repeat chest x-ray was done today and shows improvement in the lower lobe pulmonary consolidation. The patient remains nothing by mouth. The patient remains on enteral feeding for nutritional support. No new labs are available from today. He remains on oxygen and is currently on 2 L of O2 nasal cannula. Objective - Vital Signs Vital signs: Vital Signs Temp 97.5 F L 12/23/22 08:06 Pulse 85 12/23/22 08:48 Resp 18 12/23/22 08:07 BP 116/61 12/23/22 08:06 Pulse Ox 93 L 12/23/22 08:06 FiO2 Intake & Output 12/22/22 12/23/22 12/23/22 18:59 06:59 18:59 Intake Total 145 260 168 Balance 145 260 168 Weight 62.188 kg 65.9 kg Intake: IV 10 20 10 Invasive Line 3 10 20 10 Oral 118 Tube Feeding 135 240 40 Other: Voiding Method Toilet Toilet # Voids 1 # Bowel Movements 1 - Exam GENERAL: The patient is alert and oriented x3, ill appearance, nasal cannula in place, shortness of breath , and the patient is currently on 4 L of oxygen by nasal cannula Head exam was generally normal. There was no scleral icterus or corneal arcus. Mucous membranes were moist. HEENT: Pupils are round and equally reacting to light. EOMI. the posterior oropharynx shows some anatomic distortion with asymmetry at the level of the uvula. The mucous membranes are essentially dried. CARDIOVASCULAR: S1 and S2 present. No murmurs, rubs, or gallops. PULMONARY: Decreased breath sounds bilaterally, wheezing audible, creatinine the lung bases bilaterally along with some scattered extremities ABDOMEN: Soft, nontender, nondistended, normoactive bowel sounds. No palpable organomegaly. Feeding tube in place MUSCULOSKELETAL: No joint swelling or deformity. EXTREMITIES: No cyanosis, clubbing, or pedal edema. NEUROLOGICAL: Gross neurological examination did not reveal any focal deficits. SKIN: No rashes. - Labs CBC & Chem 7: 12/22/22 07:31 12/22/22 07:31 Labs: Abnormal Lab Results - Last 24 Hours (Table) 12/22/22 12/22/22 12/22/22 Range/Units 14:15 18:02 23:54 POC Glucose (mg/dL) 203 H 262 H 319 H (70-110) mg/dL 12/23/22 Range/Units 05:55 POC Glucose (mg/dL) 271 H (70-110) mg/dL Microbiology - Last 24 Hours (Table) 12/21/22 11:14 Blood Culture - Preliminary Blood 12/21/22 10:59 Blood Culture - Preliminary Blood Assessment and Plan Plan: Acute bilateral lower lobe pneumonia with extensive multifocal pulmonary infiltrates more so in the lung bases bilaterally, consider aspiration, currently stable and clinically somewhat improved compared to yesterday. Clinically improving and the chest x-ray shows improvement in lower lobe consolidation. Acute hypoxic respiratory failure secondary to above currently on 2 L of oxygen by nasal cannula. Acute shortness of breath secondary to above Acute COPD exacerbation secondary to above Acute leukocytosis SVT, post and erosive treatment and the patient's current cardiac rhythm is back into sinus History of oropharyngeal cancer, squamous cell type, metastatic and the patient is currently on immunotherapy with Keytruda every 4 weeks, and the patient has likely a metastatic lesion involving the right apex as evidenced on previous PET CTs and current CAT scan of the chest Hypertension History of smoking Chronic dysphasia secondary to above and the patient is receiving enteral feeding for nutritional support, and he also takes pleasure feeds Obstructive sleep apnea, nontolerant to CPAP therapy Prostate cancer treated with brachytherapy Plan Clinically improving Chest x-rays improving On interview a sputum sample as the cough is dry Agree on the current antibiotic coverage included examination of Zosyn and Zithromax Aggressive pulmonary toileting Bronchodilators with DuoNeb updrafts 4 times a day IV Solu-Medrol 60 mg every 6 hoursFor another 24 hours IV fluidsKVO Repeat another chest x-ray tomorrow Clinically improved compared to yesterday Keep the patient nothing by mouth for now utilize enteral feeding for nutritional support Diabetic also will be obtained Echocardiogram Noted and the patient has systolic heart failure with ejection fraction 45-50% Swallow evaluation was done and the patient had silent tracheal aspiration with thin consistency. Additional silent laryngeal penetration was seen within consistency and this improved with some chin tuck maneuver. We'll continue to follow
[2022-12-23 11:53] LABS: Glucose,Whole Blood 227 mg/dL (70-110)
--- NOTE | 2022-12-23 11:56 | P.PN ---
Subjective Progress Note Date: 12/23/22 HISTORY OF PRESENTING ILLNESS This is a pleasant 77-year-old with past medical history significant for COPD, prior tobacco abuse, squamous cell cancer head and neck s/p PEG tube placement. He normally follows in [facility]. He presented secondary to cough and increased SOB. He had a CXray and CT which showed lower lobe consolidation possibly related to aspiration. There were multiple nodules concerning for mets. ProBNP 470, troponin was normal. Cardiology was consulted for SVT. Apparently when EMS arrived he had a HR in the 200's and was given adenosine with improvement in HR's to low 100's. Patient states he has never had SVT before. No history of Afib or Aflutter. He did have some associated chest discomfort however this has improved. WBC 20, hgb 12.5, Ddimer 6.5, cr 0.6, troponin 0.019, 0.024. EKG siinus rhythm normal axis, no significant ST or T wave abnormalities. 12/22 Patient is seen in follow-up. Patient had episode of SVT this morning. Patient will be started on Cardizem CD. Echocardiogram is pending. 12/23 Patient denies any new concerns today. Heart rate has been controlled in the 70s and 80s, blood pressure 116/61, pulse ox 93% on 2 L nasal cannula. Ec hocardiogram reveals EF of 45-50%. PHYSICAL EXAMINATION Vital signs reviewed. CONSTITUTIONAL: No apparent distress. HEENT: Head is normocephalic. Pupils are equal, round. Sclerae anicteric. Mucous membranes of the mouth are moist. No JVD. No carotid bruit. CHEST EXAMINATION: Lungs are clear to auscultation. No chest wall tenderness is noted on palpation or with deep breathing. HEART EXAMINATION: Regular rate and rhythm. S1, S2 heard. No murmurs, gallops or rub. ABDOMEN: Soft, nontender. Positive bowel sounds. EXTREMITIES: 2+ peripheral pulses, no lower extremity edema and no calf tenderness. NEUROLOGIC EXAMINATION: Patient is awake, alert and oriented x3. ASSESSMENT 1. SVT, s/p adenosine with return of sinus rhythm 2. Acute on chronic respiratory failure, mainly related to aspiration 3. Suspected aspiration pneumonia 4. History of squamous cell cancer 5. Sinus tachycardia PLAN Continue Cardizem Patient is cleared for discharge from cardiology and may follow up in the office in one to 2 weeks. Nurse practitioner note has been reviewed, I agree with the documented findings and plan of care. Patient was seen and examined. Objective - Vital Signs Vital signs: Vital Signs Temp 97.5 F L 12/23/22 08:06 Pulse 86 12/23/22 11:47 Resp 18 12/23/22 08:07 BP 116/61 12/23/22 08:06 Pulse Ox 93 L 12/23/22 08:06 FiO2 Intake & Output 12/22/22 12/23/22 12/23/22 18:59 06:59 18:59 Intake Total 145 260 168 Balance 145 260 168 Weight 62.188 kg 65.9 kg Intake: IV 10 20 10 Invasive Line 3 10 20 10 Oral 118 Tube Feeding 135 240 40 Other: Voiding Method Toilet Toilet # Voids 1 # Bowel Movements 1 - Labs CBC & Chem 7: 12/22/22 07:31 12/22/22 07:31 Labs: Abnormal Lab Results - Last 24 Hours (Table) 12/22/22 12/22/22 12/22/22 Range/Units 14:15 18:02 23:54 POC Glucose (mg/dL) 203 H 262 H 319 H (70-110) mg/dL 12/23/22 12/23/22 Range/Units 05:55 11:45 POC Glucose (mg/dL) 271 H 227 H (70-110) mg/dL Microbiology - Last 24 Hours (Table) 12/21/22 11:14 Blood Culture - Preliminary Blood 12/21/22 10:59 Blood Culture - Preliminary Blood
--- NOTE | 2022-12-23 13:23 | P.PN ---
Subjective Progress Note Date: 12/23/22 Principal diagnosis: Pneumonia Patient is a 77-year-old male with a past medical his significant for hypertension hyperlipidemia COPD prostate cancer sleep apnea patient has been brought into the ER for evaluation of respiratory distress patient complaining of increasing shortness of breath and chest pain, patient also have a cough elevated white count CT of the chest confluent opacity bilateral lower lobe right greater than the left concerning for pneumonia. On today's evaluation that is 12/23/2022, the patient remains to be afebrile, the patient is breathing comfortably on 2 L nasal cannula oxygen and denies any shortness of breath, the patient denies any chest pain patient cough is decreased intensity and less productive, patient denies Abdominal pain and no nausea/vomiting or diarrhea Patient white count is down to 12.2 creatinine 0.64 as of yesterday no laboratory, CRP is 12.6, Objective - Vital Signs Vital signs: Vital Signs Temp 97.5 F L 12/23/22 08:06 Pulse 77 12/23/22 12:00 Resp 18 12/23/22 12:00 BP 135/71 12/23/22 12:00 Pulse Ox 94 L 12/23/22 12:00 FiO2 Intake & Output 12/22/22 12/23/22 12/23/22 18:59 06:59 18:59 Intake Total 145 260 528 Balance 145 260 528 Weight 62.188 kg 65.9 kg Intake: IV 10 20 10 Invasive Line 3 10 20 10 Oral 478 Tube Feeding 135 240 40 Other: Voiding Method Toilet Toilet # Voids 1 # Bowel Movements 1 - Exam GENERAL DESCRIPTION: An elderly male lying in bed in no distress RESPIRATORY SYSTEM: Unlabored breathing , coarse breath sounds bilaterally HEART: S1 S2 regular rate and rhythm , ABDOMEN: Soft , no tenderness EXTREMITIES: No edema feet - Labs CBC & Chem 7: 12/22/22 07:31 12/22/22 07:31 Labs: Abnormal Lab Results - Last 24 Hours (Table) 12/22/22 12/22/22 12/22/22 Range/Units 14:15 18:02 23:54 POC Glucose (mg/dL) 203 H 262 H 319 H (70-110) mg/dL 12/23/22 12/23/22 Range/Units 05:55 11:45 POC Glucose (mg/dL) 271 H 227 H (70-110) mg/dL Microbiology - Last 24 Hours (Table) 12/21/22 11:14 Blood Culture - Preliminary Blood 12/21/22 10:59 Blood Culture - Preliminary Blood Assessment and Plan (1) Pneumonia Current Visit: Yes Status: Acute Code(s): J18.9 - PNEUMONIA, UNSPECIFIED ORGANISM SNOMED Code(s): 331285162 (2) Leukocytosis Current Visit: Yes Status: Acute Code(s): D72.829 - ELEVATED WHITE BLOOD CELL COUNT, UNSPECIFIED SNOMED Code(s): 620017327 Plan: 1patient presented to hospital with sepsis in this patient who did have a elevated white count elevated lactic acid source likely pneumonia with a question of gram-negative keeping in mind patient complicated history and previous hospitalization 2-nursing staff advised to obtain a sputum for Gram stain and culture 3-CRP elevated procalcitonin pending 4-patient has shown clinical improvement and will continue with the Zosyn 3.37 mg every 8 hours and monitor clinical course closely Family the bedside multiple questions and concerns were answered in Layman terms Dictation was produced using [employer] dictation software. please excuse any grammatical, word or spelling errors. Time with Patient: Less than 30
--- NOTE | 2022-12-23 14:02 | P.PN ---
Subjective Progress Note Date: 12/23/22 * 77-year-old gentleman with past medical history significant for COPD, prostate cancer, obstructive sleep apnea, hyperlipidemia, history of oropharyngeal cancer status peg tube and treatment with keytrudar, hypertension, presents with emergency department with complains of shortness of breath. Patient had symptom onset and 2 days prior to admission with sudden onset of difficulty breathing and chest pain. At the time of evaluation in ER patient was noted to have supraventricular tachycardia with heart rate in 200s. Patient was given and nursing cardioversion after which heart rate improved * Workup initiated in ER included CBC which showed significant leukocytosis abuse he count of 20.7, lactate of 2.1 serum chemistry showed sodium of 139 potassium 4.3B UN 30 creatinine 0.68, initial troponin obtained 0.019 * Patient was noted to have elevated d-dimer and a CT chest was obtained which was negative for pulmonary embolism however did show multifocal pneumonia * EKG obtained showed sinus a Cardia with heart rate of 100, no significant ST segment elevation noted * Patient was given 2 L of fluid bolus, breathing treatment, Rocephin and azithromycin for hyperkalemia and admitted for further management with consultation from cardiology and pulmonary medicine 12/22. Patient seen and examined. Labs from today showed hemoglobin 12, sodium 142, potassium 4.9, BUN 27 creatinine 0.64 currently on 4 L of oxygen 12/23. Patient seen and examined. States he feels much better, sitting upright in the bed. Repeat chest x-ray done today showed improvement in lower lobe consolidation REVIEW OF SYSTEMS: CONSTITUTIONAL: No fever, no malaise,. CARDIOVASCULAR: No chest pain PULMONARY: Shortness of breath on exertion is present GASTROINTESTINAL: No diarrhea, no nausea, no vomiting, no abdominal pain. NEUROLOGICAL: No headaches, no weakness, PHYSICAL EXAMINATION: GENERAL: The patient is alert and oriented x3, not in any acute distress. Currently ill looking HEENT: Pupils are round and equally reacting to light. EOMI. No scleral icterus. No conjunctival pallor. Normocephalic, atraumatic. No pharyngeal erythema. No thyromegaly. CARDIOVASCULAR: S1 and S2 present. No murmurs, rubs, or gallops. PULMONARY: Chest is clear to auscultation, no wheezing or crackles. ABDOMEN: Soft, nontender, nondistended, normoactive bowel sounds. No palpable organomegaly. MUSCULOSKELETAL: No joint swelling or deformity. EXTREMITIES: No cyanosis, clubbing, or pedal edema. NEUROLOGICAL: Gross neurological examination did not reveal any focal deficits. SKIN: No rashes. Assessment and plan Sepsis secondary to multifocal pneumonia Acute hypoxic respiratory failure secondary to multifocal pneumonia Acute exacerbation of COPD Supraventricular tachycardia status post adenosine History of oropharyngeal cancer with dysphagia status post PEG tube Electrolyte abnormality hyperkalemia treated * In regards to sepsis, multifocal pneumonia blood cultures ordered, urine Legionella , continue IV Zosyn and azithromycin, ID following * In regards to COPD exacerbation/respiratory failure continue breathing treatments, continue IV Solu-Medrol, Mucinex initiated continue with oxygen supplementation, CT angina chest negative for pulmonary embolism multifocal infiltrates noted, but pulmonology following * In regards to supraventricular tachycardia, continue Cardizem, cardiology signed off * In regards to oropharyngeal cancer maintain aspiration precautions, speech therapy consulted * In regards to electrolyte abnormality with hyperkalemia patient given lokelma Labs and medication were reviewed.. Continue same treatment. Continue with symptomatic treatment. Resume home medication. Monitor labs and vitals. DVT and GI prophylaxis. Further recommendations as per clinical course of the patient Dictation was produced using [employer] dictation software. please excuse any grammatical, word or spelling errors. Objective - Vital Signs Vital signs: Vital Signs Temp 97.5 F L 12/23/22 08:06 Pulse 77 12/23/22 13:25 Resp 18 12/23/22 13:25 BP 135/71 12/23/22 12:00 Pulse Ox 94 L 12/23/22 12:00 FiO2 Intake & Output 12/22/22 12/23/22 12/23/22 18:59 06:59 18:59 Intake Total 145 260 538 Balance 145 260 538 Weight 62.188 kg 65.9 kg Intake: IV 10 20 20 Invasive Line 3 10 20 20 Oral 478 Tube Feeding 135 240 40 Other: Voiding Method Toilet Toilet # Voids 1 # Bowel Movements 1 - Labs CBC & Chem 7: 12/22/22 07:31 12/22/22 07:31 Labs: Abnormal Lab Results - Last 24 Hours (Table) 12/22/22 12/22/22 12/22/22 Range/Units 14:15 18:02 23:54 POC Glucose (mg/dL) 203 H 262 H 319 H (70-110) mg/dL Hemoglobin A1c (<=6.0) % 12/23/22 12/23/22 12/23/22 Range/Units 05:55 08:55 11:45 POC Glucose (mg/dL) 271 H 227 H (70-110) mg/dL Hemoglobin A1c 6.1 H (<=6.0) % Microbiology - Last 24 Hours (Table) 12/21/22 11:14 Blood Culture - Preliminary Blood 12/21/22 10:59 Blood Culture - Preliminary Blood
--- NOTE | 2022-12-23 16:21 | XR ---
EXAMINATION TYPE: XR chest 1V DATE OF EXAM: 12/23/2022 7:06 AM CLINICAL INDICATION:Male, 77 years old with history of pneumonia; [facility] COMPARISON: 12/20/2022 chest x-ray and CTA TECHNIQUE: XR chest 1V Frontal view of the chest. FINDINGS: Lungs/Pleura: Background chronic lung changes may be related to COPD. Nodularity seen on prior CT not well seen, and would be best assessed by a follow-up CT when clinically warranted. Interval improved aeration of the lungs, with decreased interstitial and patchy alveolar opacities in the mid to lower lung zones. Decreased right pleural effusion with small residual. No visible pneumothorax. Pulmonary vascularity: Unremarkable. Heart/mediastinum: Stable cardiomediastinal silhouette. Heart size upper normal. Partially calcified aorta. Musculoskeletal: No acute osseous pathology. Mild degenerative changes. Other findings: None Lines/Tubes: EKG leads and other extrinsic densities over the field of view. No indwelling lines are seen. IMPRESSION: Interval improvement, with decreased bibasilar opacities likely related to infectious or inflammatory process. Decreased right pleural effusion with small residual.
[2022-12-23 16:28] LABS: Glucose,Whole Blood 252 mg/dL (70-110)
[2022-12-23] MEDS: HYDROcodone/APAP 10-325MG 1 EACH TAB PO PRN (17:27)
[2022-12-23 19:58] LABS: Glucose,Whole Blood 219 mg/dL (70-110)
[2022-12-23] MEDS: AZITHROMYCIN 500 MG in SODIUM CHLORIDE 0.9% 250 ML IVPB SCH (21:03)
[2022-12-24] MEDS: methylPREDNISolone SOD SUCCI 125 MG/2 ML VIAL IV SCH ×3 (00:54→12:09)
[2022-12-24] MEDS: PIPERACILLIN-TAZOBACTAM 3.375 GM in SODIUM CHLORIDE 0.9% 100 ML IVPB SCH ×3 (00:54→16:50)
[2022-12-24] MEDS: HYDROcodone/APAP 10-325MG 1 EACH TAB PO PRN (02:42)
[2022-12-24 06:02] LABS: Glucose,Whole Blood 224 mg/dL (70-110)
[2022-12-24] MEDS: INSULIN ASPART (NovoLOG) 100 UNIT/ML VIAL SQ SCH ×4 (06:44→22:38)
[2022-12-24] MEDS: BUDESONIDE 0.5 MG/2 ML NEBU INHALATION SCH ×2 (08:17→20:33)
[2022-12-24] MEDS: IPRATROPIUM-ALBUTEROL 3 ML NEB INHALATION SCH ×4 (08:18→20:33)
[2022-12-24] MEDS: DILTIAZEM CD 120 MG CAP.ER.24H PO SCH (08:27)
[2022-12-24] MEDS: PANTOPRAZOLE 40 MG/10 ML VIAL IVP SCH (08:27)
[2022-12-24] MEDS: ENOXAPARIN 40 MG/0.4 ML SYRINGE SQ SCH (08:27)
[2022-12-24] MEDS: guaiFENesin 600 MG TABLET.ER PO SCH ×2 (08:27→20:52)
[2022-12-24] MEDS: NYSTATIN 100,000 UNIT/ML SUSP 500,000 UNIT/5 ML CUP PO SCH ×5 (08:28→22:38)
[2022-12-24 10:09] LABS: HCT 35.6 % (39.0-53.0); HGB 11.3 gm/dL (13.0-17.5); Hypochromasia Moderate; MCH 31.6 pg (25.0-35.0); MCHC 31.7 g/dL (31.0-37.0); MCV 99.6 fL (80.0-100.0); Mean Platelet Volume 7.9; Platelet Count 408 k/uL (150-450); RBC 3.57 m/uL (4.30-5.90); RDW 13.7 % (11.5-15.5); WBC 14.5 k/uL (3.8-10.6)
[2022-12-24 10:30] LABS: ALT 55 U/L (4-49); AST 35 U/L (17-59); African American GFR (CKD) >90 (>60 ml/min/1.73 sqM); Albumin 2.7 g/dL (3.5-5.0); Alkaline Phosphatase 282 U/L (38-126); Anion Gap 9 mmol/L; Blood Urea Nitrogen 29 mg/dL (9-20); Calcium 8.6 mg/dL (8.4-10.2); Carbon Dioxide 27 mmol/L (22-30); Chloride 107 mmol/L (98-107); Glucose 161 mg/dL (74-99); Magnesium 2.2 mg/dL (1.6-2.3); Non-African American GFR(CKD) >90 (>60 ml/min/1.73 sqM); Potassium 3.8 mmol/L (3.5-5.1); Sodium 143 mmol/L (137-145); Total Bilirubin 0.4 mg/dL (0.2-1.3); Total Protein 5.5 g/dL (6.3-8.2)
[2022-12-24 11:40] LABS: Glucose,Whole Blood 238 mg/dL (70-110)
[2022-12-24] MEDS: SODIUM CHLORIDE 0.9% 1,000 ML IV SCH (12:10)
[2022-12-24] MEDS: LOPERAMIDE 2 MG CAP PO PRN ×3 (12:11→23:06)
--- NOTE | 2022-12-24 12:13 | P.PN ---
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 The patient is seeing an oncologist out of [facility]. The patient was treated with immunotherapy and the patient is receiving Keytruda every 4 weeks. The patient has had difficulties with swallowing. For that reason, the patient was given a packed COPD years back and the patient is taken pleasure feeds and supplementing himself with enteral feeding through his PEG tube. Noted the patient has metastatic disease and I believe he was taken immunotherapy through an oncologist out of [facility]. The patient came into the emergency department having increased cough and congestion and worsening shortness of breath. In the emergency department, he was noted to have an SVT with a heart rate in the 200s range. He received cardioversion and his heart rate subsequently improved. Chest x-ray showed lower lobe consolidation and following that the patient was given a CAT scan of the chest and the CAT scan showed patchy confluent opacities in the lower lobes bilaterally right more than left and this was also involving the inferior aspect of the lingular segment in the right middle lobe. As such, the patient was diagnosed having multifocal pneumonia, likely of an aspiration type. At the same time, the patient had multiple subcentimeter pulmonary nodules in the lung apices identified and there was a lesion in the right apex measuring 6.6 mm in size. This was concerning for metastases. The patient currently has a white cell count of 20.7 with a hemoglobin 12.5, the viral screen was negative i ncluding Covid 19. ProBNP level was 470. Troponins were negative. Lactic acid level is being monitored in the highest level was at 3.4, and the patient was started on broad-spectrum antibiotics and the patient is currently on a combination of Zosyn and Zithromax. The patient is also on 4 L of oxygen by nasal cannula with a pulse ox of 96%. He has a congested cough. No altered mentation. Other comorbid conditions include history of COPD, prostate cancer, obstructive sleep apnea and the patient has been nontolerant to CPAP therapy, hyperlipidemia. On today's evaluation of 12/22/2022, the patient remains on a broad-spectrum antibiotics and the patient is currently on accommodation of Zosyn and Zithromax. The patient remains on oxygen at 4 L. No new complaints. Cough is still present although less congested compared to yesterday. No fever or chills. No hypotension. No hemodynamic instability. The patient is currently nothing by mouth and receiving enteral feeding for nutritional support through his PEG tube. 11 is closer 12.2 with a hemoglobin of 12, BUN is 27 with a cre atinine of 0.6 and a sodium level is at 142. Pulse ox is 94% 42 of Oxymizer nasal cannula. On today's evaluation of 12/23/2022, the patient is doing better. No significant mucus production. Shortness of breath is improving. No leukocytosis. He remains on Zithromax and Zosyn. A repeat chest x-ray was done today and shows improvement in the lower lobe pulmonary consolidation. The patient remains nothing by mouth. The patient remains on enteral feeding for nutritional support. No new labs are available from today. He remains on oxygen and is currently on 2 L of O2 nasal cannula. On today's evaluation of 12/24/2022, the patient is doing well. The patient is currently on 2 L of oxygen by nasal cannula. Repeat chest x-ray was done and it shows improvement in the lower lobe bilateral consolidation. There is also decreased in the right-sided pleural effusion although there is some residual changes in lung bases bilaterally. No altered mentation. No significant sputum production. No headaches. He is taken both enteral feeding and is also able to swallow and his swallow is improved as the patient was given education. Is able to swallow. No clear without any aspiration at this point in time. White cycles of 14.5, hemoglobin is 11.3. BUN is 29 with a creatinine of 0.6. Sodium level is at 143. Objective - Vital Signs Vital signs: Vital Signs Temp 98.1 F 12/24/22 07:39 Pulse 82 12/24/22 08:31 Resp 18 12/24/22 08:31 BP 128/82 12/24/22 07:39 Pulse Ox 91 L 12/24/22 08:18 FiO2 Intake & Output 12/23/22 12/24/22 12/24/22 18:59 06:59 18:59 Intake Total 1138 20 250 Balance 1138 20 250 Weight 68.9 kg Intake: IV 20 20 10 Invasive Line 3 20 20 10 Oral 1078 240 Tube Feeding 40 Other: Voiding Method Toilet Toilet # Voids 1 # Bowel Movements 1 - Exam GENERAL: The patient is alert and oriented x3, ill appearance, nasal cannula in place, shortness of breath , and the patient is currently on 2 L of oxygen by nasal cannula Head exam was generally normal. There was no scleral icterus or corneal arcus. Mucous membranes were moist. HEENT: Pupils are round and equally reacting to light. EOMI. the posterior oropharynx shows some anatomic distortion with asymmetry at the level of the uvula. The mucous membranes are essentially dried. CARDIOVASCULAR: S1 and S2 present. No murmurs, rubs, or gallops. PULMONARY: Decreased breath sounds bilaterally, wheezing audible, creatinine the lung bases bilaterally along with some scattered extremities ABDOMEN: Soft, nontender, nondistended, normoactive bowel sounds. No palpable organomegaly. Feeding tube in place MUSCULOSKELETAL: No joint swelling or deformity. EXTREMITIES: No cyanosis, clubbing, or pedal edema. NEUROLOGICAL: Gross neurological examination did not reveal any focal deficits. SKIN: No rashes. - Labs CBC & Chem 7: 12/24/22 09:24 12/24/22 09:24 Labs: Abnormal Lab Results - Last 24 Hours (Table) 12/23/22 12/23/22 12/23/22 Range/Units 08:55 11:45 16:26 WBC (3.8-10.6) k/uL RBC (4.30-5.90) m/uL Hgb (13.0-17.5) gm/dL Hct (39.0-53.0) % BUN (9-20) mg/dL Glucose (74-99) mg/dL POC Glucose (mg/dL) 227 H 252 H (70-110) mg/dL Hemoglobin A1c 6.1 H (<=6.0) % ALT (4-49) U/L Alkaline Phosphatase (38-126) U/L Total Protein (6.3-8.2) g/dL Albumin (3.5-5.0) g/dL 12/23/22 12/24/22 12/24/22 Range/Units 19:57 06:00 09:24 WBC 14.5 H (3.8-10.6) k/uL RBC 3.57 L (4.30-5.90) m/uL Hgb 11.3 L (13.0-17.5) gm/dL Hct 35.6 L (39.0-53.0) % BUN (9-20) mg/dL Glucose (74-99) mg/dL POC Glucose (mg/dL) 219 H 224 H (70-110) mg/dL Hemoglobin A1c (<=6.0) % ALT (4-49) U/L Alkaline Phosphatase (38-126) U/L Total Protein (6.3-8.2) g/dL Albumin (3.5-5.0) g/dL 12/24/22 Range/Units 09:24 WBC (3.8-10.6) k/uL RBC (4.30-5.90) m/uL Hgb (13.0-17.5) gm/dL Hct (39.0-53.0) % BUN 29 H (9-20) mg/dL Glucose 161 H (74-99) mg/dL POC Glucose (mg/dL) (70-110) mg/dL Hemoglobin A1c (<=6.0) % ALT 55 H (4-49) U/L Alkaline Phosphatase 282 H (38-126) U/L Total Protein 5.5 L (6.3-8.2) g/dL Albumin 2.7 L (3.5-5.0) g/dL Microbiology - Last 24 Hours (Table) 12/21/22 11:14 Blood Culture - Preliminary Blood 12/21/22 10:59 Blood Culture - Preliminary Blood Assessment and Plan Plan: Acute bilateral lower lobe pneumonia with extensive multifocal pulmonary infiltrates more so in the lung bases bilaterally, consider aspiration, currently stable and clinically somewhat improved compared to yesterday. Clinically improving and the chest x-ray shows improvement in lower lobe consolidation. Clinically improving and the chest x-ray findings are also improving Acute hypoxic respiratory failure secondary to above currently on 2 L of oxygen by nasal cannula. Acute shortness of breath secondary to above Acute COPD exacerbation secondary to above, improving Acute leukocytosis, improving SVT, post and erosive treatment and the patient's current cardiac rhythm is back into sinus History of oropharyngeal cancer, squamous cell type, metastatic and the patient is currently on immunotherapy with Keytruda every 4 weeks, and the patient has l ikely a metastatic lesion involving the right apex as evidenced on previous PET CTs and current CAT scan of the chest Hypertension History of smoking Chronic dysphasia secondary to above and the patient is receiving enteral feeding for nutritional support, and he also takes pleasure feeds Obstructive sleep apnea, nontolerant to CPAP therapy Prostate cancer treated with brachytherapy Plan Clinically improving Chest x-rays improving Continue the current antibiotic coverage included examination of Zosyn and Zithromax, the patient came in discharged home on Augmentin and Zithromax to complete a seven-day course Aggressive pulmonary toileting Bronchodilators with DuoNeb updrafts 4 times a day Stop the IV Solu-Medrol and start the patient prednisone burst taper IV fluidsKVO Repeat another chest x-ray tomorrow, improving Clinically improved compared to yesterday Keep the patient nothing by mouth for now utilize enteral feeding for nutritional support Diabetic also will be obtained Echocardiogram Noted and the patient has systolic heart failure with ejection fraction 45-50% Swallow evaluation was done and the patient had silent tracheal aspiration with thin consistency. Additional silent laryngeal penetration was seen within consistency and this improved with some chin tuck maneuver. We'll continue to follow
[2022-12-24] MEDS: predniSONE 20 MG TAB PO SCH (13:19)
--- NOTE | 2022-12-24 14:16 | P.PN ---
Subjective Progress Note Date: 12/24/22 * 77-year-old gentleman with past medical history significant for COPD, prostate cancer, obstructive sleep apnea, hyperlipidemia, history of oropharyngeal cancer status peg tube and treatment with keytrudar, hypertension, presents with emergency department with complains of shortness of breath. Patient had symptom onset and 2 days prior to admission with sudden onset of difficulty breathing and chest pain. At the time of evaluation in ER patient was noted to have supraventricular tachycardia with heart rate in 200s. Patient was given and nursing cardioversion after which heart rate improved * Workup initiated in ER included CBC which showed significant leukocytosis abuse he count of 20.7, lactate of 2.1 serum chemistry showed sodium of 139 potassium 4.3B UN 30 creatinine 0.68, initial troponin obtained 0.019 * Patient was noted to have elevated d-dimer and a CT chest was obtained which was negative for pulmonary embolism however did show multifocal pneumonia * EKG obtained showed sinus a Cardia with heart rate of 100, no significant ST segment elevation noted * Patient was given 2 L of fluid bolus, breathing treatment, Rocephin and azithromycin for hyperkalemia and admitted for further management with consultation from cardiology and pulmonary medicine 12/22. Patient seen and examined. Labs from today showed hemoglobin 12, sodium 142, potassium 4.9, BUN 27 creatinine 0.64 currently on 4 L of oxygen 12/23. Patient seen and examined. States he feels much better, sitting upright in the bed. Repeat chest x-ray done today showed improvement in lower lobe consolidation 12/24. Patient seen and examined. Continues to states that his breathing is getting better. Currently on 2 L of oxygen, states swelling is improving. Denies any cough. REVIEW OF SYSTEMS: CONSTITUTIONAL: No fever, no malaise,. CARDIOVASCULAR: No chest pain PULMONARY: Shortness of breath on exertion is present GASTROINTESTINAL: No diarrhea, no nausea, no vomiting, no abdominal pain. NEUROLOGICAL: No headaches, no weakness, PHYSICAL EXAMINATION: GENERAL: The patient is alert and oriented x3, not in any acute distress. Currently ill looking HEENT: Pupils are round and equally reacting to light. EOMI. No scleral icterus. No conjunctival pallor. Normocephalic, atraumatic. No pharyngeal erythema. No thyromegaly. CARDIOVASCULAR: S1 and S2 present. No murmurs, rubs, or gallops. PULMONARY: Chest is clear to auscultation, no wheezing or crackles. ABDOMEN: Soft, nontender, nondistended, normoactive bowel sounds. No palpable organomegaly. MUSCULOSKELETAL: No joint swelling or deformity. EXTREMITIES: No cyanosis, clubbing, or pedal edema. NEUROLOGICAL: Gross neurological examination did not reveal any focal deficits. SKIN: No rashes. Assessment and plan Sepsis secondary to multifocal pneumonia Acute hypoxic respiratory failure secondary to multifocal pneumonia Acute exacerbation of COPD Supraventricular tachycardia status post adenosine History of oropharyngeal cancer with dysphagia status post PEG tube Electrolyte abnormality hyperkalemia treated * In regards to sepsis, multifocal pneumonia blood cultures ordered, urine Legionella , continue IV Zosyn and azithromycin, ID following * In regards to COPD exacerbation/respiratory failure continue breathing treatments, Mucinex initiated continue with oxygen supplementation, CT angina chest negative for pulmonary embolism multifocal infiltrates noted, steroids changed to oral prednisone pulmonology following * In regards to supraventricular tachycardia, continue Cardizem, cardiology signed off * In regards to oropharyngeal cancer maintain aspiration precautions, speech therapy consulted * In regards to electrolyte abnormality , hyperkalemia resolved Labs and medication were reviewed.. Continue same treatment. Continue with symptomatic treatment. Resume home medication. Monitor labs and vitals. DVT and GI prophylaxis. Further recommendations as per clinical course of the patient Dictation was produced using [employer] dictation software. please excuse any grammatical, word or spelling errors. Objective - Vital Signs Vital signs: Vital Signs Temp 97.4 F L 12/24/22 11:17 Pulse 88 12/24/22 11:40 Resp 18 12/24/22 11:40 BP 129/71 12/24/22 11:17 Pulse Ox 95 12/24/22 11:17 FiO2 Intake & Output 12/23/22 12/24/22 12/24/22 18:59 06:59 18:59 Intake Total 1138 20 250 Balance 1138 20 250 Weight 68.9 kg Intake: IV 20 20 10 Invasive Line 3 20 20 10 Oral 1078 240 Tube Feeding 40 Other: Voiding Method Toilet Toilet # Voids 1 # Bowel Movements 1 - Labs CBC & Chem 7: 12/24/22 09:24 12/24/22 09:24 Labs: Abnormal Lab Results - Last 24 Hours (Table) 12/23/22 12/23/22 12/24/22 Range/Units 16:26 19:57 06:00 WBC (3.8-10.6) k/uL RBC (4.30-5.90) m/uL Hgb (13.0-17.5) gm/dL Hct (39.0-53.0) % BUN (9-20) mg/dL Glucose (74-99) mg/dL POC Glucose (mg/dL) 252 H 219 H 224 H (70-110) mg/dL ALT (4-49) U/L Alkaline Phosphatase (38-126) U/L Total Protein (6.3-8.2) g/dL Albumin (3.5-5.0) g/dL 12/24/22 12/24/22 12/24/22 Range/Units 09:24 09:24 11:33 WBC 14.5 H (3.8-10.6) k/uL RBC 3.57 L (4.30-5.90) m/uL Hgb 11.3 L (13.0-17.5) gm/dL Hct 35.6 L (39.0-53.0) % BUN 29 H (9-20) mg/dL Glucose 161 H (74-99) mg/dL POC Glucose (mg/dL) 238 H (70-110) mg/dL ALT 55 H (4-49) U/L Alkaline Phosphatase 282 H (38-126) U/L Total Protein 5.5 L (6.3-8.2) g/dL Albumin 2.7 L (3.5-5.0) g/dL Microbiology - Last 24 Hours (Table) 12/23/22 14:27 Gram Stain - Preliminary Sputum Sputum Culture - Preliminary 12/21/22 11:14 Blood Culture - Preliminary Blood 12/21/22 10:59 Blood Culture - Preliminary Blood
--- NOTE | 2022-12-24 15:40 | P.PN ---
Subjective Progress Note Date: 12/24/22 Principal diagnosis: Pneumonia Patient is a 77-year-old male with a past medical his significant for hypertension hyperlipidemia COPD prostate cancer sleep apnea patient has been brought into the ER for evaluation of respiratory distress patient complaining of increasing shortness of breath and chest pain, patient also have a cough elevated white count CT of the chest confluent opacity bilateral lower lobe right greater than the left concerning for pneumonia. On today's evaluation that is 12/24/2022, the patient denies any fever or chills, the patient is breathing comfortably on 2 L nasal cannula supplemental oxygen, the patient denies any chest pain or worsening cough did have occasional sputum production, patient denies nausea/vomiting or diarrhea and no abdominal pain Patient white count is slightly up to 14.5 creatinine 0.68, CRP is 12.6, Objective - Vital Signs Vital signs: Vital Signs Temp 97.4 F L 12/24/22 11:17 Pulse 88 12/24/22 11:40 Resp 18 12/24/22 11:40 BP 129/71 12/24/22 11:17 Pulse Ox 95 12/24/22 11:17 FiO2 Intake & Output 12/23/22 12/24/22 12/24/22 18:59 06:59 18:59 Intake Total 1138 20 250 Balance 1138 20 250 Weight 68.9 kg Intake: IV 20 20 10 Invasive Line 3 20 20 10 Oral 1078 240 Tube Feeding 40 Other: Voiding Method Toilet Toilet # Voids 1 # Bowel Movements 1 - Exam GENERAL DESCRIPTION: An elderly male lying in bed in no distress RESPIRATORY SYSTEM: Unlabored breathing , coarse breath sounds bilaterally HEART: S1 S2 regular rate and rhythm , ABDOMEN: Soft , no tenderness EXTREMITIES: No edema feet - Labs CBC & Chem 7: 12/24/22 09:24 12/24/22 09:24 Labs: Abnormal Lab Results - Last 24 Hours (Table) 12/23/22 12/23/22 12/24/22 Range/Units 16:26 19:57 06:00 WBC (3.8-10.6) k/uL RBC (4.30-5.90) m/uL Hgb (13.0-17.5) gm/dL Hct (39.0-53.0) % BUN (9-20) mg/dL Glucose (74-99) mg/dL POC Glucose (mg/dL) 252 H 219 H 224 H (70-110) mg/dL ALT (4-49) U/L Alkaline Phosphatase (38-126) U/L Total Protein (6.3-8.2) g/dL Albumin (3.5-5.0) g/dL 12/24/22 12/24/22 12/24/22 Range/Units 09:24 09:24 11:33 WBC 14.5 H (3.8-10.6) k/uL RBC 3.57 L (4.30-5.90) m/uL Hgb 11.3 L (13.0-17.5) gm/dL Hct 35.6 L (39.0-53.0) % BUN 29 H (9-20) mg/dL Glucose 161 H (74-99) mg/dL POC Glucose (mg/dL) 238 H (70-110) mg/dL ALT 55 H (4-49) U/L Alkaline Phosphatase 282 H (38-126) U/L Total Protein 5.5 L (6.3-8.2) g/dL Albumin 2.7 L (3.5-5.0) g/dL Microbiology - Last 24 Hours (Table) 12/23/22 14:27 Gram Stain - Preliminary Sputum Sputum Culture - Preliminary 12/21/22 11:14 Blood Culture - Preliminary Blood 12/21/22 10:59 Blood Culture - Preliminary Blood Assessment and Plan (1) Pneumonia Current Visit: Yes Status: Acute Code(s): J18.9 - PNEUMONIA, UNSPECIFIED ORGANISM SNOMED Code(s): 301218536 (2) Leukocytosis Current Visit: Yes Status: Acute Code(s): D72.829 - ELEVATED WHITE BLOOD CELL COUNT, UNSPECIFIED SNOMED Code(s): 652762222 Plan: 1patient presented to hospital with sepsis in this patient who did have a elevated white count elevated lactic acid source likely pneumonia with a question of gram-negative keeping in mind patient complicated history and previous hospitalization 2--CRP mildly elevated sputum cultures are currently pending 3-patient has shown clinical improvement and will continue with the Zosyn 3.37 mg every 8 hours while waiting for the sputum cultures to finalize Dictation was produced using [employer] dictation software. please excuse any g rammatical, word or spelling errors. Time with Patient: Less than 30
[2022-12-24 16:49] LABS: Glucose,Whole Blood 291 mg/dL (70-110)
[2022-12-24 20:10] LABS: Glucose,Whole Blood 290 mg/dL (70-110)
[2022-12-24] MEDS: MORPHINE SULFATE 4 MG/ML SYRINGE IV PRN (23:00)
[2022-12-25] MEDS: PIPERACILLIN-TAZOBACTAM 3.375 GM in SODIUM CHLORIDE 0.9% 100 ML IVPB SCH ×3 (01:32→19:09)
[2022-12-25] MEDS: HYDROcodone/APAP 10-325MG 1 EACH TAB PO PRN ×2 (04:53→23:29)
[2022-12-25 06:05] LABS: Glucose,Whole Blood 157 mg/dL (70-110)
[2022-12-25] MEDS: SODIUM CHLORIDE 0.9% 1,000 ML IV SCH (06:06)
[2022-12-25] MEDS: INSULIN ASPART (NovoLOG) 100 UNIT/ML VIAL SQ SCH ×4 (06:22→21:06)
[2022-12-25] MEDS: IPRATROPIUM-ALBUTEROL 3 ML NEB INHALATION SCH ×4 (08:36→21:49)
[2022-12-25] MEDS: BUDESONIDE 0.5 MG/2 ML NEBU INHALATION SCH ×2 (08:36→21:49)
[2022-12-25] MEDS: ENOXAPARIN 40 MG/0.4 ML SYRINGE SQ SCH (09:49)
[2022-12-25] MEDS: DILTIAZEM CD 120 MG CAP.ER.24H PO SCH (09:49)
[2022-12-25] MEDS: PANTOPRAZOLE 40 MG/10 ML VIAL IVP SCH (09:49)
[2022-12-25] MEDS: guaiFENesin 600 MG TABLET.ER PO SCH ×2 (09:49→21:06)
[2022-12-25] MEDS: predniSONE 20 MG TAB PO SCH (09:49)
[2022-12-25] MEDS: LOPERAMIDE 2 MG CAP PO PRN ×3 (10:05→23:30)
[2022-12-25 11:33] LABS: Glucose,Whole Blood 230 mg/dL (70-110)
--- NOTE | 2022-12-25 12:39 | P.PN ---
Subjective Progress Note Date: 12/25/22 Principal diagnosis: Pneumonia Patient is a 77-year-old male with a past medical his significant for hypertension hyperlipidemia COPD prostate cancer sleep apnea patient has been brought into the ER for evaluation of respiratory distress patient complaining of increasing shortness of breath and chest pain, patient also have a cough elevated white count CT of the chest confluent opacity bilateral lower lobe right greater than the left concerning for pneumonia. On today's evaluation that is 12/25/2022, the patient continues to be afebrile , the patient is breathing comfortably on 2 L nasal cannula oxygen and denies any shortness of breath, the patient denies any chest pain or cough, patient denies abdominal pain and no nausea/vomiting or diarrhea , apparently did have problem with his PEG tube last night Patient white count is slightly up to 14.5 creatinine 0.68 as of yesterday no laboratory, CRP is 12.6, sputum is Mari Objective - Vital Signs Vital signs: Vital Signs Temp 97.6 F 12/25/22 09:45 Pulse 72 12/25/22 11:46 Resp 16 12/25/22 09:45 BP 117/65 12/25/22 09:45 Pulse Ox 93 L 12/25/22 09:45 FiO2 Intake & Output 12/24/22 12/25/22 12/25/22 18:59 06:59 18:59 Intake Total 1140 220 540 Balance 1140 220 540 Weight 69.8 kg Intake: IV 20 20 Invasive Line 3 20 20 Oral 840 480 Tube Feeding 280 200 60 Other: Voiding Method Toilet Toilet Toilet # Voids 3 1 # Bowel Movements 4 - Exam GENERAL DESCRIPTION: An elderly male lying in bed in no distress RESPIRATORY SYSTEM: Unlabored breathing , coarse breath sounds bilaterally HEART: S1 S2 regular rate and rhythm , ABDOMEN: Soft , no tenderness EXTREMITIES: No edema feet - Labs CBC & Chem 7: 12/24/22 09:24 12/24/22 09:24 Labs: Abnormal Lab Results - Last 24 Hours (Table) 12/24/22 12/24/22 12/25/22 Range/Units 16:36 20:09 06:04 POC Glucose (mg/dL) 291 H 290 H 157 H (70-110) mg/dL 12/25/22 Range/Units 11:32 POC Glucose (mg/dL) 230 H (70-110) mg/dL Microbiology - Last 24 Hours (Table) 12/23/22 14:27 Gram Stain - Final Sputum Sputum Culture - Final Mari albicans 12/21/22 11:14 Blood Culture - Preliminary Blood 12/21/22 10:59 Blood Culture - Preliminary Blood Assessment and Plan (1) Pneumonia Current Visit: Yes Status: Acute Code(s): J18.9 - PNEUMONIA, UNSPECIFIED ORGANISM SNOMED Code(s): 937644138 (2) Leukocytosis Current Visit: Yes Status: Acute Code(s): D72.829 - ELEVATED WHITE BLOOD CELL COUNT, UNSPECIFIED SNOMED Code(s): 652437003 Plan: 1patient presented to hospital with sepsis in this patient who did have a elevated white count elevated lactic acid source likely pneumonia with a question of gram-negative keeping in mind patient complicated history and previous hospitalization 2--CRP mildly elevated sputum cultures are growing Mari likely colonizer 3-patient has shown clinical improvement and sputum has been negative for any resistant pathogen we will consider short course of oral Augmentin on discharge discussed with the admitting team Dictation was produced using [employer] dictation software. please excuse any grammatical, word or spelling errors. Time with Patient: Less than 30
--- NOTE | 2022-12-25 12:43 | P.PN ---
Subjective Progress Note Date: 12/25/22 * 77-year-old gentleman with past medical history significant for COPD, prostate cancer, obstructive sleep apnea, hyperlipidemia, history of oropharyngeal cancer status peg tube and treatment with keytrudar, hypertension, presents with emergency department with complains of shortness of breath. Patient had symptom onset and 2 days prior to admission with sudden onset of difficulty breathing and chest pain. At the time of evaluation in ER patient was noted to have supraventricular tachycardia with heart rate in 200s. Patient was given and nursing cardioversion after which heart rate improved * Workup initiated in ER included CBC which showed significant leukocytosis abuse he count of 20.7, lactate of 2.1 serum chemistry showed sodium of 139 potassium 4.3B UN 30 creatinine 0.68, initial troponin obtained 0.019 * Patient was noted to have elevated d-dimer and a CT chest was obtained which was negative for pulmonary embolism however did show multifocal pneumonia * EKG obtained showed sinus a Cardia with heart rate of 100, no significant ST segment elevation noted * Patient was given 2 L of fluid bolus, breathing treatment, Rocephin and azithromycin for hyperkalemia and admitted for further management with consultation from cardiology and pulmonary medicine 12/22. Patient seen and examined. Labs from today showed hemoglobin 12, sodium 142, potassium 4.9, BUN 27 creatinine 0.64 currently on 4 L of oxygen 12/23. Patient seen and examined. States he feels much better, sitting upright in the bed. Repeat chest x-ray done today showed improvement in lower lobe consolidation 12/24. Patient seen and examined. Continues to states that his breathing is getting better. Currently on 2 L of oxygen, states swelling is improving. Denies any cough. 12/25. Patient seen and examined. Currently on 2 L of oxygen. Continues to be afebrile. ID recommended discharging patient on oral Augmentin. REVIEW OF SYSTEMS: CONSTITUTIONAL: No fever, no malaise,. CARDIOVASCULAR: No chest pain PULMONARY: Shortness of breath on exertion is present GASTROINTESTINAL: No diarrhea, no nausea, no vomiting, no abdominal pain. NEUROLOGICAL: No headaches, no weakness, PHYSICAL EXAMINATION: GENERAL: The patient is alert and oriented x3, not in any acute distress. Currently ill looking HEENT: Pupils are round and equally reacting to light. EOMI. No scleral icterus. No conjunctival pallor. Normocephalic, atraumatic. No pharyngeal erythema. No thyromegaly. CARDIOVASCULAR: S1 and S2 present. No murmurs, rubs, or gallops. PULMONARY: Coarse breath some bilaterally, no wheeze ABDOMEN: Soft, nontender, nondistended, normoactive bowel sounds. No palpable organomegaly. PEG tube seen MUSCULOSKELETAL: No joint swelling or deformity. EXTREMITIES: No cyanosis, clubbing, or pedal edema. NEUROLOGICAL: Gross neurological examination did not reveal any focal deficits. SKIN: No rashes. Assessment and plan Sepsis secondary to multifocal pneumonia Acute hypoxic respiratory failure secondary to multifocal pneumonia Acute exacerbation of COPD Supraventricular tachycardia status post adenosine History of oropharyngeal cancer with dysphagia status post PEG tube Electrolyte abnormality hyperkalemia treated * In regards to sepsis, multifocal pneumonia blood cultures ordered, urine Legionella , continue IV Zosyn , ID following, recommend discharging on oral Augmentin for 1 week * In regards to COPD exacerbation/respiratory failure continue breathing treatments, Mucinex initiated continue with oxygen supplementation, CT angina chest negative for pulmonary embolism multifocal infiltrates noted, oral prednisone pulmonology following * In regards to supraventricular tachycardia, continue Cardizem, cardiology signed off * In regards to oropharyngeal cancer maintain aspiration precautions, speech therapy consulted * In regards to electrolyte abnormality , hyperkalemia resolved Labs and medication were reviewed.. Continue same treatment. Continue with symptomatic treatment. Resume home medication. Monitor labs and vitals. DVT and GI prophylaxis. Further recommendations as per clinical course of the patient Dictation was produced using [employer] dictation software. please excuse any grammatical, word or spelling errors. Objective - Vital Signs Vital signs: Vital Signs Temp 98.4 F 12/25/22 04:00 Pulse 70 12/25/22 08:52 Resp 18 12/25/22 04:00 BP 130/84 12/25/22 04:00 Pulse Ox 95 12/25/22 08:37 FiO2 Intake & Output 12/24/22 12/25/22 12/25/22 18:59 06:59 18:59 Intake Total 1140 220 480 Balance 1140 220 480 Weight 69.8 kg Intake: IV 20 20 Invasive Line 3 20 20 Oral 840 480 Tube Feeding 280 200 Other: Voiding Method Toilet Toilet # Voids 3 1 # Bowel Movements 4 - Labs CBC & Chem 7: 12/24/22 09:24 12/24/22 09:24 Labs: Abnormal Lab Results - Last 24 Hours (Table) 12/24/22 12/24/22 12/24/22 Range/Units 09:24 11:33 16:36 BUN 29 H (9-20) mg/dL Glucose 161 H (74-99) mg/dL POC Glucose (mg/dL) 238 H 291 H (70-110) mg/dL ALT 55 H (4-49) U/L Alkaline Phosphatase 282 H (38-126) U/L Total Protein 5.5 L (6.3-8.2) g/dL Albumin 2.7 L (3.5-5.0) g/dL 12/24/22 12/25/22 Range/Units 20:09 06:04 BUN (9-20) mg/dL Glucose (74-99) mg/dL POC Glucose (mg/dL) 290 H 157 H (70-110) mg/dL ALT (4-49) U/L Alkaline Phosphatase (38-126) U/L Total Protein (6.3-8.2) g/dL Albumin (3.5-5.0) g/dL Microbiology - Last 24 Hours (Table) 12/23/22 14:27 Gram Stain - Final Sputum Sputum Culture - Final Mari albicans 12/21/22 11:14 Blood Culture - Preliminary Blood 12/21/22 10:59 Blood Culture - Preliminary Blood
[2022-12-25] MEDS: NYSTATIN 100,000 UNIT/ML SUSP 500,000 UNIT/5 ML CUP PO SCH ×4 (13:05→21:05)
[2022-12-25 13:38] VITALS: BMI 23.3
--- NOTE | 2022-12-25 16:12 | P.PN ---
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 The patient is seeing an oncologist out of town. The patient was treated with immunotherapy and the patient is receiving Keytruda every 4 weeks. The patient has had difficulties with swallowing. For that reason, the patient was given a packed COPD years back and the patient is taken pleasure feeds and supplementing himself with enteral feeding through his PEG tube. Noted the patient has metastatic disease and I believe he was taken immunotherapy through an oncologist out of [facility]. The patient came into the emergency department having increased cough and congestion and worsening shortness of breath. In the emergency department, he was noted to have an SVT with a heart rate in the 200s range. He received cardioversion and his heart rate subsequently improved. Chest x-ray showed lower lobe consolidation and following that the patient was given a CAT scan of the chest and the CAT scan showed patchy confluent opacities in the lower lobes bilaterally right more than left and this was also involving the inferior aspect of the lingular segment in the right middle lobe. As such, the patient was diagnosed having multifocal pneumonia, likely of an aspiration type. At the same time, the patient had multiple subcentimeter pulmonary nodules in the lung apices identified and there was a lesion in the right apex measuring 6.6 mm in size. This was concerning for metastases. The patient currently has a white cell count of 20.7 with a hemoglobin 12.5, the viral screen was negative including Covid 19. ProBNP level was 470. Troponins were negative. Lactic acid level is being monitored in the highest level was at 3.4, and the patient was started on broad-spectrum antibiotics and the patient is currently on a combination of Zosyn and Zithromax. The patient is also on 4 L of oxygen by nasal cannula with a pulse ox of 96%. He has a congested cough. No altered mentation. Other comorbid conditions include history of COPD, prostate cancer, obstructive sleep apnea and the patient has been nontolerant to CPAP therapy, hyperlipidemia. On today's evaluation of 12/22/2022, the patient remains on a broad-spectrum antibiotics and the patient is currently on accommodation of Zosyn and Zithromax. The patient remains on oxygen at 4 L. No new complaints. Cough is still present although less congested compared to yesterday. No fever or chills. No hypotension. No hemodynamic instability. The patient is currently nothing by mouth and receiving enteral feeding for nutritional support through his PEG tube. 11 is closer 12.2 with a hemoglobin of 12, BUN is 27 with a creatinine of 0.6 and a sodium level is at 142. Pulse ox is 94% 42 of Oxymizer nasal cannula. On today's evaluation of 12/23/2022, the patient is doing better. No significant mucus production. Shortness of breath is improving. No leukocytosis. He remains on Zithromax and Zosyn. A repeat chest x-ray was done today and shows improvement in the lower lobe pulmonary consolidation. The claritza ent remains nothing by mouth. The patient remains on enteral feeding for nutritional support. No new labs are available from today. He remains on oxygen and is currently on 2 L of O2 nasal cannula. On today's evaluation of 12/24/2022, the patient is doing well. The patient is currently on 2 L of oxygen by nasal cannula. Repeat chest x-ray was done and it shows improvement in the lower lobe bilateral consolidation. There is also decreased in the right-sided pleural effusion although there is some residual changes in lung bases bilaterally. No altered mentation. No significant sputum production. No headaches. He is taken both enteral feeding and is also able to swallow and his swallow is improved as the patient was given education. Is able to swallow. No clear without any aspiration at this point in time. White cycles of 14.5, hemoglobin is 11.3. BUN is 29 with a creatinine of 0.6. Sodium level is at 143. Reevaluated today on 12/25/22, patient is feeling better, he is on 2 L nasal cannula with O2 sats of 96%. Chest x-ray from 1028 showed interval improvement in his by basilar opacities and decreased right-sided pleural effusion. And that is reflected clinically as the patient seems to be improving steadily. WBC count is 14.5 hemoglobin 11.3 in size are normal renal profile is normal Objective - Vital Signs Vital signs: Vital Signs Temp 97.3 F L 12/25/22 13:10 Pulse 74 12/25/22 13:10 Resp 16 12/25/22 13:10 BP 125/55 10/30/23 13:10 Pulse Ox 96 12/25/22 13:10 FiO2 Intake & Output 12/24/22 12/25/22 12/25/22 18:59 06:59 18:59 Intake Total 1140 220 840 Balance 1140 220 840 Weight 69.8 kg 69.8 kg Intake: IV 20 20 Invasive Line 3 20 20 Oral 840 720 Tube Feeding 280 200 120 Other: Voiding Method Toilet Toilet Toilet # Voids 3 1 # Bowel Movements 4 - Exam Physical Exam: Revealed a 77-year-old white male in no distress on 2 L nasal cannula Head: Atraumatic, normocephalic. HEENT:[Neck is supple.] [No neck masses.] [No thyromegaly.] [No JVD.] Chest: [Minimal crackles at base bases no rhonchi and no wheeze Cardiac Exam: [Normal S1 and S2, no S3 gallop, no murmur.] Abdomen: [Soft, nontender, no megaly, no rebound, no guarding, normal bowel sounds.] PEG tube is intact. Extremities: [No clubbing, no edema, no cyanosis.] Neurological Exam: [No focal neurologic deficit.] Psychiatric: Normal mood, affect and normal mental status examination. Skin: No rashes - Labs CBC & Chem 7: 12/24/22 09:24 12/24/22 09:24 Labs: Abnormal Lab Results - Last 24 Hours (Table) 12/24/22 12/24/22 12/25/22 Range/Units 16:36 20:09 06:04 POC Glucose (mg/dL) 291 H 290 H 157 H (70-110) mg/dL 12/25/22 Range/Units 11:32 POC Glucose (mg/dL) 230 H (70-110) mg/dL Microbiology - Last 24 Hours (Table) 12/23/22 14:27 Gram Stain - Final Sputum Sputum Culture - Final Mari albicans 12/21/22 11:14 Blood Culture - Preliminary Blood 12/21/22 10:59 Blood Culture - Preliminary Blood Assessment and Plan Assessment: Impression: Acute hypoxic respiratory failure secondary to acute bilateral pneumonia most likely aspiration in nature Acute exacerbation of COPD Acute leukocytosis secondary to above SVT, received adenosine on admission History of oropharyngeal cancer and previous PEG tube placement Benign essential hypertension Chronic dysphagia, patient is on enteral feeding Obstructive sleep apnea cannot tolerate CPAP History of prostate cancer and previous brachytherapy. Recommendation: Continue antibiotics Consider transitioning to Augmentin upon discharge Continue bronchodilators Review the results of his echocardiogram showing LV dysfunction with ejection fraction of 45%, mild LV dysfunction Swallow evaluation was noted Consider discharge planning in the next 24 hours Time with Patient: Less than 30
[2022-12-25 16:49] LABS: Glucose,Whole Blood 200 mg/dL (70-110)
[2022-12-25 19:53] LABS: Glucose,Whole Blood 200 mg/dL (70-110)
[2022-12-25] MEDS: MORPHINE SULFATE 4 MG/ML SYRINGE IV PRN (21:18)
[2022-12-26] MEDS: PIPERACILLIN-TAZOBACTAM 3.375 GM in SODIUM CHLORIDE 0.9% 100 ML IVPB SCH ×2 (02:37→09:30)
[2022-12-26 05:55] LABS: Glucose,Whole Blood 142 mg/dL (70-110)
[2022-12-26] MEDS: INSULIN ASPART (NovoLOG) 100 UNIT/ML VIAL SQ SCH ×2 (06:08→11:58)
[2022-12-26] MEDS: SODIUM CHLORIDE 0.9% 1,000 ML IV SCH (06:08)
[2022-12-26] MEDS: BUDESONIDE 0.5 MG/2 ML NEBU INHALATION SCH (08:47)
[2022-12-26] MEDS: IPRATROPIUM-ALBUTEROL 3 ML NEB INHALATION SCH ×3 (08:47→15:37)
[2022-12-26] MEDS: ENOXAPARIN 40 MG/0.4 ML SYRINGE SQ SCH (08:52)
[2022-12-26] MEDS: PANTOPRAZOLE 40 MG/10 ML VIAL IVP SCH (08:52)
[2022-12-26] MEDS: predniSONE 20 MG TAB PO SCH (08:52)
[2022-12-26] MEDS: guaiFENesin 600 MG TABLET.ER PO SCH (08:52)
[2022-12-26] MEDS: DILTIAZEM CD 120 MG CAP.ER.24H PO SCH (08:52)
[2022-12-26] MEDS: NYSTATIN 100,000 UNIT/ML SUSP 500,000 UNIT/5 ML CUP PO SCH ×2 (08:53→13:55)
[2022-12-26] MEDS: HYDROcodone/APAP 10-325MG 1 EACH TAB PO PRN (08:57)
[2022-12-26] MEDS: LOPERAMIDE 2 MG CAP PO PRN (09:00)
[2022-12-26 09:13] VITALS: RESP 20
--- NOTE | 2022-12-26 11:07 | P.PN ---
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 The patient is seeing an oncologist out of [facility]. The patient was treated with immunotherapy and the patient is receiving Keytruda every 4 weeks. The patient has had difficulties with swallowing. For that reason, the patient was given a packed COPD years back and the patient is taken pleasure feeds and supplementing himself with enteral feeding through his PEG tube. Noted the patient has metastatic disease and I believe he was taken immunotherapy through an oncologist out of [facility]. The patient came into the emergency department having increased cough and congestion and worsening shortness of breath. In the emergency department, he was noted to have an SVT with a heart rate in the 200s range. He received cardioversion and his heart rate subsequently improved. Chest x-ray showed lower lobe consolidation and following that the patient was given a CAT scan of the chest and the CAT scan showed patchy confluent opacities in the lower lobes bilaterally right more than left and this was also involving the inferior aspect of the lingular segment in the right middle lobe. As such, the patient was diagnosed having multifocal pneumonia, likely of an aspiration type. At the same time, the patient had multiple subcentimeter pulmonary nodules in the lung apices identified and there was a lesion in the right apex measuring 6.6 mm in size. This was concerning for metastases. The patient currently has a white cell count of 20.7 with a hemoglobin 12.5, the viral screen was negative in cluding Covid 19. ProBNP level was 470. Troponins were negative. Lactic acid level is being monitored in the highest level was at 3.4, and the patient was started on broad-spectrum antibiotics and the patient is currently on a combination of Zosyn and Zithromax. The patient is also on 4 L of oxygen by nasal cannula with a pulse ox of 96%. He has a congested cough. No altered mentation. Other comorbid conditions include history of COPD, prostate cancer, obstructive sleep apnea and the patient has been nontolerant to CPAP therapy, hyperlipidemia. On today's evaluation of 12/22/2022, the patient remains on a broad-spectrum antibiotics and the patient is currently on accommodation of Zosyn and Zithromax. The patient remains on oxygen at 4 L. No new complaints. Cough is still present although less congested compared to yesterday. No fever or chills. No hypotension. No hemodynamic instability. The patient is currently nothing by mouth and receiving enteral feeding for nutritional support through his PEG tube. 11 is closer 12.2 with a hemoglobin of 12, BUN is 27 with a crea tinine of 0.6 and a sodium level is at 142. Pulse ox is 94% 42 of Oxymizer nasal cannula. On today's evaluation of 12/23/2022, the patient is doing better. No significant mucus production. Shortness of breath is improving. No leukocytosis. He remains on Zithromax and Zosyn. A repeat chest x-ray was done today and shows improvement in the lower lobe pulmonary consolidation. The patient remains nothing by mouth. The patient remains on enteral feeding for nutritional support. No new labs are available from today. He remains on oxygen and is currently on 2 L of O2 nasal cannula. On today's evaluation of 12/24/2022, the patient is doing well. The patient is currently on 2 L of oxygen by nasal cannula. Repeat chest x-ray was done and it shows improvement in the lower lobe bilateral consolidation. There is also decreased in the right-sided pleural effusion although there is some residual changes in lung bases bilaterally. No altered mentation. No significant sputum production. No headaches. He is taken both enteral feeding and is also able to swallow and his swallow is improved as the patient was given education. Is able to swallow. No clear without any aspiration at this point in time. White cycles of 14.5, hemoglobin is 11.3. BUN is 29 with a creatinine of 0.6. Sodium level is at 143. Reevaluated today on 12/25/22, patient is feeling better, he is on 2 L nasal cannula with O2 sats of 96%. Chest x-ray from 1028 showed interval improvement in his by basilar opacities and decreased right-sided pleural effusion. And that is reflected clinically as the patient seems to be improving steadily. WBC count is 14.5 hemoglobin 11.3 in size are normal renal profile is normal The patient is seen today 12/26/2022 in follow-up on the selective care unit. He is currently sitting up in a chair at the bedside. Awake and alert in no acute distress. He is maintaining good O2 saturations in the 90s on room air. Sputum culture had been positive for Mari only. Blood cultures revealed no growth. Blood sugar 142. He is continued on DuoNeb inhalations, Pulmicort inhalations, Mucinex and Tessalon Perles as needed. He's on antibiotics in the form of Zosyn. Currently on a prednisone taper. He is being nourished with vital AF 1.2 at 40 ML's per hour with a goal of 55 ML's per hour. Objective - Vital Signs Vital signs: Vital Signs Temp 97.6 F 12/26/22 08:00 Pulse 76 12/26/22 08:56 Resp 20 12/26/22 08:00 BP 134/63 12/26/22 08:00 Pulse Ox 94 L 12/26/22 08:51 FiO2 Intake & Output 12/25/22 12/26/22 12/26/22 18:59 06:59 18:59 Intake Total 840 Balance 840 Weight 69.8 kg 73.3 kg Intake: Oral 840 Other: Voiding Method Toilet Toilet # Voids 1 # Bowel Movements 1 - Exam GENERAL: The patient is a pleasant 77-year-old male, alert and oriented x3, ill appearance, on room air, up in a chair, no acute distress Head exam was generally normal. There was no scleral icterus or corneal arcus. Mucous membranes were moist. HEENT: Pupils are round and equally reacting to light. EOMI. the posterior oropharynx shows some anatomic distortion with asymmetry at the level of the u vula. CARDIOVASCULAR: S1 and S2 present. No murmurs, rubs, or gallops. PULMONARY: Decreased breath sounds bilaterally, few scattered rhonchi, end expiratory wheeze ABDOMEN: Soft, nontender, nondistended, normoactive bowel sounds. No palpable organomegaly. Feeding tube in place MUSCULOSKELETAL: No joint swelling or deformity. EXTREMITIES: No cyanosis, clubbing, or pedal edema. NEUROLOGICAL: Gross neurological examination did not reveal any focal deficits. SKIN: No rashes. - Labs CBC & Chem 7: 12/24/22 09:24 12/24/22 09:24 Labs: Abnormal Lab Results - Last 24 Hours (Table) 12/25/22 12/25/22 12/25/22 Range/Units 11:32 16:47 19:49 POC Glucose (mg/dL) 230 H 200 H 200 H (70-110) mg/dL 12/26/22 Range/Units 05:54 POC Glucose (mg/dL) 142 H (70-110) mg/dL Microbiology - Last 24 Hours (Table) 12/23/22 14:27 Gram Stain - Final Sputum Sputum Culture - Final Mari albicans Assessment and Plan Assessment: Acute bilateral lower lobe pneumonia with extensive multifocal pulmonary infiltrates more so in the lung bases bilaterally, consider aspiration, currently stable and clinically improved Clinically improving and the chest x- ray shows improvement in lower lobe consolidation. Acute hypoxic respiratory failure secondary to above, recovered and on room air Acute shortness of breath secondary to above Acute COPD exacerbation secondary to above, improving Acute leukocytosis, improving SVT, post and erosive treatment and the patient's current cardiac rhythm is back into sinus History of oropharyngeal cancer, squamous cell type, metastatic and the patient is currently on immunotherapy with Keytruda every 4 weeks, and the patient has likely a metastatic lesion involving the right apex as evidenced on previous PET CTs and current CAT scan of the chest Hypertension History of smoking Chronic dysphasia secondary to above and the patient is receiving enteral feeding for nutritional support, and he also takes pleasure feeds Obstructive sleep apnea, nontolerant to CPAP therapy Prostate cancer treated with brachytherapy Plan: The patient was seen and evaluated Labs and medications reviewed Switch Zosyn to Augmentin Continue prednisone taper Stable and on room air Plan is for home with home care Continue his home pulmonary medications Follow-up in our office in 1 week This patient was seen independently by the nurse practitioner I have personally seen and examined the patient, performed the documentation and the assessment and plan as written. Number of minutes spent on the visit: 20.
[2022-12-26 11:53] LABS: Glucose,Whole Blood 106 mg/dL (70-110)
[2022-12-26 12:14] VITALS: BP 122/67; TEMP 98
--- NOTE | 2022-12-26 12:27 | P.DS ---
Providers Date of admission: 12/20/22 22:00 Expected date of discharge: 12/26/22 Attending physician: Shon Matta Consults: 12/20/22 22:00 Consult Physician Routine Consulting Provider: Mecca Jacinto Consult Reason/Comments: svt Do you want consulting provider notified?: Yes 12/21/22 06:58 Consult Physician Urgent Consulting Provider: Quyen Ojeda Consult Reason/Comments: copd, pleural effusion Do you want consulting provider notified?: Yes 12/21/22 08:59 Consult Physician Routine Consulting Provider: Caitlyn Mayfield Consult Reason/Comments: Multifocal pneumonia sepsis Do you want consulting provider notified?: Yes Primary care physician: Felix Montero Hospital Course: Discharge diagnoses; Sepsis secondary to multifocal pneumonia Acute hypoxic respiratory failure secondary to multifocal pneumonia Acute exacerbation of COPD Supraventricular tachycardia status post adenosine History of oropharyngeal cancer with dysphagia status post PEG tube Electrolyte abnormality hyperkalemia treated Hospital course; 77-year-old gentleman with past medical history significant for COPD, prostate cancer, obstructive sleep apnea, hyperlipidemia, history of oropharyngeal cancer status peg tube and treatment with keytrudar, hypertension, presents with emergency department with complains of shortness of breath. Patient had symptom onset and 2 days prior to admission with sudden onset of difficulty breathing and chest pain. At the time of evaluation in ER patient was noted to have supraventricular tachycardia with heart rate in 200s. Patient was given and nursing cardioversion after which heart rate improved * Workup initiated in ER included CBC which showed significant leukocytosis abuse he count of 20.7, lactate of 2.1 serum chemistry showed sodium of 139 potassium 4.3B UN 30 creatinine 0.68, initial troponin obtained 0.019 * Patient was noted to have elevated d-dimer and a CT chest was obtained which was negative for pulmonary embolism however did show multifocal pneumonia * EKG obtained showed sinus a Cardia with heart rate of 100, no significant ST segment elevation noted * Patient was given 2 L of fluid bolus, breathing treatment, Rocephin and azithromycin for hyperkalemia and admitted for further management with consultation from cardiology and pulmonary medicine 12/22. Patient seen and examined. Labs from today showed hemoglobin 12, sodium 142, potassium 4.9, BUN 27 creatinine 0.64 currently on 4 L of oxygen 12/23. Patient seen and examined. States he feels much better, sitting upright in the bed. Repeat chest x-ray done today showed improvement in lower lobe consolidation 12/24. Patient seen and examined. Continues to states that his breathing is getting better. Currently on 2 L of oxygen, states swelling is improving. Denies any cough. 12/25. Patient seen and examined. Currently on 2 L of oxygen. Continues to be afebrile. ID recommended discharging patient on oral Augmentin. 12/26. Being discharged in stable condition. Outpatient follow-up with ID and pulmonology PHYSICAL EXAMINATION: GENERAL: The patient is alert and oriented x3, not in any acute distress. Well developed, well nourished. HEENT: Pupils are round and equally reacting to light. EOMI. No scleral icterus. No conjunctival pallor. Normocephalic, atraumatic. No pharyngeal erythema. No thyromegaly. CARDIOVASCULAR: S1 and S2 present. No murmurs, rubs, or gallops. PULMONARY: Chest is clear to auscultation, no wheezing or crackles. ABDOMEN: Soft, nontender, nondistended, normoactive bowel sounds. No palpable organomegaly. MUSCULOSKELETAL: No joint swelling or deformity. EXTREMITIES: No cyanosis, clubbing, or pedal edema. NEUROLOGICAL: Gross neurological examination did not reveal any focal deficits. SKIN: No rashes. Dictation was produced using [employer] dictation software. please excuse any grammatical, word or spelling errors. Patient Condition at Discharge: Good Plan - Discharge Summary Discharge Rx Participant: Yes New Discharge Prescriptions: New guaiFENesin [Mucinex] 600 mg PO Q12HR 7 Days #14 tab predniSONE See Taper PO DIRECTED 8 Days #20 tab Amoxic-Pot Clav 875-125Mg [Augmentin 875-125] 1 tab PO Q12HR 7 Days #14 tab Nystatin 100,000 Unit/ml Susp [Mycostatin Oral Susp] 500,000 unit PO QID 7 Days #140 ml Diltiazem Cd [Cardizem CD] 120 mg PO DAILY 30 Days #30 cap Continue Benralizumab [Fasenra] 30 mg SQ Q28D Albuterol Inhaler [Ventolin Hfa Inhaler] 2 puff INHALATION RT-Q6H PRN PRN Reason: Shortness Of Breath Budesonide [Pulmicort] 0.5 mg INHALATION RT-BID Ipratropium-Albuterol Nebulize [Duoneb 0.5 mg-3 mg/3 ml Soln] 3 ml INHALATION RT-QID HYDROcodone/APAP 10-325MG [Hutto 10-325] 1 tab PO TID PRN PRN Reason: Pain Discontinued predniSONE See Taper PO DIRECTED Discharge Medication List HYDROcodone/APAP 10-325MG [Hutto 10-325] 1 tab PO TID PRN 09/28/20 [History] Albuterol Inhaler [Ventolin Hfa Inhaler] 2 puff INHALATION RT-Q6H PRN 03/26/21 [History] Benralizumab [Fasenra] 30 mg SQ Q28D 03/26/21 [History] Budesonide [Pulmicort] 0.5 mg INHALATION RT-BID 12/20/22 [History] Ipratropium-Albuterol Nebulize [Duoneb 0.5 mg-3 mg/3 ml Soln] 3 ml INHALATION RT-QID 12/20/22 [History] Amoxic-Pot Clav 875-125Mg [Augmentin 875-125] 1 tab PO Q12HR 7 Days #14 tab 12/25/22 [Rx] Nystatin 100,000 Unit/ml Susp [Mycostatin Oral Susp] 500,000 unit PO QID 7 Days #140 ml 12/25/22 [Rx] Diltiazem Cd [Cardizem CD] 120 mg PO DAILY 30 Days #30 cap 12/26/22 [Rx] guaiFENesin [Mucinex] 600 mg PO Q12HR 7 Days #14 tab 12/26/22 [Rx] predniSONE See Taper PO DIRECTED 8 Days #20 tab 12/26/22 [Rx] Follow up Appointment(s)/Referral(s): Carlos Alberto Rubalcava NPC [REFERRING] - 1-2 days Quyen Ojeda MD [STAFF PHYSICIAN] - 10 Days Discharge Disposition: HOME SELF-CARE
--- NOTE | 2022-12-26 13:14 | P.PN ---
Subjective Progress Note Date: 12/26/22 Principal diagnosis: Pneumonia Patient is a 77-year-old male with a past medical his significant for hypertension hyperlipidemia COPD prostate cancer sleep apnea patient has been brought into the ER for evaluation of respiratory distress patient complaining of increasing shortness of breath and chest pain, patient also have a cough elevated white count CT of the chest confluent opacity bilateral lower lobe right greater than the left concerning for pneumonia. On today's evaluation that is 12/26/2022, the patient remains to be afebrile , the patient is breathing comfortably on 2 L nasal cannula supplemental oxygen, the patient denies any chest pain and no significant cough or sputum production, patient denies abdominal pain and no nausea/vomiting or diarrhea Patient white count is slightly up to 14.5 creatinine 0.68 as of 12/24/2022, no labs drawn today, CRP is 12.6, sputum is Mari Objective - Vital Signs Vital signs: Vital Signs Temp 98 F 12/26/22 12:07 Pulse 82 12/26/22 12:18 Resp 20 12/26/22 12:07 BP 122/67 12/26/22 12:07 Pulse Ox 94 L 12/26/22 12:07 FiO2 Intake & Output 12/25/22 12/26/22 12/26/22 18:59 06:59 18:59 Intake Total 840 Balance 840 Weight 69.8 kg 73.3 kg Intake: Oral 840 Other: Voiding Method Toilet Toilet # Voids 1 # Bowel Movements 1 - Exam GENERAL DESCRIPTION: An elderly male lying in bed in no distress RESPIRATORY SYSTEM: Unlabored breathing , coarse breath sounds bilaterally HEART: S1 S2 regular rate and rhythm , ABDOMEN: Soft , no tenderness EXTREMITIES: No edema feet - Labs CBC & Chem 7: 12/24/22 09:24 12/24/22 09:24 Labs: Abnormal Lab Results - Last 24 Hours (Table) 12/25/22 12/25/22 12/26/22 Range/Units 16:47 19:49 05:54 POC Glucose (mg/dL) 200 H 200 H 142 H (70-110) mg/dL Assessment and Plan (1) Leukocytosis Current Visit: Yes Status: Acute Code(s): D72.829 - ELEVATED WHITE BLOOD CELL COUNT, UNSPECIFIED SNOMED Code(s): 553202752 (2) Pneumonia Current Visit: Yes Status: Acute Code(s): J18.9 - PNEUMONIA, UNSPECIFIED ORGANISM SNOMED Code(s): 631937421 Plan: 1patient presented to hospital with sepsis in this patient who did have a elevated white count elevated lactic acid source likely pneumonia with a question of gram-negative keeping in mind patient complicated history and previous hospitalization 2--CRP mildly elevated sputum cultures are growing Mari likely colonizer 3-patient has shown clinical improvement and sputum has been negative for any resistant pathogen, has recommended a short course of oral Augmentin on discharge discussed with the admitting team Dictation was produced using [email or web address] dictation software. please excuse any grammatical, word or spelling errors. Time with Patient: Less than 30
--- NOTE | 2022-12-26 15:32 | US ---
EXAMINATION TYPE: US venous doppler duplex LE RT DATE OF EXAM: 12/26/2022 3:07 PM COMPARISON: NONE CLINICAL INDICATION: Male, 77 years old with history of Right lower extremity swelling; Rt lower leg swelling x 1 day SIDE PERFORMED: Right TECHNIQUE: The lower extremity deep venous system is examined utilizing real time linear array sonog monique with graded compression, doppler sonography and color-flow sonography. VESSELS IMAGED: Common Femoral Vein Deep Femoral Vein Greater Saphenous Vein * Femoral Vein Popliteal Vein Small Saphenous Vein * Proximal Calf Veins (* superficial vessels) Right Leg: Negative for DVT significant amount of pitting edema from distal thigh to foot IMPRESSION: 1. Right lower extremity ultrasound negative for deep venous thrombosis. 2. Edema through the right lower extremity.
[2022-12-26 16:01] VITALS: PULSE 78
== END 2022-12-26 15:54 | disposition home or self-care (01) | DRG 871 ==
LOC: EC 20:13 → 3SCARD 22:00
PROVIDERS: ADMIT Hospitalist; ATTEND Hospitalist
PROC: 3E0H76Z Introduction of Nutritional Substance into Lower GI, Via Natural or Artificial Opening (ICD-10-PCS; principal; 2022-12-20)
DX: B37.7 Candidal sepsis (principal); J69.0 Pneumonitis due to inhalation of food and vomit; J96.21 Acute and chronic respiratory failure with hypoxia; C78.01 Secondary malignant neoplasm of right lung; J44.1 Chronic obstructive pulmonary disease with (acute) exacerbation; J44.0 Chronic obstructive pulmonary disease with (acute) lower respiratory infection; J90 Pleural effusion, not elsewhere classified; I47.10 Supraventricular tachycardia, unspecified; B37.1 Pulmonary candidiasis; Z93.1 Gastrostomy status; I10 Essential (primary) hypertension; R13.10 Dysphagia, unspecified; E87.5 Hyperkalemia; G47.33 Obstructive sleep apnea (adult) (pediatric); E78.5 Hyperlipidemia, unspecified; G57.93 Unspecified mononeuropathy of bilateral lower limbs; R47.02 Dysphasia; Z20.822 Contact with and (suspected) exposure to COVID-19; Z85.818 Personal history of malignant neoplasm of other sites of lip, oral cavity, and pharynx; Z79.51 Long term (current) use of inhaled steroids; Z88.5 Allergy status to narcotic agent; Z85.828 Personal history of other malignant neoplasm of skin; Z85.46 Personal history of malignant neoplasm of prostate; Z87.891 Personal history of nicotine dependence; Z79.899 Other long term (current) drug therapy; Z91.030 Bee allergy status
CPT/HCPCS: 36415; 71045; 71275; 74230; 80048; 80053; 83036; 83605; 83735; 83880; 84100; 84484; 85025; 85027; 85379; 85610; 85730; 86140; 87040; 87070; 87205; 87449; 87636; 93005; 93306; 94640; 94760; 96361; 96365; 96366; 96367; 96375; 96376; 99291

== ENCOUNTER → 2023-01-11 | Outpatient (CLI) | payer MEDICARE, BC ==
--- NOTE | 2023-01-13 18:55 | PE ---
EXAMINATION TYPE: PET CT fusion skull to thigh DATE OF EXAM: 01/11/2023 CLINICAL INDICATION:Male, 77 years old with history of C01 ca base of tongue; TECHNIQUE: Following the intravenous administration of 10.5 mCi of F-18 FDG, whole body images are performed from the skull base to the midthigh. Images are reviewed on the computer in the coronal, a xial, and sagittal planes. Reconstructed rotating images are created on independent workstation and reviewed on the computer. A non-contrast CT is performed in conjunction with the PET scan. Glucose level 97 mg/dL CT DLP: 373 mGycm, Automated exposure control for dose reduction was used. COMPARISON: CT None, PET/CT 10/06/2022 FINDINGS: Mediastinal SUV mean is 1.3. Hepatic parenchyma SUV mean is 2.1. SKULL BASE AND NECK: No suspicious radiotracer activity. CHEST, MEDIASTINUM, AND HILAR REGION: * Right upper lobe cystic nodule now has increased metabolic activity and is most consistent with me tastatic disease max SUV 7.2, previously 1.3, 2.4, 1.3, and 0.9. * Right lower lung peripheral nodule Max SUV 3.3 * Additional smaller nodules are below PET/CT threshold: Nodules throughout the lungs appear grossly stable. * Suspected streaky atelectasis along the medial aspect of the right lower lobe max SUV 1.6. * Bibasilar airspace consolidation max SUV 9.4 on the left hand 9.1 on the right. * Streaky atelectasis in the lingula and right middle lobe also present. Max SUV in the right middle lobe 4.9 and in the lingula 2.7. ABDOMEN AND PELVIS: No suspicious radiotracer activity. MUSCULOSKELETAL STRUCTURES: No suspicious radiotracer activity. OTHER CT: Atherosclerosis of the arterial vasculature including at the carotid bifurcations and coron shannan arteries. There is trace pericardial effusion. Moderate centrilobular moderate emphysema changes. IMPRESSION: 1. Findings suspicious for progression of disease with right upper lung pulmonary nodule now with in creased metabolic activity suspicious for neoplasm. No suspicious FDG activity within the head or nec k. 2. Stable smaller subcentimeter pulmonary nodules which are too small for the sensitivity of PET/CT dated the remaining without increased FDG activity. 3. Bibasilar consolidation within the posterior aspect of the lower lobes with increased metabolic a ctivity as well as the lingula and right middle lobe. Findings favor chronic infection/inflammatory p rocess. Attention on follow-up imaging. Correlate for pneumonia and or aspiration.
== END | disposition home or self-care (01) ==
LOC: RADPETMAIN 10:02
PROVIDERS: ATTEND Internal Medicine Hematology & Oncology
DX: C01 Malignant neoplasm of base of tongue (principal); R91.8 Other nonspecific abnormal finding of lung field
CPT/HCPCS: 78815; A9552

== ENCOUNTER → 2023-04-19 | Outpatient (CLI) | payer MEDICARE, BC ==
--- NOTE | 2023-04-23 20:48 | PE ---
EXAMINATION TYPE: PET CT fusion skull to thigh DATE OF EXAM: 04/19/2023 COMPARISON: No recent pertinent CT Prior PET/CT: 01/11/2023 HISTORY: Tongue cancer TECHNIQUE: Following the intravenous administration of 11.67 mCi of F-18 FDG, whole body images are performed from the skull base to the midthigh. Images are reviewed on the computer in the coronal, a xial, and sagittal planes. Reconstructed rotating images are created on independent workstation and reviewed on the computer. A localization and attenuation correction CT is performed in conjunction with the PET scan. DLP: 445.67 mGycm SCAN: Subsequent Blood glucose: 95 mg/dL Average Mediastinum SUV: 2.74 Average Liver SUV: 3.11 FINDINGS: HEAD and NECK: Dedicated head and neck imaging is performed. There is abnormal uptake within the left submandibular region, example image 44, SUV 7.76. Left tongue uptake is not otherwise apparent. Find ing is new from comparison. NECK: In the early whole-body posterior lateral right parotid gland there is a focus of increased ra diotracer accumulation, sample image 36, SUV 3.1. Tiny metastasis is not excluded. THORAX: Small right paratracheal lymph node is present, image 90, 2.68. Slightly more posterior is a greater area of uptake measuring 4.07. Right paratracheal lymph node medial aortopulmonary window, image 92 has an SUV of 5.52. Listeria Left hilar lymph node is present, image 97, SUV 5.2.Right infrahilar adenopathy is present, image 100, SUV 3.94 Small subcarinal lymphadenopathy is present with increased signal, image 97, SUV 4.14. On current delayed examination there is mild uptake within the right apex, SUV 2.77 image 53 and the right posterior lung base, example image 111, SUV 4.44. These areas are diminished in size and intens ity from the comparison study. ABDOMEN: Liver appears heterogenous. Focal abnormal uptake is not identified. PELVIS: There is increased uptake anterior left thigh, image 278, SUV 4.96. Some increased uptake is in the anterolateral right subcutaneous to 74, SUV 6.38. Additional milder uptake is present within t he bilateral anterior thighs on early whole-body images. Body DELAYED: There is some increased signal within the left tonsillar pillar and within the left asp ect of the tongue with mild elevated SUV. There is increased uptake within the right upper lobe mass with an SUV of 5.95. Right posterior lung base uptake is present, example image 111, SUV 4.44. This is increased from comparison. OSSEOUS STRUCTURES: No abnormal uptake LOCALIZATION CT: Prostate contains calcifications mildly prominent. PEG tube is present. COMPARISON: Uptake within the right upper lobe previously had an SUV of 3.17 increased current exam. Lymphadenopathy on the previous exam included a left paratracheal lymph node at the aortopulmonic win domitila, image 100, SUV 2.54. Intense uptake is in the posterior right lung base, SUV 7.07, example image 126. There is scattered uptake through the posterior bilateral lung bases greater on the prior study . Previous uptake within the anterior and anterior lateral physis is new. IMPRESSION: 1. Increased uptake on delayed images within the right upper and right lower lobe lung findings. The volume of uptake in the lung bases however is diminished over the interval. Metastasis within the dif ferential. 2. Left and right paratracheal abnormal lymphadenopathy new from comparison. Prior adenopathy with u ptake may be improved or resolved. 3. New Abnormal uptake within the anterior thighs bilaterally. Subcutaneous metastases may be present . 4. New uptake left submandibular region compatible with metastasis
== END | disposition home or self-care (01) ==
LOC: RADPETMAIN 10:07
PROVIDERS: ATTEND Physician Assistant
DX: C01 Malignant neoplasm of base of tongue (principal)
CPT/HCPCS: 78815; A9552